=== PATIENT | male | born 1945 | race Caucasian/White ===

== ENCOUNTER 2017-04-28 10:55 | Inpatient (IN) | payer OTHER, MEDICARE ==
[2017-04-28] MEDS ORDERED: ACETAMINOPHEN TAB 500 MG TAB PO STA (11:18)
[2017-04-28] MEDS ORDERED: LEVOFLOXACIN 750MG-D5W PMX 750 MG in DEXTROSE/WATER 1 150ML.BAG IVPB STA (11:18)
[2017-04-28] MEDS ORDERED: IPRATROPIUM-ALBUTEROL 3 ML NEB INHALATION STA (11:19)
--- NOTE | 2017-04-28 11:21 | ED ---
General Adult HPI - General Chief complaint: Shortness of Breath Stated complaint: AC Time Seen by Provider: 04/28/17 11:00 Source: patient, RN notes reviewed Mode of arrival: wheelchair Limitations: no limitations - History of Present Illness Initial comments: This is a 71-year-old male with past medical history significant for coronary artery disease diabetes hypertension COPD and congestive heart failure. Patient comes in today because he states her last couple days he's had difficulty breathing and is getting progressively worse per patient states she' s also had a significant cough with positive sputum production. Patient states he has not noted a fever or the chills. Patient denies any chest pain or palpitations. Patient denies abdominal pain patient denies nausea vomiting diarrhea. Patient denies any dysuria hematuria urinary frequency. Patient denies any lightheadedness dizziness or near syncopal episode. Patient denies headache patient denies numbness weakness. Patient has noted that he has pedal edema which she states is chronic. - Related Data Home Medications Medication Instructions Recorded Confirmed Digoxin [Lanoxin] 125 mcg PO DAILY 11/23/14 04/28/17 Ferrous Sulfate [Feosol] 325 mg PO DAILY 11/23/14 04/28/17 Metoprolol Succinate [Toprol XL] 50 mg PO DAILY 11/23/14 04/28/17 Simvastatin [Zocor] 40 mg PO HS 11/23/14 04/28/17 Albuterol Nebulized [Ventolin 2.5 mg INHALATION RT-Q6H PRN 03/27/16 04/28/17 Nebulized] Tiotropium 18 Mcg/Puff [Spiriva] 18 mcg INHALATION RT-DAILY 03/27/16 04/28/17 Fenofibrate (Unknown Dose) 1 tab PO DAILY 04/28/17 04/28/17 Furosemide [Lasix] 60 mg PO TID 04/28/17 04/28/17 Insulin Glargine [Lantus] 80 unit SQ HS 04/28/17 04/28/17 Sodium Chloride 0.65% Nasal [Deep 2 spray NASAL Q1H PRN 04/28/17 04/28/17 Sea (Saline)] Previous Rx's Medication Instructions Recorded Budesonide-Formot 160-4.5 Mcg 2 puff INHALATION RT-BID #1 puff 12/11/14 [Symbicort 160-4.5 Mcg Inhaler] Allergies Allergy/AdvReac Type Severity Reaction Status Date / Time lincomycin HCl Allergy Rash/Hives Verified 04/28/17 11:00 [From Lincocin] propoxyphene HCl Allergy Rash/Hives Verified 04/28/17 11:00 [From Darvon] aspirin AdvReac Unknown Verified 04/28/17 11:00 Review of Systems ROS Statement: Those systems with pertinent positive or pertinent negative responses have been documented in the HPI. ROS Other: All systems not noted in ROS Statement are negative. Past Medical History Past Medical History: Atrial Fibrillation, COPD, CVA/TIA, Diabetes Mellitus, GI Bleed, Hyperlipidemia, Hypertension, Pneumonia Additional Past Medical History / Comment(s): .bronchitis,CHRONIC NOSE BLEEDS WITH ANEMIA- NO ANTICOAGULATION, gout, oxygen dependant History of Any Multi-Drug Resistant Organisms: MRSA Date of last positivie culture/infection: 2010 MDRO Source:: r elbow Past Surgical History: Cholecystectomy, Tonsillectomy Additional Past Surgical History / Comment(s): Lipoma removal from the right side of the abdomen. Past Anesthesia/Blood Transfusion Reactions: No Reported Reaction Additional Past Anesthesia/Blood Transfusion Reaction / Comment(s): blood transfusion-no reaction Past Psychological History: No Psychological Hx Reported Smoking Status: Former smoker Past Alcohol Use History: None Reported Additional Past Alcohol Use History / Comment(s): started smoking at age 21, smoked 2 ppd,quit at age 60 Past Drug Use History: None Reported - Past Family History Mother History Unknown: Yes Family Medical History: No Reported History (Mother at age of 82 from old age) Brother(s) Family Medical History: No Reported History (Patient has one brother) Sister(s) Family Medical History: Cancer (Patient had 3 sisters one from 1 cancer and the other one from [place]), Myocardial Infarction ([place]) Daughter(s) Family Medical History: No Reported History (Patient has 2 daughters no major medical problems) Son(s) Family Medical History: No Reported History (Patient has 2 sons no major medical problems) Father Family Medical History: No Reported History (Father at age of 75 at the [facility] care facility.) General Exam - General Exam Comments Initial Comments: GENERAL: Patient is well-developed and well-nourished. Patient is nontoxic and well- hydrated and is in mild distress. ENT: Neck is soft and supple. No significant lymphadenopathy is noted. Oropharynx is clear. Moist mucous membranes. Neck has full range of motion without eliciting any pain. EYES: The sclera were anicteric and conjunctiva were pink and moist. Extraocular movements were intact and pupils were equal round and reactive to light. Eyelids were unremarkable. PULMONARY: Diminished breath sounds throughout CARDIOVASCULAR: There is a regular rate and rhythm without any murmurs gallops or rubs. ABDOMEN: Soft and nontender with normal bowel sounds. No palpable organomegaly was noted. There is no palpable pulsatile mass. SKIN: Skin is clear with no lesions or rashes and otherwise unremarkable. NEUROLOGIC: Patient is alert and oriented x3. Cranial nerves II through XII are grossly intact. Motor and sensory are also intact. Normal speech, volume and content. Symmetrical smile. MUSCULOSKELETAL: Normal extremities with adequate strength and full range of motion. No lower extremity swelling or edema. No calf tenderness. LYMPHATICS: No significant lymphadenopathy is noted PSYCHIATRIC: Normal psychiatric evaluation. Limitations: no limitations Course Vital Signs 04/28/17 04/28/17 04/28/17 10:56 11:18 11:38 Temperature 98.3 F 99.9 F H Pulse Rate 94 103 H 96 Respiratory 20 14 Rate Blood Pressure 143/67 176/61 O2 Sat by Pulse 97 98 Oximetry 04/28/17 04/28/17 04/28/17 11:39 11:49 12:30 Temperature Pulse Rate 100 95 Respiratory 24 20 Rate Blood Pressure 118/65 O2 Sat by Pulse 96 Oximetry 04/28/17 13:30 Temperature Pulse Rate 94 Respiratory 18 Rate Blood Pressure 107/55 O2 Sat by Pulse 97 Oximetry Medical Decision Making - Medical Decision Making EKG shows a normal sinus rhythm at 94 bpm LA interval is 184 QRS is 78 QT interval 334 QTC is 417. Patient's EKG shows no ST segment elevation or depression or T-wave abdomen is noted Chest x-ray shows congestive heart failure. I gave the patient Lasix. Because the patient's low-grade fever and his cough I decided to put the patient on Levaquin. I spoke with to her he was in agreement with this admitted the patient I consult to cardiology. I continue the Lasix on the floor in the antibiotic as well. - Lab Data Result diagrams: 04/28/17 11:25 04/28/17 11:25 Lab Results 04/28/17 04/28/17 04/28/17 Range/Units 11:25 11:25 11:25 WBC 4.7 (3.8-10.6) k/uL RBC 3.82 L (4.30-5.90) m/uL Hgb 11.0 L (13.0-17.5) gm/dL Hct 32.4 L (39.0-53.0) % MCV 84.8 (80.0-100.0) fL MCH 28.8 (25.0-35.0) pg MCHC 33.9 (31.0-37.0) g/dL RDW 16.4 H (11.5-15.5) % Plt Count 126 L (150-450) k/uL Neutrophils % 79 % Lymphocytes % 11 % Monocytes % 7 % Eosinophils % 2 % Basophils % 1 % Neutrophils # 3.7 (1.3-7.7) k/uL Lymphocytes # 0.5 L (1.0-4.8) k/uL Monocytes # 0.3 (0-1.0) k/uL Eosinophils # 0.1 (0-0.7) k/uL Basophils # 0.0 (0-0.2) k/uL Poikilocytosis Slight Anisocytosis Slight PT (9.0-12.0) sec INR (<1.1) APTT (22.0-30.0) sec Sodium 138 (137-145) mmol/L Potassium 5.2 H (3.5-5.1) mmol/L Chloride 98 (98-107) mmol/L Carbon Dioxide 34 H (22-30) mmol/L Anion Gap 6 mmol/L BUN 30 H (9-20) mg/dL Creatinine 0.93 (0.66-1.25) mg/dL Est GFR (MDRD) Af Amer >60 (>60 ml/min/1.73 sqM) Est GFR (MDRD) Non-Af >60 (>60 ml/min/1.73 sqM) Glucose 217 H (74-99) mg/dL Plasma Lactic Acid Jesse (0.7-2.0) mmol/L Calcium 9.2 (8.4-10.2) mg/dL Total Bilirubin 1.4 H (0.2-1.3) mg/dL AST 24 (17-59) U/L ALT 33 (21-72) U/L Alkaline Phosphatase 86 (38-126) U/L Total Creatine Kinase 110 (55-170) U/L CK-MB (CK-2) 4.2 H* (0.0-2.4) ng/mL CK-MB (CK-2) Rel Index 3.8 Troponin I 0.087 H* (0.000-0.034) ng/mL NT-Pro-B Natriuret Pep pg/mL Total Protein 7.0 (6.3-8.2) g/dL Albumin 3.9 (3.5-5.0) g/dL Urine Color Urine Appearance (Clear) Urine pH (5.0-8.0) Ur Specific [place] (1.001-1.035) Urine Protein (Negative) Urine Glucose (UA) (Negative) Urine Ketones (Negative) Urine Blood (Negative) Urine Nitrite (Negative) Urine Bilirubin (Negative) Urine Urobilinogen (<2.0) mg/dL Ur Leukocyte Esterase (Negative) Influenza Type A RNA (Not Detectd) Influenza Type B (PCR) (Not Detectd) 04/28/17 04/28/17 04/28/17 Range/Units 11:25 11:25 11:25 WBC (3.8-10.6) k/uL RBC (4.30-5.90) m/uL Hgb (13.0-17.5) gm/dL Hct (39.0-53.0) % MCV (80.0-100.0) fL MCH (25.0-35.0) pg MCHC (31.0-37.0) g/dL RDW (11.5-15.5) % Plt Count (150-450) k/uL Neutrophils % % Lymphocytes % % Monocytes % % Eosinophils % % Basophils % % Neutrophils # (1.3-7.7) k/uL Lymphocytes # (1.0-4.8) k/uL Monocytes # (0-1.0) k/uL Eosinophils # (0-0.7) k/uL Basophils # (0-0.2) k/uL Poikilocytosis Anisocytosis PT 9.8 (9.0-12.0) sec INR 1.0 (<1.1) APTT 23.2 (22.0-30.0) sec Sodium (137-145) mmol/L Potassium (3.5-5.1) mmol/L Chloride (98-107) mmol/L Carbon Dioxide (22-30) mmol/L Anion Gap mmol/L BUN (9-20) mg/dL Creatinine (0.66-1.25) mg/dL Est GFR (MDRD) Af Amer (>60 ml/min/1.73 sqM) Est GFR (MDRD) Non-Af (>60 ml/min/1.73 sqM) Glucose (74-99) mg/dL Plasma Lactic Acid Jesse 1.0 (0.7-2.0) mmol/L Calcium (8.4-10.2) mg/dL Total Bilirubin (0.2-1.3) mg/dL AST (17-59) U/L ALT (21-72) U/L Alkaline Phosphatase (38-126) U/L Total Creatine Kinase (55-170) U/L CK-MB (CK-2) (0.0-2.4) ng/mL CK-MB (CK-2) Rel Index Troponin I (0.000-0.034) ng/mL NT-Pro-B Natriuret Pep 1630 pg/mL Total Protein (6.3-8.2) g/dL Albumin (3.5-5.0) g/dL Urine Color Urine Appearance (Clear) Urine pH (5.0-8.0) Ur Specific [place] (1.001-1.035) Urine Protein (Negative) Urine Glucose (UA) (Negative) Urine Ketones (Negative) Urine Blood (Negative) Urine Nitrite (Negative) Urine Bilirubin (Negative) Urine Urobilinogen (<2.0) mg/dL Ur Leukocyte Esterase (Negative) Influenza Type A RNA (Not Detectd) Influenza Type B (PCR) (Not Detectd) 04/28/17 04/28/17 Range/Units 11:25 12:25 WBC (3.8-10.6) k/uL RBC (4.30-5.90) m/uL Hgb (13.0-17.5) gm/dL Hct (39.0-53.0) % MCV (80.0-100.0) fL MCH (25.0-35.0) pg MCHC (31.0-37.0) g/dL RDW (11.5-15.5) % Plt Count (150-450) k/uL Neutrophils % % Lymphocytes % % Monocytes % % Eosinophils % % Basophils % % Neutrophils # (1.3-7.7) k/uL Lymphocytes # (1.0-4.8) k/uL Monocytes # (0-1.0) k/uL Eosinophils # (0-0.7) k/uL Basophils # (0-0.2) k/uL Poikilocytosis Anisocytosis PT (9.0-12.0) sec INR (<1.1) APTT (22.0-30.0) sec Sodium (137-145) mmol/L Potassium (3.5-5.1) mmol/L Chloride (98-107) mmol/L Carbon Dioxide (22-30) mmol/L Anion Gap mmol/L BUN (9-20) mg/dL Creatinine (0.66-1.25) mg/dL Est GFR (MDRD) Af Amer (>60 ml/min/1.73 sqM) Est GFR (MDRD) Non-Af (>60 ml/min/1.73 sqM) Glucose (74-99) mg/dL Plasma Lactic Acid Jesse (0.7-2.0) mmol/L Calcium (8.4-10.2) mg/dL Total Bilirubin (0.2-1.3) mg/dL AST (17-59) U/L ALT (21-72) U/L Alkaline Phosphatase (38-126) U/L Total Creatine Kinase (55-170) U/L CK-MB (CK-2) (0.0-2.4) ng/mL CK-MB (CK-2) Rel Index Troponin I (0.000-0.034) ng/mL NT-Pro-B Natriuret Pep pg/mL Total Protein (6.3-8.2) g/dL Albumin (3.5-5.0) g/dL Urine Color Yellow Urine Appearance Clear (Clear) Urine pH 6.0 (5.0-8.0) Ur Specific [place] 1.010 (1.001-1.035) Urine Protein Trace H (Negative) Urine Glucose (UA) Negative (Negative) Urine Ketones Negative (Negative) Urine Blood Negative (Negative) Urine Nitrite Negative (Negative) Urine Bilirubin Negative (Negative) Urine Urobilinogen <2.0 (<2.0) mg/dL Ur Leukocyte Esterase Negative (Negative) Influenza Type A RNA Not Detected (Not Detectd) Influenza Type B (PCR) Not Detected (Not Detectd) Critical Care Time Critical Care Time: Yes Total Critical Care Time: 35 Disposition Clinical Impression: Congestive heart failure, Bronchitis Disposition: ADMITTED IP TO THIS HOSP Referrals: Nuno Khan MD [Primary Care Provider] - 1-2 days Time of Disposition: 13:49
[2017-04-28 11:40] LABS: Anisocytosis Slight; Basophils % (A) 1 %; CH 28.8; CHCM 34.1; Eosinophils # (A) 0.1 k/uL (0-0.7); Eosinophils % (A) 2 %; HCT 32.4 % (39.0-53.0); HDW 3.76; Luc # (Auto) 0.07; Luc % (Auto) 2; Lymphocytes # (A) 0.5 k/uL (1.0-4.8); Lymphocytes % (A) 11 %; MCH 28.8 pg (25.0-35.0); MCHC 33.9 g/dL (31.0-37.0); MCV 84.8 fL (80.0-100.0); Mean Platelet Volume 8.6; Monocytes # (A) 0.3 k/uL (0-1.0); Monocytes % (A) 7 %; Neutrophils # (A) 3.7 k/uL (1.3-7.7); Neutrophils % (A) 79 %; Poikilocytosis Slight; RBC 3.82 m/uL (4.30-5.90); RDW 16.4 % (11.5-15.5); WBC 4.7 k/uL (3.8-10.6); WBC (Perox) 4.84
[2017-04-28 11:50] LABS: ALT 33 U/L (21-72); AST 24 U/L (17-59); Alkaline Phosphatase 86 U/L (38-126); Anion Gap 6 mmol/L; Blood Urea Nitrogen 30 mg/dL (9-20); Calcium 9.2 mg/dL (8.4-10.2); Carbon Dioxide 34 mmol/L (22-30); Chloride 98 mmol/L (98-107); Glucose 217 mg/dL (74-99); Non-African American GFR(MDRD) >60 (>60 ml/min/1.73 sqM); Potassium 5.2 mmol/L (3.5-5.1); Sodium 138 mmol/L (137-145); Total Bilirubin 1.4 mg/dL (0.2-1.3)
[2017-04-28 11:57] LABS: Partial Thromboplastin Time 23.2 sec (22.0-30.0); Prothrombin Time 9.8 sec (9.0-12.0)
--- NOTE | 2017-04-28 12:09 | XR ---
EXAMINATION TYPE: XR chest 2V DATE OF EXAM: 04/28/2017 COMPARISON: Chest x-ray January 24, 2017. CTA chest March 27, 2016. HISTORY: Difficulty in breathing, productive cough, and congestion. TECHNIQUE: Frontal and lateral views of the chest are obtained. FINDINGS: Mild to moderate underlying emphysematous change is present. There is cardiomegaly with josé tral vascular congestion and small right pleural effusion with blunting of right posterior costophren ic angle. No suspicious focal airspace opacity or pneumothorax is seen bilaterally. There is atherosc lerotic change in aortic knob. Osseous structures are somewhat demineralized. There is mild multileve l height loss and spurring. IMPRESSION: Chronic emphysematous change and cardiomegaly with central vascular congestion and small right pleural effusion, consider CHF exacerbation.
[2017-04-28 12:22] LABS: Creatine Kinase MB 4.2 ng/mL (0.0-2.4); Troponin I 0.087 ng/mL (0.000-0.034)
[2017-04-28 13:26] LABS: Appearance,Urine Clear (Clear); Bilirubin,Urine Negative (Negative); Glucose,Urine (UA) Negative (Negative); Ketones,Urine Negative (Negative); Leukocyte Esterase,Urine Negative (Negative); Nitrite,Urine Negative (Negative); Protein,Urine Trace (Negative); UA Billing (MACRO vs. MICRO) CHEM; Urobilinogen,Urine <2.0 mg/dL (<2.0)
[2017-04-28] MEDS ORDERED: FUROSEMIDE 10 MG/ML 2 ML VIAL IV STA (13:32)
[2017-04-28] MEDS ORDERED: NITROGLYCERIN OINT 1 INCH/GM PACKET TOPICAL STA (13:32)
[2017-04-28] MEDS ORDERED: ASPIRIN 81 MG CHEW PO STA (13:33)
[2017-04-28] MEDS ORDERED: LEVOFLOXACIN 750 MG TAB PO STA (13:47)
[2017-04-28] MEDS ORDERED: FUROSEMIDE 10 MG/ML 4 ML VIAL IV SCH (14:00)
[2017-04-28] MEDS ORDERED: SODIUM CHLORIDE 0.65% NASAL SPRAY 44 ML BTL NASAL PRN (15:32)
--- NOTE | 2017-04-28 15:32 | P.HPIM ---
History of Present Illness H&P Date: 04/28/17 Chief Complaint: Shortness of breath his is a 71-year-old male one of Dr. Bill Reina with a previous medical history significant for hypertension and hypertensive cardiovascular disease, hyperlipidemia, history of CVA/TIA, chronic atrial fibrillation, chronic diastolic heart failure, gout, chronic obstructive pulmonary disease , who sees Dr. Almeida the regular basis every [address] Cerda on a regular basis as well, the patient was brought into the emergency department at [facility] with 2 day history of increased shortness breath associated with increased coughing of phlegm production, patient stated that he has been laying in bed for the past 2 days not able to do much, patient was seen in the ER had a chest x-ray that showed congestive heart failure and patient did receive Lasix IV and he was admitted to the hospital for evaluation and cardiology consultation as well as pulmonary consultation was obtained. Review of Systems Constitutional: Denies anorexia, Denies chronic headaches, Denies lethargy, Denies malaise, Denies weakness, Denies weight gain Eyes: denies blurred vision, denies bulging eye, denies decreased vision Ears: deny: decreased hearing Ears, nose, mouth and throat: Denies dysphagia, Denies nose pain, Denies swelling in throat, Denies sore throat Cardiovascular: Reports decreased exercise tolerance, Reports dyspnea on exertion, Reports high blood pressure, Reports irregular heart beat, Reports shortness of breath, Denies chest pain, Denies phlebitis, Denies rapid heart beat, Denies syncope Respiratory: Reports cough, Reports cough with sputum, Reports dyspnea, Denies congestion, Denies home oxygen, Denies sleep apnea, Denies snoring, Denies wheezing Gastrointestinal: Denies abdominal pain, Denies belching, Denies BRBPR, Denies change in bowel habits, Denies excessive gas, Denies melena, Denies nausea, Denies vomiting Genitourinary: Reports nocturia, Denies discharge, Denies dysuria, Denies polyuria Musculoskeletal: Denies myalgias Musculoskeletal: bilateral: foot swelling, absent: ankle pain, ankle stiffness, ankle swelling, elbow pain, elbow stiffness, elbow swelling, foot pain, foot stiffness, hand pain, hand stiffness, hand swelling, hip pain, hip stiffness, hip swelling, knee pain, knee stiffness, knee swelling, shoulder pain, shoulder stiffness, shoulder swelling, wrist pain, wrist stiffness, wrist swelling Integumentary: Denies pruritus, Denies rash Neurological: Denies numbness, Denies weakness Psychiatric: Denies anxiety, Denies depression Endocrine: Denies fatigue, Denies weight change Past Medical History Past Medical History: Atrial Fibrillation, COPD, CVA/TIA, Diabetes Mellitus, GI Bleed, Hyperlipidemia, Hypertension, Osteoarthritis (OA), Pneumonia Additional Past Medical History / Comment(s): .bronchitis,CHRONIC NOSE BLEEDS WITH ANEMIA- NO ANTICOAGULATION, gout, oxygen dependant History of Any Multi-Drug Resistant Organisms: MRSA Date of last positivie culture/infection: 2010 MDRO Source:: r elbow Past Surgical History: Cholecystectomy, Tonsillectomy Additional Past Surgical History / Comment(s): Lipoma removal from the right side of the abdomen. Past Anesthesia/Blood Transfusion Reactions: No Reported Reaction Additional Past Anesthesia/Blood Transfusion Reaction / Comment(s): blood transfusion-no reaction Past Psychological History: No Psychological Hx Reported Smoking Status: Former smoker Past Alcohol Use History: None Reported Additional Past Alcohol Use History / Comment(s): started smoking at age 21, smoked 2 ppd,quit at age 60 Past Drug Use History: None Reported - Past Family History Mother History Unknown: Yes Family Medical History: No Reported History (Mother at age of 82 from old age) Brother(s) Family Medical History: No Reported History (Patient has one brother) Sister(s) Family Medical History: Cancer (Patient had 3 sisters one from 1 cancer and the other one from [place]), Myocardial Infarction ([place]) Daughter(s) Family Medical History: No Reported History (Patient has 2 daughters no major medical problems) Son(s) Family Medical History: No Reported History (Patient has 2 sons no major medical problems) Father Family Medical History: No Reported History (Father at age of 75 at the extended care facility.) Medications and Allergies Home Medications Medication Instructions Recorded Confirmed Type Digoxin [Lanoxin] 125 mcg PO DAILY 11/23/14 04/28/17 History Ferrous Sulfate [Feosol] 325 mg PO DAILY 11/23/14 04/28/17 History Metoprolol Succinate [Toprol XL] 50 mg PO DAILY 11/23/14 04/28/17 History Simvastatin [Zocor] 40 mg PO HS 11/23/14 04/28/17 History Albuterol Nebulized [Ventolin 2.5 mg INHALATION RT-Q6H PRN 03/27/16 04/28/17 History Nebulized] Tiotropium 18 Mcg/Puff [Spiriva] 18 mcg INHALATION RT-DAILY 03/27/16 04/28/17 History Fenofibrate (Unknown Dose) 1 tab PO DAILY 04/28/17 04/28/17 History Furosemide [Lasix] 60 mg PO TID 04/28/17 04/28/17 History Insulin Glargine [Lantus] 80 unit SQ HS 04/28/17 04/28/17 History Sodium Chloride 0.65% Nasal [Deep 2 spray NASAL Q1H PRN 04/28/17 04/28/17 History Sea (Saline)] Allergies Allergy/AdvReac Type Severity Reaction Status Date / Time lincomycin HCl Allergy Rash/Hives Verified 04/28/17 11:00 [From Lincocin] propoxyphene HCl Allergy Rash/Hives Verified 04/28/17 11:00 [From Darvon] aspirin AdvReac Unknown Verified 04/28/17 11:00 Physical Exam Vitals: Vital Signs Temp Pulse Resp BP Pulse Ox 04/28/17 15:19 98.5 F 96 18 108/66 97 04/28/17 14:30 95 18 116/56 97 04/28/17 13:30 94 18 107/55 97 04/28/17 12:30 95 20 118/65 96 04/28/17 11:49 100 04/28/17 11:39 24 04/28/17 11:38 96 04/28/17 11:18 99.9 F H 103 H 14 176/61 98 04/28/17 10:56 98.3 F 94 20 143/67 97 Intake and Output 04/28/17 04/28/17 04/28/17 06:59 14:59 22:59 Other: Weight 108.862 kg Patient Weight 04/29/17 06:59 Weight 108.862 kg - Constitutional General appearance: average body habitus, mild distress - EENT Eyes: anicteric sclerae, EOMI, PERRLA, no ptosis, no scleral icterus, normal appearance ENT: hearing grossly normal, NA/AT, normal oropharynx, no thrush Ears: bilateral: normal - Neck Neck: no lymphadenopathy, normal ROM, no rigidity, no stridor, no thyromegaly Carotids: bilateral: upstroke normal Thyroid: bilateral: normal size - Respiratory Respiratory: bilateral: diminished, negative: dullness, rales, rhonchi, wheezing , prolonged expiration - Cardiovascular Rhythm: irregularly irregular Heart sounds: normal: S1, S2 Abnormal Heart Sounds: systolic murmur - Gastrointestinal General gastrointestinal: normal bowel sounds, soft, no splenomegaly, no tenderness, no umbilical hernia, no ventral hernia - Integumentary Integumentary: normal, normal turgor - Neurologic Neurologic: CNII-XII intact - Musculoskeletal Musculoskeletal: generalized weakness, strength equal bilaterally - Psychiatric Psychiatric: A&O x's 3, appropriate affect, intact judgment & insight Results CBC & Chem 7: 04/28/17 11:25 04/28/17 11:25 Labs: Abnormal Lab Results - Last 24 Hours (Table) 04/28/17 04/28/17 04/28/17 Range/Units 11:25 11:25 11:25 RBC 3.82 L (4.30-5.90) m/uL Hgb 11.0 L (13.0-17.5) gm/dL Hct 32.4 L (39.0-53.0) % RDW 16.4 H (11.5-15.5) % Plt Count 126 L (150-450) k/uL Lymphocytes # 0.5 L (1.0-4.8) k/uL Potassium 5.2 H (3.5-5.1) mmol/L Carbon Dioxide 34 H (22-30) mmol/L BUN 30 H (9-20) mg/dL Glucose 217 H (74-99) mg/dL Total Bilirubin 1.4 H (0.2-1.3) mg/dL CK-MB (CK-2) 4.2 H* (0.0-2.4) ng/mL Troponin I 0.087 H* (0.000-0.034) ng/mL Urine Protein (Negative) 04/28/17 Range/Units 12:25 RBC (4.30-5.90) m/uL Hgb (13.0-17.5) gm/dL Hct (39.0-53.0) % RDW (11.5-15.5) % Plt Count (150-450) k/uL Lymphocytes # (1.0-4.8) k/uL Potassium (3.5-5.1) mmol/L Carbon Dioxide (22-30) mmol/L BUN (9-20) mg/dL Glucose (74-99) mg/dL Total Bilirubin (0.2-1.3) mg/dL CK-MB (CK-2) (0.0-2.4) ng/mL Troponin I (0.000-0.034) ng/mL Urine Protein Trace H (Negative) Thrombosis Risk Factor Assmnt - DVT/VTE Prophylaxis DVT/VTE Prophylaxis: Pharmacologic Prophylaxis ordered, Mechanical Prophylaxis ordered Assessment and Plan Plan: Assessment and plan: 1. Acute diastolic heart failure. Continue patient on Lasix 60 mg IV push every 12 hours, metoprolol 50 mg orally once every day, digoxin 125 g orally once every day, her input and output and daily weight, cardiology consultation. 2. Hypertension and hypertensive cardiovascular disease. Continue metoprolol 50 mg orally once every day. 3. Diabetes mellitus type 2. Decrease Lantus 80 units at bedtime , continue with a sliding scale insulin as well, BJM will be checked before each meal and at bedtime. 4. Hyperlipidemia. Continue simvastatin 40 mg orally at bedtime. 5. COPD with mild bronchitis. Continue albuterol nebulization 4 times every day Spiriva 18 mcg 1 capsule inhalation once every day and Symbicort 160/4.5 g 2 puff inhalation twice every day. We will add Levaquin 500 mg IV piggyback every 24 hours. Pulmonary consultation from Dr. Cerda., Check d-dimer level , if elevated patient will need to go for a CTA of the chest. 6. History of gout .continue allopurinol 100 mg orally once every day. 7. History of CVA and TIA .continue patient on aspirin 81 mg once every day. 8. DVT prophylaxis. Continue bilateral knee-high MILLI hose. 9. GI prophylaxis. Protonix 40 mg orally once every day. 10. Patient is full code. 11. Admitted as an inpatient, estimated length of stay 2 midnights.
--- NOTE | 2017-04-28 16:54 | CE ---
DATE OF SERVICE: 71-year-old male patient with a history of atrial fibrillation. He has undergone atrial fibrillation ablation in the past. He came back with recurrence and he was brought in for ( ) and he is asymptomatic with tiredness, fatigue and shortness of breath. This is sustained. He was brought to the EP lab in a fasting state. Written informed consent was obtained prior to the procedure. The dual-chamber ICD was interrogated prior to the procedure and programmed. Note is dictated separately previously. The right and left groins were prepped and draped as per protocol and 1% lidocaine was used for local anesthesia. Two venous sheaths in the right femoral vein, 2 venous sheaths in the left femoral vein and right femoral arterial line were placed. Hemodynamic monitoring was performed and sampling was performed through the procedure, ACT was maintained above 300 while on heparin. At the end of the procedure, the heparin was reversed with Protamine. Diagnostic catheter was placed in the right in the high right atrial catheter, His bundle area and right ventricle and the coronary sinus. The patient was in atrial fibrillation (organized) with a cycle length of about 178 ms). The coronary sinus catheter was placed. The activation pattern was somewhat lateral to medial (likely). The QRS width is 105 ms, AH interval was 48 ms, the AH interval in sinus rhythm was 112 ms, HV interval was 48 ms. Intracardiac echocardiography was performed. The left atrial map of the pulmonary venous map was made anatomically and later ( ) anatomic information superimposed on this. First 3D mapping of the right atrium was performed. There was broad area activation along the anterior lateral right atrial wall. The coronary sinus was mapped and the coronary sinus activation was made. Left and right transseptal catheterization was performed. The LA pressure was elevated to ( ) mmHg using intracardiac echocardiography ( ) was punctured and the sheath was placed. Via this, 3D activation mapping was performed. There were multiple areas of early activation. One was along the 6:00 portion of the right inferior pulmonary vein both anteriorly and posteriorly and the next was outside right along the superior pulmonary veins on the end anteriorly. There is an area of activation in the middle of the roof superiorly and a small area along the roof of the left superior pulmonary vein. Mapping was performed along the roof and when the roof line was made, in the middle of the roof line, the tachycardia terminated (somewhat anterior roof line). The patient remained in sinus rhythm thereafter. ( ) cycle length tachycardia was induced later when moving along the lateral aspect of the roof line, and roof line was completed thereafter. There was no other arrhythmias induced. ( ) mapping of the pulmonary veins was performed and radiofrequency ablation was applied on the antrum of the pulmonary veins in the sites mentioned above, including the anterior aspect of the right superior, the inferior pole of the right inferior and the roof of left superior pulmonary veins. The pulmonary veins were rendered completely quiescent. Following that, Isuprel was infused and no other arrhythmias were induced. Atrial pacing was performed from the high right atrium, coronary sinus, the right ventricle. Burst stimulation was performed. No other arrhythmias were induced. All catheters were removed. At the end of the procedure heparin was reversed and the patient was extubated. Following that, dual-chamber ICD was interrogated. Atrial packing threshold 0.75 v at 0.5 ms, P waves and during sinus rhythm was 2.5 mV, pacing impedance 430 ohms, the RV pacing threshold 0.5 v at 0.5 ms, R waves were 12 mV, and pacing impedance of 130 ohms, high-voltage impedance 64 ohms. The device was then reprogrammed ( ) parameters. Patient tolerated the procedure well without any acute complications. RESULT: Successful ablation for atrial fibrillation, organized with termination of the tachycardia along the roof line anteriorly, antral isolation of the pulmonary veins. Patient tolerated the procedure well without any acute complications.
[2017-04-28] MEDS: NITROGLYCERIN OINT 1 INCH/GM PACKET TOPICAL SCH ×2 (18:40→21:39)
[2017-04-28] MEDS: SYMBICORT 160-4.5 MCG INHALER INHALATION SCH (19:41)
[2017-04-28] MEDS: ALBUTEROL NEBULIZED 2.5 MG/3 ML INHALATION PRN (19:53)
[2017-04-28 21:32] LABS: Glucose,Whole Blood 245 mg/dL (75-99)
[2017-04-28] MEDS: FUROSEMIDE 10 MG/ML 10 ML VIAL IV SCH (21:46)
[2017-04-28] MEDS: ATORVASTATIN 20 MG TAB PO SCH (21:46)
[2017-04-28] MEDS: INSULIN GLARGINE 100 UNIT/ML 10 ML VIAL SQ SCH (21:47)
[2017-04-29] MEDS ORDERED: FUROSEMIDE 10 MG/ML 4 ML VIAL IV SCH
[2017-04-29 06:14] LABS: Glucose,Whole Blood 161 mg/dL (75-99)
[2017-04-29 07:06] LABS: Anisocytosis Slight; Basophils % (A) 0 %; CH 28.7; CHCM 33.6; Eosinophils # (A) 0.1 k/uL (0-0.7); Eosinophils % (A) 2 %; HCT 31.8 % (39.0-53.0); HGB 10.5 gm/dL (13.0-17.5); Luc # (Auto) 0.07; Luc % (Auto) 2; Lymphocytes # (A) 0.6 k/uL (1.0-4.8); Lymphocytes % (A) 14 %; MCH 28.4 pg (25.0-35.0); Mean Platelet Volume 7.5; Monocytes # (A) 0.3 k/uL (0-1.0); Monocytes % (A) 6 %; Neutrophils # (A) 3.2 k/uL (1.3-7.7); Neutrophils % (A) 75 %; Poikilocytosis Slight; RDW 16.1 % (11.5-15.5); WBC 4.3 k/uL (3.8-10.6); WBC (Perox) 4.67
[2017-04-29 07:30] LABS: ALT 30 U/L (21-72); AST 23 U/L (17-59); Alkaline Phosphatase 89 U/L (38-126); Anion Gap 9 mmol/L; Blood Urea Nitrogen 29 mg/dL (9-20); Calcium 9.3 mg/dL (8.4-10.2); Carbon Dioxide 34 mmol/L (22-30); Chloride 97 mmol/L (98-107); Digoxin <0.4 ng/mL; Glucose 143 mg/dL (74-99); Magnesium 1.9 mg/dL (1.6-2.3); Non-African American GFR(MDRD) >60 (>60 ml/min/1.73 sqM); Potassium 4.4 mmol/L (3.5-5.1); Sodium 140 mmol/L (137-145); Total Bilirubin 1.6 mg/dL (0.2-1.3); Total Protein 6.8 g/dL (6.3-8.2)
[2017-04-29] MEDS: TIOTROPIUM 18 MCG/PUFF INHALER INHALATION SCH (07:32)
[2017-04-29] MEDS: SYMBICORT 160-4.5 MCG INHALER INHALATION SCH ×2 (07:33→20:15)
[2017-04-29] MEDS: FENOFIBRATE 160 MG TAB PO SCH (09:04)
[2017-04-29] MEDS: ENOXAPARIN 40 MG/0.4 ML SYRINGE SQ SCH (09:04)
[2017-04-29] MEDS: NITROGLYCERIN OINT 1 INCH/GM PACKET TOPICAL SCH ×4 (09:04→21:56)
[2017-04-29] MEDS: DIGOXIN 125 MCG TAB PO SCH (09:05)
[2017-04-29] MEDS: FERROUS SULFATE 325 MG TAB PO SCH (09:05)
[2017-04-29] MEDS: METOPROLOL SUCCINATE (ER) 50 MG TAB.ER.24H PO SCH (09:05)
[2017-04-29] MEDS: FUROSEMIDE 10 MG/ML 10 ML VIAL IV SCH (09:05)
--- NOTE | 2017-04-29 11:21 | P.PN ---
Subjective his is a 71-year-old male one of Dr. Bill Reina with a previous medical history significant for hypertension and hypertensive cardiovascular disease, hyperlipidemia, history of CVA/TIA, chronic atrial fibrillation, chronic diastolic heart failure, gout, chronic obstructive pulmonary disease , who sees Dr. Almeida the regular basis every [address] Cerda on a regular basis as well, the patient was brought into the emergency department at [facility] today with 2 day history of increased shortness breath associated with increased coughing of phlegm production, patient stated that he has been laying in bed for the past 2 days not able to do much, patient was seen in the ER had a chest x-ray that showed congestive heart failure and patient did receive Lasix IV and he was admitted to the hospital for evaluation and cardiology consultation as well as pulmonary consultation was obtained. 04/29: Patient is doing much better today he denies any chest pain, shortness of breath, he has no swelling in both lower extremities, we will decrease his Lasix to 40 mg IV push every 12 hours for the next 24 hours then he would be discharged home tomorrow morning. Objective - Vital Signs Vital signs: Vital Signs Temp 98.3 F 04/29/17 08:00 Pulse 95 04/29/17 08:00 Resp 12 04/29/17 08:00 BP 100/53 04/29/17 08:00 Pulse Ox 94 L 04/29/17 04:00 Intake & Output 04/28/17 04/29/17 04/29/17 18:59 06:59 18:59 Output Total 250 1100 Balance -250 -1100 Weight 108.862 kg 109.8 kg Output: Urine 250 1100 Other: # Voids 1 - Exam Constitutional General appearance: average body habitus, mild distress - EENT Eyes: anicteric sclerae, EOMI, PERRLA, no ptosis, no scleral icterus, normal appearance ENT: hearing grossly normal, NA/AT, normal oropharynx, no thrush Ears: bilateral: normal - Neck Neck: no lymphadenopathy, normal ROM, no rigidity, no stridor, no thyromegaly Carotids: bilateral: upstroke normal Thyroid: bilateral: normal size - Respiratory Respiratory: bilateral: diminished, negative: dullness, rales, rhonchi, wheezing , prolonged expiration - Cardiovascular Rhythm: irregularly irregular Heart sounds: normal: S1, S2 Abnormal Heart Sounds: systolic murmur - Gastrointestinal General gastrointestinal: normal bowel sounds, soft, no splenomegaly, no tenderness, no umbilical hernia, no ventral hernia - Integumentary Integumentary: normal, normal turgor - Neurologic Neurologic: CNII-XII intact - Musculoskeletal Musculoskeletal: generalized weakness, strength equal bilaterally - Psychiatric Psychiatric: A&O x's 3, appropriate affect, intact judgment & insight - Labs CBC & Chem 7: 04/29/17 06:24 04/29/17 06:24 Labs: Abnormal Lab Results - Last 24 Hours (Table) 04/28/17 04/28/17 04/28/17 Range/Units 11:25 11:25 11:25 RBC 3.82 L (4.30-5.90) m/uL Hgb 11.0 L (13.0-17.5) gm/dL Hct 32.4 L (39.0-53.0) % RDW 16.4 H (11.5-15.5) % Plt Count 126 L (150-450) k/uL Lymphocytes # 0.5 L (1.0-4.8) k/uL Potassium 5.2 H (3.5-5.1) mmol/L Chloride (98-107) mmol/L Carbon Dioxide 34 H (22-30) mmol/L BUN 30 H (9-20) mg/dL Glucose 217 H (74-99) mg/dL POC Glucose (mg/dL) (75-99) mg/dL Total Bilirubin 1.4 H (0.2-1.3) mg/dL CK-MB (CK-2) 4.2 H* (0.0-2.4) ng/mL Troponin I 0.087 H* (0.000-0.034) ng/mL Urine Protein (Negative) 04/28/17 04/28/17 04/28/17 Range/Units 12:25 16:55 21:31 RBC (4.30-5.90) m/uL Hgb (13.0-17.5) gm/dL Hct (39.0-53.0) % RDW (11.5-15.5) % Plt Count (150-450) k/uL Lymphocytes # (1.0-4.8) k/uL Potassium (3.5-5.1) mmol/L Chloride (98-107) mmol/L Carbon Dioxide (22-30) mmol/L BUN (9-20) mg/dL Glucose (74-99) mg/dL POC Glucose (mg/dL) 245 H (75-99) mg/dL Total Bilirubin (0.2-1.3) mg/dL CK-MB (CK-2) (0.0-2.4) ng/mL Troponin I 0.085 H* (0.000-0.034) ng/mL Urine Protein Trace H (Negative) 04/28/17 04/29/17 04/29/17 Range/Units 23:17 06:13 06:24 RBC 3.70 L (4.30-5.90) m/uL Hgb 10.5 L (13.0-17.5) gm/dL Hct 31.8 L (39.0-53.0) % RDW 16.1 H (11.5-15.5) % Plt Count 141 L (150-450) k/uL Lymphocytes # 0.6 L (1.0-4.8) k/uL Potassium (3.5-5.1) mmol/L Chloride (98-107) mmol/L Carbon Dioxide (22-30) mmol/L BUN (9-20) mg/dL Glucose (74-99) mg/dL POC Glucose (mg/dL) 161 H (75-99) mg/dL Total Bilirubin (0.2-1.3) mg/dL CK-MB (CK-2) (0.0-2.4) ng/mL Troponin I 0.067 H* (0.000-0.034) ng/mL Urine Protein (Negative) 04/29/17 Range/Units 06:24 RBC (4.30-5.90) m/uL Hgb (13.0-17.5) gm/dL Hct (39.0-53.0) % RDW (11.5-15.5) % Plt Count (150-450) k/uL Lymphocytes # (1.0-4.8) k/uL Potassium (3.5-5.1) mmol/L Chloride 97 L (98-107) mmol/L Carbon Dioxide 34 H (22-30) mmol/L BUN 29 H (9-20) mg/dL Glucose 143 H (74-99) mg/dL POC Glucose (mg/dL) (75-99) mg/dL Total Bilirubin 1.6 H (0.2-1.3) mg/dL CK-MB (CK-2) (0.0-2.4) ng/mL Troponin I (0.000-0.034) ng/mL Urine Protein (Negative) Microbiology - Last 24 Hours (Table) 04/28/17 12:25 Urine Culture - Preliminary Urine,Voided Assessment and Plan Plan: Assessment and plan: 1. Acute diastolic heart failure. Continue patient on Lasix and decrease it to40 mg IV push every 12 hours, metoprolol 50 mg orally once every day, digoxin 125 g orally once every day, her input and output and daily weight, cardiology consultation. 2. Hypertension and hypertensive cardiovascular disease. Continue metoprolol 50 mg orally once every day. 3. Diabetes mellitus type 2. Decrease Lantus 80 units at bedtime , continue with a sliding scale insulin as well, BJM will be checked before each meal and at bedtime. 4. Hyperlipidemia. Continue simvastatin 40 mg orally at bedtime. 5. COPD with mild bronchitis. Continue albuterol nebulization 4 times every day Spiriva 18 mcg 1 capsule inhalation once every day and Symbicort 160/4.5 g 2 puff inhalation twice every day. We will add Levaquin 500 mg IV piggyback every 24 hours. Pulmonary consultation from Dr. Cerda., Check d-dimer level , if elevated patient will need to go for a CTA of the chest. 6. History of gout .continue allopurinol 100 mg orally once every day. 7. History of CVA and TIA .continue patient on aspirin 81 mg once every day. 8. DVT prophylaxis. Continue bilateral knee-high MILLI hose. 9. GI prophylaxis. Protonix 40 mg orally once every day. 10. Patient is full code. 11. Anticipate discharge home tomorrow morning.
[2017-04-29 11:46] LABS: Glucose,Whole Blood 174 mg/dL (75-99)
--- NOTE | 2017-04-29 12:15 | P.CNPUL ---
History of Present Illness Consult date: 04/29/17 Reason for consult: dyspnea History of present illness: A 71-year-old male patient, very well-known to me because of his advanced COPD, and chronic hypoxic arrest 30 failure whereas been also followed up [facility] and his primary care physician is Dr. Khan. This patient has been maintained on oxygen at 3 L/m nasal cannula. He is known to have subcentimeter pulmonary nodules a some previous CAT scan of the chest and he was found out to have 1-2 mm nodule in the lateral aspect of the left lung and lateral basilar segment of the left lower lobe. These were thought to be benign. In terms of his COPD, the patient has been maintained on a combination of Spiriva and Symbicort and albuterol neb last treatment on it and needed basis. He had an exacerbation on March 2016 for which she was admitted to the hospital and during the same hospitalization he had complications of epistaxis. Following that, around December 2016, the patient wasn't a trip to [place] and on the way back the patient developed a seizure and he was admitted to [facility]. At that time was also diagnosed having a left lower lobe pneumonia and the patient had a moderate to large airspace consolidation/infiltrate in the left lung base. The patient completed treatment and he was discharged home and subsequent chest x-ray showed some residual haziness in the left lung base. Note that his echocardiogram that was done at [facility] at that time showed moderate to severe aortic stenosis and mild regurgitation with an ejection fraction of 6065%. He is also known to have paroxysmal atrial fibrillation. The patient is also known to have a positive TB skin test. A sputum analysis that was done at the [facility] in [place] from December 2016 was positive for AFB. Subsequently the patient was contacted and he was told to have a nontuberculous disease. I repeated his sputum Gram stain and culture and February 2017 and it came back negative. He a had a repeat CAT scan of the chest on 02/17/2017 and it basically showed interval diminution of the size and density of the left lower lobe infiltrate compared to the previous evaluations. He also had a small residual left-sided pleural effusion on the right lung demonstrated multiple nodules one of them was calcified in the right lower lobe. There are also several millimeters noncalcified nodules laterally in the right midlung. The mediastinum was free of any disease The patient got hospitalized yesterday because of increased shortness of breath. He is coughing up yellowish sputum. No hemoptysis. No pleurisy. No weight loss. No fever or chills or night sweats. No indication of any active tuberculosis. No angina. He had no increased swelling lower extremities. His chest x-ray showed cardiomegaly and pulmonary vascular congestion. He was admitted and currently is being treated for an acute CHF and is currently on IV Lasix. He was also found to have some mild troponin leak and no acute EKG changes and the white cell count is not elevated and a creatinine is normal at 1.1. His EKG showing normal sinus rhythm. No acute ischemic changes. Review of Systems All systems: negative Constitutional: Denies chills, Denies fever Eyes: denies blurred vision, denies pain Ears, nose, mouth and throat: Denies headache, Denies sore throat Cardiovascular: Reports decreased exercise tolerance, Reports dyspnea on exertion, Denies shortness of breath Respiratory: Reports cough, Reports cough with sputum, Reports dyspnea, Reports respiratory infections, Reports wheezing Gastrointestinal: Denies abdominal pain, Denies diarrhea, Denies nausea, Denies vomiting Musculoskeletal: Denies myalgias Integumentary: Denies pruritus, Denies rash Neurological: Denies numbness, Denies weakness Psychiatric: Denies anxiety, Denies depression Endocrine: Denies fatigue, Denies weight change 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, history of positive AFB in the sputum with subsequent negative cultures, CVA/TIA , diabetes mellitus, hyperlipidemia, hypertension, impaired hearing, left lower lobe pneumonia with some residual effusion the left lung base, scattered bilateral pulmonary nodules, previous history of epistaxis and the patient is on no anticoagulants, gout, aortic stenosis moderate to severe in nature with a preserved LV function, peripheral vascular disease History of Any Multi-Drug Resistant Organisms: MRSA Date of last positivie culture/infection: 2010 MDRO Source:: r elbow Past Surgical History: Cholecystectomy, Tonsillectomy Additional Past Surgical History / Comment(s): Lipoma removal from the right side of the abdomen. Past Anesthesia/Blood Transfusion Reactions: No Reported Reaction Additional Past Anesthesia/Blood Transfusion Reaction / Comment(s): blood transfusion-no reaction Past Psychological History: No Psychological Hx Reported Additional Psychological History / Comment(s): PT LIVES WITH STEPHANY IN A 2 STORY HOME THAT HAS 8 PORCH STEPS AND 12 STEPS TO EITHER 2ND FLOOR OR BASEMENT. PETS:2 DOGS. NO OUT SIDE SERVICES RECIEVED. PT HAS NEBULIZER AND HOME 02. PT SERVED IN THE [employer] WHEN YOUNGER. RETIRED FROM [employer]. Smoking Status: Former smoker Past Alcohol Use History: None Reported Additional Past Alcohol Use History / Comment(s): started smoking at age 21, smoked 2 ppd,quit at age 60 Past Drug Use History: None Reported - Past Family History Mother History Unknown: Yes Family Medical History: No Reported History Brother(s) Family Medical History: No Reported History Sister(s) Family Medical History: Cancer, Myocardial Infarction (OR) Daughter(s) Family Medical History: No Reported History Son(s) Family Medical History: No Reported History Father Family Medical History: No Reported History Medications and Allergies Home Medications Medication Instructions Recorded Confirmed Type Digoxin [Lanoxin] 125 mcg PO DAILY 11/23/14 04/28/17 History Ferrous Sulfate [Feosol] 325 mg PO DAILY 11/23/14 04/28/17 History Metoprolol Succinate [Toprol XL] 50 mg PO DAILY 11/23/14 04/28/17 History Simvastatin [Zocor] 40 mg PO HS 11/23/14 04/28/17 History Albuterol Nebulized [Ventolin 2.5 mg INHALATION RT-Q6H PRN 03/27/16 04/28/17 History Nebulized] Tiotropium 18 Mcg/Puff [Spiriva] 18 mcg INHALATION RT-DAILY 03/27/16 04/28/17 History Fenofibrate (Unknown Dose) 1 tab PO DAILY 04/28/17 04/28/17 History Furosemide [Lasix] 60 mg PO TID 04/28/17 04/28/17 History Insulin Glargine [Lantus] 80 unit SQ HS 04/28/17 04/28/17 History Sodium Chloride 0.65% Nasal [Deep 2 spray NASAL Q1H PRN 04/28/17 04/28/17 History Sea (Saline)] Allergies Allergy/AdvReac Type Severity Reaction Status Date / Time lincomycin HCl Allergy Rash/Hives Verified 04/28/17 11:00 [From Lincocin] propoxyphene HCl Allergy Rash/Hives Verified 04/28/17 11:00 [From Darvon] aspirin AdvReac Unknown Verified 04/28/17 11:00 Physical Exam Vitals: Vital Signs Temp Pulse Pulse Pulse Resp BP BP 04/29/17 08:00 98.3 F 95 12 100/53 04/29/17 04:00 97.6 F 65 18 118/71 04/29/17 00:00 97.6 F 112 H 18 113/60 04/28/17 20:00 97.0 F L 88 90 20 94/51 04/28/17 19:49 80 04/28/17 16:26 96.1 F L 96 96 20 115/68 04/28/17 15:19 98.5 F 96 18 108/66 04/28/17 14:30 95 18 116/56 04/28/17 13:30 94 18 107/55 04/28/17 12:30 95 20 118/65 Pulse Ox 04/29/17 08:00 04/29/17 04:00 94 L 04/29/17 00:00 95 04/28/17 20:00 96 04/28/17 19:49 04/28/17 16:26 96 04/28/17 15:19 97 04/28/17 14:30 97 04/28/17 13:30 97 04/28/17 12:30 96 Intake and Output 04/28/17 04/29/17 04/29/17 22:59 06:59 14:59 Output Total 550 800 Balance -550 -800 Output: Urine 550 800 Other: # Voids 1 1 Weight 109.8 kg Head exam was generally normal. There was no scleral icterus or corneal arcus. Mucous membranes were moist.Neck was supple and without jugular venous distension, thyromegaly, or carotid bruits. Carotids were easily palpable bilaterally. There was no adenopathy. Lung sounds are diminished bilaterally along with some scattered expiratory wheezes heard throughout the lung pope. Heart sounds are positive for a systolic ejection murmur grade 3/6 heard throughout the precordium. There is a positive S1-S2, regular.Abdominal exam revealed normal bowel sounds. The abdomen was soft, non-tender, and without masses, organomegaly, or appreciable enlargement of the abdominal aorta.Examination of the extremities revealed easily palpable radial, femoral and pedal pulses. There was no cyanosis, clubbing or edema. Results - Laboratory Findings CBC and BMP: 04/29/17 06:24 04/29/17 06:24 PT/INR, D-dimer PT 9.8 sec (9.0-12.0) 04/28/17 11:25 INR 1.0 (<1.1) 04/28/17 11:25 D-Dimer 0.52 mg/L FEU (<0.60) 04/28/17 11:25 Abnormal lab findings: Abnormal Labs 04/28/17 04/28/17 04/28/17 11:25 11:25 11:25 RBC 3.82 L Hgb 11.0 L Hct 32.4 L RDW 16.4 H Plt Count 126 L Lymphocytes # 0.5 L Potassium 5.2 H Chloride Carbon Dioxide 34 H BUN 30 H Glucose 217 H POC Glucose (mg/dL) Total Bilirubin 1.4 H CK-MB (CK-2) 4.2 H* Troponin I 0.087 H* Urine Protein 04/28/17 04/28/17 04/28/17 12:25 16:55 21:31 RBC Hgb Hct RDW Plt Count Lymphocytes # Potassium Chloride Carbon Dioxide BUN Glucose POC Glucose (mg/dL) 245 H Total Bilirubin CK-MB (CK-2) Troponin I 0.085 H* Urine Protein Trace H 04/28/17 04/29/17 04/29/17 23:17 06:13 06:24 RBC 3.70 L Hgb 10.5 L Hct 31.8 L RDW 16.1 H Plt Count 141 L Lymphocytes # 0.6 L Potassium Chloride Carbon Dioxide BUN Glucose POC Glucose (mg/dL) 161 H Total Bilirubin CK-MB (CK-2) Troponin I 0.067 H* Urine Protein 04/29/17 04/29/17 06:24 11:45 RBC Hgb Hct RDW Plt Count Lymphocytes # Potassium Chloride 97 L Carbon Dioxide 34 H BUN 29 H Glucose 143 H POC Glucose (mg/dL) 174 H Total Bilirubin 1.6 H CK-MB (CK-2) Troponin I Urine Protein - Diagnostic Findings Chest x-ray: image reviewed Assessment and Plan Plan: Assessment 1 shortness of breath, acute on chronic, possibly related to CHF and the patient is currently being treated for an acute CHF exacerbation and he is on diuretics. 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 I was concerned of a mycobacterial tuberculosis infection. However, the patient was later on told by the [facility] that this was a atypical mycobacterium. I further reviewed the CAT scan of the chest from January 2017 and there is evidence of previous Tillman infection with scattered by the pulmonary nodules yet for the most part there was no evidence of an acute pneumonia or pulmonary TB involvement. I repeated the sputum sample in February 2017 and that came back negative. 4 left lower lobe pneumonia, history of, recovered with the latest CAT scan of the chest showing some residual consolidation/effusion in the left lung base 5 scattered bilateral subcentimeter pulmonary nodules 6 chronic hypoxic respiratory failure 7 severe COPD maintained on a combination of Spiriva and Symbicort and oxygen at 3l minute nasal cannula 8 moderate severe aortic stenosis with an ejection fraction of 65% 9 CVA, history of 10 proximal atrial fibrillation currently on no anticoagulation and the patient' s rhythm is sinus 11 Vascular disease 12 hyperlipidemia 13 diabetes mellitus Plan I do not think this patient has active pulmonary tuberculosis of the lungs. He claims to have a positivity skin test however his repeat sputum cultures of been negative. I'm going to repeat a CAT scan of the chest without contrast to make sure there is no active pneumonia or pulmonary infection. An ID consultation is to be also obtained. He will be referred able to obtain the final cultures from the sputum sample that was obtained and the [facility] in [place]. Meanwhile, the patient is being optimized in terms of his CHF. The patient is being diuresed. Obtain a sputum Gram stain and culture. Repeat sputum AFB. Continue bronchodilators. Continue Spiriva and Symbicort. Cardiology to follow-up on this patient. We'll continue to follow.
--- NOTE | 2017-04-29 12:54 | CONS ---
DATE OF CONSULTATION: CHIEF COMPLAINT: Shortness of breath and weight gain. Star Silvestre is a 71-year-old gentleman with history of chronic diastolic heart failure who presented to hospital with worsening shortness of breath secondary to an acute exacerbation of chronic diastolic heart failure. The patient also has COPD, hypertension, chronic atrial fibrillation and prior history of TIA. He denies chest pain, but has shortness of breath and has had some cough with productive sputum. He is being treated with IV diuretics with significant improvement in his symptoms. The patient had an echocardiogram within the last one year that revealed normal LV function, severe pulmonary hypertension. His heart failure is secondary to diastolic dysfunction. Past medical history is significant for COPD, hypertension, dyslipidemia, osteoarthritis, atrial fibrillation and diabetes. MEDICATIONS: He is currently on Lipitor, Symbicort, Lanoxin, Lovenox, Lofibra, iron, Lasix, insulin, Toprol XL, nitro paste and Spiriva. Allergic to DARVON and ASPIRIN. Family history is negative for premature coronary artery disease. Social history is negative for smoking, EtOH abuse, or drug abuse. REVIEW OF SYSTEMS: HEENT: Unremarkable. CARDIAC: As described above. RESPIRATORY: As described above. GI: Negative. GENITOURINARY: Negative. ALLERGY/IMMUNOLOGY: Negative. MUSCULOSKELETAL: Significant for arthritis. PSYCHOSOCIAL: Negative. ENDOCRINE: Negative. DERMATOLOGIC: Negative. CONSTITUTIONAL: Negative. ONCOLOGICAL: Negative. HEMATOLOGIC: Negative. The rest of the system review is not relevant. On exam, comfortable at rest. Afebrile. Vital signs are stable. There is no jugular venous distention. Carotid upstroke is diminished. Chest exam reveals diminished air entry at the bases. Heart exam reveals first and second heart sounds and a systolic murmur at the apex. Abdomen is soft. Exam of the extremities did not reveal any edema. Peripheral pulses are palpable. There are chronic stasis changes noted. Labs show a hemoglobin of 10.5, platelet count is 140. Potassium is 4.4. Creatinine is 1. Three sets of troponins are in the hamlin zone at 0.08, 0.08 and 0.06. EKG shows sinus rhythm with nonspecific ST-T wave changes. ASSESSMENT: 1. Acute exacerbation of chronic diastolic heart failure. 2. Hypertension. 3. Chronic obstructive pulmonary disease. 4. Severe pulmonary hypertension. PLAN: Continue with the IV Lasix. We should be able to discharge him home tomorrow. We can switch his Lasix to p.o. in the morning.
[2017-04-29] MEDS: LEVOFLOXACIN 750 MG TAB PO SCH (14:25)
--- NOTE | 2017-04-29 14:45 | CT ---
EXAMINATION TYPE: CT chest wo con DATE OF EXAM: 04/29/2017 COMPARISON: CTA chest March 27, 2016. CT chest September 05, 2015 HISTORY: cough CT DLP: 597.7 mGycm. Automated Exposure Control for Dose Reduction was Utilized. TECHNIQUE: CT scan of the thorax is performed without IV contrast. FINDINGS: LUNGS: There is background mild emphysematous change. There is new groundglass opacity posteriorly in the right upper lobe. There is additional groundglass opacity centrally superior aspect right lower lobe. Slightly more prominent focal areas of groundglass opacity in the right lower lobe are present, for reference axial image 42. There are some multifocal areas of groundglass opacity in the left upp er lobe new from prior study. Some increased reticulation and interstitial markings are noted in the bilateral upper lobes. No pleural effusion or pneumothorax is seen currently. Slightly elevated left hemidiaphragm is redemonstrated. MEDIASTINUM: Lack of IV contrast is noted to limit evaluation for mediastinal and especially hilar a denopathy. There are no definitive greater than 1 cm hilar or mediastinal lymph nodes. There are pr ominent but subcentimeter prevascular, paratracheal, pericarinal, bilateral hilar, and subcarinal lym ph nodes all redemonstrated. There is stable cardiomegaly. There is persistent coronary artery calcif ication which is noted marker for coronary artery disease. There is moderate calcified change in the aortic arch extending into descending thoracic aorta and abdominal branch vessels. No large pericardi al effusion is seen. OTHER: Subcutaneous jose rafael right upper quadrant are present anteriorly and may be related to cholecy stectomy. Mild to moderate multilevel spurring in the thoracic spine is present. Splenomegaly is rede monstrated measuring 15.0 cm on long axis coronal image 66. There is interval resolution of perihepat ic ascites. Liver is somewhat small in size and heterogeneous appearance, underlying cirrhosis is not excluded. IMPRESSION: 1. Cardiomegaly and mild emphysematous change with increasing upper lung alveolar and interstitial ed deshaun and/or infiltrates. 2. Splenomegaly redemonstrated. Heterogeneous somewhat small liver seen, clinical correlation advised to rule out cirrhosis.
[2017-04-29] MEDS: ALBUTEROL NEBULIZED 2.5 MG/3 ML INHALATION PRN (16:10)
[2017-04-29 16:31] LABS: Glucose,Whole Blood 212 mg/dL (75-99)
[2017-04-29] MEDS: INSULIN LISPRO (humaLOG) 300 UNIT/3 ML VIAL SQ SCH ×2 (17:52→21:56)
[2017-04-29 21:12] LABS: Glucose,Whole Blood 324 mg/dL (75-99)
[2017-04-29] MEDS: INSULIN GLARGINE 100 UNIT/ML 10 ML VIAL SQ SCH (21:55)
[2017-04-29] MEDS: FUROSEMIDE 10 MG/ML 4 ML VIAL IV SCH (21:56)
[2017-04-29] MEDS: ATORVASTATIN 20 MG TAB PO SCH (21:56)
[2017-04-30 05:59] LABS: Glucose,Whole Blood 100 mg/dL (75-99)
[2017-04-30 06:42] LABS: Basophils % (A) 0 %; CH 28.8; CHCM 34.8; Eosinophils # (A) 0.1 k/uL (0-0.7); Eosinophils % (A) 3 %; HDW 3.83; HGB 10.9 gm/dL (13.0-17.5); Luc # (Auto) 0.11; Luc % (Auto) 2; Lymphocytes # (A) 0.6 k/uL (1.0-4.8); Lymphocytes % (A) 13 %; MCH 28.4 pg (25.0-35.0); MCHC 34.1 g/dL (31.0-37.0); MCV 83.1 fL (80.0-100.0); Mean Platelet Volume 6.9; Monocytes # (A) 0.2 k/uL (0-1.0); Monocytes % (A) 5 %; Neutrophils % (A) 78 %; Poikilocytosis Slight; RBC 3.85 m/uL (4.30-5.90); RDW 15.9 % (11.5-15.5); WBC 5.1 k/uL (3.8-10.6); WBC (Perox) 5.65
[2017-04-30] MEDS: INSULIN LISPRO (humaLOG) 300 UNIT/3 ML VIAL SQ SCH ×5 (06:43→21:43)
[2017-04-30 06:57] LABS: ALT 31 U/L (21-72); AST 25 U/L (17-59); Alkaline Phosphatase 87 U/L (38-126); Anion Gap 10 mmol/L; Blood Urea Nitrogen 35 mg/dL (9-20); Calcium 9.4 mg/dL (8.4-10.2); Carbon Dioxide 35 mmol/L (22-30); Chloride 96 mmol/L (98-107); Glucose 95 mg/dL (74-99); Magnesium 1.9 mg/dL (1.6-2.3); Non-African American GFR(MDRD) 56 (>60 ml/min/1.73 sqM); Potassium 4.2 mmol/L (3.5-5.1); Sodium 141 mmol/L (137-145); Total Bilirubin 1.8 mg/dL (0.2-1.3)
[2017-04-30] MEDS: SYMBICORT 160-4.5 MCG INHALER INHALATION SCH ×2 (08:51→19:53)
[2017-04-30] MEDS: TIOTROPIUM 18 MCG/PUFF INHALER INHALATION SCH (08:51)
[2017-04-30] MEDS: ENOXAPARIN 40 MG/0.4 ML SYRINGE SQ SCH (09:17)
[2017-04-30] MEDS: METOPROLOL SUCCINATE (ER) 50 MG TAB.ER.24H PO SCH (09:18)
[2017-04-30] MEDS: DIGOXIN 125 MCG TAB PO SCH (09:18)
[2017-04-30] MEDS: FERROUS SULFATE 325 MG TAB PO SCH (09:18)
[2017-04-30] MEDS: FENOFIBRATE 160 MG TAB PO SCH (09:18)
[2017-04-30] MEDS: FUROSEMIDE 10 MG/ML 4 ML VIAL IV SCH (09:18)
[2017-04-30] MEDS: NITROGLYCERIN OINT 1 INCH/GM PACKET TOPICAL SCH (09:18)
--- NOTE | 2017-04-30 10:49 | P.PN ---
Subjective Principal diagnosis: congestive heart failure this is a 71-year-old gentleman with history of chronic diastolic heart failure , COPD, hypertension, hyperlipidemia, paroxsysmal atrial fibrillation, prior TIA,diabetes, who presented to the hospital with symptoms of progressively worsening shortness of breath. echocardiogram with Doppler study performed within one year revealed normal left ventricular systolic function with severe pulmonary hypertension. patient was initiated on IV Lasix. he has been diuresing well although his weight is not reflective of this. hemoglobin 10.9, platelet count 146, potassium 4.2, BUN 35, creatinine 1.2. magnesium level I.9. Objective - Vital Signs Vital signs: Vital Signs Temp 98.0 F 04/30/17 04:00 Pulse 84 04/30/17 09:07 Resp 18 04/30/17 04:00 BP 102/62 04/30/17 04:00 Pulse Ox 95 04/30/17 04:00 Intake & Output 04/29/17 04/30/17 04/30/17 18:59 06:59 18:59 Intake Total 236 10 Balance 236 10 Weight 109.8 kg 109.8 kg Intake: IV 10 0.9 10 Oral 236 - Exam PHYSICAL EXAMINATION: HEENT: Head is atraumatic, normocephalic. Pupils equal, round. Neck is supple. There is no elevated jugular venous pressure. HEART EXAMINATION:heart S1 and S2 systolic ejection murmur is heard. CHEST EXAMINATION:lungs reveal diminished air entry bilaterally with scattered coarse wheezing throughout ABDOMEN: Soft, nontender. Bowel sounds are heard. No organomegaly noted. EXTREMITIES: 2+ peripheral pulses with no evidence of peripheral edema and no calf tenderness noted. NEUROLOGIC patient is awake, alert and oriented -3. . - Labs CBC & Chem 7: 04/30/17 06:09 04/30/17 06:09 Labs: Abnormal Lab Results - Last 24 Hours (Table) 04/29/17 04/29/17 04/29/17 Range/Units 11:45 16:29 21:09 RBC (4.30-5.90) m/uL Hgb (13.0-17.5) gm/dL Hct (39.0-53.0) % RDW (11.5-15.5) % Plt Count (150-450) k/uL Lymphocytes # (1.0-4.8) k/uL Chloride (98-107) mmol/L Carbon Dioxide (22-30) mmol/L BUN (9-20) mg/dL Creatinine (0.66-1.25) mg/dL POC Glucose (mg/dL) 174 H 212 H 324 H (75-99) mg/dL Total Bilirubin (0.2-1.3) mg/dL 04/30/17 04/30/17 04/30/17 Range/Units 05:56 06:09 06:09 RBC 3.85 L (4.30-5.90) m/uL Hgb 10.9 L (13.0-17.5) gm/dL Hct 32.0 L (39.0-53.0) % RDW 15.9 H (11.5-15.5) % Plt Count 146 L (150-450) k/uL Lymphocytes # 0.6 L (1.0-4.8) k/uL Chloride 96 L (98-107) mmol/L Carbon Dioxide 35 H (22-30) mmol/L BUN 35 H (9-20) mg/dL Creatinine 1.26 H (0.66-1.25) mg/dL POC Glucose (mg/dL) 100 H (75-99) mg/dL Total Bilirubin 1.8 H (0.2-1.3) mg/dL Microbiology - Last 24 Hours (Table) 04/29/17 19:18 Gram Stain - Preliminary Sputum 04/28/17 12:25 Urine Culture - Final Urine,Voided 04/28/17 11:25 Blood Culture - Preliminary Blood No Growth after 24 hours Assessment and Plan (1) Diastolic CHF, acute on chronic Status: Acute (2) Pneumonia Status: Acute (3) COPD (chronic obstructive pulmonary disease) Status: Acute (4) Aortic stenosis Status: Acute (5) CVA (cerebral vascular accident) Status: Acute (6) Vascular disease Status: Acute (7) Hyperlipemia Status: Acute (8) Diabetes Status: Acute (9) HTN (hypertension) Status: Acute (10) Paroxysmal a-fib Status: Acute Plan: From cardiology's perspective, we will recommend to discontinue the IV Lasix after the last dose today, then put the patient on 80 mg by mouth twice a day of Lasix at home. We will discontinue the Nitropaste.check lytes BUN and creatinine in the morning. DNP note has been reviewed, I agree with a documented findings and plan of care. Patient was seen and examined.
--- NOTE | 2017-04-30 11:13 | CONS ---
DATE OF CONSULTATION: 04/29/2017. REASON FOR CONSULTATION: Sputum positive for AFB. HISTORY OF PRESENT ILLNESS: The patient is a 71-year-old male with past medical history significant for COPD. Apparently, the patient also had an admission to the hospital in [place] with the patient did have a sputum which came back positive apparently and the patient later on found it was a nontuberculous AFB. The patient subsequently has followed with Dr. Cerda, apparently has done a sputum on him, this came back to be negative. Patient is now presenting to the [facility] ER on 04/28/2017 with chief complaints of an increasing shortness of breath. His symptoms have been getting worse for the last 2 to 3 days prior to presentation to the hospital. The patient denies significant URI symptoms. The patient denies significant chest pain. He did have a cough, bringing up some yellowish to green sputum; however, no hemoptysis. The patient denies significant chest pain. No abdominal pain. No diarrhea, burning or frequency of urine. Subsequently evaluated by the ER physician. The patient did have a chest x-ray which shows chronic changes, cardiomegaly, and central venous congestion, small right pleural effusion considered CHF exacerbation. Patient did not have any fever, except low-grade of 99.9 on presentation to the hospital. Patient did have a normal white count. Patient denies having any history of night sweats or any rigors or chills. Patient denies having any unintentional weight loss. Patient denies any chronic cough or any hemoptysis. Did mention some blood when he coughs up the sputum recently. With these symptoms, the patient has been admitted and is being evaluated by Pulmonary and Cardiology Services. ID was also consulted as for previous history sputum AFB positive. REVIEW OF SYSTEMS: CONSTITUTIONAL: Positive for weakness but no high-grade fever. EYES: No complaint. ENT: No complaint. RESPIRATORY: As per HPI. CARDIOVASCULAR: As per HPI. GENITOURINARY: No complaint. GASTROINTESTINAL: No complaint. MUSCULOSKELETAL: No complaint. INTEGUMENTARY: No complaint. PSYCHOLOGICAL: No complaint. ENDOCRINE: No complaint. NEUROLOGICAL: No complaint. Past medical history significant for COPD, atrial fibrillation, CVA, TIA, diabetes mellitus, hyperlipidemia, hypertension, osteoarthritis, pneumonia, history of MRSA infection of the right elbow. Surgical history of tonsillectomy and cholecystectomy, lipoma removed from the right side of the abdomen. SOCIAL HISTORY: The patient had significant smoking, about 2 packs per day; quit at the age of 60. Denies any drinking or drug use. FAMILY HISTORY: Sister with history of cancer and [place]. Allergies to VANCOMYCIN and PROPOXYPHENE, ASPIRIN. Medications include patient is currently on Ventolin, Lipitor, Symbicort, Lanoxin, Lovenox, Lofibra, iron sulfate, Lasix, Lantus, Humalog, Levaquin, Toprol-XL, Nitro-Bid, Spiriva. On examination, blood pressure is 103/55 with a pulse of 84, temperature 97.1, he is 95% on room air. General description is an elderly male, up in the chair in no distress. No tachypnea or accessory muscle of respiration use. HEENT examination shows slight pallor. There is no scleral icterus. Oral mucous membrane is dry. NECK: Trachea central. No thyromegaly. LUNGS: Unlabored breathing, coarse breath sounds bilaterally. No wheeze. HEART: S1, S2. Regular rate and rhythm. ABDOMEN: Soft, no tenderness. No guarding or rigidity. EXTREMITIES: No edema of the feet. SKIN EXAMINATION: No rash or mass palpable. NEUROLOGICAL: Patient awake and alert and oriented x3. Mood and affect normal. LABS: Hemoglobin is 10.5, white count of 4.3 with a BUN of 29, creatinine is 1.15. Electrolytes have been normal. Liver enzymes are normal. Blood culture obtained, currently pending. Sputum culture negative so far. DIAGNOSTIC IMPRESSION AND PLAN: Patient who did have a history of a positive sputum AFB, apparently Mycobacterium for which we do not have the confirmation at this point. Clinically, at this point, the patient may be having more of a congestive heart failure exacerbation rather than a true pneumonia and clinically doubt a mycobacterial infection at this point but cannot be entirely excluded. PLAN: 1. Await the patient to be evaluated by Pulmonary. 2. Will obtain sputum AFB reports from the [facility]. 3. Sputum for routine cultures as well as AFB culture has been ordered. Will follow results. 4. Will follow up on the clinical condition and cultures to further adjust medications if needed. Thank you for this consultation. Will follow this patient along with you. SHAYAN
[2017-04-30 11:55] LABS: Glucose,Whole Blood 266 mg/dL (75-99)
[2017-04-30 11:55] LABS: Hemoglobin A1C 8.7 % (4.2-6.1)
[2017-04-30] MEDS: LEVOFLOXACIN 750 MG TAB PO SCH (12:30)
--- NOTE | 2017-04-30 14:02 | P.PN ---
Subjective This is a 71-year-old male one of Dr. Nuno Khan with a previous medical history significant for hypertension and hypertensive cardiovascular disease, hyperlipidemia, history of CVA/TIA, chronic atrial fibrillation, chronic diastolic heart failure, gout, chronic obstructive pulmonary disease , who sees Dr. Almeida the regular basis every [address] Cerda on a regular basis as well, the patient was brought into the emergency department at [facility] today with 2 day history of increased shortness breath associated with increased coughing of phlegm production, patient stated that he has been laying in bed for the past 2 days not able to do much, patient was seen in the ER had a chest x-ray that showed congestive heart failure and patient did receive Lasix IV and he was admitted to the hospital for evaluation and cardiology consultation as well as pulmonary consultation was obtained. 04/29: Patient is doing much better today he denies any chest pain, shortness of breath, he has no swelling in both lower extremities, we will decrease his Lasix to 40 mg IV push every 12 hours for the next 24 hours then he would be discharged home tomorrow morning. 04/30: CTA of the chest shows cardiomegaly with mild emphysematous change with increasing upper lung alveolar and interstitial edema and/or infiltrate. Splenomegaly redemonstrated. Heterogeneous somewhat small liver seen. Correlate advised to rule out cirrhosis. Patient gives history that he did drink heavy alcohol in the past but none now. Patient will need follow-up as an outpatient. Patient has been seen by race relations professor with recommendations for IV Lasix to be switched to oral this morning and he has been cleared for discharge. Patient has been seen and followed by Dr. Cerda from pulmonary medicine sputum culture is in progress. 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 Objective - Vital Signs Vital signs: Vital Signs Temp 98.0 F 04/30/17 04:00 Pulse 84 04/30/17 09:07 Resp 18 04/30/17 04:00 BP 102/62 04/30/17 04:00 Pulse Ox 95 04/30/17 04:00 Intake & Output 04/29/17 04/30/17 04/30/17 18:59 06:59 18:59 Intake Total 236 10 Balance 236 10 Weight 109.8 kg 109.8 kg Intake: IV 10 0.9 10 Oral 236 - Exam General appearance: average body habitus, mild distress - EENT Eyes: anicteric sclerae, EOMI, PERRLA, no ptosis, no scleral icterus, normal appearance ENT: hearing grossly normal, NA/AT, normal oropharynx, no thrush Ears: bilateral: normal - Neck Neck: no lymphadenopathy, normal ROM, no rigidity, no stridor, no thyromegaly Carotids: bilateral: upstroke normal Thyroid: bilateral: normal size - Respiratory Respiratory: bilateral: diminished, negative: dullness, rales, rhonchi, wheezing , prolonged expiration - Cardiovascular Rhythm: irregularly irregular Heart sounds: normal: S1, S2 Abnormal Heart Sounds: systolic murmur - Gastrointestinal General gastrointestinal: normal bowel sounds, soft, no splenomegaly, no tenderness, no umbilical hernia, no ventral hernia - Integumentary Integumentary: normal, normal turgor - Neurologic Neurologic: CNII-XII intact - Musculoskeletal Musculoskeletal: generalized weakness, strength equal bilaterally - Psychiatric Psychiatric: A&O x's 3, appropriate affect, intact judgment & insight - Labs CBC & Chem 7: 04/30/17 06:09 04/30/17 06:09 Labs: Abnormal Lab Results - Last 24 Hours (Table) 04/29/17 04/29/17 04/29/17 Range/Units 11:45 16:29 21:09 RBC (4.30-5.90) m/uL Hgb (13.0-17.5) gm/dL Hct (39.0-53.0) % RDW (11.5-15.5) % Plt Count (150-450) k/uL Lymphocytes # (1.0-4.8) k/uL Chloride (98-107) mmol/L Carbon Dioxide (22-30) mmol/L BUN (9-20) mg/dL Creatinine (0.66-1.25) mg/dL POC Glucose (mg/dL) 174 H 212 H 324 H (75-99) mg/dL Total Bilirubin (0.2-1.3) mg/dL 04/30/17 04/30/17 04/30/17 Range/Units 05:56 06:09 06:09 RBC 3.85 L (4.30-5.90) m/uL Hgb 10.9 L (13.0-17.5) gm/dL Hct 32.0 L (39.0-53.0) % RDW 15.9 H (11.5-15.5) % Plt Count 146 L (150-450) k/uL Lymphocytes # 0.6 L (1.0-4.8) k/uL Chloride 96 L (98-107) mmol/L Carbon Dioxide 35 H (22-30) mmol/L BUN 35 H (9-20) mg/dL Creatinine 1.26 H (0.66-1.25) mg/dL POC Glucose (mg/dL) 100 H (75-99) mg/dL Total Bilirubin 1.8 H (0.2-1.3) mg/dL Microbiology - Last 24 Hours (Table) 04/29/17 19:18 Gram Stain - Preliminary Sputum 04/28/17 12:25 Urine Culture - Final Urine,Voided 04/28/17 11:25 Blood Culture - Preliminary Blood No Growth after 24 hours Assessment and Plan Plan: 1. Acute diastolic heart failure. Continue Lasix 80 mg oral every 12 hours, metoprolol 50 mg orally once every day, digoxin 125 g orally once every day, her input and output and daily weight, cardiology consultation. 2. Hypertension and hypertensive cardiovascular disease. Continue metoprolol 50 mg orally once every day. 3. Diabetes mellitus type 2. Decrease Lantus 80 units at bedtime , continue with a sliding scale insulin as well, BJM will be checked before each meal and at bedtime. 4. Hyperlipidemia. Continue simvastatin 40 mg orally at bedtime. 5. COPD with mild bronchitis. Continue albuterol nebulization 4 times every day Spiriva 18 mcg 1 capsule inhalation once every day and Symbicort 160/4.5 g 2 puff inhalation twice every day, Levaquin 500 mg every 24 hours. Pulmonary consultation from Dr. Cerda. 6. History of gout .continue allopurinol 100 mg orally once every day. 7. History of CVA and TIA .continue patient on aspirin 81 mg once every day. 8. Chronic hypoxic respiratory failure with home O2 dependence at 3 L nasal cannula. 9. DVT prophylaxis. Continue bilateral knee-high MILLI hose. 10. GI prophylaxis. Protonix 40 mg orally once every day. Patient is full code. Discharge home tomorrow morning. Impression and plan of care have been directed as dictated by the signing physician. Meggan Convery nurse practitioner acting as scribe for signing physician.
--- NOTE | 2017-04-30 15:02 | P.PN ---
Subjective A 71-year-old male patient, very well-known to me because of his advanced COPD, and chronic hypoxic arrest 30 failure whereas been also followed up at the [facility] and his primary care physician is Dr. Khan. This patient has been maintained on oxygen at 3 L/m nasal cannula. He is known to have subcentimeter pulmonary nodules a some previous CAT scan of the chest and he was found out to have 1-2 mm nodule in the lateral aspect of the left lung and lateral basilar segment of the left lower lobe. These were thought to be benign. In terms of his COPD, the patient has been maintained on a combination of Spiriva and Symbicort and albuterol neb last treatment on it and needed basis. He had an exacerbation on March 2016 for which she was admitted to the hospital and during the same hospitalization he had complications of epistaxis. Following that, around December 2016, the patient wasn't a trip to [place] and on the way back the patient developed a seizure and he was admitted to [facility]. At that time was also diagnosed having a left lower lobe pneumonia and the patient had a moderate to large airspace consolidation/infiltrate in the left lung base. The patient completed treatment and he was discharged home and subsequent chest x-ray showed some residual haziness in the left lung base. Note that his echocardiogram that was done at [facility] at that time showed moderate to severe aortic stenosis and mild regurgitation with an ejection fraction of 6065%. He is also known to have paroxysmal atrial fibrillation. The patient is also known to have a positive TB skin test. A sputum analysis that was done at the [facility] in [place] from December 2016 was positive for AFB. Subsequently the patient was contacted and he was told to have a nontuberculous disease. I repeated his sputum Gram stain and culture and February 2017 and it came back negative. He a had a repeat CAT scan of the chest on 02/17/2017 and it basically showed interval diminution of the size and density of the left lower lobe infiltrate compared to the previous evaluations. He also had a small residual left-sided pleural effusion on the right lung demonstrated multiple nodules one of them was calcified in the right lower lobe. There are also several millimeters noncalcified nodules laterally in the right midlung. The mediastinum was free of any disease The patient got hospitalized yesterday because of increased shortness of breath. He is coughing up yellowish sputum. No hemoptysis. No pleurisy. No weight loss. No fever or chills or night sweats. No indication of any active tuberculosis. No angina. He had no increased swelling lower extremities. His chest x-ray showed cardiomegaly and pulmonary vascular congestion. He was admitted and currently is being treated for an acute CHF and is currently on IV Lasix. He was also found to have some mild troponin leak and no acute EKG changes and the white cell count is not elevated and a creatinine is normal at 1.1. His EKG showing normal sinus rhythm. No acute ischemic changes. He is seen again today 04/30/2017 in follow-up on the selective care unit. He is currently sitting up in the chair at the bedside. He is awake and alert in no acute distress. A CT scan of the chest reveals increasing alveolar infiltrates in the bilateral upper lobes. He has been slow to progress. He has been afebrile. Hemodynamically stable. No leukocytosis. Objective - Vital Signs Vital signs: Vital Signs Temp 98.0 F 04/30/17 04:00 Pulse 84 04/30/17 09:07 Resp 18 04/30/17 04:00 BP 102/62 04/30/17 04:00 Pulse Ox 95 04/30/17 04:00 Intake & Output 04/29/17 04/30/17 04/30/17 18:59 06:59 18:59 Intake Total 236 10 360 Balance 236 10 360 Weight 109.8 kg 109.8 kg Intake: IV 10 0.9 10 Oral 236 360 Other: # Voids 1 # Bowel Movements 1 - Exam Head exam was generally normal. There was no scleral icterus or corneal arcus. Mucous membranes were moist.Neck was supple and without jugular venous distension, thyromegaly, or carotid bruits. Carotids were easily palpable bilaterally. There was no adenopathy. Lung sounds are diminished bilaterally along with some scattered expiratory wheezes heard throughout the lung pope. Heart sounds are positive for a systolic ejection murmur grade 3/6 heard throughout the precordium. There is a positive S1-S2, regular.Abdominal exam revealed normal bowel sounds. The abdomen was soft, non-tender, and without masses, organomegaly, or appreciable enlargement of the abdominal aorta.Examination of the extremities revealed easily palpable radial, femoral and pedal pulses. There was no cyanosis, clubbing or edema. - Labs CBC & Chem 7: 04/30/17 06:09 04/30/17 06:09 Labs: Abnormal Lab Results - Last 24 Hours (Table) 04/29/17 04/29/17 04/30/17 Range/Units 16:29 21:09 05:56 RBC (4.30-5.90) m/uL Hgb (13.0-17.5) gm/dL Hct (39.0-53.0) % RDW (11.5-15.5) % Plt Count (150-450) k/uL Lymphocytes # (1.0-4.8) k/uL Chloride (98-107) mmol/L Carbon Dioxide (22-30) mmol/L BUN (9-20) mg/dL Creatinine (0.66-1.25) mg/dL POC Glucose (mg/dL) 212 H 324 H 100 H (75-99) mg/dL Hemoglobin A1c (4.2-6.1) % Total Bilirubin (0.2-1.3) mg/dL 04/30/17 04/30/17 04/30/17 Range/Units 06:09 06:09 06:09 RBC 3.85 L (4.30-5.90) m/uL Hgb 10.9 L (13.0-17.5) gm/dL Hct 32.0 L (39.0-53.0) % RDW 15.9 H (11.5-15.5) % Plt Count 146 L (150-450) k/uL Lymphocytes # 0.6 L (1.0-4.8) k/uL Chloride 96 L (98-107) mmol/L Carbon Dioxide 35 H (22-30) mmol/L BUN 35 H (9-20) mg/dL Creatinine 1.26 H (0.66-1.25) mg/dL POC Glucose (mg/dL) (75-99) mg/dL Hemoglobin A1c 8.7 H (4.2-6.1) % Total Bilirubin 1.8 H (0.2-1.3) mg/dL 04/30/17 Range/Units 11:52 RBC (4.30-5.90) m/uL Hgb (13.0-17.5) gm/dL Hct (39.0-53.0) % RDW (11.5-15.5) % Plt Count (150-450) k/uL Lymphocytes # (1.0-4.8) k/uL Chloride (98-107) mmol/L Carbon Dioxide (22-30) mmol/L BUN (9-20) mg/dL Creatinine (0.66-1.25) mg/dL POC Glucose (mg/dL) 266 H (75-99) mg/dL Hemoglobin A1c (4.2-6.1) % Total Bilirubin (0.2-1.3) mg/dL Microbiology - Last 24 Hours (Table) 04/28/17 11:25 Blood Culture - Preliminary Blood No Growth after 48 hours 04/29/17 19:18 Gram Stain - Preliminary Sputum 04/28/17 12:25 Urine Culture - Final Urine,Voided Assessment and Plan Plan: Assessment 1 shortness of breath, acute on chronic, possibly related to CHF and the patient is currently being treated for an acute CHF exacerbation and he is on diuretics. 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 I was concerned of a mycobacterial tuberculosis infection. However, the patient was later on told by the [facility] that this was a atypical mycobacterium. I further reviewed the CAT scan of the chest from January 2017 and there is evidence of previous Derek infection with scattered by the pulmonary nodules yet for the most part there was no evidence of an acute pneumonia or pulmonary TB involvement. I repeated the sputum sample in February 2017 and that came back negative. 4 left lower lobe pneumonia, history of, recovered with the latest CAT scan of the chest showing some residual consolidation/effusion in the left lung base 5 scattered bilateral subcentimeter pulmonary nodules 6 chronic hypoxic respiratory failure 7 severe COPD maintained on a combination of Spiriva and Symbicort and oxygen at 3l minute nasal cannula 8 moderate severe aortic stenosis with an ejection fraction of 65% 9 CVA, history of 10 proximal atrial fibrillation currently on no anticoagulation and the patient' s rhythm is sinus 11 Vascular disease 12 hyperlipidemia 13 diabetes mellitus Plan The patient was seen and evaluated by Dr. Cerda. His CAT scan was reviewed. Based on the patient's previous history pneumonia with residual consolidation/ effusion and positive PPD test we will go ahead and perform a bronchoscopy with biopsies for definitive diagnosis. This was discussed with the patient and he is agreeable to the plan. We'll perform the procedure tomorrow. In the interim we'll continue with his current pulmonary medications. Continue Levaquin. Continue to diurese the patient. We'll continue to follow.
[2017-04-30 17:27] LABS: Glucose,Whole Blood 187 mg/dL (75-99)
[2017-04-30] MEDS: ALBUTEROL NEBULIZED 2.5 MG/3 ML INHALATION PRN (19:53)
[2017-04-30 20:49] LABS: Glucose,Whole Blood 195 mg/dL (75-99)
[2017-04-30] MEDS: ATORVASTATIN 20 MG TAB PO SCH (21:43)
[2017-04-30] MEDS: INSULIN GLARGINE 100 UNIT/ML 10 ML VIAL SQ SCH (21:43)
--- NOTE | 2017-04-30 22:53 | PN ---
DATE OF SERVICE: 04/30/2017 REASON FOR FOLLOWUP: Tracheobronchitis in a patient with a history of a possible SUYAPA infection. INTERVAL HISTORY: The patient is afebrile and overall breathing has improved. He denies significant chest pain. Occasional cough. No abdominal pain, nausea, vomiting or any diarrhea. On examination, the blood pressure is 113/71 with a pulse of 91, temperature 98.1. He is 96% on 3L nasal cannula. General description is an elderly male, lying in bed in no distress. RESPIRATORY SYSTEM: Unlabored breathing with decreased intensity with occasional wheeze. HEART: S1, S2. Regular rate and rhythm. ABDOMEN: Soft. No tenderness. LABS: Hemoglobin is 10.1, white count 5.1 with a BUN of 35, creatinine 1.26. Did have a CT of the chest done yesterday that did show cardiomegaly with bilateral emphysematous changes, increased upper lung alveolar interstitial edema and infiltrate along with splenomegaly. 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 Pulmonary is planning for a bronchoscopy and deep culture tomorrow. Will wait for them to be finalized. Will continue with the current antibiotic Levaquin at this point. Continue with supportive care. SHAYAN
[2017-05-01 05:51] LABS: Glucose,Whole Blood 122 mg/dL (75-99)
[2017-05-01] MEDS: INSULIN LISPRO (humaLOG) 300 UNIT/3 ML VIAL SQ SCH ×7 (06:30→21:05)
[2017-05-01 06:36] LABS: Anisocytosis Slight; CH 28.9; CHCM 33.6; HDW 3.71; HGB 11.3 gm/dL (13.0-17.5); MCH 28.8 pg (25.0-35.0); MCHC 33.4 g/dL (31.0-37.0); MCV 86.3 fL (80.0-100.0); Mean Platelet Volume 8.5; Poikilocytosis Slight; RBC 3.94 m/uL (4.30-5.90); RDW 16.4 % (11.5-15.5); WBC 4.8 k/uL (3.8-10.6)
[2017-05-01 06:49] LABS: ALT 35 U/L (21-72); AST 25 U/L (17-59); Alkaline Phosphatase 87 U/L (38-126); Anion Gap 7 mmol/L; Blood Urea Nitrogen 37 mg/dL (9-20); Calcium 9.5 mg/dL (8.4-10.2); Carbon Dioxide 38 mmol/L (22-30); Chloride 96 mmol/L (98-107); Glucose 118 mg/dL (74-99); Non-African American GFR(MDRD) 54 (>60 ml/min/1.73 sqM); Potassium 4.2 mmol/L (3.5-5.1); Sodium 141 mmol/L (137-145); Total Bilirubin 1.7 mg/dL (0.2-1.3); Total Protein 7.1 g/dL (6.3-8.2)
[2017-05-01] MEDS: TIOTROPIUM 18 MCG/PUFF INHALER INHALATION SCH (07:51)
[2017-05-01] MEDS: SYMBICORT 160-4.5 MCG INHALER INHALATION SCH ×2 (07:51→20:15)
[2017-05-01] MEDS: ENOXAPARIN 40 MG/0.4 ML SYRINGE SQ SCH (08:07)
[2017-05-01] MEDS: DIGOXIN 125 MCG TAB PO SCH (08:07)
[2017-05-01] MEDS: METOPROLOL SUCCINATE (ER) 50 MG TAB.ER.24H PO SCH (08:07)
[2017-05-01] MEDS: FUROSEMIDE 80 MG TAB PO SCH ×3 (08:07→16:58)
[2017-05-01] MEDS: FERROUS SULFATE 325 MG TAB PO SCH (09:40)
--- NOTE | 2017-05-01 10:40 | P.PN ---
Subjective Principal diagnosis: congestive heart failure this is a 71-year-old gentleman with history of chronic diastolic heart failure , COPD, hypertension, hyperlipidemia, paroxsysmal atrial fibrillation, prior TIA,diabetes, who presented to the hospital with symptoms of progressively worsening shortness of breath. Echocardiogram with Doppler study performed within one year revealed normal left ventricular systolic function with severe pulmonary hypertension. patient was initiated on IV Lasix. he has been diuresing well his weight is down 2 kg today. Patient is scheduled today to undergo bronchoscopy with biopsies for definitive diagnosis because of positive PPD test and residual consolidation. He was sitting up in the chair at the time of my examination today, overall feeling better. Currently on by mouth Lasix. Objective - Vital Signs Vital signs: Vital Signs Temp 98.1 F 05/01/17 08:00 Pulse 95 05/01/17 08:00 Resp 18 05/01/17 04:00 BP 96/67 05/01/17 08:00 Pulse Ox 95 05/01/17 08:00 Intake & Output 04/30/17 05/01/17 05/01/17 18:59 06:59 18:59 Intake Total 360 20 Balance 360 20 Weight 107.3 kg Intake: IV 20 0.9 20 Oral 360 Other: # Voids 1 # Bowel Movements 1 - Exam PHYSICAL EXAMINATION: HEENT: Head is atraumatic, normocephalic. Pupils equal, round. Neck is supple. There is no elevated jugular venous pressure. HEART EXAMINATION:heart S1 and S2 systolic ejection murmur is heard. CHEST EXAMINATION:lungs reveal diminished air entry bilaterally with scattered coarse wheezing throughout ABDOMEN: Soft, nontender. Bowel sounds are heard. No organomegaly noted. EXTREMITIES: 2+ peripheral pulses with no evidence of peripheral edema and no calf tenderness noted. NEUROLOGIC patient is awake, alert and oriented -3. . - Labs CBC & Chem 7: 05/01/17 06:17 05/01/17 06:17 Labs: Abnormal Lab Results - Last 24 Hours (Table) 04/30/17 04/30/17 04/30/17 Range/Units 06:09 11:52 17:21 RBC (4.30-5.90) m/uL Hgb (13.0-17.5) gm/dL Hct (39.0-53.0) % RDW (11.5-15.5) % Plt Count (150-450) k/uL Chloride (98-107) mmol/L Carbon Dioxide (22-30) mmol/L BUN (9-20) mg/dL Creatinine (0.66-1.25) mg/dL Glucose (74-99) mg/dL POC Glucose (mg/dL) 266 H 187 H (75-99) mg/dL Hemoglobin A1c 8.7 H (4.2-6.1) % Total Bilirubin (0.2-1.3) mg/dL 04/30/17 05/01/17 05/01/17 Range/Units 20:47 05:49 06:17 RBC 3.94 L (4.30-5.90) m/uL Hgb 11.3 L (13.0-17.5) gm/dL Hct 34.0 L (39.0-53.0) % RDW 16.4 H (11.5-15.5) % Plt Count 135 L (150-450) k/uL Chloride (98-107) mmol/L Carbon Dioxide (22-30) mmol/L BUN (9-20) mg/dL Creatinine (0.66-1.25) mg/dL Glucose (74-99) mg/dL POC Glucose (mg/dL) 195 H 122 H (75-99) mg/dL Hemoglobin A1c (4.2-6.1) % Total Bilirubin (0.2-1.3) mg/dL 05/01/17 Range/Units 06:17 RBC (4.30-5.90) m/uL Hgb (13.0-17.5) gm/dL Hct (39.0-53.0) % RDW (11.5-15.5) % Plt Count (150-450) k/uL Chloride 96 L (98-107) mmol/L Carbon Dioxide 38 H (22-30) mmol/L BUN 37 H (9-20) mg/dL Creatinine 1.30 H (0.66-1.25) mg/dL Glucose 118 H (74-99) mg/dL POC Glucose (mg/dL) (75-99) mg/dL Hemoglobin A1c (4.2-6.1) % Total Bilirubin 1.7 H (0.2-1.3) mg/dL Microbiology - Last 24 Hours (Table) 04/28/17 11:25 Blood Culture - Preliminary Blood No Growth after 48 hours 04/29/17 19:18 Gram Stain - Preliminary Sputum Assessment and Plan (1) Diastolic CHF, acute on chronic Status: Acute (2) Pneumonia Status: Acute (3) COPD (chronic obstructive pulmonary disease) Status: Acute (4) Aortic stenosis Status: Acute (5) CVA (cerebral vascular accident) Status: Acute (6) Vascular disease Status: Acute (7) Hyperlipemia Status: Acute (8) Diabetes Status: Acute (9) HTN (hypertension) Status: Acute (10) Paroxysmal a-fib Status: Acute Plan: From cardiology's perspective, we will recommend to continue current dose of by mouth Lasix along with Lipitor, Lanoxin, metoprolol . DNP note has been reviewed, I agree with a documented findings and plan of care. Patient was seen and examined.
[2017-05-01 11:23] VITALS: BMI 32.1
[2017-05-01 12:10] LABS: Glucose,Whole Blood 138 mg/dL (75-99)
[2017-05-01] MEDS ORDERED: MIDAZOLAM 2 MG/2 ML VIAL ONE (13:10)
[2017-05-01] MEDS ORDERED: PROPOFOL 10 MG/ML 20 ML VIAL IV ONE (13:10)
[2017-05-01] MEDS ORDERED: LACTATED RINGERS 1,000 ML IV ONE (13:27)
[2017-05-01] MEDS ORDERED: LIDOCAINE 2% (PF) 20 MG/ML 10ML INHALATION ONE (13:53)
--- NOTE | 2017-05-01 14:01 | P.PN ---
Subjective A 71-year-old male patient, very well-known to me because of his advanced COPD, and chronic hypoxic arrest 30 failure whereas been also followed up at the [facility] and his primary care physician is Dr. Khan. This patient has been maintained on oxygen at 3 L/m nasal cannula. He is known to have subcentimeter pulmonary nodules a some previous CAT scan of the chest and he was found out to have 1-2 mm nodule in the lateral aspect of the left lung and lateral basilar segment of the left lower lobe. These were thought to be benign. In terms of his COPD, the patient has been maintained on a combination of Spiriva and Symbicort and albuterol neb last treatment on it and needed basis. He had an exacerbation on March 2016 for which she was admitted to the hospital and during the same hospitalization he had complications of epistaxis. Following that, around December 2016, the patient wasn't a trip to [place] and on the way back the patient developed a seizure and he was admitted to [facility]. At that time was also diagnosed having a left lower lobe pneumonia and the patient had a moderate to large airspace consolidation/infiltrate in the left lung base. The patient completed treatment and he was discharged home and subsequent chest x-ray showed some residual haziness in the left lung base. Note that his echocardiogram that was done at [facility] at that time showed moderate to severe aortic stenosis and mild regurgitation with an ejection fraction of 6065%. He is also known to have paroxysmal atrial fibrillation. The patient is also known to have a positive TB skin test. A sputum analysis that was done at the [facility] in [place] from December 2016 was positive for AFB. Subsequently the patient was contacted and he was told to have a nontuberculous disease. I repeated his sputum Gram stain and culture and February 2017 and it came back negative. He a had a repeat CAT scan of the chest on 02/17/2017 and it basically showed interval diminution of the size and density of the left lower lobe infiltrate compared to the previous evaluations. He also had a small residual left-sided pleural effusion on the right lung demonstrated multiple nodules one of them was calcified in the right lower lobe. There are also several millimeters noncalcified nodules laterally in the right midlung. The mediastinum was free of any disease The patient got hospitalized yesterday because of increased shortness of breath. He is coughing up yellowish sputum. No hemoptysis. No pleurisy. No weight loss. No fever or chills or night sweats. No indication of any active tuberculosis. No angina. He had no increased swelling lower extremities. His chest x-ray showed cardiomegaly and pulmonary vascular congestion. He was admitted and currently is being treated for an acute CHF and is currently on IV Lasix. He was also found to have some mild troponin leak and no acute EKG changes and the white cell count is not elevated and a creatinine is normal at 1.1. His EKG showing normal sinus rhythm. No acute ischemic changes. He is seen again today 04/30/2017 in follow-up on the selective care unit. He is currently sitting up in the chair at the bedside. He is awake and alert in no acute distress. A CT scan of the chest reveals increasing alveolar infiltrates in the bilateral upper lobes. He has been slow to progress. He has been afebrile. Hemodynamically stable. No leukocytosis. 05/01/2017, the patient is being seen in follow-up. The patient is doing well. No specific complaints. He is afebrile. No chest pain. No significant sputum production or hemoptysis. The plan is to proceed with a bronchoscopy and perform a therapeutic it was suctioning and the bronchioloalveolar lavage to make sure there is ongoing pulmonary infection in this patient. There is a concern of ongoing run over this infection, questionable atypical mycobacterial pulmonary infection. CAT scan of the chest was also noted. Clinically is stable Objective - Vital Signs Vital signs: Vital Signs Temp 98.8 F 05/01/17 11:21 Pulse 94 05/01/17 11:21 Resp 18 05/01/17 11:21 BP 108/67 05/01/17 11:21 Pulse Ox 95 05/01/17 11:21 Intake & Output 04/30/17 05/01/17 05/01/17 18:59 06:59 18:59 Intake Total 360 20 Balance 360 20 Weight 107.3 kg 107.3 kg Intake: IV 20 0.9 20 Oral 360 Other: # Voids 1 0 # Bowel Movements 1 0 - Exam - Exam Head exam was generally normal. There was no scleral icterus or corneal arcus. Mucous membranes were moist.Neck was supple and without jugular venous distension, thyromegaly, or carotid bruits. Carotids were easily palpable bilaterally. There was no adenopathy. Lung sounds are diminished bilaterally along with some scattered expiratory wheezes heard throughout the lung pope. Heart sounds are positive for a systolic ejection murmur grade 3/6 heard throughout the precordium. There is a positive S1-S2, regular.Abdominal exam revealed normal bowel sounds. The abdomen was soft, non-tender, and without masses, organomegaly, or appreciable enlargement of the abdominal aorta.Examination of the extremities revealed easily palpable radial, femoral and pedal pulses. There was no cyanosis, clubbing or edema. - Labs CBC & Chem 7: 05/01/17:05/01/17: Labs: Abnormal Lab Results - Last 24 Hours (Table) 04/30/17 04/30/17 05/01/17 Range/Units 17:21 20:47 05:49 RBC (4.30-5.90) m/uL Hgb (13.0-17.5) gm/dL Hct (39.0-53.0) % RDW (11.5-15.5) % Plt Count (150-450) k/uL Chloride (98-107) mmol/L Carbon Dioxide (22-30) mmol/L BUN (9-20) mg/dL Creatinine (0.66-1.25) mg/dL Glucose (74-99) mg/dL POC Glucose (mg/dL) 187 H 195 H 122 H (75-99) mg/dL Total Bilirubin (0.2-1.3) mg/dL 05/01/17 05/01/17 05/01/17 Range/Units :10 05: 12:01 RBC 3.94 L (4.30-5.90) m/uL Hgb 11.3 L (13.0-17.5) gm/dL Hct 34.0 L (39.0-53.0) % RDW 16.4 H (11.5-15.5) % Plt Count 135 L (150-450) k/uL Chloride 96 L (98-107) mmol/L Carbon Dioxide 38 H (22-30) mmol/L BUN 37 H (9-20) mg/dL Creatinine 1.30 H (0.66-1.25) mg/dL Glucose 118 H (74-99) mg/dL POC Glucose (mg/dL) 138 H (75-99) mg/dL Total Bilirubin 1.7 H (0.2-1.3) mg/dL Microbiology - Last 24 Hours (Table) 04/28/17 11:25 Blood Culture - Preliminary Blood No Growth after 72 hours 04/29/17 19:18 Gram Stain - Preliminary Sputum Sputum Culture - Preliminary Assessment and Plan Plan: Assessment 1 shortness of breath, acute on chronic, possibly related to CHF and the patient is currently being treated for an acute CHF exacerbation and he is on diuretics, improving 2 troponin leak with no EKG changes 3 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 I was concerned of a mycobacterial tuberculosis infection. However, the patient was later on told by the [facility] that this was a atypical mycobacterium. I further reviewed the CAT scan of the chest from January 2017 and there is evidence of previous granulomatous infection with scattered by the pulmonary nodules yet for the most part there was no evidence of an acute pneumonia or pulmonary TB involvement. I repeated the sputum sample in February 2017 and that came back negative. 4 left lower lobe pneumonia, history of, recovered with the latest CAT scan of the chest showing some residual consolidation/effusion in the left lung base 5 scattered bilateral subcentimeter pulmonary nodules 6 chronic hypoxic respiratory failure 7 severe COPD maintained on a combination of Spiriva and Symbicort and oxygen at 3l minute nasal cannula 8 moderate severe aortic stenosis with an ejection fraction of 65% 9 CVA, history of 10 proximal atrial fibrillation currently on no anticoagulation and the patient' s rhythm is sinus 11 Vascular disease 12 hyperlipidemia 13 diabetes mellitus Plan Patient is stable. The plan is to do a bronchoscopy and bronchioloalveolar lavage with a main concern of ruling out any pulmonary infection. As mentioned earlier the patient had a positive AFB several months back over this was not confirmed on subsequent sputum analysis. The bronchoscopy and bronchioloalveolar lavage and appendicular suctioning will be done and the samples will be sent for cultures and analysis. Meanwhile, the patient's CHF has been optimized and the patient was switched to oral Lasix.
--- NOTE | 2017-05-01 14:06 | P.PCN ---
Date of Procedure: 05/01/17 Preoperative Diagnosis: Previous history of atypical mycobacterial infection, positive sputum for AFB, granulomatous lung disease Postoperative Diagnosis: Same Procedure(s) Performed: Flexible bronchoscopy and the bronchioloalveolar lavage of the lingula Implants: Anesthesia: MAC Surgeon: Maris Cerda Estimated Blood Loss (ml): 0 Pathology: other Condition: stable Disposition: floor Indications for Procedure: See above Operative Findings: This procedure was done under conscious sedation with anesthetic agents being administered by anesthesia the bedside. The induction was done by PROCESS TECHNICIAN. The patient was given a combination of fentanyl and Diprivan. After achieving adequate sedation, a flexible bronchoscope was inserted through the right nostril. The bronchoscope was advanced and the upper airway structures were all inspected. Visualized structures including the pharynx, larynx, epiglottis , arytenoids, cords and all of the structures were within normal limits. A total of 2 mL of 1% lidocaine was applied to the vocal cords and following the bronchoscope was advanced upper airway. Examination tracheal bronchial tree was done. There was some loose and mucoid rest of the secretions present throughout the patient's airway. There was also a mild component of tracheal bronchomalacia. The bronchial mucosa is inflamed and most of the inflamed areas of water and FiO2 down the left specially in the left upper lobe area. The airway inspection was done. The visualized airways into the trachea, bilateral mainstem bronchi, right upper lobe bronchus, right middle lobe bronchus, right lower lobe bronchus, left upper lobe bronchus and left lower lobe bronchus. All of the wrists or secretions were suctioned out. The bronchioloalveolar lavage of the lingula was done. A total of 80 cc's of fluid was infused and a total of 35 mL of aspirate was obtained there was somewhat bloody. Adequate pulmonate toileting was done. Airway was cleared of any residual it for secretions. Bronchoscope was removed. No foreign bodies. No endobronchial lesions identified. Most abnormal findings were related to mucosal inflammatory changes and bronchitis involving the lingular and upper lobe and the distal left mainstem bronchus area. The bronchoscope was removed and the procedure was terminated and the patient transferred back to his room in a stable condition. Description of Procedure:
--- NOTE | 2017-05-01 15:02 | P.PN ---
Subjective This is a 71-year-old male one of Dr. Nuno Khan with a previous medical history significant for hypertension and hypertensive cardiovascular disease, hyperlipidemia, history of CVA/TIA, chronic atrial fibrillation, chronic diastolic heart failure, gout, chronic obstructive pulmonary disease , who sees Dr. Almeida the regular basis every [address] Cerda on a regular basis as well, the patient was brought into the emergency department at [facility] today with 2 day history of increased shortness breath associated with increased coughing of phlegm production, patient stated that he has been laying in bed for the past 2 days not able to do much, patient was seen in the ER had a chest x-ray that showed congestive heart failure and patient did receive Lasix IV and he was admitted to the hospital for evaluation and cardiology consultation as well as pulmonary consultation was obtained. 04/29: Patient is doing much better today he denies any chest pain, shortness of breath, he has no swelling in both lower extremities, we will decrease his Lasix to 40 mg IV push every 12 hours for the next 24 hours then he would be discharged home tomorrow morning. 04/30: CTA of the chest shows cardiomegaly with mild emphysematous change with increasing upper lung alveolar and interstitial edema and/or infiltrate. Splenomegaly redemonstrated. Heterogeneous somewhat small liver seen. Correlate advised to rule out cirrhosis. Patient gives history that he did drink heavy alcohol in the past but none now. Patient will need follow-up as an outpatient. Patient has been seen by towerman with recommendations for IV Lasix to be switched to oral this morning and he has been cleared for discharge. Patient has been seen and followed by Dr. Cerda from pulmonary medicine sputum culture is in progress. 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 05/01: Patient is scheduled for bronchoscopy today. Patient denies any blood in his sputum. He denies any chest pain. Lower extremity edema is improved. Anticipate discharge home tomorrow. Objective - Vital Signs Vital signs: Vital Signs Temp 98.8 F 05/01/17 11:21 Pulse 94 05/01/17 11:21 Resp 18 05/01/17 11:21 BP 108/67 05/01/17 11:21 Pulse Ox 95 05/01/17 11:21 Intake & Output 04/30/17 05/01/17 05/01/17 18:59 06:59 18:59 Intake Total 360 20 Balance 360 20 Weight 107.3 kg 107.3 kg Intake: IV 20 0.9 20 Oral 360 Other: # Voids 1 0 # Bowel Movements 1 0 - Exam General appearance: average body habitus, mild distress - EENT Eyes: anicteric sclerae, EOMI, PERRLA, no ptosis, no scleral icterus, normal appearance ENT: hearing grossly normal, NA/AT, normal oropharynx, no thrush Ears: bilateral: normal - Neck Neck: no lymphadenopathy, normal ROM, no rigidity, no stridor, no thyromegaly Carotids: bilateral: upstroke normal Thyroid: bilateral: normal size - Respiratory Respiratory: bilateral: diminished, negative: dullness, rales, rhonchi, wheezing , prolonged expiration - Cardiovascular Rhythm: irregularly irregular Heart sounds: normal: S1, S2 Abnormal Heart Sounds: systolic murmur - Gastrointestinal General gastrointestinal: normal bowel sounds, soft, no splenomegaly, no tenderness, no umbilical hernia, no ventral hernia - Integumentary Integumentary: normal, normal turgor - Neurologic Neurologic: CNII-XII intact - Musculoskeletal Musculoskeletal: generalized weakness, strength equal bilaterally - Psychiatric Psychiatric: A&O x's 3, appropriate affect, intact judgment & insight - Labs CBC & Chem 7: 05/01/17 06:17 05/01/17 06:17 Labs: Abnormal Lab Results - Last 24 Hours (Table) 04/30/17 04/30/17 04/30/17 Range/Units 06:09 11:52 17:21 RBC (4.30-5.90) m/uL Hgb (13.0-17.5) gm/dL Hct (39.0-53.0) % RDW (11.5-15.5) % Plt Count (150-450) k/uL Chloride (98-107) mmol/L Carbon Dioxide (22-30) mmol/L BUN (9-20) mg/dL Creatinine (0.66-1.25) mg/dL Glucose (74-99) mg/dL POC Glucose (mg/dL) 266 H 187 H (75-99) mg/dL Hemoglobin A1c 8.7 H (4.2-6.1) % Total Bilirubin (0.2-1.3) mg/dL 04/30/17 05/01/17 05/01/17 Range/Units 20:47 05:49 06:17 RBC 3.94 L (4.30-5.90) m/uL Hgb 11.3 L (13.0-17.5) gm/dL Hct 34.0 L (39.0-53.0) % RDW 16.4 H (11.5-15.5) % Plt Count 135 L (150-450) k/uL Chloride (98-107) mmol/L Carbon Dioxide (22-30) mmol/L BUN (9-20) mg/dL Creatinine (0.66-1.25) mg/dL Glucose (74-99) mg/dL POC Glucose (mg/dL) 195 H 122 H (75-99) mg/dL Hemoglobin A1c (4.2-6.1) % Total Bilirubin (0.2-1.3) mg/dL 05/01/17 Range/Units 06:17 RBC (4.30-5.90) m/uL Hgb (13.0-17.5) gm/dL Hct (39.0-53.0) % RDW (11.5-15.5) % Plt Count (150-450) k/uL Chloride 96 L (98-107) mmol/L Carbon Dioxide 38 H (22-30) mmol/L BUN 37 H (9-20) mg/dL Creatinine 1.30 H (0.66-1.25) mg/dL Glucose 118 H (74-99) mg/dL POC Glucose (mg/dL) (75-99) mg/dL Hemoglobin A1c (4.2-6.1) % Total Bilirubin 1.7 H (0.2-1.3) mg/dL Microbiology - Last 24 Hours (Table) 04/29/17 19:18 Gram Stain - Preliminary Sputum Sputum Culture - Preliminary 04/28/17 11:25 Blood Culture - Preliminary Blood No Growth after 48 hours Assessment and Plan Plan: 1. Acute diastolic heart failure. Continue Lasix 80 mg oral every 12 hours, metoprolol 50 mg orally once every day, digoxin 125 g orally once every day, her input and output and daily weight, cardiology consultation. 2. Hypertension and hypertensive cardiovascular disease. Continue metoprolol 50 mg orally once every day. 3. Diabetes mellitus type 2. Decrease Lantus 80 units at bedtime , continue with a sliding scale insulin as well, BJM will be checked before each meal and at bedtime. 4. Hyperlipidemia. Continue simvastatin 40 mg orally at bedtime. 5. COPD with mild bronchitis. Continue albuterol nebulization 4 times every day Spiriva 18 mcg 1 capsule inhalation once every day and Symbicort 160/4.5 g 2 puff inhalation twice every day, Levaquin 500 mg every 24 hours. Pulmonary consultation from Dr. Cerda. Bronchoscopy today 6. History of gout .continue allopurinol 100 mg orally once every day. 7. History of CVA and TIA .continue patient on aspirin 81 mg once every day. 8. Chronic hypoxic respiratory failure with home O2 dependence at 3 L nasal cannula. 9. DVT prophylaxis. Continue bilateral knee-high MILLI hose. 10. GI prophylaxis. Protonix 40 mg orally once every day. Patient is full code. Discharge home tomorrow morning. Impression and plan of care have been directed as dictated by the signing physician. Meggan Edge nurse practitioner acting as scribe for signing physician.
[2017-05-01] MEDS: ALBUTEROL NEBULIZED 2.5 MG/3 ML INHALATION PRN (16:19)
[2017-05-01 16:56] LABS: Glucose,Whole Blood 177 mg/dL (75-99)
[2017-05-01] MEDS: FENOFIBRATE 160 MG TAB PO SCH (16:58)
[2017-05-01] MEDS: LEVOFLOXACIN 750 MG TAB PO SCH (16:58)
[2017-05-01 20:57] LABS: Glucose,Whole Blood 135 mg/dL (75-99)
[2017-05-01] MEDS: ATORVASTATIN 20 MG TAB PO SCH (21:05)
[2017-05-01] MEDS: INSULIN GLARGINE 100 UNIT/ML 10 ML VIAL SQ SCH (21:05)
[2017-05-02] MEDS: INSULIN LISPRO (humaLOG) 300 UNIT/3 ML VIAL SQ SCH ×4 (05:44→12:17)
[2017-05-02 05:59] LABS: Glucose,Whole Blood 92 mg/dL (75-99)
[2017-05-02 06:29] LABS: Anisocytosis Slight; CHCM 33.9; HCT 31.8 % (39.0-53.0); HDW 3.67; HGB 10.9 gm/dL (13.0-17.5); MCH 29.3 pg (25.0-35.0); MCHC 34.1 g/dL (31.0-37.0); Mean Platelet Volume 7.5; Poikilocytosis Slight; RDW 16.2 % (11.5-15.5); WBC 4.8 k/uL (3.8-10.6)
[2017-05-02 06:42] LABS: Calcium 8.9 mg/dL (8.4-10.2)
[2017-05-02] MEDS: FERROUS SULFATE 325 MG TAB PO SCH (08:05)
[2017-05-02] MEDS: ENOXAPARIN 40 MG/0.4 ML SYRINGE SQ SCH (08:05)
[2017-05-02] MEDS: METOPROLOL SUCCINATE (ER) 50 MG TAB.ER.24H PO SCH (08:05)
[2017-05-02] MEDS: FENOFIBRATE 160 MG TAB PO SCH (08:05)
[2017-05-02] MEDS: FUROSEMIDE 80 MG TAB PO SCH (08:05)
[2017-05-02] MEDS: DIGOXIN 125 MCG TAB PO SCH (08:05)
[2017-05-02] MEDS: TIOTROPIUM 18 MCG/PUFF INHALER INHALATION SCH (08:39)
[2017-05-02] MEDS: SYMBICORT 160-4.5 MCG INHALER INHALATION SCH (08:39)
[2017-05-02] MEDS: ALBUTEROL NEBULIZED 2.5 MG/3 ML INHALATION PRN (08:39)
[2017-05-02 09:00] VITALS: BP 108/67; PULSE 94; RESP 18; TEMP 98.4
--- NOTE | 2017-05-02 10:28 | P.PN ---
Subjective Principal diagnosis: congestive heart failure this is a 71-year-old gentleman with history of chronic diastolic heart failure , COPD, hypertension, hyperlipidemia, paroxsysmal atrial fibrillation, prior TIA,diabetes, who presented to the hospital with symptoms of progressively worsening shortness of breath. Echocardiogram with Doppler study performed within one year revealed normal left ventricular systolic function with severe pulmonary hypertension. patient was initiated on IV Lasix. he has been diuresing well his weight is down 2 kg today. Patient is scheduled today to undergo bronchoscopy with biopsies for definitive diagnosis because of positive PPD test and residual consolidation. He was sitting up in the chair at the time of my examination today, overall feeling better. Currently on by mouth Lasix. 05/02/2017 Patient was seen and examined this morning, overall feeling much better. He underwent bronchoscopy yesterday. Potassium 4.0, BUN 49, creatinine 1.6. Currently on by mouth Lasix. Objective - Vital Signs Vital signs: Vital Signs Temp 98.4 F 05/02/17 08:00 Pulse 90 05/02/17 08:50 Resp 18 05/02/17 08:00 BP 108/67 05/02/17 08:00 Pulse Ox 94 L 05/02/17 08:00 Intake & Output 05/01/17 05/02/17 05/02/17 18:59 06:59 18:59 Intake Total 350 120 Balance 350 120 Weight 107.3 kg 108 kg Intake: IV 350 Oral 120 Other: # Voids 2 1 0 # Bowel Movements 0 - Exam PHYSICAL EXAMINATION: HEENT: Head is atraumatic, normocephalic. Pupils equal, round. Neck is supple. There is no elevated jugular venous pressure. HEART EXAMINATION:heart S1 and S2 systolic ejection murmur is heard. CHEST EXAMINATION:lungs reveal diminished air entry bilaterally with scattered coarse wheezing throughout ABDOMEN: Soft, nontender. Bowel sounds are heard. No organomegaly noted. EXTREMITIES: 2+ peripheral pulses with no evidence of peripheral edema and no calf tenderness noted. NEUROLOGIC patient is awake, alert and oriented -3. . - Labs CBC & Chem 7: 05/02/17 05:38 05/02/17 05:38 Labs: Abnormal Lab Results - Last 24 Hours (Table) 05/01/17 05/01/17 05/01/17 Range/Units 12:01 16:38 20:48 RBC (4.30-5.90) m/uL Hgb (13.0-17.5) gm/dL Hct (39.0-53.0) % RDW (11.5-15.5) % Plt Count (150-450) k/uL Chloride (98-107) mmol/L Carbon Dioxide (22-30) mmol/L BUN (9-20) mg/dL Creatinine (0.66-1.25) mg/dL POC Glucose (mg/dL) 138 H 177 H 135 H (75-99) mg/dL 05/02/17 05/02/17 Range/Units 05:38 05:38 RBC 3.70 L (4.30-5.90) m/uL Hgb 10.9 L (13.0-17.5) gm/dL Hct 31.8 L (39.0-53.0) % RDW 16.2 H (11.5-15.5) % Plt Count 136 L (150-450) k/uL Chloride 93 L (98-107) mmol/L Carbon Dioxide 33 H (22-30) mmol/L BUN 49 H (9-20) mg/dL Creatinine 1.60 H (0.66-1.25) mg/dL POC Glucose (mg/dL) (75-99) mg/dL Microbiology - Last 24 Hours (Table) 04/29/17 19:18 Gram Stain - Final Sputum Sputum Culture - Final 04/28/17 11:25 Blood Culture - Preliminary Blood No Growth after 72 hours Assessment and Plan (1) Diastolic CHF, acute on chronic Status: Acute (2) Pneumonia Status: Acute (3) COPD (chronic obstructive pulmonary disease) Status: Acute (4) Aortic stenosis Status: Acute (5) CVA (cerebral vascular accident) Status: Acute (6) Vascular disease Status: Acute (7) Hyperlipemia Status: Acute (8) Diabetes Status: Acute (9) HTN (hypertension) Status: Acute (10) Paroxysmal a-fib Status: Acute Plan: From cardiology's perspective, we will recommend to continue current dose of by mouth Lasix along with Lipitor, Lanoxin, metoprolol . Discharge home once cleared by primary and pulmonary. Follow-up appointment will be made in the office post discharge. DNP note has been reviewed, I agree with a documented findings and plan of care. Patient was seen and examined.
--- NOTE | 2017-05-02 11:23 | PN ---
DATE OF SERVICE: 05/01/2017 Reason for followup is tracheobronchitis and question of SUYAPA infection. INTERVAL HISTORY: The patient is afebrile. Has been breathing more comfortably. The patient is status post bronchoscopy procedure. The patient denies any significant chest pain. Occasional cough, still bringing up some sputum and did have some blood stain. No abdominal pain or any diarrhea. On examination, blood pressure 123/75 with a pulse of 97, temperature is 98.2. He is 95% on 3 L nasal cannula. General description is an elderly male, lying in bed in no distress. RESPIRATORY SYSTEM: Unlabored breathing with decreased breath sounds and significant wheeze. HEART: S1, S2. Regular rate and rhythm. ABDOMEN: Soft. No tenderness. LABS: Hemoglobin 11.3, white count of 4.8 with a BUN of 37, creatinine 1.30. The BAL and cultures are currently pending. DIAGNOSTIC IMPRESSION AND PLAN: Patient admitted to the hospital with difficulty in breathing in addition to did have a history of possible SUYAPA infection, status post bronch, awaiting for these cultures to finalize. Recommendation further on the basis of the culture report. Continue supportive care.
[2017-05-02 11:57] LABS: Glucose,Whole Blood 216 mg/dL (75-99)
--- NOTE | 2017-05-02 11:57 | P.PN ---
Subjective A 71-year-old male patient, very well-known to me because of his advanced COPD, and chronic hypoxic arrest 30 failure whereas been also followed up at the [facility] and his primary care physician is Dr. Khan. This patient has been maintained on oxygen at 3 L/m nasal cannula. He is known to have subcentimeter pulmonary nodules a some previous CAT scan of the chest and he was found out to have 1-2 mm nodule in the lateral aspect of the left lung and lateral basilar segment of the left lower lobe. These were thought to be benign. In terms of his COPD, the patient has been maintained on a combination of Spiriva and Symbicort and albuterol neb last treatment on it and needed basis. He had an exacerbation on March 2016 for which she was admitted to the hospital and during the same hospitalization he had complications of epistaxis. Following that, around December 2016, the patient wasn't a trip to [place] and on the way back the patient developed a seizure and he was admitted to [facility]. At that time was also diagnosed having a left lower lobe pneumonia and the patient had a moderate to large airspace consolidation/infiltrate in the left lung base. The patient completed treatment and he was discharged home and subsequent chest x-ray showed some residual haziness in the left lung base. Note that his echocardiogram that was done at [facility] at that time showed moderate to severe aortic stenosis and mild regurgitation with an ejection fraction of 6065%. He is also known to have paroxysmal atrial fibrillation. The patient is also known to have a positive TB skin test. A sputum analysis that was done at the [facility] in [place] from December 2016 was positive for AFB. Subsequently the patient was contacted and he was told to have a nontuberculous disease. I repeated his sputum Gram stain and culture and February 2017 and it came back negative. He a had a repeat CAT scan of the chest on 02/17/2017 and it basically showed interval diminution of the size and density of the left lower lobe infiltrate compared to the previous evaluations. He also had a small residual left-sided pleural effusion on the right lung demonstrated multiple nodules one of them was calcified in the right lower lobe. There are also several millimeters noncalcified nodules laterally in the right midlung. The mediastinum was free of any disease The patient got hospitalized yesterday because of increased shortness of breath. He is coughing up yellowish sputum. No hemoptysis. No pleurisy. No weight loss. No fever or chills or night sweats. No indication of any active tuberculosis. No angina. He had no increased swelling lower extremities. His chest x-ray showed cardiomegaly and pulmonary vascular congestion. He was admitted and currently is being treated for an acute CHF and is currently on IV Lasix. He was also found to have some mild troponin leak and no acute EKG changes and the white cell count is not elevated and a creatinine is normal at 1.1. His EKG showing normal sinus rhythm. No acute ischemic changes. He is seen again today 04/30/2017 in follow-up on the selective care unit. He is currently sitting up in the chair at the bedside. He is awake and alert in no acute distress. A CT scan of the chest reveals increasing alveolar infiltrates in the bilateral upper lobes. He has been slow to progress. He has been afebrile. Hemodynamically stable. No leukocytosis. The patient is seen again today 05/02/2017 in follow-up on the selective care unit. He is awake and alert in no acute distress. He states he is breathing easier today as compared to yesterday. Bronchial wash findings are still pending. He is maintaining good O2 saturations in the 90s on 2 L/m per nasal cannula. He is anxious to go home. Objective - Vital Signs Vital signs: Vital Signs Temp 98.4 F 05/02/17 08:00 Pulse 90 05/02/17 08:50 Resp 18 05/02/17 08:00 BP 108/67 05/02/17 08:00 Pulse Ox 94 L 05/02/17 08:00 Intake & Output 05/01/17 05/02/17 05/02/17 18:59 06:59 18:59 Intake Total 350 120 Balance 350 120 Weight 107.3 kg 108 kg Intake: IV 350 Oral 120 Other: # Voids 2 1 0 # Bowel Movements 0 - Exam Head exam was generally normal. There was no scleral icterus or corneal arcus. Mucous membranes were moist.Neck was supple and without jugular venous distension, thyromegaly, or carotid bruits. Carotids were easily palpable bilaterally. There was no adenopathy. Lung sounds are diminished bilaterally along with some scattered expiratory wheezes heard throughout the lung pope. Heart sounds are positive for a systolic ejection murmur grade 3/6 heard throughout the precordium. There is a positive S1-S2, regular.Abdominal exam revealed normal bowel sounds. The abdomen was soft, non-tender, and without masses, organomegaly, or appreciable enlargement of the abdominal aorta.Examination of the extremities revealed easily palpable radial, femoral and pedal pulses. There was no cyanosis, clubbing or edema. - Labs CBC & Chem 7: 05/02/17 05:38 05/02/17 05:38 Labs: Abnormal Lab Results - Last 24 Hours (Table) 05/01/17 05/01/17 05/01/17 Range/Units 12:01 16:38 20:48 RBC (4.30-5.90) m/uL Hgb (13.0-17.5) gm/dL Hct (39.0-53.0) % RDW (11.5-15.5) % Plt Count (150-450) k/uL Chloride (98-107) mmol/L Carbon Dioxide (22-30) mmol/L BUN (9-20) mg/dL Creatinine (0.66-1.25) mg/dL POC Glucose (mg/dL) 138 H 177 H 135 H (75-99) mg/dL 05/02/17 05/02/17 Range/Units 05:38 05:38 RBC 3.70 L (4.30-5.90) m/uL Hgb 10.9 L (13.0-17.5) gm/dL Hct 31.8 L (39.0-53.0) % RDW 16.2 H (11.5-15.5) % Plt Count 136 L (150-450) k/uL Chloride 93 L (98-107) mmol/L Carbon Dioxide 33 H (22-30) mmol/L BUN 49 H (9-20) mg/dL Creatinine 1.60 H (0.66-1.25) mg/dL POC Glucose (mg/dL) (75-99) mg/dL Microbiology - Last 24 Hours (Table) 04/29/17 19:18 Gram Stain - Final Sputum Sputum Culture - Final 04/28/17 11:25 Blood Culture - Preliminary Blood No Growth after 72 hours Assessment and Plan Plan: Assessment 1 shortness of breath, acute on chronic, possibly related to CHF and the patient is currently being treated for an acute CHF exacerbation and he is on diuretics. 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 I was concerned of a mycobacterial tuberculosis infection. However, the patient was later on told by the [facility] that this was a atypical mycobacterium. I further reviewed the CAT scan of the chest from January 2017 and there is evidence of previous [place] infection with scattered by the pulmonary nodules yet for the most part there was no evidence of an acute pneumonia or pulmonary TB involvement. I repeated the sputum sample in February 2017 and that came back negative. 4 left lower lobe pneumonia, history of, recovered with the latest CAT scan of the chest showing some residual consolidation/effusion in the left lung base 5 scattered bilateral subcentimeter pulmonary nodules 6 chronic hypoxic respiratory failure 7 severe COPD maintained on a combination of Spiriva and Symbicort and oxygen at 3l minute nasal cannula 8 moderate severe aortic stenosis with an ejection fraction of 65% 9 CVA, history of 10 proximal atrial fibrillation currently on no anticoagulation and the patient' s rhythm is sinus 11 Vascular disease 12 hyperlipidemia 13 diabetes mellitus Plan The patient was seen and evaluated by Dr. Cerda. Bronchial wash cultures are still pending. In the interim we'll continue with his current pulmonary medications. Continue Levaquin. Continue to diurese the patient. We'll continue to follow and make further recommendations based on his clinical status.
[2017-05-02] MEDS: LEVOFLOXACIN 750 MG TAB PO SCH (12:06)
--- NOTE | 2017-05-02 12:34 | P.DS ---
Providers Date of admission: 04/28/17 13:49 Expected date of discharge: 05/02/17 Attending physician: Onesimo Greenberg Consults: 04/28/17 13:49 Consult Physician Routine Consulting Provider: [facility] Consult Reason/Comments: Congestive heart failure Do you want consulting provider notified?: Yes 04/28/17 14:27 Consult Physician Routine Consulting Provider: Maris Cerda Consult Reason/Comments: copd Do you want consulting provider notified?: Yes 04/29/17 12:15 Consult Physician Routine Consulting Provider: Edmar Reese Consult Reason/Comments: PPD positive, ??? positive AFB Do you want consulting provider notified?: Yes [facility] Course: This is a 71-year-old male one of Dr. Nuno Khan with a previous medical history significant for hypertension and hypertensive cardiovascular disease, hyperlipidemia, history of CVA/TIA, chronic atrial fibrillation, chronic diastolic heart failure, gout, chronic obstructive pulmonary disease , who sees Dr. Almeida the regular basis every [address] Cerda on a regular basis as well, the patient was brought into the emergency department at [facility] today with 2 day history of increased shortness breath associated with increased coughing of phlegm production, patient stated that he has been laying in bed for the past 2 days not able to do much, patient was seen in the ER had a chest x-ray that showed congestive heart failure and patient did receive Lasix IV and he was admitted to the hospital for evaluation and cardiology consultation as well as pulmonary consultation was obtained. 04/29: Patient is doing much better today he denies any chest pain, shortness of breath, he has no swelling in both lower extremities, we will decrease his Lasix to 40 mg IV push every 12 hours for the next 24 hours then he would be discharged home tomorrow morning. 04/30: CTA of the chest shows cardiomegaly with mild emphysematous change with increasing upper lung alveolar and interstitial edema and/or infiltrate. Splenomegaly redemonstrated. Heterogeneous somewhat small liver seen. Correlate advised to rule out cirrhosis. Patient gives history that he did drink heavy alcohol in the past but none now. Patient will need follow-up as an outpatient. Patient has been seen by drapery and upholstery estimator with recommendations for IV Lasix to be switched to oral this morning and he has been cleared for discharge. Patient has been seen and followed by Dr. Cerda from pulmonary medicine sputum culture is in progress. 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 05/01: Patient is scheduled for bronchoscopy today. Patient denies any blood in his sputum. He denies any chest pain. Lower extremity edema is improved. Anticipate discharge home tomorrow. 05/02: Patient underwent bronchoscopy and BAL yesterday. AFB is negative. Fungal culture is in process as well as aerobic culture. Patient states his breathing is much better. BUN is 49 creatinine 1.6 with hemoglobin of 10.9. Patient will be discharged home today in stable condition. Discharge Diagnoses: 1. Acute diastolic heart failure. 2. Hypertension and hypertensive cardiovascular disease. 3. Diabetes mellitus type 2. 4. Hyperlipidemia. 5. COPD with mild bronchitis. 6. History of gout 7. History of CVA and TIA 8. Chronic hypoxic respiratory failure with home O2 dependence at 3 L nasal cannula. Discharge plan: home Impression and plan of care have been directed as dictated by the signing physician. Meggan Edge nurse practitioner acting as scribe for signing physician. Patient Condition at Discharge: Good Plan - Discharge Summary New Discharge Prescriptions: New Furosemide [Lasix] 80 mg PO BID@0900,1600 #60 tab Levofloxacin [Levaquin] 500 mg PO Q48H #7 tab Continue Simvastatin [Zocor] 40 mg PO HS Metoprolol Succinate [Toprol XL] 50 mg PO DAILY Digoxin [Lanoxin] 125 mcg PO DAILY Ferrous Sulfate [Feosol] 325 mg PO DAILY Budesonide-Formot 160-4.5 Mcg [Symbicort 160-4.5 Mcg Inhaler] 2 puff INHALATION RT-BID #1 puff Albuterol Nebulized [Ventolin Nebulized] 2.5 mg INHALATION RT-Q6H PRN PRN Reason: Shortness Of Breath Tiotropium 18 Mcg/Puff [Spiriva] 18 mcg INHALATION RT-DAILY Insulin Glargine [Lantus] 80 unit SQ HS Sodium Chloride 0.65% Nasal [Deep Sea (Saline)] 2 spray NASAL Q1H PRN PRN Reason: Congestion Fenofibrate (Unknown Dose) 1 tab PO DAILY Discontinued Furosemide [Lasix] 60 mg PO TID Discharge Medication List Digoxin [Lanoxin] 125 mcg PO DAILY 11/23/14 [History] Ferrous Sulfate [Feosol] 325 mg PO DAILY 11/23/14 [History] Metoprolol Succinate [Toprol XL] 50 mg PO DAILY 11/23/14 [History] Simvastatin [Zocor] 40 mg PO HS 11/23/14 [History] Budesonide-Formot 160-4.5 Mcg [Symbicort 160-4.5 Mcg Inhaler] 2 puff INHALATION RT-BID #1 puff 12/11/14 [Rx] Albuterol Nebulized [Ventolin Nebulized] 2.5 mg INHALATION RT-Q6H PRN 03/27/16 [ History] Tiotropium 18 Mcg/Puff [Spiriva] 18 mcg INHALATION RT-DAILY 03/27/16 [History] Fenofibrate (Unknown Dose) 1 tab PO DAILY 04/28/17 [History] Insulin Glargine [Lantus] 80 unit SQ HS 04/28/17 [History] Sodium Chloride 0.65% Nasal [Deep Sea (Saline)] 2 spray NASAL Q1H PRN 04/28/17 [ History] Furosemide [Lasix] 80 mg PO BID@0900,1600 #60 tab 05/02/17 [Rx] Levofloxacin [Levaquin] 500 mg PO Q48H #7 tab 05/02/17 [Rx] Follow up Appointment(s)/Referral(s): [facility] [Provider Group] - 2 Weeks (Office to call to make appointment) Nuno Khan MD [Primary Care Provider] - 05/08/17 2:15 pm Maris Cerda MD [STAFF PHYSICIAN] - 05/28/17 2:30 pm (Keep current appointment) Discharge Disposition: HOME SELF-CARE
== END 2017-05-02 12:36 | disposition home or self-care (01) | DRG 264 ==
LOC: EC 10:55 → 6SEL 13:49
PROVIDERS: ADMIT Internal Medicine; ATTEND Internal Medicine
PROC: 0B9H8ZX Drainage of Lung Lingula, Via Natural or Artificial Opening Endoscopic, Diagnostic (ICD-10-PCS; principal; 2017-05-01 13:05)
DX: I11.0 Hypertensive heart disease with heart failure (principal); J96.11 Chronic respiratory failure with hypoxia; I50.33 Acute on chronic diastolic (congestive) heart failure; J44.0 Chronic obstructive pulmonary disease with (acute) lower respiratory infection; I27.2 Other secondary pulmonary hypertension; J84.10 Pulmonary fibrosis, unspecified; R16.1 Splenomegaly, not elsewhere classified; J98.09 Other diseases of bronchus, not elsewhere classified; E11.9 Type 2 diabetes mellitus without complications; D64.9 Anemia, unspecified; I48.0 Paroxysmal atrial fibrillation; I35.0 Nonrheumatic aortic (valve) stenosis; I25.10 Atherosclerotic heart disease of native coronary artery without angina pectoris; J40 Bronchitis, not specified as acute or chronic; E78.5 Hyperlipidemia, unspecified; H91.90 Unspecified hearing loss, unspecified ear; M10.9 Gout, unspecified; M19.91 Primary osteoarthritis, unspecified site; Z99.81 Dependence on supplemental oxygen; Z86.73 Personal history of transient ischemic attack (TIA), and cerebral infarction without residual deficits; Z86.14 Personal history of Methicillin resistant Staphylococcus aureus infection; Z90.49 Acquired absence of other specified parts of digestive tract; Z87.891 Personal history of nicotine dependence; Z82.49 Family history of ischemic heart disease and other diseases of the circulatory system; Z88.6 Allergy status to analgesic agent; Z88.8 Allergy status to other drugs, medicaments and biological substances; Z79.51 Long term (current) use of inhaled steroids; Z79.4 Long term (current) use of insulin; Z79.82 Long term (current) use of aspirin; Z79.899 Other long term (current) drug therapy
CPT/HCPCS: 31624; 36415; 71020; 71250; 80048; 80053; 80162; 81003; 82550; 82553; 83036; 83605; 83735; 83880; 84484; 85025; 85027; 85379; 85610; 85730; 87040; 87070; 87086; 87102; 87116; 87205; 87206; 87252; 87496; 87498; 87502; 87529; 87798; 88108; 88305; 93005; 94640; 96365; 96375; 99291

== ENCOUNTER 2017-06-13 13:45 | Inpatient (IN) | payer OTHER, MEDICARE ==
[2017-06-13] MEDS ORDERED: SODIUM CHLORIDE 0.9% 1,000 ML IV STA (14:20)
--- NOTE | 2017-06-13 14:22 | ED ---
General Adult HPI - General Chief complaint: Recheck/Abnormal Lab/Rx Stated complaint: Anemia/Kidney Issue Time Seen by Provider: 06/13/17 14:19 Source: patient, RN notes reviewed, old records reviewed Mode of arrival: wheelchair Limitations: no limitations - History of Present Illness Initial comments: This is a 71-year-old LVF reevaluation. Patient is a for evaluation of dizziness, abnormal outpatient lab test. Patient has A medical history of recently but not on blood thinners. Patient does admit to Dr. paul be. Patient was told his hemoglobin was low. Is going to adequate and excessive blood thinners for weight loss. And swelling. Patient is also been told that his kidney function might be little bit worse than normal. Patient does feel weak, but no pain. - Related Data Home Medications Medication Instructions Recorded Confirmed Digoxin [Lanoxin] 125 mcg PO DAILY 11/23/14 06/13/17 Ferrous Sulfate [Feosol] 325 mg PO BID 11/23/14 06/13/17 Simvastatin [Zocor] 40 mg PO HS 11/23/14 06/13/17 Albuterol Nebulized [Ventolin 2.5 mg INHALATION RT-Q4H PRN 03/27/16 06/13/17 Nebulized] Tiotropium 18 Mcg/Puff [Spiriva] 18 mcg INHALATION RT-DAILY 03/27/16 06/13/17 Insulin Glargine [Lantus] 80 unit SQ HS 04/28/17 06/13/17 Sodium Chloride 0.65% Nasal [Deep 2 spray NASAL Q1H PRN 04/28/17 06/13/17 Sea (Saline)] Furosemide [Lasix] 100 mg PO BID 06/13/17 06/13/17 HYDROcodone/APAP 5-325MG [[place] 1 tab PO QID PRN 06/13/17 06/13/17 5-325] Insulin Aspart [NovoLOG] See Protocol SQ ACHS PRN 06/13/17 06/13/17 Lisinopril [Zestril] 2.5 mg PO DAILY 06/13/17 06/13/17 Metoprolol Succinate (ER) [Toprol 100 mg PO DAILY 06/13/17 06/13/17 Xl] Previous Rx's Medication Instructions Recorded Budesonide-Formot 160-4.5 Mcg 2 puff INHALATION RT-BID #1 puff 12/11/14 [Symbicort 160-4.5 Mcg Inhaler] Allergies Allergy/AdvReac Type Severity Reaction Status Date / Time lincomycin HCl Allergy Rash/Hives Verified 06/13/17 14:38 [From Lincocin] propoxyphene HCl Allergy Rash/Hives Verified 06/13/17 14:38 [From Darvon] aspirin AdvReac Unknown Verified 06/13/17 14:38 Review of Systems ROS Statement: Those systems with pertinent positive or pertinent negative responses have been documented in the HPI. ROS Other: All systems not noted in ROS Statement are negative. 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, history of positive AFB in the sputum with subsequent negative cultures, CVA/TIA , diabetes mellitus, hyperlipidemia, hypertension, impaired hearing, left lower lobe pneumonia with some residual effusion the left lung base, scattered bilateral pulmonary nodules, previous history of epistaxis and the patient is on no anticoagulants, gout, aortic stenosis moderate to severe in nature with a preserved LV function, peripheral vascular disease History of Any Multi-Drug Resistant Organisms: MRSA Date of last positivie culture/infection: 2010 MDRO Source:: r elbow Past Surgical History: Cholecystectomy, Tonsillectomy Additional Past Surgical History / Comment(s): Lipoma removal from the right side of the abdomen. Past Anesthesia/Blood Transfusion Reactions: No Reported Reaction Additional Past Anesthesia/Blood Transfusion Reaction / Comment(s): blood transfusion-no reaction Past Psychological History: No Psychological Hx Reported Smoking Status: Former smoker Past Alcohol Use History: None Reported Past Drug Use History: None Reported - Past Family History Mother History Unknown: Yes Family Medical History: No Reported History Brother(s) Family Medical History: No Reported History Sister(s) Family Medical History: Cancer, Myocardial Infarction ([place]) Daughter(s) Family Medical History: No Reported History Son(s) Family Medical History: No Reported History Father Family Medical History: No Reported History General Exam Limitations: no limitations General appearance: alert, in no apparent distress Head exam: Present: atraumatic, normocephalic, normal inspection Eye exam: Present: normal appearance, PERRL, EOMI. Absent: scleral icterus, conjunctival injection, periorbital swelling ENT exam: Present: normal exam, mucous membranes moist Neck exam: Present: normal inspection. Absent: tenderness, meningismus, lymphadenopathy Respiratory exam: Present: normal lung sounds bilaterally. Absent: respiratory distress, wheezes, rales, rhonchi, stridor Cardiovascular Exam: Present: regular rate, normal rhythm, normal heart sounds. Absent: systolic murmur, diastolic murmur, rubs, gallop, clicks GI/Abdominal exam: Present: soft, normal bowel sounds. Absent: distended, tenderness, guarding, rebound, rigid Extremities exam: Present: normal inspection, full ROM, normal capillary refill. Absent: tenderness, pedal edema, joint swelling, calf tenderness Back exam: Present: normal inspection Neurological exam: Present: alert, oriented X3, CN II-XII intact Psychiatric exam: Present: normal affect, normal mood Skin exam: Present: warm, dry, intact, normal color. Absent: rash Course Vital Signs 06/13/17 06/13/17 06/13/17 14:00 14:28 14:40 Temperature 97.7 F Pulse Rate 93 81 Respiratory 20 20 18 Rate Blood Pressure 104/58 101/61 O2 Sat by Pulse 100 96 Oximetry - Reevaluation(s) Reevaluation #1: 06/13/17 15:30 Patient is without bloody bowel movement here in the emergency room, no vomiting of blood, does admit to feeling weak dizzy and lightheaded Medical Decision Making - Medical Decision Making 71 LDR for evaluation of low hemoglobin. Patient is not on blood thinners, patient will be admitted for monitoring of hemoglobin. GI evaluation. Patient also has renal insufficiency secondary to increased diuretic use. - Lab Data Result diagrams: 06/13/17 14:23 06/13/17 14:23 Lab Results 06/13/17 06/13/17 06/13/17 Range/Units 14:23 14:23 14:23 WBC 3.5 L (3.8-10.6) k/uL RBC 3.09 L (4.30-5.90) m/uL Hgb 8.6 L D (13.0-17.5) gm/dL Hct 27.7 L (39.0-53.0) % MCV 89.6 (80.0-100.0) fL MCH 28.0 (25.0-35.0) pg MCHC 31.2 (31.0-37.0) g/dL RDW 17.7 H (11.5-15.5) % Plt Count 149 L (150-450) k/uL Neutrophils % 83 % Lymphocytes % 11 % Monocytes % 4 % Eosinophils % 2 % Basophils % 0 % Neutrophils # 2.9 (1.3-7.7) k/uL Lymphocytes # 0.4 L (1.0-4.8) k/uL Monocytes # 0.1 (0-1.0) k/uL Eosinophils # 0.1 (0-0.7) k/uL Basophils # 0.0 (0-0.2) k/uL Hypochromasia Marked Poikilocytosis Slight Anisocytosis Slight PT (9.0-12.0) sec INR (<1.2) APTT (22.0-30.0) sec Sodium 142 (137-145) mmol/L Potassium 4.5 (3.5-5.1) mmol/L Chloride 102 (98-107) mmol/L Carbon Dioxide 30 (22-30) mmol/L Anion Gap 10 mmol/L BUN 62 H (9-20) mg/dL Creatinine 1.67 H (0.66-1.25) mg/dL Est GFR (MDRD) Af Amer 49 (>60 ml/min/1.73 sqM) Est GFR (MDRD) Non-Af 41 (>60 ml/min/1.73 sqM) Glucose 77 (74-99) mg/dL Calcium 9.0 (8.4-10.2) mg/dL Total Bilirubin 1.2 (0.2-1.3) mg/dL AST 27 (17-59) U/L ALT 39 (21-72) U/L Alkaline Phosphatase 85 (38-126) U/L Total Creatine Kinase 119 (55-170) U/L CK-MB (CK-2) 6.2 H* (0.0-2.4) ng/mL CK-MB (CK-2) Rel Index 5.2 Troponin I 0.096 H* (0.000-0.034) ng/mL Total Protein 6.9 (6.3-8.2) g/dL Albumin 3.8 (3.5-5.0) g/dL Lipase 48 (23-300) U/L Blood Type Blood Type Recheck Antibody Screen Spec Expiration Date 06/13/17 06/13/17 Range/Units 14:23 14:23 WBC (3.8-10.6) k/uL RBC (4.30-5.90) m/uL Hgb (13.0-17.5) gm/dL Hct (39.0-53.0) % MCV (80.0-100.0) fL MCH (25.0-35.0) pg MCHC (31.0-37.0) g/dL RDW (11.5-15.5) % Plt Count (150-450) k/uL Neutrophils % % Lymphocytes % % Monocytes % % Eosinophils % % Basophils % % Neutrophils # (1.3-7.7) k/uL Lymphocytes # (1.0-4.8) k/uL Monocytes # (0-1.0) k/uL Eosinophils # (0-0.7) k/uL Basophils # (0-0.2) k/uL Hypochromasia Poikilocytosis Anisocytosis PT 11.4 (9.0-12.0) sec INR 1.1 (<1.2) APTT 23.6 (22.0-30.0) sec Sodium (137-145) mmol/L Potassium (3.5-5.1) mmol/L Chloride (98-107) mmol/L Carbon Dioxide (22-30) mmol/L Anion Gap mmol/L BUN (9-20) mg/dL Creatinine (0.66-1.25) mg/dL Est GFR (MDRD) Af Amer (>60 ml/min/1.73 sqM) Est GFR (MDRD) Non-Af (>60 ml/min/1.73 sqM) Glucose (74-99) mg/dL Calcium (8.4-10.2) mg/dL Total Bilirubin (0.2-1.3) mg/dL AST (17-59) U/L ALT (21-72) U/L Alkaline Phosphatase (38-126) U/L Total Creatine Kinase (55-170) U/L CK-MB (CK-2) (0.0-2.4) ng/mL CK-MB (CK-2) Rel Index Troponin I (0.000-0.034) ng/mL Total Protein (6.3-8.2) g/dL Albumin (3.5-5.0) g/dL Lipase (23-300) U/L Blood Type B Negative Blood Type Recheck B Neg Antibody Screen NEGATIVE Spec Expiration Date 06/16/2017 - 2322 Disposition Clinical Impression: Anemia, GIB (gastrointestinal bleeding) Disposition: ADMITTED IP TO THIS HOSP Referrals: Usama Alvarez DO [Primary Care Provider] - 1-2 days
[2017-06-13 14:46] LABS: INR 1.1 (<1.2); Partial Thromboplastin Time 23.6 sec (22.0-30.0); Prothrombin Time 11.4 sec (9.0-12.0)
[2017-06-13 14:47] LABS: Anisocytosis Slight; Basophils % (A) 0 %; CH 27.5; CHCM 30.8; Eosinophils # (A) 0.1 k/uL (0-0.7); Eosinophils % (A) 2 %; HCT 27.7 % (39.0-53.0); Hypochromasia Marked; Luc # (Auto) 0.03; Luc % (Auto) 1; Lymphocytes # (A) 0.4 k/uL (1.0-4.8); Lymphocytes % (A) 11 %; MCHC 31.2 g/dL (31.0-37.0); MCV 89.6 fL (80.0-100.0); Mean Platelet Volume 9.3; Monocytes # (A) 0.1 k/uL (0-1.0); Monocytes % (A) 4 %; Neutrophils # (A) 2.9 k/uL (1.3-7.7); Neutrophils % (A) 83 %; Poikilocytosis Slight; RBC 3.09 m/uL (4.30-5.90); RDW 17.7 % (11.5-15.5); WBC 3.5 k/uL (3.8-10.6); WBC (Perox) 3.61
[2017-06-13 14:51] LABS: HGB 8.6 gm/dL (13.0-17.5)
[2017-06-13 14:54] LABS: Potassium 4.5 mmol/L (3.5-5.1); Total Bilirubin 1.2 mg/dL (0.2-1.3); Total Protein 6.9 g/dL (6.3-8.2)
[2017-06-13 15:22] LABS: Creatine Kinase MB 6.2 ng/mL (0.0-2.4); Troponin I 0.096 ng/mL (0.000-0.034)
[2017-06-13] MEDS ORDERED: ESOMEPRAZOLE 20 MG in SODIUM CHLORIDE 0.9% 50 ML IVPB STA (16:58)
[2017-06-13 17:09] LABS: Glucose,Whole Blood 95 mg/dL (75-99)
[2017-06-13 17:09] LABS: Anisocytosis Slight; Basophils % (A) 0 %; CH 26.7; CHCM 30.7; Eosinophils # (A) 0.1 k/uL (0-0.7); Eosinophils % (A) 2 %; HCT 25.4 % (39.0-53.0); HDW 3.53; HGB 7.9 gm/dL (13.0-17.5); Hypochromasia Marked; Luc # (Auto) 0.03; Luc % (Auto) 1; Lymphocytes # (A) 0.5 k/uL (1.0-4.8); Lymphocytes % (A) 18 %; MCV 87.3 fL (80.0-100.0); Mean Platelet Volume 9.6; Monocytes # (A) 0.2 k/uL (0-1.0); Monocytes % (A) 6 %; Neutrophils % (A) 72 %; Poikilocytosis Slight; RBC 2.91 m/uL (4.30-5.90); RDW 17.3 % (11.5-15.5); WBC 2.8 k/uL (3.8-10.6); WBC (Perox) 2.71
[2017-06-13] MEDS ORDERED: SODIUM CHLORIDE 0.65% NASAL SPRAY 44 ML BTL NASAL PRN (17:14)
[2017-06-13] MEDS ORDERED: HYDROcodone/APAP 5-325MG 1 EACH TAB PO PRN (17:14)
--- NOTE | 2017-06-13 18:20 | P.HPIM ---
History of Present Illness This is a 71-year-old came to ER for dizziness, abnormal outpatient lab test, patient is found to have low hemoglobin of 7.6 his hemoglobin was 10.6 about a month ago. Patient denied any hematemesis hematochezia abdominal pain although he does have dark stools couple stools a day patient is a 9 supplementation his fecal occult blood was negative patient is not on any blood thinners patient does have history of atrial fibrillation because of his previous bleeds patient was not started on any anticoagulation. And patient although has some nosebleeds and weighs 3 L of oxygen at home does have a medical bed at home. Patient is hypotensive here in the hospital patient appears to have severe pulmonary hypertension patient is on 100 twice a day of Lasix may be contributing to his hypotension patient is receiving IV fluids at this point of time discontinuing Lasix as well as lisinopril. Patient may have right-sided heart failure and cor pulmonale, still has pedal edema. Patient denied any fever or chills dysuria, nausea, vomiting. Review of Systems REVIEW OF SYSTEMS: CONSTITUTIONAL: No fever, no malaise, no fatigue. HEENT: No recent visual problems or hearing problems. Denied any sore throat. CARDIOVASCULAR: No chest pain, orthopnea, PND, no palpitations, no syncope. PULMONARY: No shortness of breath, no cough, no hemoptysis. GASTROINTESTINAL: No diarrhea, no nausea, no vomiting, no abdominal pain. Normoactive bowel sounds. NEUROLOGICAL: No headaches, no weakness, no numbness. HEMATOLOGICAL: Denies any bleeding or petechiae. GENITOURINARY: Denies any burning micturition, frequency, or urgency. MUSCULOSKELETAL/RHEUMATOLOGICAL: Denies any joint pain, swelling, or any muscle pain. ENDOCRINE: Denies any polyuria or polydipsia. The rest of the 14-point review of systems is negative. 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, history of positive AFB in the sputum with subsequent negative cultures, CVA/TIA , diabetes mellitus, hyperlipidemia, hypertension, impaired hearing, left lower lobe pneumonia with some residual effusion the left lung base, scattered bilateral pulmonary nodules, previous history of epistaxis and the patient is on no anticoagulants, gout, aortic stenosis moderate to severe in nature with a preserved LV function, peripheral vascular disease History of Any Multi-Drug Resistant Organisms: MRSA Date of last positivie culture/infection: 2010 MDRO Source:: r elbow Past Surgical History: Cholecystectomy, Tonsillectomy Additional Past Surgical History / Comment(s): Lipoma removal from the right side of the abdomen. Past Anesthesia/Blood Transfusion Reactions: No Reported Reaction Additional Past Anesthesia/Blood Transfusion Reaction / Comment(s): blood transfusion-no reaction Past Psychological History: No Psychological Hx Reported Smoking Status: Former smoker Past Alcohol Use History: None Reported Past Drug Use History: None Reported - Past Family History Mother History Unknown: Yes Family Medical History: No Reported History Brother(s) Family Medical History: No Reported History Sister(s) Family Medical History: Cancer, Myocardial Infarction ([place]) Daughter(s) Family Medical History: No Reported History Son(s) Family Medical History: No Reported History Father Family Medical History: No Reported History Medications and Allergies Home Medications Medication Instructions Recorded Confirmed Type Digoxin [Lanoxin] 125 mcg PO DAILY 11/23/14 06/13/17 History Ferrous Sulfate [Feosol] 325 mg PO BID 11/23/14 06/13/17 History Simvastatin [Zocor] 40 mg PO HS 11/23/14 06/13/17 History Albuterol Nebulized [Ventolin 2.5 mg INHALATION RT-Q4H PRN 03/27/16 06/13/17 History Nebulized] Tiotropium 18 Mcg/Puff [Spiriva] 18 mcg INHALATION RT-DAILY 03/27/16 06/13/17 History Insulin Glargine [Lantus] 80 unit SQ HS 04/28/17 06/13/17 History Sodium Chloride 0.65% Nasal [Deep 2 spray NASAL Q1H PRN 04/28/17 06/13/17 History Sea (Saline)] Furosemide [Lasix] 100 mg PO BID 06/13/17 06/13/17 History HYDROcodone/APAP 5-325MG [[place] 1 tab PO QID PRN 06/13/17 06/13/17 History 5-325] Insulin Aspart [NovoLOG] See Protocol SQ ACHS PRN 06/13/17 06/13/17 History Lisinopril [Zestril] 2.5 mg PO DAILY 06/13/17 06/13/17 History Metoprolol Succinate (ER) [Toprol 100 mg PO DAILY 06/13/17 06/13/17 History Xl] Allergies Allergy/AdvReac Type Severity Reaction Status Date / Time lincomycin HCl Allergy Rash/Hives Verified 06/13/17 14:38 [From Lincocin] propoxyphene HCl Allergy Rash/Hives Verified 06/13/17 14:38 [From Darvon] aspirin AdvReac Unknown Verified 06/13/17 14:38 Physical Exam Vitals: Vital Signs Temp Pulse Resp BP Pulse Ox 06/13/17 17:53 97.8 F 18 L 20 109/62 98 06/13/17 17:45 97.9 F 86 18 108/62 96 06/13/17 17:35 97.8 F 81 20 101/63 96 06/13/17 17:29 97.8 F 82 18 99/63 96 06/13/17 17:03 81 18 87/57 96 06/13/17 16:53 80 18 86/55 96 06/13/17 16:43 85 18 79/49 96 06/13/17 16:26 74 18 96/60 97 06/13/17 15:44 62 18 89/50 96 06/13/17 14:40 81 18 101/61 96 06/13/17 14:28 20 06/13/17 14:00 97.7 F 93 20 104/58 100 Intake and Output 06/13/17 06/13/17 06/13/17 06:59 14:59 22:59 Intake Total 0 Balance 0 Intake: Blood Product 0 As-3 Unit 0 [id number] Other: Weight 111.13 kg Patient Weight 06/14/17 06:59 Weight 111.13 kg PHYSICAL EXAMINATION: GENERAL: The patient is alert and oriented x3, not in any acute distress. Well developed, well nourished. HEENT: Pupils are round and equally reacting to light. EOMI. No scleral icterus. No conjunctival pallor. Normocephalic, atraumatic. No pharyngeal erythema. No thyromegaly. CARDIOVASCULAR: S1 and S2 present. No murmurs, rubs, or gallops. PULMONARY: Chest is clear to auscultation, no wheezing or crackles. ABDOMEN: Soft, nontender, nondistended, normoactive bowel sounds. No palpable organomegaly. MUSCULOSKELETAL: No joint swelling or deformity. EXTREMITIES: No cyanosis, clubbing, patient does have 1+ pitting pedal edema NEUROLOGICAL: Gross neurological examination did not reveal any focal deficits. SKIN: No rashes. Results CBC & Chem 7: 06/13/17 17:01 06/13/17 14:23 Labs: Abnormal Lab Results - Last 24 Hours (Table) 06/13/17 06/13/17 06/13/17 Range/Units 14:23 14:23 14:23 WBC 3.5 L (3.8-10.6) k/uL RBC 3.09 L (4.30-5.90) m/uL Hgb 8.6 L D (13.0-17.5) gm/dL Hct 27.7 L (39.0-53.0) % RDW 17.7 H (11.5-15.5) % Plt Count 149 L (150-450) k/uL Lymphocytes # 0.4 L (1.0-4.8) k/uL BUN 62 H (9-20) mg/dL Creatinine 1.67 H (0.66-1.25) mg/dL CK-MB (CK-2) 6.2 H* (0.0-2.4) ng/mL Troponin I 0.096 H* (0.000-0.034) ng/mL Crossmatch 06/13/17 06/13/17 Range/Units 14:23 17:01 WBC 2.8 L (3.8-10.6) k/uL RBC 2.91 L (4.30-5.90) m/uL Hgb 7.9 L (13.0-17.5) gm/dL Hct 25.4 L (39.0-53.0) % RDW 17.3 H (11.5-15.5) % Plt Count 127 L (150-450) k/uL Lymphocytes # 0.5 L (1.0-4.8) k/uL BUN (9-20) mg/dL Creatinine (0.66-1.25) mg/dL CK-MB (CK-2) (0.0-2.4) ng/mL Troponin I (0.000-0.034) ng/mL Crossmatch See Detail Assessment and Plan Plan: #1 low hemoglobin: Patient is admitted for possibility of acute GI bleed most probably upper GI bleed if at all. Patient is on IV proton pump inhibitor. Antiplatelet therapy will be held and patient anemia can be from his nosebleeds as well. Patient is on 3 L of oxygen and will use vaporizer to prevent nosebleeds. #2 hypotension: Secondary to severe intravascular volume depletion from excessive diuretic therapy. Which will be held and patient will be given IV normal saline. Patient is on diuretic therapy for most probably cor pulmonale and right-sided heart failure as per the previous dictations patient has chronic diastolic dysfunction patient is in the hypovolemic side in spite of his pedal edema at this time. #3 atrial fibrillation patient is not on any anticoagulate and patient is rate controlled patient will be resumed on his rate control medications as long as his blood pressure can tolerate. Digoxin level will be obtained #4 bilateral pedal edema secondary to possible cor pulmonale and right-sided heart failure. #5 type 2 diabetes mellitus: We'll cut down the Lantus from 80 units to 45 units because of his poor renal dysfunction or renal function acute renal failure and patient probably will be nothing by mouth tonight. Continue with sliding scale insulin #6 acute renal failure: Secondary to prerenal azotemia from excessive diuretic therapy, lisinopril will be held as well #7 COPD: No not in exacerbation at this time #8 CVA and TIA history
[2017-06-13 18:27] VITALS: RESP 18
[2017-06-13] MEDS: INSULIN LISPRO (humaLOG) 300 UNIT/3 ML VIAL SQ SCH ×2 (18:42→21:38)
[2017-06-13 18:44] LABS: Glucose,Whole Blood 71 mg/dL (75-99)
[2017-06-13] MEDS: SYMBICORT 160-4.5 MCG INHALER INHALATION SCH (19:56)
[2017-06-13] MEDS: ALBUTEROL NEBULIZED 2.5 MG/3 ML INHALATION PRN (19:56)
[2017-06-13] MEDS: ATORVASTATIN 20 MG TAB PO SCH (20:51)
[2017-06-13 20:58] LABS: Glucose,Whole Blood 242 mg/dL (75-99)
[2017-06-13] MEDS ORDERED: INSULIN GLARGINE 100 UNIT/ML 10 ML VIAL SQ SCH (21:00)
--- NOTE | 2017-06-13 21:00 | XR ---
EXAMINATION TYPE: XR chest 1V portable DATE OF EXAM: 06/13/2017 COMPARISON: 06/02/2017 HISTORY: Short of breath TECHNIQUE: Single frontal view of the chest is obtained. FINDINGS: Exam is limited by the obesity. The heart is enlarged. There is pulmonary vascular congest ion. There is blunting of costophrenic angles. There is patchy increased density at the left lung bas e. IMPRESSION: Congestive heart failure with pleural effusions. This appears worse than last exam. Ther e is possible new pneumonia in the left lower lobe compared to last exam.
[2017-06-13 22:17] LABS: Hemoglobin A1C 6.7 % (4.2-6.1)
[2017-06-14 06:15] LABS: Glucose,Whole Blood 58 mg/dL (75-99)
[2017-06-14 06:20] LABS: Anisocytosis Slight; CH 27.3; CHCM 30.4; HCT 27.2 % (39.0-53.0); HDW 3.64; HGB 8.3 gm/dL (13.0-17.5); Hypochromasia Marked; MCH 27.5 pg (25.0-35.0); MCHC 30.4 g/dL (31.0-37.0); MCV 90.3 fL (80.0-100.0); Mean Platelet Volume 10.1; Poikilocytosis Slight; RBC 3.02 m/uL (4.30-5.90); RDW 17.3 % (11.5-15.5); WBC 2.5 k/uL (3.8-10.6)
[2017-06-14 06:30] LABS: Glucose,Whole Blood 61 mg/dL (75-99)
[2017-06-14] MEDS ORDERED: DEXTROSE 10 % IN WATER 250 ML IV STA (06:37)
[2017-06-14] MEDS ORDERED: DEXTROSE 5% IN WATER 1,000 ML IV ONE (06:44)
[2017-06-14] MEDS: INSULIN LISPRO (humaLOG) 300 UNIT/3 ML VIAL SQ SCH ×4 (06:46→20:57)
[2017-06-14 06:56] LABS: Anion Gap 8 mmol/L; Blood Urea Nitrogen 52 mg/dL (9-20); Calcium 8.9 mg/dL (8.4-10.2); Carbon Dioxide 32 mmol/L (22-30); Chloride 104 mmol/L (98-107); Non-African American GFR(MDRD) 53 (>60 ml/min/1.73 sqM); Potassium 4.7 mmol/L (3.5-5.1); Sodium 144 mmol/L (137-145)
[2017-06-14 06:57] LABS: Glucose,Whole Blood 154 mg/dL (75-99)
[2017-06-14 07:04] LABS: Glucose 45 mg/dL (74-99)
[2017-06-14] MEDS: SYMBICORT 160-4.5 MCG INHALER INHALATION SCH ×2 (07:53→19:46)
[2017-06-14] MEDS: TIOTROPIUM 18 MCG/PUFF INHALER INHALATION SCH (07:53)
[2017-06-14] MEDS: ALBUTEROL NEBULIZED 2.5 MG/3 ML INHALATION PRN ×3 (07:53→19:46)
[2017-06-14] MEDS: METOPROLOL SUCCINATE (ER) 100 MG TAB.ER.24H PO SCH (08:35)
[2017-06-14] MEDS: ESOMEPRAZOLE 20 MG in SODIUM CHLORIDE 0.9% 50 ML IVPB SCH (08:45)
[2017-06-14] MEDS ORDERED: DIGOXIN 125 MCG TAB PO SCH (09:00)
--- NOTE | 2017-06-14 11:18 | XR ---
EXAMINATION TYPE: XR chest 1V DATE OF EXAM: 06/14/2017 HISTORY: Shortness of breath. COMPARISON: 06/12/2017 TECHNIQUE: Single view of the chest is submitted. FINDINGS: Demonstrated are scattered senescent parenchymal change. Pulmonary venous congestion with interstitial prominence. More focal opacity right medial lung base. Linear opacity left mid lung zone may reflect atelectasis or parenchymal scar. The heart is enlarged. Hilar and mediastinal structures are within normal limits. Degenerative changes are seen of the dorsal spine. IMPRESSION: 1. Findings may reflect mild congestive failure with interstitial edema.
[2017-06-14 11:47] LABS: Glucose,Whole Blood 89 mg/dL (75-99)
--- NOTE | 2017-06-14 13:50 | P.PN ---
Subjective 71-year-old admitted for possibility of acute GI bleed although patient did not have any bowel movements since yesterday admission. Patient probably the possibly of upper GI bleed is low. Will will continue to monitor 1 more night. The other issues being low blood sugars. Patient is wheezing quite a bit today and bit hypoxic patient and COPD exacerbation patient was started on steroids because of which I'm not changing the dose of Lantus today. His blood sugars are expected to go up later. Patient is already on a decreased dose of Lantus of 44 units. Patient kidney function did improve with IV fluids which will be continued. Patient does have some hemodiluted affect. Patient received 1 unit of blood transfusion last night. He denied any fever, chills, nausea, vomiting complaint of some shortness of breath denied any cough denied any dysuria. Objective - Vital Signs Vital signs: Vital Signs Temp 96.0 F L 06/14/17 11:20 Pulse 86 06/14/17 11:58 Resp 18 06/14/17 11:20 BP 121/69 06/14/17 11:20 Pulse Ox 97 06/14/17 11:20 Intake & Output 06/13/17 06/14/17 06/14/17 18:59 06:59 18:59 Intake Total 0 810 375 Output Total 375 400 Balance 0 435 -25 Weight 111.13 kg 111.1 kg Intake: Intake, IV Titration 500 375 Amount Dextrose 10 % in Water 250 250 ml @ 999 mls/hr IV ONCE STA Rx#:[id number] Dextrose 5% in Water 1, 75 000 ml @ 75 mls/hr IV . [id number] Rx#:[id number] Esomeprazole 20 mg In 50 Sodium Chloride 0.9% 50 ml @ 100 mls/hr IVPB DAILY NAVJOT Rx#:[id number] Sodium Chloride 0.9% 1, 500 000 ml @ 100 mls/hr IV . Q10H STA Rx#:[id number] Blood Product 0 310 Rc As-3 Unit 0 310 [id number] Output: Urine 375 400 Other: Voiding Method Toilet Toilet Urinal Urinal - Exam PHYSICAL EXAMINATION: GENERAL: The patient is alert and oriented x3, not in any acute distress. Well developed, well nourished. HEENT: Pupils are round and equally reacting to light. EOMI. No scleral icterus. No conjunctival pallor. Normocephalic, atraumatic. No pharyngeal erythema. No thyromegaly. CARDIOVASCULAR: S1 and S2 present. No murmurs, rubs, or gallops. PULMONARY: Chest is clear to auscultation, no crackles., Patient has limited air entry with significant x-ray to wheezing today. ABDOMEN: Soft, nontender, nondistended, normoactive bowel sounds. No palpable organomegaly. MUSCULOSKELETAL: No joint swelling or deformity. EXTREMITIES: No cyanosis, clubbing, patient does have 1+ pitting pedal edema NEUROLOGICAL: Gross neurological examination did not reveal any focal deficits. SKIN: No rashes. - Labs CBC & Chem 7: 06/14/17 05:57 06/14/17 05:57 Labs: Abnormal Lab Results - Last 24 Hours (Table) 06/13/17 06/13/17 06/13/17 Range/Units 14:23 14:23 14:23 WBC 3.5 L (3.8-10.6) k/uL RBC 3.09 L (4.30-5.90) m/uL Hgb 8.6 L D (13.0-17.5) gm/dL Hct 27.7 L (39.0-53.0) % MCHC (31.0-37.0) g/dL RDW 17.7 H (11.5-15.5) % Plt Count 149 L (150-450) k/uL Lymphocytes # 0.4 L (1.0-4.8) k/uL Carbon Dioxide (22-30) mmol/L BUN 62 H (9-20) mg/dL Creatinine 1.67 H (0.66-1.25) mg/dL Glucose (74-99) mg/dL POC Glucose (mg/dL) (75-99) mg/dL Hemoglobin A1c (4.2-6.1) % CK-MB (CK-2) 6.2 H* (0.0-2.4) ng/mL Troponin I 0.096 H* (0.000-0.034) ng/mL Crossmatch 06/13/17 06/13/17 06/13/17 Range/Units 14:23 14:23 17:01 WBC 2.8 L (3.8-10.6) k/uL RBC 2.91 L (4.30-5.90) m/uL Hgb 7.9 L (13.0-17.5) gm/dL Hct 25.4 L (39.0-53.0) % MCHC (31.0-37.0) g/dL RDW 17.3 H (11.5-15.5) % Plt Count 127 L (150-450) k/uL Lymphocytes # 0.5 L (1.0-4.8) k/uL Carbon Dioxide (22-30) mmol/L BUN (9-20) mg/dL Creatinine (0.66-1.25) mg/dL Glucose (74-99) mg/dL POC Glucose (mg/dL) (75-99) mg/dL Hemoglobin A1c 6.7 H (4.2-6.1) % CK-MB (CK-2) (0.0-2.4) ng/mL Troponin I (0.000-0.034) ng/mL Crossmatch See Detail 06/13/17 06/13/17 06/14/17 Range/Units 18:32 20:55 05:57 WBC 2.5 L (3.8-10.6) k/uL RBC 3.02 L (4.30-5.90) m/uL Hgb 8.3 L (13.0-17.5) gm/dL Hct 27.2 L (39.0-53.0) % MCHC 30.4 L (31.0-37.0) g/dL RDW 17.3 H (11.5-15.5) % Plt Count 107 L (150-450) k/uL Lymphocytes # (1.0-4.8) k/uL Carbon Dioxide (22-30) mmol/L BUN (9-20) mg/dL Creatinine (0.66-1.25) mg/dL Glucose (74-99) mg/dL POC Glucose (mg/dL) 71 L 242 H (75-99) mg/dL Hemoglobin A1c (4.2-6.1) % CK-MB (CK-2) (0.0-2.4) ng/mL Troponin I (0.000-0.034) ng/mL Crossmatch 06/14/17 06/14/17 06/14/17 Range/Units 05:57 06:11 06:27 WBC (3.8-10.6) k/uL RBC (4.30-5.90) m/uL Hgb (13.0-17.5) gm/dL Hct (39.0-53.0) % MCHC (31.0-37.0) g/dL RDW (11.5-15.5) % Plt Count (150-450) k/uL Lymphocytes # (1.0-4.8) k/uL Carbon Dioxide 32 H (22-30) mmol/L BUN 52 H (9-20) mg/dL Creatinine 1.34 H (0.66-1.25) mg/dL Glucose 45 L* (74-99) mg/dL POC Glucose (mg/dL) 58 L 61 L (75-99) mg/dL Hemoglobin A1c (4.2-6.1) % CK-MB (CK-2) (0.0-2.4) ng/mL Troponin I (0.000-0.034) ng/mL Crossmatch 06/14/17 Range/Units 06:55 WBC (3.8-10.6) k/uL RBC (4.30-5.90) m/uL Hgb (13.0-17.5) gm/dL Hct (39.0-53.0) % MCHC (31.0-37.0) g/dL RDW (11.5-15.5) % Plt Count (150-450) k/uL Lymphocytes # (1.0-4.8) k/uL Carbon Dioxide (22-30) mmol/L BUN (9-20) mg/dL Creatinine (0.66-1.25) mg/dL Glucose (74-99) mg/dL POC Glucose (mg/dL) 154 H (75-99) mg/dL Hemoglobin A1c (4.2-6.1) % CK-MB (CK-2) (0.0-2.4) ng/mL Troponin I (0.000-0.034) ng/mL Crossmatch Assessment and Plan Plan: #1 low hemoglobin: Patient is admitted for possibility of acute GI bleed most probably upper GI bleed if at all. Patient is on IV proton pump inhibitor. Antiplatelet therapy will be held and patient anemia can be from his nosebleeds as well. Patient is on 3 L of oxygen and will use vaporizer to prevent nosebleeds. #2 hypotension: Secondary to severe intravascular volume depletion from excessive diuretic therapy. Which will be held and patient will be given IV normal saline. Patient is on diuretic therapy for most probably cor pulmonale and right-sided heart failure as per the previous dictations patient has chronic diastolic dysfunction patient is in the hypovolemic side in spite of his pedal edema at this time. #3 atrial fibrillation patient is not on any anticoagulate and patient is rate controlled patient will be resumed on his rate control medications as long as his blood pressure can tolerate. Digoxin level will be obtained #4 bilateral pedal edema secondary to possible cor pulmonale and right-sided heart failure. #5 type 2 diabetes mellitus: We'll cut down the Lantus from 80 units to 45 units because of his poor renal dysfunction or renal function acute renal failure patient blood sugars are low in spite of decreasing dose of Lantus. But we will continue with 43 units at this time as patient is being started on systemic steroids and his blood pressures sugars are expected to shoot up IV D5 will be discontinued. #6 acute renal failure: Secondary to prerenal azotemia from excessive diuretic therapy, lisinopril will be held as well #7 COPD: No not in exacerbation at this time #8 CVA and TIA history
[2017-06-14] MEDS: SODIUM CHLORIDE 0.9% 1,000 ML IV SCH (15:19)
[2017-06-14] MEDS: predniSONE 20 MG TAB PO SCH (15:20)
[2017-06-14 16:15] LABS: Glucose,Whole Blood 90 mg/dL (75-99)
--- NOTE | 2017-06-14 16:16 | CONS ---
DATE OF SERVICE: 06/14/2017 REASON FOR CONSULTATION: Anemia and black tarry stools. HISTORY OF PRESENT ILLNESS: The patient is a pleasant 71-year-old white male, admitted to the hospital with symptomatic anemia, progressive shortness of breath on and off for the last few days' duration. He was noted to have a hemoglobin of 7.6 grams/dL; according to the records, hemoglobin was 10.6 about a month ago. He denies any abdominal pain. He reports no nausea or vomiting. He has been having some black tarry stools for the last 2 or 3 days' duration. The patient feels that his shortness of breath has been progressively getting worse recently. His Lasix was increased on an outpatient basis, but he still continued to have persistent symptoms and presented and was admitted to the hospital with exacerbation of congestive heart failure. Her past medical history is significant for: 1. Hypertension. 2. Hypercholesterolemia. 3. Diabetes mellitus. 4. Coronary artery disease. 5. Atrial fibrillation. 6. Congestive heart failure. 7. COPD. 8. History of CVA in the past. 9. Degenerative joint disease. PAST SURGICAL HISTORY: 1. Cholecystectomy. 2. Tonsillectomy. 3. Right elbow surgery. MEDICATIONS AT HOME include: 1. Lanoxin. 2. Feosol 3. Zocor. 4. Ventolin. 5. Spiriva. 6. Lantus. 7. Lasix. 8. NovoLog. 9. Zestril 10. Toprol. ALLERGIES: 1. DARVON. 2. ASPIRIN. FAMILY HISTORY: Sister had MS. Brother had hypertension. REVIEW OF SYSTEMS: CARDIOPULMONARY: Denies any chest pain but shortness of breath. GENITOURINARY: No dysuria or hematuria. MUSCULOSKELETAL: Unremarkable. SKIN: Unremarkable. ENDOCRINE: Unremarkable. PSYCHIATRY: Unremarkable. NEUROLOGY: Unremarkable. ENT/VISION: Unremarkable. CONSTITUTIONAL: No recent weight loss. No fever, chills, night sweats. On physical examination, he appears somewhat uncomfortable because of shortness of breath. Vital signs are stable. Blood pressure is 97/55, pulse rate 91, temperature 95. HEENT EXAMINATION: Unremarkable. Conjunctivae are pink, sclerae anicteric. Oral cavity with no lesions. NECK: No JVD or lymph node enlargement. Chest was clear to auscultation. Decreased breath sounds bilaterally. EXTREMITIES: No pedal edema. SKIN: No rashes. NEURO: He is alert and oriented x3. No focal deficits. LABS: WBC 2.8, hemoglobin 7.9, platelets 127. PT/INR within normal limits. BUN is 62, creatinine 1.67. Hemoglobin this morning is 8.3 grams/dL. IMPRESSION: 1. Severe symptomatic anemia with hemoglobin of 7.9 and intermittent black tarry stools for the last 2 days' duration. Most likely we are dealing with an upper GI source of bleeding, though clinically and hemodynamically he is stable. 2. Exacerbation of congestive heart failure. 3. Mild pancytopenia. RECOMMENDATIONS: 1. Start him on a clear liquid diet. 2. Continue with IV Protonix 40 mg q.12 hours. 3. Will proceed with an upper endoscopy once his overall respiratory status stabilizes more; possibly on Friday. The plan was discussed with the patient. He is agreeable to it. Thank you for this consultation. Will follow him closely during his hospital stay. SHAYAN
[2017-06-14] MEDS: ATORVASTATIN 20 MG TAB PO SCH (20:08)
[2017-06-14 20:54] LABS: Glucose,Whole Blood 115 mg/dL (75-99)
[2017-06-14] MEDS: INSULIN GLARGINE 100 UNIT/ML 10 ML VIAL SQ SCH (21:04)
[2017-06-15] MEDS: SODIUM CHLORIDE 0.9% 1,000 ML IV SCH ×2 (00:19→13:47)
[2017-06-15 05:46] LABS: Glucose,Whole Blood 155 mg/dL (75-99)
[2017-06-15 06:13] LABS: Anisocytosis Slight; CH 27.1; CHCM 29.6; HCT 30.7 % (39.0-53.0); HDW 3.51; HGB 9.4 gm/dL (13.0-17.5); Hypochromasia Marked; MCH 28.1 pg (25.0-35.0); MCHC 30.5 g/dL (31.0-37.0); MCV 92.1 fL (80.0-100.0); Mean Platelet Volume 8.6; Poikilocytosis Slight; RBC 3.33 m/uL (4.30-5.90); RDW 17.1 % (11.5-15.5); WBC 3.4 k/uL (3.8-10.6)
[2017-06-15 06:32] LABS: Anion Gap 8 mmol/L; Blood Urea Nitrogen 50 mg/dL (9-20); Carbon Dioxide 30 mmol/L (22-30); Chloride 105 mmol/L (98-107); Glucose 142 mg/dL (74-99); Non-African American GFR(MDRD) 59 (>60 ml/min/1.73 sqM); Potassium 5.9 mmol/L (3.5-5.1); Sodium 143 mmol/L (137-145)
[2017-06-15] MEDS: INSULIN LISPRO (humaLOG) 300 UNIT/3 ML VIAL SQ SCH ×4 (06:32→21:00)
[2017-06-15] MEDS: TIOTROPIUM 18 MCG/PUFF INHALER INHALATION SCH (07:20)
[2017-06-15] MEDS: ALBUTEROL NEBULIZED 2.5 MG/3 ML INHALATION PRN ×4 (07:20→20:07)
[2017-06-15] MEDS: SYMBICORT 160-4.5 MCG INHALER INHALATION SCH ×2 (07:21→20:07)
[2017-06-15] MEDS: ESOMEPRAZOLE 20 MG in SODIUM CHLORIDE 0.9% 50 ML IVPB SCH (09:10)
[2017-06-15 11:29] LABS: Glucose,Whole Blood 130 mg/dL (75-99)
[2017-06-15] MEDS: METOPROLOL SUCCINATE (ER) 100 MG TAB.ER.24H PO SCH (13:48)
[2017-06-15] MEDS ORDERED: SODIUM POLYSTYRENE SULFONATE 15 GM/60 ML BOTTLE PO STA (13:48)
[2017-06-15] MEDS: predniSONE 20 MG TAB PO SCH (13:48)
--- NOTE | 2017-06-15 13:48 | P.PN ---
Subjective 71-year-old admitted for possibility of acute GI bleed although patient did not have any bowel movements since yesterday admission. Patient probably the possibly of upper GI bleed is low. Will will continue to monitor 1 more night. The other issues being low blood sugars. Patient is wheezing quite a bit today and bit hypoxic patient and COPD exacerbation patient was started on steroids because of which I'm not changing the dose of Lantus today. His blood sugars are expected to go up later. Patient is already on a decreased dose of Lantus of 44 units. Patient kidney function did improve with IV fluids which will be continued. Patient does have some hemodiluted affect. Patient received 1 unit of blood transfusion last night. 06/15/2017 Patient is is pretty status improved significantly patient has hyperkalemia, patient did levels are very high digoxin was discontinued and the will repeat potassium tomorrow again we will give him Light. Patient appears to have pulmonary edema on the chest x-ray because of which patient was started on Lasix IV fluids were discontinued. Although patient does not have any significant JVD on exam. He denied any fever, chills, nausea, vomiting complaint of some shortness of breath denied any cough denied any dysuria. Objective - Vital Signs Vital signs: Vital Signs Temp 97.5 F L 06/15/17 11:32 Pulse 71 06/15/17 11:32 Resp 18 06/15/17 11:32 BP 109/62 06/15/17 11:32 Pulse Ox 98 06/15/17 11:32 Intake & Output 06/14/17 06/15/17 06/15/17 18:59 06:59 18:59 Intake Total 615 1200 Output Total 1050 300 Balance -435 -300 1200 Weight 111.6 kg Intake: Intake, IV Titration 375 1200 Amount Dextrose 10 % in Water 250 250 ml @ 999 mls/hr IV ONCE STA Rx#:[id number] Dextrose 5% in Water 1, 75 000 ml @ 75 mls/hr IV . [id number] ONE Rx#:[id number] Esomeprazole 20 mg In 50 Sodium Chloride 0.9% 50 ml @ 100 mls/hr IVPB DAILY NAVJOT Rx#:[id number] Sodium Chloride 0.9% 1, 1200 000 ml @ 100 mls/hr IV . Q10H NAVJOT Rx#:[id number] Oral 240 Output: Urine 1050 300 Other: Voiding Method Toilet Urinal # Voids 1 1 - Exam PHYSICAL EXAMINATION: GENERAL: The patient is alert and oriented x3, not in any acute distress. Well developed, well nourished. HEENT: Pupils are round and equally reacting to light. EOMI. No scleral icterus. No conjunctival pallor. Normocephalic, atraumatic. No pharyngeal erythema. No thyromegaly. CARDIOVASCULAR: S1 and S2 present. No murmurs, rubs, or gallops. PULMONARY: Chest is clear to auscultation, no crackles., Wheezing improved significantly and patient is fairly good air entry today and bilateral lung pope. ABDOMEN: Soft, nontender, nondistended, normoactive bowel sounds. No palpable organomegaly. MUSCULOSKELETAL: No joint swelling or deformity. EXTREMITIES: No cyanosis, clubbing, patient does have 1+ pitting pedal edema NEUROLOGICAL: Gross neurological examination did not reveal any focal deficits. SKIN: No rashes. - Labs CBC & Chem 7: 06/15/17 05:42 06/15/17 05:42 Labs: Abnormal Lab Results - Last 24 Hours (Table) 06/14/17 06/15/17 06/15/17 Range/Units 20:52 05:41 05:42 WBC 3.4 L (3.8-10.6) k/uL RBC 3.33 L (4.30-5.90) m/uL Hgb 9.4 L (13.0-17.5) gm/dL Hct 30.7 L (39.0-53.0) % MCHC 30.5 L (31.0-37.0) g/dL RDW 17.1 H (11.5-15.5) % Plt Count 130 L (150-450) k/uL Potassium (3.5-5.1) mmol/L BUN (9-20) mg/dL Glucose (74-99) mg/dL POC Glucose (mg/dL) 115 H 155 H (75-99) mg/dL 06/15/17 06/15/17 Range/Units 05:42 11:27 WBC (3.8-10.6) k/uL RBC (4.30-5.90) m/uL Hgb (13.0-17.5) gm/dL Hct (39.0-53.0) % MCHC (31.0-37.0) g/dL RDW (11.5-15.5) % Plt Count (150-450) k/uL Potassium 5.9 H (3.5-5.1) mmol/L BUN 50 H (9-20) mg/dL Glucose 142 H (74-99) mg/dL POC Glucose (mg/dL) 130 H (75-99) mg/dL Assessment and Plan Plan: #1 low hemoglobin: Patient is admitted for possibility of acute GI bleed most probably upper GI bleed if at all. Patient is on IV proton pump inhibitor. Antiplatelet therapy will be held and patient anemia can be from his nosebleeds as well. Patient will probably undergo upper GI endoscopy tomorrow. #2 hypotension: Secondary to severe intravascular volume depletion from excessive diuretic therapy. Patient is retaining fluid patient does have pulmonary edema because of which IV fluids were discontinued and patient was started back on Lasix and his blood pressure is fairly stable at this point of time now #3 atrial fibrillation patient is not on any anticoagulate and patient is rate controlled patient will be resumed on his rate control medications as long as his blood pressure can tolerate. Digoxin level is high and each oxygen is being held at this time. #4 bilateral pedal edema secondary to possible cor pulmonale and right-sided heart failure. #5 type 2 diabetes mellitus: We'll cut down the Lantus from 80 units to 45 units because of his poor renal dysfunction or renal function acute renal failure patient blood sugars are low in spite of decreasing dose of Lantus. But we will continue with 43 units at this time as patient is being started on systemic steroids. She'll blood sugars are well controlled today. #6 acute renal failure: Secondary to prerenal azotemia from excessive diuretic therapy, lisinopril will be held as well. Patient is volume overloaded patient will need Lasix at this time. #7 COPD: No not in exacerbation at this time #8 CVA and TIA history Benign and his heart failure chronic diastolic dysfunction with mild acute exacerbation due to IV fluid therapy patient will be started on Lasix IV fluids and with this can you. We'll repeat chest x-ray tomorrow.
[2017-06-15] MEDS: FUROSEMIDE 10 MG/ML 4 ML VIAL IV SCH ×2 (13:49→20:09)
[2017-06-15 16:46] LABS: Glucose,Whole Blood 211 mg/dL (75-99)
[2017-06-15] MEDS: ATORVASTATIN 20 MG TAB PO SCH (20:09)
[2017-06-15 20:47] LABS: Glucose,Whole Blood 265 mg/dL (75-99)
[2017-06-15] MEDS: INSULIN GLARGINE 100 UNIT/ML 10 ML VIAL SQ SCH (20:58)
[2017-06-16 00:05] LABS: Glucose,Whole Blood 192 mg/dL (75-99)
[2017-06-16 05:48] LABS: Glucose,Whole Blood 153 mg/dL (75-99)
[2017-06-16 06:19] LABS: Anion Gap 10 mmol/L; Blood Urea Nitrogen 55 mg/dL (9-20); Carbon Dioxide 27 mmol/L (22-30); Chloride 103 mmol/L (98-107); Glucose 147 mg/dL (74-99); Non-African American GFR(MDRD) >60 (>60 ml/min/1.73 sqM); Potassium 4.9 mmol/L (3.5-5.1); Sodium 140 mmol/L (137-145)
[2017-06-16] MEDS: INSULIN LISPRO (humaLOG) 300 UNIT/3 ML VIAL SQ SCH ×2 (06:37→11:55)
--- NOTE | 2017-06-16 07:28 | XR ---
EXAMINATION TYPE: XR chest 1V DATE OF EXAM: 06/16/2017 HISTORY: CHF. REFERENCE: Previous study dated 06/14/2017. FINDINGS: The heart is enlarged. There is vascular congestion and pulmonary edema. There is left basi lar airspace disease. There are small, bilateral effusions. IMPRESSION: 1. CONTINUING CHANGES OF HEART FAILURE. 2. CONFLUENT AIRSPACE DISEASE AT THE LEFT LUNG BASE MAY REPRESENT CONFLUENT EDEMA OR SUPERIMPOSED PNE UMONIA.
[2017-06-16] MEDS: FUROSEMIDE 10 MG/ML 4 ML VIAL IV SCH (08:16)
[2017-06-16] MEDS: METOPROLOL SUCCINATE (ER) 100 MG TAB.ER.24H PO SCH (08:16)
[2017-06-16] MEDS: predniSONE 20 MG TAB PO SCH (08:16)
[2017-06-16] MEDS: ALBUTEROL NEBULIZED 2.5 MG/3 ML INHALATION PRN (08:40)
[2017-06-16] MEDS: SYMBICORT 160-4.5 MCG INHALER INHALATION SCH (08:41)
[2017-06-16] MEDS: TIOTROPIUM 18 MCG/PUFF INHALER INHALATION SCH (08:41)
[2017-06-16] MEDS: ESOMEPRAZOLE 20 MG in SODIUM CHLORIDE 0.9% 50 ML IVPB SCH (09:56)
[2017-06-16 11:23] VITALS: BP 112/76; PULSE 85; TEMP 97.3
[2017-06-16 11:43] LABS: Glucose,Whole Blood 169 mg/dL (75-99)
[2017-06-16] MEDS ORDERED: SODIUM CHLORIDE 0.9% 1,000 ML IV ONE (12:07)
[2017-06-16] MEDS ORDERED: PROPOFOL 10 MG/ML 20 ML VIAL IV ONE (12:07)
--- NOTE | 2017-06-16 12:28 | P.PCN ---
Date of Procedure: 06/16/17 Preoperative Diagnosis: Postoperative Diagnosis: Procedure(s) Performed: BRIEF HISTORY: Patient is a 71 year-old, pleasant, white male, admitted hospital with symptomatic anemia and hemoglobin of 7.5 and intermittent dark colored stools for the last few days duration. His and scheduled for an upper endoscopy to evaluate further PROCEDURE PERFORMED: Esophagogastroduodenoscopy biopsy . PREOPERATIVE DIAGNOSIS: Symptomatic anemia and black tarry stools of 2 days' durationsedation per anesthesia. PROCEDURE: After informed consent was obtained, the patient was brought into the endoscopy unit. IV sedation was administered by Anesthesia under continuous monitoring. Initially the Olympus GIF-140 video endoscope was inserted into the mouth. Esophagus intubated without any difficulty. It was gradually advanced into the stomach and duodenum and carefully examined. The bulb and the second part of the duodenum appeared normal. The scope at this time was withdrawn to the stomach, adequately insufflated with air, and upon careful examination, mucosa of the antrum, body, cardia and the fundus short mild diffuse gastritis but no evidence of active bleeding. Biopsies were done from this area. The scope was then withdrawn into the esophagus. The GE junction was located at 39 cm from the incisors. The esophagus appeared normal. There were no erosions or ulcerations seen and the patient tolerated the procedure well. IMPRESSION: 1. Diffuse gastritis. 2. No evidence of esophagitis or peptic ulcer disease. RECOMMENDATIONS: The findings of this examination were discussed with the patient as well as his family. He was advised to follow with the biopsy results. His diet will be advanced as tolerated. Implants: Indications for Procedure: Operative Findings: Description of Procedure:
--- NOTE | 2017-06-16 13:45 | P.DS ---
Providers Date of admission: 06/13/17 15:27 Attending physician: Maya Tavarez Consults: 06/13/17 15:27 Consult Physician Routine Consulting Provider: Steve Ng Consult Reason/Comments: gib Do you want consulting provider notified?: Yes Primary care physician: [facility] Course: 71-year-old admitted for possibility of acute GI bleed although patient did not have any bowel movements since yesterday admission. Patient probably the possibly of upper GI bleed is low. Will will continue to monitor 1 more night. The other issues being low blood sugars. Patient is wheezing quite a bit today and bit hypoxic patient and COPD exacerbation patient was started on steroids because of which I'm not changing the dose of Lantus today. His blood sugars are expected to go up later. Patient is already on a decreased dose of Lantus of 44 units. Patient kidney function did improve with IV fluids which will be continued. Patient does have some hemodiluted affect. Patient received 1 unit of blood transfusion last night. 06/15/2017 Patient is is pretty status improved significantly patient has hyperkalemia, patient did levels are very high digoxin was discontinued and the will repeat potassium tomorrow again we will give him Light. Patient appears to have pulmonary edema on the chest x-ray because of which patient was started on Lasix IV fluids were discontinued. Although patient does not have any significant JVD on exam. 06/16/2017 Patient underwent upper GI endoscopy which showed gastritis. Patient is being discharged today patient when he came in had acute renal failure and hypotension secondary to excessive diuretic therapy and lisinopril lisinopril is being discontinued and the patient will be Discharged on 60 twice a day of oral Lasix and patient will wear compression socks as well. Patient does have both chronic diastolic dysfunction as well as significant right-sided heart failure with cor pulmonale contributing to severe pedal edema. GENERAL: The patient is alert and oriented x3, not in any acute distress. Well developed, well nourished. HEENT: Pupils are round and equally reacting to light. EOMI. No scleral icterus. No conjunctival pallor. Normocephalic, atraumatic. No pharyngeal erythema. No thyromegaly. CARDIOVASCULAR: S1 and S2 present. No murmurs, rubs, or gallops. PULMONARY: Chest is clear to auscultation, no crackles., Wheezing improved significantly and patient is fairly good air entry today and bilateral lung pope. ABDOMEN: Soft, nontender, nondistended, normoactive bowel sounds. No palpable organomegaly. MUSCULOSKELETAL: No joint swelling or deformity. EXTREMITIES: No cyanosis, clubbing, patient does have 1+ pitting pedal edema NEUROLOGICAL: Gross neurological examination did not reveal any focal deficits. SKIN: No rashes. #1 low hemoglobin: Patient is admitted for possibility of acute GI bleed , patient does not appear to have any acute GI bleed patient underwent upper GI endoscopy which showed. Patient does have occasional nosebleeds because of oxygen #2 hypotension: Secondary to severe intravascular volume depletion from excessive diuretic therapy. #3 atrial fibrillation patient is not on any anticoagulation and patient is rate controlled patient will be resumed on his rate control medications as long as his blood pressure can tolerate. She had elevated dig levels because of which changing the digoxin dosing to every 48 hours and repeat dig levels as an outpatient #4 bilateral pedal edema secondary to possible cor pulmonale and right-sided heart failure. #5 type 2 diabetes mellitus: We'll cut down the Lantus from 80 units to 40 units #6 acute renal failure: Secondary to prerenal azotemia from excessive diuretic therapy, lisinopril will be held as well. Patient is volume overloaded patient will need Lasix at this time. #7 COPD: With acute exacerbation #8 CVA and TIA history 9heart failure chronic diastolic dysfunction with mild acute exacerbation d Plan - Discharge Summary New Discharge Prescriptions: New Omeprazole [PriLOSEC] [address] capsule. Continue Simvastatin [Zocor] 40 mg PO HS Ferrous Sulfate [Feosol] 325 mg PO BID Budesonide-Formot 160-4.5 Mcg [Symbicort 160-4.5 Mcg Inhaler] 2 puff INHALATION RT-BID #1 puff Albuterol Nebulized [Ventolin Nebulized] 2.5 mg INHALATION RT-Q4H PRN PRN Reason: Shortness Of Breath Tiotropium 18 Mcg/Puff [Spiriva] 18 mcg INHALATION RT-DAILY Insulin Glargine [Lantus] 80 unit SQ HS Sodium Chloride 0.65% Nasal [Deep Sea (Saline)] 2 spray NASAL Q1H PRN PRN Reason: Congestion Metoprolol Succinate (ER) [Toprol XL] 100 mg PO DAILY Insulin Aspart [NovoLOG] See Protocol SQ ACHS PRN PRN Reason: Blood Sugar - High HYDROcodone/APAP 5-325MG [[place] 5-325] 1 tab PO QID PRN PRN Reason: Pain Changed Digoxin [Lanoxin] 125 mcg PO Q48H #0 Furosemide [Lasix] 60 mg PO BID #0 Discontinued Lisinopril [Zestril] 2.5 mg PO DAILY Discharge Medication List Ferrous Sulfate [Feosol] 325 mg PO BID 11/23/14 [History] Simvastatin [Zocor] 40 mg PO HS 11/23/14 [History] Budesonide-Formot 160-4.5 Mcg [Symbicort 160-4.5 Mcg Inhaler] 2 puff INHALATION RT-BID #1 puff 12/11/14 [Rx] Albuterol Nebulized [Ventolin Nebulized] 2.5 mg INHALATION RT-Q4H PRN 03/27/16 [ History] Tiotropium 18 Mcg/Puff [Spiriva] 18 mcg INHALATION RT-DAILY 03/27/16 [History] Insulin Glargine [Lantus] 80 unit SQ HS 04/28/17 [History] Sodium Chloride 0.65% Nasal [Deep Sea (Saline)] 2 spray NASAL Q1H PRN 04/28/17 [ History] HYDROcodone/APAP 5-325MG [[place] 5-325] 1 tab PO QID PRN 06/13/17 [History] Insulin Aspart [NovoLOG] See Protocol SQ ACHS PRN 06/13/17 [History] Metoprolol Succinate (ER) [Toprol XL] 100 mg PO DAILY 06/13/17 [History] Digoxin [Lanoxin] 125 mcg PO Q48H #0 06/16/17 [Rx] Furosemide [Lasix] 60 mg PO BID #0 06/16/17 [Rx] Omeprazole [PriLOSEC] 40 mg PO [facility]-BRKFST #30 capsule. 06/16/17 [Rx] Follow up Appointment(s)/Referral(s): Usama Alvarez DO [Primary Care Provider] - 1-2 days
== END 2017-06-16 14:52 | disposition home or self-care (01) | DRG 682 ==
LOC: EC 13:45 → 6SEL 15:27
PROVIDERS: ADMIT Hospitalist; ATTEND Hospitalist
PROC: 30233N1 Transfusion of Nonautologous Red Blood Cells into Peripheral Vein, Percutaneous Approach (ICD-10-PCS; 2017-06-13)
PROC: 0DB78ZX Excision of Stomach, Pylorus, Via Natural or Artificial Opening Endoscopic, Diagnostic (ICD-10-PCS; principal; 2017-06-16 08:35)
DX: N17.9 Acute kidney failure, unspecified (principal); I50.33 Acute on chronic diastolic (congestive) heart failure; D61.818 Other pancytopenia; J96.11 Chronic respiratory failure with hypoxia; I95.9 Hypotension, unspecified; I27.2 Other secondary pulmonary hypertension; E11.51 Type 2 diabetes mellitus with diabetic peripheral angiopathy without gangrene; I11.0 Hypertensive heart disease with heart failure; J44.1 Chronic obstructive pulmonary disease with (acute) exacerbation; K92.2 Gastrointestinal hemorrhage, unspecified; I27.81 Cor pulmonale (chronic); R04.0 Epistaxis; Z99.81 Dependence on supplemental oxygen; E87.5 Hyperkalemia; E86.9 Volume depletion, unspecified; E86.1 Hypovolemia; T46.4X5A Adverse effect of angiotensin-converting-enzyme inhibitors, initial encounter; T50.1X5A Adverse effect of loop [high-ceiling] diuretics, initial encounter; I25.10 Atherosclerotic heart disease of native coronary artery without angina pectoris; E78.00 Pure hypercholesterolemia, unspecified; E78.5 Hyperlipidemia, unspecified; K29.70 Gastritis, unspecified, without bleeding; D50.0 Iron deficiency anemia secondary to blood loss (chronic); I35.0 Nonrheumatic aortic (valve) stenosis; I48.0 Paroxysmal atrial fibrillation; R91.8 Other nonspecific abnormal finding of lung field; H91.90 Unspecified hearing loss, unspecified ear; M19.90 Unspecified osteoarthritis, unspecified site; R53.1 Weakness; R76.11 Nonspecific reaction to tuberculin skin test without active tuberculosis; Z79.899 Other long term (current) drug therapy; Z79.4 Long term (current) use of insulin; Z86.73 Personal history of transient ischemic attack (TIA), and cerebral infarction without residual deficits; Z79.51 Long term (current) use of inhaled steroids; Z82.49 Family history of ischemic heart disease and other diseases of the circulatory system; Z87.891 Personal history of nicotine dependence; Z79.891 Long term (current) use of opiate analgesic; Z88.6 Allergy status to analgesic agent; Z88.1 Allergy status to other antibiotic agents; Z88.5 Allergy status to narcotic agent; Z86.14 Personal history of Methicillin resistant Staphylococcus aureus infection; Z87.01 Personal history of pneumonia (recurrent); Z90.49 Acquired absence of other specified parts of digestive tract; Z80.9 Family history of malignant neoplasm, unspecified
CPT/HCPCS: 36415; 36430; 43239; 71010; 80048; 80053; 80162; 82272; 82550; 82553; 83036; 83690; 83735; 83880; 84484; 85025; 85027; 85610; 85730; 86850; 86900; 86901; 86920; 88305; 88342; 94640; 96360; 99285

== ENCOUNTER 2017-06-19 09:48 | Inpatient (IN) | payer OTHER, MEDICARE ==
--- NOTE | 2017-06-19 09:57 | ED ---
General Adult HPI - General Chief complaint: Shortness of Breath Stated complaint: AC Time Seen by Provider: 06/19/17 09:55 Source: patient, family, RN notes reviewed, old records reviewed Mode of arrival: wheelchair Limitations: no limitations - Related Data Home Medications Medication Instructions Recorded Confirmed Ferrous Sulfate [Feosol] 325 mg PO BID 11/23/14 06/19/17 Simvastatin [Zocor] 40 mg PO HS 11/23/14 06/19/17 Albuterol Nebulized [Ventolin 2.5 mg INHALATION RT-Q4H PRN 03/27/16 06/19/17 Nebulized] Tiotropium 18 Mcg/Puff [Spiriva] 18 mcg INHALATION RT-DAILY 03/27/16 06/19/17 Sodium Chloride 0.65% Nasal [Deep 2 spray NASAL Q1H PRN 04/28/17 06/19/17 Sea (Saline)] HYDROcodone/APAP 5-325MG [[place] 1 tab PO QID PRN 06/13/17 06/19/17 5-325] Insulin Aspart [NovoLOG] See Protocol SQ ACHS 06/13/17 06/19/17 Metoprolol Succinate (ER) [Toprol 100 mg PO DAILY 06/13/17 06/19/17 XL] predniSONE 10 mg PO DIRECTED 06/19/17 06/19/17 Previous Rx's Medication Instructions Recorded Budesonide-Formot 160-4.5 Mcg 2 puff INHALATION RT-BID #1 puff 12/11/14 [Symbicort 160-4.5 Mcg Inhaler] Digoxin [Lanoxin] 125 mcg PO Q48H #0 06/16/17 Furosemide [Lasix] 60 mg PO BID #0 06/16/17 Insulin Glargine [Lantus] 40 unit SQ HS #0 06/16/17 Omeprazole [PriLOSEC] 40 mg PO [facility]-BRKFST #30 capsule. 06/16/17 Allergies Allergy/AdvReac Type Severity Reaction Status Date / Time lincomycin HCl Allergy Rash/Hives Verified 06/19/17 11:32 [From Lincocin] propoxyphene HCl Allergy Rash/Hives Verified 06/19/17 11:32 [From Darvon] aspirin AdvReac Unknown Verified 06/19/17 11:32 Review of Systems ROS Statement: Those systems with pertinent positive or pertinent negative responses have been documented in the HPI. ROS Other: All systems not noted in ROS Statement are negative. 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, PREVIOUSLY CHARTED"history of positive AFB in the sputum with subsequent negative cultures", CVA/TIA, diabetes mellitus, hyperlipidemia, hypertension, impaired hearing, left lower lobe pneumonia with some residual effusion the left lung base, scattered bilateral pulmonary nodules, previous history of epistaxis and the patient is on no anticoagulants, gout, aortic stenosis moderate to severe in nature with a preserved LV function, peripheral vascular disease,home 02 3liters n/c History of Any Multi-Drug Resistant Organisms: MRSA Date of last positivie culture/infection: 2010 MDRO Source:: r elbow Past Surgical History: Cholecystectomy, Tonsillectomy Additional Past Surgical History / Comment(s): Lipoma removal from the right side of the abdomen.bronchoscopy Past Anesthesia/Blood Transfusion Reactions: No Reported Reaction Additional Past Anesthesia/Blood Transfusion Reaction / Comment(s): blood transfusion-no reaction Past Psychological History: No Psychological Hx Reported Smoking Status: Former smoker - Past Family History Mother History Unknown: Yes Family Medical History: No Reported History Brother(s) Family Medical History: No Reported History Sister(s) Family Medical History: Cancer, Myocardial Infarction ([place]) Additional Family Medical History / Comment(s): sister had tb in past Daughter(s) Family Medical History: No Reported History Son(s) Family Medical History: No Reported History Father Family Medical History: No Reported History General Exam Limitations: no limitations General appearance: alert, in no apparent distress, anxious, in distress Head exam: Present: atraumatic, normocephalic, normal inspection Eye exam: Present: normal appearance, PERRL, EOMI. Absent: scleral icterus, conjunctival injection, periorbital swelling ENT exam: Present: normal exam, mucous membranes moist Neck exam: Present: normal inspection. Absent: tenderness, meningismus, lymphadenopathy Respiratory exam: Present: normal lung sounds bilaterally, wheezes, decreased breath sounds, prolonged expiratory. Absent: respiratory distress, rales, rhonchi, stridor Cardiovascular Exam: Present: regular rate, normal rhythm, normal heart sounds. Absent: systolic murmur, diastolic murmur, rubs, gallop, clicks GI/Abdominal exam: Present: soft, normal bowel sounds. Absent: distended, tenderness, guarding, rebound, rigid Extremities exam: Present: normal inspection, full ROM, normal capillary refill. Absent: tenderness, pedal edema, joint swelling, calf tenderness Back exam: Present: normal inspection Neurological exam: Present: alert, oriented X3, CN II-XII intact Psychiatric exam: Present: normal affect, normal mood Skin exam: Present: warm, dry, intact, normal color. Absent: rash Course Vital Signs 06/19/17 06/19/17 06/19/17 09:49 10:25 10:44 Temperature 97.7 F Pulse Rate 82 98 Respiratory 18 16 24 Rate Blood Pressure 117/59 110/55 O2 Sat by Pulse 89 L 100 Oximetry EKG Findings - EKG Comments: EKG Findings:: EKG shows atrial fibrillation rate of 82, LA is nonexistent, QRS 78, QTC 392 Medical Decision Making - Medical Decision Making 71 male to the ED SOB, CHF< COPD< Pna, multifactorial pneumonia, no fever, worsening SOB with no improvement at treatment john home. Patient will be admitted for multifactorial respiratory failure. - Lab Data Result diagrams: 06/19/17 10:25 06/19/17 10:25 Lab Results 06/19/17 06/19/17 06/19/17 Range/Units 10:25 10:25 10:25 WBC 6.8 (3.8-10.6) k/uL RBC 3.62 L (4.30-5.90) m/uL Hgb 9.9 L (13.0-17.5) gm/dL Hct 32.0 L (39.0-53.0) % MCV 88.3 (80.0-100.0) fL MCH 27.5 (25.0-35.0) pg MCHC 31.1 (31.0-37.0) g/dL RDW 16.7 H (11.5-15.5) % Plt Count 126 L (150-450) k/uL Neutrophils % 87 % Lymphocytes % 6 % Monocytes % 5 % Eosinophils % 1 % Basophils % 0 % Neutrophils # 5.9 (1.3-7.7) k/uL Lymphocytes # 0.4 L (1.0-4.8) k/uL Monocytes # 0.3 (0-1.0) k/uL Eosinophils # 0.0 (0-0.7) k/uL Basophils # 0.0 (0-0.2) k/uL Hypochromasia Marked Poikilocytosis Slight Anisocytosis Slight PT (9.0-12.0) sec INR (<1.2) APTT (22.0-30.0) sec Sodium 144 (137-145) mmol/L Potassium 3.9 (3.5-5.1) mmol/L Chloride 99 (98-107) mmol/L Carbon Dioxide 34 H (22-30) mmol/L Anion Gap 11 mmol/L BUN 49 H (9-20) mg/dL Creatinine 1.14 (0.66-1.25) mg/dL Est GFR (MDRD) Af Amer >60 (>60 ml/min/1.73 sqM) Est GFR (MDRD) Non-Af >60 (>60 ml/min/1.73 sqM) Glucose 101 H (74-99) mg/dL Calcium 9.2 (8.4-10.2) mg/dL Magnesium 1.9 (1.6-2.3) mg/dL Total Bilirubin 1.5 H (0.2-1.3) mg/dL AST 36 (17-59) U/L ALT 54 (21-72) U/L Alkaline Phosphatase 77 (38-126) U/L Total Creatine Kinase 86 (55-170) U/L CK-MB (CK-2) 7.8 H* (0.0-2.4) ng/mL CK-MB (CK-2) Rel Index 9.1 Troponin I 0.064 H* (0.000-0.034) ng/mL NT-Pro-B Natriuret Pep pg/mL Total Protein 7.2 (6.3-8.2) g/dL Albumin 4.0 (3.5-5.0) g/dL 06/19/17 06/19/17 Range/Units 10:25 10:25 WBC (3.8-10.6) k/uL RBC (4.30-5.90) m/uL Hgb (13.0-17.5) gm/dL Hct (39.0-53.0) % MCV (80.0-100.0) fL MCH (25.0-35.0) pg MCHC (31.0-37.0) g/dL RDW (11.5-15.5) % Plt Count (150-450) k/uL Neutrophils % % Lymphocytes % % Monocytes % % Eosinophils % % Basophils % % Neutrophils # (1.3-7.7) k/uL Lymphocytes # (1.0-4.8) k/uL Monocytes # (0-1.0) k/uL Eosinophils # (0-0.7) k/uL Basophils # (0-0.2) k/uL Hypochromasia Poikilocytosis Anisocytosis PT 11.5 (9.0-12.0) sec INR 1.1 (<1.2) APTT 22.0 (22.0-30.0) sec Sodium (137-145) mmol/L Potassium (3.5-5.1) mmol/L Chloride (98-107) mmol/L Carbon Dioxide (22-30) mmol/L Anion Gap mmol/L BUN (9-20) mg/dL Creatinine (0.66-1.25) mg/dL Est GFR (MDRD) Af Amer (>60 ml/min/1.73 sqM) Est GFR (MDRD) Non-Af (>60 ml/min/1.73 sqM) Glucose (74-99) mg/dL Calcium (8.4-10.2) mg/dL Magnesium (1.6-2.3) mg/dL Total Bilirubin (0.2-1.3) mg/dL AST (17-59) U/L ALT (21-72) U/L Alkaline Phosphatase (38-126) U/L Total Creatine Kinase (55-170) U/L CK-MB (CK-2) (0.0-2.4) ng/mL CK-MB (CK-2) Rel Index Troponin I (0.000-0.034) ng/mL NT-Pro-B Natriuret Pep 11986 pg/mL Total Protein (6.3-8.2) g/dL Albumin (3.5-5.0) g/dL - Radiology Data Radiology results: report reviewed (CXR is positive for Pna, COPD CHF), image reviewed Critical Care Time Critical Care Time: Yes Total Critical Care Time: 31 Disposition Clinical Impression: COPD (chronic obstructive pulmonary disease), Congestive heart failure, Hypoxia Disposition: ADMITTED IP TO THIS HOSP Condition: Fair Referrals: Usama Alvarez DO [Primary Care Provider] - 1-2 days
[2017-06-19] MEDS ORDERED: ALBUTEROL NEBULIZED 2.5 MG/3 ML INHALATION STA (10:14)
[2017-06-19] MEDS ORDERED: IPRATROPIUM 0.5 MG/2.5 ML NEBU INHALATION STA (10:14)
[2017-06-19 10:48] LABS: Anisocytosis Slight; Basophils % (A) 0 %; CH 26.7; CHCM 30.4; Eosinophils % (A) 1 %; HDW 3.55; HGB 9.9 gm/dL (13.0-17.5); Hypochromasia Marked; Luc # (Auto) 0.07; Luc % (Auto) 1; Lymphocytes # (A) 0.4 k/uL (1.0-4.8); Lymphocytes % (A) 6 %; MCH 27.5 pg (25.0-35.0); MCHC 31.1 g/dL (31.0-37.0); MCV 88.3 fL (80.0-100.0); Mean Platelet Volume 8.3; Monocytes # (A) 0.3 k/uL (0-1.0); Monocytes % (A) 5 %; Neutrophils # (A) 5.9 k/uL (1.3-7.7); Neutrophils % (A) 87 %; Poikilocytosis Slight; RBC 3.62 m/uL (4.30-5.90); RDW 16.7 % (11.5-15.5); WBC 6.8 k/uL (3.8-10.6); WBC (Perox) 6.88
[2017-06-19 11:01] LABS: ALT 54 U/L (21-72); AST 36 U/L (17-59); Alkaline Phosphatase 77 U/L (38-126); Anion Gap 11 mmol/L; Blood Urea Nitrogen 49 mg/dL (9-20); Calcium 9.2 mg/dL (8.4-10.2); Carbon Dioxide 34 mmol/L (22-30); Chloride 99 mmol/L (98-107); Glucose 101 mg/dL (74-99); INR 1.1 (<1.2); Magnesium 1.9 mg/dL (1.6-2.3); Non-African American GFR(MDRD) >60 (>60 ml/min/1.73 sqM); Potassium 3.9 mmol/L (3.5-5.1); Prothrombin Time 11.5 sec (9.0-12.0); Sodium 144 mmol/L (137-145); Total Bilirubin 1.5 mg/dL (0.2-1.3); Total Protein 7.2 g/dL (6.3-8.2)
--- NOTE | 2017-06-19 11:32 | XR ---
EXAMINATION TYPE: XR chest 1V portable DATE OF EXAM: 06/19/2017 HISTORY: Shortness of breath. COMPARISON: 06/16/2017 TECHNIQUE: Single view of the chest is submitted. FINDINGS: Demonstrated are scattered senescent parenchymal change. There is increasing right lower lobe infiltrate which may reflect pneumonia. There is continued cardiomegaly with chronic pulmonary vascular decompensation. Underlying interstiti al lung disease not excluded. Hilar and mediastinal structures are within normal limits. Degenerative changes are seen of the dorsal spine. IMPRESSION: 1. There is increasing right lower lobe infiltrate which may reflect pneumonia. 2. Chronic pulmonary venous decompensation without overt failure.
[2017-06-19 11:35] LABS: Creatine Kinase MB 7.8 ng/mL (0.0-2.4); Troponin I 0.064 ng/mL (0.000-0.034)
[2017-06-19] MEDS ORDERED: LEVOFLOXACIN 750MG-D5W PMX 750 MG in DEXTROSE/WATER 1 150ML.BAG IVPB STA (11:46)
[2017-06-19] MEDS ORDERED: PIPERACILLIN-TAZOBACTAM 3.375 GM in DEXTROSE/WATER 1 50ML.BAG IVPB STA (11:46)
[2017-06-19] MEDS ORDERED: PNEUMONIA PROTOCOL UTILIZED 1 EACH MISC PO PRN (11:46)
[2017-06-19] MEDS ORDERED: NITROGLYCERIN SL TABS 0.4 MG TAB SUBLINGUAL PRN (11:46)
[2017-06-19] MEDS: IPRATROPIUM-ALBUTEROL 3 ML NEB INHALATION SCH ×4 (13:49→19:24)
--- NOTE | 2017-06-19 14:14 | P.CNPUL ---
History of Present Illness Consult date: 06/19/17 Reason for consult: dyspnea History of present illness: A very pleasant 71-year-old male patient is very well-known to me. The patient came into the emergency department because of progressive worsening shortness of breath. Note that the patient was in the hospital on 06/13/2017 for concerns of an acute GI bleeding. Upper GI bleeding was suspected. The patient had an EGD and he was found to have no signs of any acute bleeding and the patient was found to have changes consistent with gastritis. During the same hospitalization the patient received a unit of packed RBC and he was discharged home. A few days following his discharge, the patient started having worsening shortness of breath. Note that he was having some difficulty breathing even during his hospitalization. His chest x-ray was also showing a component of poor Vesicare congestion/edema. He was given IV Lasix during his earlier admission and based on the discharge summary the patient did not have any significant JVDs at a time of discharge. As such, his CHF was thought to be optimized. Nevertheless, over the past few days, the patient developed worsening shortness of breath. He had 3-4 pounds weight gain. Worsening lower oximetry edema. Exertional dyspnea to the point where the patient was unable to perform activities of daily life and for that reason he came into the hospital he was found to be in CHF. At this point in time the patient has jugular venous distention, elevated proBNP level, and increased lower extremity edema. Renal function is stable. The patient is producing adequate amount of urine output. In terms of his history, the patient has advanced COPD and the patient has been oxygen dependent. He was being followed up at the [place] [facility] and his primary care physician Dr. Khan. He has been maintained on oxygen 3 L/m nasal cannula. His previous CAT scan of the chest that shown old granulomatous changes with 1-2 mm nodules in the lateral aspect of the left lung and left basilar segment of the left lower lobe. These were thought to be benign. He also had background COPD. He was maintained on a combination of Spiriva and Symbicort. At one point there was a concern that the patient was infected with mycobacterial elements. This was based on the sputum sample that was collected at the [place] and the choice. Based on all this, I repeated the evaluation by doing a bronchoscopy and lavage and the microbial cultures of been negative for now for any AFB or typical or atypical microbial growth. The patient also has history of CHF. An echocardiogram that was done at [facility] showed moderate to severe aortic stenosis with mild aortic regurgitation and an ejection fraction of 60-65%. He also has significant pulmonary hypertension based on prior echocardiograms. He has chronic atrial fibrillation. He has various other comorbid conditions including diabetes mellitus, hypertension, hyperlipidemia, history of left lower lobe pneumonia, peripheral vascular disease, hypertension, CVA/TIA, diabetes mellitus. He also suffers from chronic lower extremity edema in addition. Review of Systems Constitutional: Reports lethargy, Reports malaise, Reports weakness, Reports weight gain Eyes: denies blurred vision, denies bulging eye, denies decreased vision Ears: deny: decreased hearing, ear discharge, earache Ears, nose, mouth and throat: Denies headache, Denies sore throat Cardiovascular: Reports decreased exercise tolerance, Reports dyspnea on exertion, Reports irregular heart beat, Reports orthopnea, Reports paroxysmal nocturnal dyspnea, Reports rapid heart beat, Reports shortness of breath Respiratory: Reports cough, Reports dyspnea, Reports wheezing Genitourinary: Reports nocturia Musculoskeletal: Denies myalgias Musculoskeletal: bilateral: ankle swelling, absent: ankle pain, ankle stiffness Integumentary: Reports wounds, Denies pruritus, Denies rash Neurological: Denies numbness, Denies weakness Psychiatric: Denies anxiety, Denies depression Endocrine: Denies fatigue, Denies weight change 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, PREVIOUSLY CHARTED"history of positive AFB in the sputum with subsequent negative cultures" based on the bronchioloalveolar lavage was done in May 2017 , CVA/TIA, diabetes mellitus, hyperlipidemia, hypertension, impaired hearing, left lower lobe pneumonia with some residual effusion the left lung base, scattered bilateral pulmonary nodules, previous history of epistaxis and the patient is on no anticoagulants, gout, aortic stenosis moderate to severe in nature with a preserved LV function, peripheral vascular disease, chronic hypoxic respiratory failure on oxygen at 3 L/m nasal cannula, recent authorization for a GI bleed and the patient was found to have antral gastritis without evidence of an acute bleeding. Chronic anemia with a previous transfusion with packed RBC, gout, pulmonary nodule details discussed above, previous history of MRSA. History of Any Multi-Drug Resistant Organisms: MRSA Date of last positivie culture/infection: 2010 MDRO Source:: r elbow Past Surgical History: Cholecystectomy, Tonsillectomy Additional Past Surgical History / Comment(s): Lipoma removal from the right side of the abdomen.bronchoscopy Past Anesthesia/Blood Transfusion Reactions: No Reported Reaction Additional Past Anesthesia/Blood Transfusion Reaction / Comment(s): blood transfusion-no reaction Past Psychological History: No Psychological Hx Reported Smoking Status: Former smoker - Past Family History Mother History Unknown: Yes Family Medical History: No Reported History Brother(s) Family Medical History: No Reported History Sister(s) Family Medical History: Cancer, Myocardial Infarction ([place]) Additional Family Medical History / Comment(s): sister had tb in past Daughter(s) Family Medical History: No Reported History Son(s) Family Medical History: No Reported History Father Family Medical History: No Reported History Medications and Allergies Home Medications Medication Instructions Recorded Confirmed Type Ferrous Sulfate [Feosol] 325 mg PO BID 11/23/14 06/19/17 History Simvastatin [Zocor] 40 mg PO HS 11/23/14 06/19/17 History Albuterol Nebulized [Ventolin 2.5 mg INHALATION RT-Q4H PRN 03/27/16 06/19/17 History Nebulized] Tiotropium 18 Mcg/Puff [Spiriva] 18 mcg INHALATION RT-DAILY 03/27/16 06/19/17 History Sodium Chloride 0.65% Nasal [Deep 2 spray NASAL Q1H PRN 04/28/17 06/19/17 History Sea (Saline)] HYDROcodone/APAP 5-325MG [[place] 1 tab PO QID PRN 06/13/17 06/19/17 History 5-325] Insulin Aspart [NovoLOG] See Protocol SQ ACHS 06/13/17 06/19/17 History Metoprolol Succinate (ER) [Toprol 100 mg PO DAILY 06/13/17 06/19/17 History XL] predniSONE 10 mg PO DIRECTED 06/19/17 06/19/17 History Allergies Allergy/AdvReac Type Severity Reaction Status Date / Time lincomycin HCl Allergy Rash/Hives Verified 06/19/17 11:32 [From Lincocin] propoxyphene HCl Allergy Rash/Hives Verified 06/19/17 11:32 [From Darvon] aspirin AdvReac Unknown Verified 06/19/17 11:32 Physical Exam Vitals: Vital Signs Temp Pulse Resp BP Pulse Ox 06/19/17 13:52 62 06/19/17 10:44 98 24 110/55 100 06/19/17 10:25 16 06/19/17 09:49 97.7 F 82 18 117/59 89 L Intake and Output 06/18/17 06/19/17 06/19/17 22:59 06:59 14:59 Other: Weight 110.677 kg Patient Weight 06/20/17 06:59 Weight 110.677 kg Head exam was generally normal. There was no scleral icterus or corneal arcus. Mucous membranes were moist. Neck is supple and there is positive JVDs and there is no goiter or neck masses this point. Lung sounds are diminished and there is some bibasilar crackles in the lung bases. No wheezes. No rhonchi. Heart sounds are irregular and this systolic ejection murmur grade 3/6 heard throughout the precordium. Abdomen is slightly distended soft and there is no direct tenderness about tensile guarding. Extremities +1-2 pitting edema bilaterally and symmetrically without any cyanosis or clubbing. Some superficial skin ulceration over the legs bilaterally. Results - Laboratory Findings CBC and BMP: 06/19/17 10:25 06/19/17 10:25 PT/INR, D-dimer PT 11.5 sec (9.0-12.0) 06/19/17 10:25 INR 1.1 (<1.2) 06/19/17 10:25 Abnormal lab findings: Abnormal Labs 06/19/17 06/19/17 06/19/17 10:25 10:25 10:25 RBC 3.62 L Hgb 9.9 L Hct 32.0 L RDW 16.7 H Plt Count 126 L Lymphocytes # 0.4 L Carbon Dioxide 34 H BUN 49 H Glucose 101 H Total Bilirubin 1.5 H CK-MB (CK-2) 7.8 H* Troponin I 0.064 H* - Diagnostic Findings Chest x-ray: image reviewed Assessment and Plan Plan: Assessment 1 acute CHF exacerbation/pulmonary edema. Patient has underlying valvular heart disease with moderate to severe aortic stenosis and secondary pulmonary hypertension, LV function seems to be preserved at this point in time. 2 troponin leak 3 advanced COPD with chronic hypoxic respiratory failure admitted on oxygen 3 L/ m nasal cannula 4 scattered bilateral subcentimeter pulmonary nodules, probably related to previous granulomatous infection of the lung 5 negative AFB based on the recent bronchioloalveolar lavage and the lungs 6 chronic atrial fibrillation 7. Vascular disease 8 hypertension 9 hyperlipidemia 10 diabetes mellitus 11 chronic hypoxic respiratory failure maintained on oxygen at 3 L/m nasal cannula 12 gout 13 chronic anemia 14 recent hospitalization for suspected GI bleed and the patient was found to have some gastritis without active bleeding 15 chronic lower extremity edema Plan Start the patient on diuretics for IV Lasix every 12 hours. Monitor the renal function closely knowing that the patient may have a tendency to become prerenal. Repeat echocardiogram. Empiric antibiotic coverage with IV Zosyn. Nebulized albuterol and Atrovent about treatments around the clock. Resume outpatient medications. Cardiology consultation. We'll continue to follow. Note that there is no concern for him tuberculosis infection under the most recent bronchioloalveolar lavage was negative for any AFB positivity or TB growth.
[2017-06-19] MEDS: FUROSEMIDE 10 MG/ML 4 ML VIAL IV STA ×2 (14:21→14:26)
--- NOTE | 2017-06-19 16:20 | P.CRDCN ---
History of Present Illness Consult date: 06/19/17 History of present illness: This is a 71-year-old gentleman who came to the emergency room with complaints of progressive worsening of shortness of breath. This patient has history of COPD and was admitted to this hospital earlier this month with a suspicion of GI bleeding. Apparently received one unit of blood transfusion at the time. He also received some Lasix. The last several days patient has become progressively more short of breath and developed pedal edema and came to the hospital. He has a history of moderate to severe aortic stenosis and preserved LV function. Her admission here patient was found to have JVD and also peripheral edema. Patient is given IV Lasix and seemed to be diuresing well. ProBNP is elevated. At the time of my examination patient is sleepy seemed to be relatively comfortable. No complaints of any chest pain. He is scheduled to have an echocardiogram and monitor. Patient had a last echocardiogram in November of this year at [facility]. We may repeat the echocardiogram to assess his aortic stenosis. Meanwhile we'll continue with the diagnosis Review of Systems As per the chart Past Medical History Past Medical History: Atrial Fibrillation, COPD, CVA/TIA, Diabetes Mellitus, Hearing Disorder / Deafness, Hyperlipidemia, Hypertension, Osteoarthritis (OA), Pneumonia Additional Past Medical History / Comment(s): Advanced COPD, chronic hypoxic respiratory failure, 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 Chronic anemia, previous history of MRSA. History of Any Multi-Drug Resistant Organisms: MRSA Date of last positivie culture/infection: 2010 MDRO Source:: R elbow Past Surgical History: Cholecystectomy, Tonsillectomy Additional Past Surgical History / Comment(s): Lipoma removal from the right side of the abdomen.bronchoscopy Past Anesthesia/Blood Transfusion Reactions: No Reported Reaction Additional Past Anesthesia/Blood Transfusion Reaction / Comment(s): blood transfusion-no reaction Past Psychological History: No Psychological Hx Reported Additional Psychological History / Comment(s): PT LIVES WITH FEBRUARY IN A 2 STORY HOME THAT HAS 8 PORCH STEPS AND 12 STEPS TO EITHER 2ND FLOOR OR BASEMENT. PETS:2 DOGS. NO OUT SIDE SERVICES RECIEVED. PT HAS NEBULIZER AND HOME 02. PT SERVED IN THE [employer] WHEN YOUNGER. RETIRED FROM [employer]. Smoking Status: Former smoker Past Alcohol Use History: Heavy Additional Past Alcohol Use History / Comment(s): started smoking at age 21, smoked 2 ppd,quit at age 60. hasn't drank sine age 50. Past Drug Use History: None Reported - Past Family History Mother History Unknown: Yes Family Medical History: No Reported History Brother(s) Family Medical History: No Reported History Sister(s) Family Medical History: Cancer, Myocardial Infarction ([place]) Additional Family Medical History / Comment(s): sister had tb in past Daughter(s) Family Medical History: No Reported History Son(s) Family Medical History: No Reported History Father Family Medical History: No Reported History Medications and Allergies Home Medications Medication Instructions Recorded Confirmed Type Ferrous Sulfate [Feosol] 325 mg PO BID 11/23/14 06/19/17 History Simvastatin [Zocor] 40 mg PO HS 11/23/14 06/19/17 History Albuterol Nebulized [Ventolin 2.5 mg INHALATION RT-Q4H PRN 03/27/16 06/19/17 History Nebulized] Tiotropium 18 Mcg/Puff [Spiriva] 18 mcg INHALATION RT-DAILY 03/27/16 06/19/17 History Sodium Chloride 0.65% Nasal [Deep 2 spray NASAL Q1H PRN 04/28/17 06/19/17 History Sea (Saline)] HYDROcodone/APAP 5-325MG [[place] 1 tab PO QID PRN 06/13/17 06/19/17 History 5-325] Insulin Aspart [NovoLOG] See Protocol SQ ACHS 06/13/17 06/19/17 History Metoprolol Succinate (ER) [Toprol 100 mg PO DAILY 06/13/17 06/19/17 History XL] predniSONE 10 mg PO DIRECTED 06/19/17 06/19/17 History Allergies Allergy/AdvReac Type Severity Reaction Status Date / Time lincomycin HCl Allergy Rash/Hives Verified 06/19/17 11:32 [From Lincocin] propoxyphene HCl Allergy Rash/Hives Verified 06/19/17 11:32 [From Darvon] aspirin AdvReac Unknown Verified 06/19/17 11:32 Physical Exam Vitals: Vital Signs Temp Pulse Pulse Resp BP BP Pulse Ox 06/19/17 15:28 68 06/19/17 15:16 64 06/19/17 14:50 98.4 F 83 22 109/52 94 L 06/19/17 14:24 97.4 F L 60 16 99/52 99 06/19/17 14:00 66 06/19/17 13:56 97.3 F L 76 18 120/55 96 06/19/17 13:52 62 06/19/17 10:44 98 24 110/55 100 06/19/17 10:25 16 06/19/17 09:49 97.7 F 82 18 117/59 89 L Intake and Output 06/19/17 06/19/17 06/19/17 06:59 14:59 22:59 Intake Total 10 Balance 10 Intake: Amount of Fluid Infused ( 10 ml) Other: Voiding Method Toilet Urinal Weight 108.5 kg Patient Weight 06/20/17 06:59 Weight 108.5 kg GENERAL EXAM: Patient is sleepy and inmoderate distress HEENT: Normocephalic. Normal reaction of pupils, equal size, normal range of extraocular motion. No erythema or exudates in the throat. NECK: No masses, no nuchal rigidity. Jugular venous distention noted CHEST: No chest wall deformity. LUNGS: Default HEART: S1 and S2 normal . Systolic murmur heard ABDOMEN: No hepatosplenomegaly, normal bowel sounds, no guarding or rigidity. SKIN: No rashes CENTRAL NERVOUS SYSTEM: No focal deficits. The false EXTREMITIES: 2-3+ edema. Results 06/19/17 10:25 06/19/17 10:25 Cardiac Enzymes 06/19/17 06/19/17 Range/Units 10:25 10:25 AST 36 (17-59) U/L CK-MB (CK-2) 7.8 H* (0.0-2.4) ng/mL Troponin I 0.064 H* (0.000-0.034) ng/mL Coagulation 06/19/17 Range/Units 10:25 PT 11.5 (9.0-12.0) sec APTT 22.0 (22.0-30.0) sec CBC 06/19/17 Range/Units 10:25 WBC 6.8 (3.8-10.6) k/uL RBC 3.62 L (4.30-5.90) m/uL Hgb 9.9 L (13.0-17.5) gm/dL Hct 32.0 L (39.0-53.0) % Plt Count 126 L (150-450) k/uL Comprehensive Metabolic Panel 06/19/17 Range/Units 10:25 Sodium 144 (137-145) mmol/L Potassium 3.9 (3.5-5.1) mmol/L Chloride 99 (98-107) mmol/L Carbon Dioxide 34 H (22-30) mmol/L BUN 49 H (9-20) mg/dL Creatinine 1.14 (0.66-1.25) mg/dL Glucose 101 H (74-99) mg/dL Calcium 9.2 (8.4-10.2) mg/dL AST 36 (17-59) U/L ALT 54 (21-72) U/L Alkaline Phosphatase 77 (38-126) U/L Total Protein 7.2 (6.3-8.2) g/dL Albumin 4.0 (3.5-5.0) g/dL Current Medications Generic Name Dose Route Start Last Admin Trade Name Freq PRN Reason Stop Dose Admin Albuterol/Ipratropium 3 ml 06/19/17 12:00 06/19/17 15:15 Duoneb 0.5 Mg-3 Mg/3 Ml Soln INHALATION 3 ml RT-QID NAVJOT Administration Aspirin 325 mg 06/20/17 09:00 Aspirin PO DAILY [facility] Levofloxacin 750 mg/ IV 150 mls @ 100 mls/hr 06/20/17 12:00 Solution IVPB Q24H [facility] Piperacillin/Tazobactam/ 50 mls @ 12.5 mls/hr 06/19/17 22:00 Dextrose 3.375 gm/ IV Solution IVPB Q8H [facility] Miscellaneous Information 1 each 06/19/17 11:46 Pneumonia Protocol Utilized PO ONCE PRN Per Protocol Nitroglycerin 0.4 mg 06/19/17 11:46 Nitrostat SUBLINGUAL Q5M PRN Chest Pain Intake and Output 06/19/17 06/19/17 06/19/17 06:59 14:59 22:59 Intake Total 10 Balance 10 Intake: Amount of Fluid Infused ( 10 ml) Other: Voiding Method Toilet Urinal Weight 108.5 kg Patient Weight 06/20/17 06:59 Weight 108.5 kg 06/19/17 10:25 06/19/17 10:25 EKG Interpretations (text) Atrial fibrillation with controlled ventricular response Assessment and Plan (1) COPD (chronic obstructive pulmonary disease) Status: Acute (2) Congestive heart failure Status: Acute (3) Anemia Status: Acute (4) Aortic stenosis Status: Acute (5) CVA (cerebral vascular accident) Status: Acute (6) Diabetes Status: Acute Plan: We'll continue with diuretic therapy and we'll repeat the echocardiogram to assess LV function and also aortic stenosis. Pulmonary is also following the patient. Overall his prognosis seems to be guarded given her multiple comorbidities. We'll also discuss with Dr. Almeida.
[2017-06-19 17:37] LABS: Creatine Kinase MB 6.2 ng/mL (0.0-2.4); Troponin I 0.054 ng/mL (0.000-0.034)
[2017-06-19] MEDS ORDERED: HYDROcodone/APAP 5-325MG 1 EACH TAB PO PRN (17:46)
[2017-06-19] MEDS ORDERED: SODIUM CHLORIDE 0.65% NASAL SPRAY 44 ML BTL NASAL PRN (17:46)
[2017-06-19] MEDS ORDERED: predniSONE 10 MG TAB PO ONE (18:00)
[2017-06-19] MEDS: FUROSEMIDE 10 MG/ML 4 ML VIAL IV SCH (19:15)
[2017-06-19] MEDS: DIGOXIN 125 MCG TAB PO SCH (19:17)
[2017-06-19 21:27] LABS: Glucose,Whole Blood 148 mg/dL (75-99)
[2017-06-19] MEDS: INSULIN GLARGINE 100 UNIT/ML 10 ML VIAL SQ SCH (21:46)
[2017-06-19] MEDS: ATORVASTATIN 20 MG TAB PO SCH (21:47)
[2017-06-19] MEDS: PIPERACILLIN-TAZOBACTAM 3.375 GM in DEXTROSE/WATER 1 50ML.BAG IVPB SCH (21:47)
[2017-06-19 23:07] LABS: Creatine Kinase MB 6.3 ng/mL (0.0-2.4)
[2017-06-19 23:08] LABS: Troponin I 0.055 ng/mL (0.000-0.034)
[2017-06-20] MEDS: PIPERACILLIN-TAZOBACTAM 3.375 GM in DEXTROSE/WATER 1 50ML.BAG IVPB SCH ×3 (05:13→21:54)
[2017-06-20 05:34] LABS: Glucose,Whole Blood 76 mg/dL (75-99)
[2017-06-20 05:49] LABS: Appearance,Urine Clear (Clear); Bilirubin,Urine Negative (Negative); Glucose,Urine (UA) Negative (Negative); Ketones,Urine Negative (Negative); Leukocyte Esterase,Urine Negative (Negative); Nitrite,Urine Negative (Negative); PH, Urine 5.5 (5.0-8.0); Protein,Urine Negative (Negative); Specific Gravity,Urine 1.009 (1.001-1.035); UA Billing (MACRO vs. MICRO) CHEM; Urobilinogen,Urine <2.0 mg/dL (<2.0)
[2017-06-20 06:39] LABS: Anisocytosis Slight; Basophils % (A) 0 %; CH 27.2; CHCM 30.2; Eosinophils % (A) 1 %; HCT 30.2 % (39.0-53.0); HDW 3.37; HGB 9.2 gm/dL (13.0-17.5); Hypochromasia Marked; Luc # (Auto) 0.04; Luc % (Auto) 1; Lymphocytes # (A) 0.3 k/uL (1.0-4.8); Lymphocytes % (A) 6 %; MCH 27.5 pg (25.0-35.0); MCHC 30.5 g/dL (31.0-37.0); MCV 90.4 fL (80.0-100.0); Mean Platelet Volume 9.1; Monocytes # (A) 0.2 k/uL (0-1.0); Monocytes % (A) 4 %; Neutrophils % (A) 88 %; RBC 3.34 m/uL (4.30-5.90); RDW 17.1 % (11.5-15.5); WBC 4.6 k/uL (3.8-10.6); WBC (Perox) 4.87
[2017-06-20] MEDS: PANTOPRAZOLE 40 MG TABLET PO SCH (06:44)
[2017-06-20 07:04] LABS: Anion Gap 10 mmol/L; Blood Urea Nitrogen 48 mg/dL (9-20); Calcium 9.2 mg/dL (8.4-10.2); Carbon Dioxide 36 mmol/L (22-30); Chloride 99 mmol/L (98-107); Cholesterol 105 mg/dL (<200); Glucose 65 mg/dL (74-99); HDL Cholesterol 43 mg/dL (40-60); Non-African American GFR(MDRD) 60 (>60 ml/min/1.73 sqM); Potassium 4.1 mmol/L (3.5-5.1); Sodium 145 mmol/L (137-145); Triglycerides 98 mg/dL (<150)
[2017-06-20] MEDS: IPRATROPIUM-ALBUTEROL 3 ML NEB INHALATION SCH ×4 (07:44→19:23)
--- NOTE | 2017-06-20 08:17 | HP ---
CHIEF COMPLAINT: Shortness of breath and cough and right-sided pneumonia. HISTORY OF PRESENT ILLNESS: This 71-year-old gentleman with a past medical history of multiple medical problems including atrial fibrillation, COPD, CVA, diabetes mellitus type 2, DJD, history of pneumonia being followed by Dr. Alvarez in the outpatient setting was recently admitted with anemia. The patient was stabilized. The patient went home and currently the patient complained of shortness of breath, cough and sputum and multiple other complaints. The patient came to [facility] and admitted for further evaluation and treatment. The CHF was suspected. The patient was admitted for further evaluation and treatment. Troponin 0.064. A 2-D echo done last year on 03/28/16 showed ejection fraction of 50% to 60%. The patient is started on empiric antibiotics. No chest pain or palpitation. No fever, rigors. PAST MEDICAL HISTORY: History of COPD, history of atrial fibrillation, CVA, TIA , history of recent anemia, diabetes mellitus type 2. Medications prior to admission include home medications are: 1. Zocor 40 mg q.h.s. 2. Lantus 40 unit subcu q.h.s. 3. Prednisone 10 mg p.r.n. 4. Spiriva 1 puff daily. 5. Saline 2 sprays nasally. 6. Prilosec 40 mg daily. 7. Toprol XL 100 mg p.o. daily. 8. NovoLog scale. 9. [place] 5 mg q.i.d. p.r.n. 10. Lasix 60 mg p.o. b.i.d. 11. Iron sulfate 325 mg p.o. b.i.d. 12. Lanoxin 125 mcg p.o. q.48 hours. 13. Symbicort 160/4.5 two puffs b.i.d. 14. Ventolin 2.5 q.4 p.r.n. Allergies are LINCOMYCIN, DARVON, ASPIRIN. FAMILY HISTORY: Sister had TB in the past. SOCIAL HISTORY: Previous history of smoking. No history of current smoking or alcohol intake. REVIEW OF SYSTEMS: ENT: No diminished hearing and diminished vision. CARDIOVASCULAR: As mentioned earlier. RESPIRATORY: As mentioned earlier. GI: No nausea, vomiting. : No dysuria. NERVOUS SYSTEM: No numbness or weakness. ALLERGY/IMMUNOLOGY: No history of asthma. MUSCULOSKELETAL: As mentioned earlier. HEMATOLOGY/ONCOLOGY: History of anemia. ENDOCRINE: Diabetes mellitus. CONSTITUTIONAL: As mentioned earlier. DERMATOLOGY: Negative. RHEUMATOLOGY: Negative. PSYCHIATRY: As mentioned earlier. PHYSICAL EXAMINATION: The patient is alert and oriented x3. Pulse is 83, blood pressure 109/52, respirations 18, temperature 98.4, pulse ox 94% on 3 L. HEENT: Conjunctivae normal. NECK: No jugular venous distention. CARDIOVASCULAR: S1 and S2 muffled. RESPIRATORY: Breath sounds diminished at the bases .A few scattered rhonchi and crackles. Expiratory wheezing also present. ABDOMEN: Soft, nontender. No mass palpable. LEGS: No edema, no swelling. NERVOUS SYSTEM: Higher function as mentioned earlier. Moves all 4 limbs. No focal motor or sensory deficits. LYMPHATICS: No lymphadenopathy of the neck, axillae or groin. SKIN: No ulcers, rashes or bleeding. Breathing efforts increased. LAB INVESTIGATIONS: At this time shows WBC 6.8, hemoglobin is 9.9. Troponin is 0.064. ASSESSMENT: 1. Shortness of breath for evaluation, possibly congestive heart failure, acute exacerbation. 2. Possible chronic obstructive pulmonary disease, acute exacerbation as well as right lower lobe pneumonia, possibly gram negative. 3. Thrombocytopenia. 4. Anemia, normocytic. 5. History of recent anemia. 6. History of chronic obstructive pulmonary disease. 7. History of cerebrovascular accident and transient ischemic attack. 8. History of atrial fibrillation. 9. Diabetes mellitus type 2. 10. Hypertension. 11. Hyperlipidemia. 12. History of positive PPD. 13. History of gout. 14. History of aortic stenosis. RECOMMENDATIONS AND DISCUSSION: This 71-year-old gentleman presented with multiple complex medical issues. Will monitor the patient closely. Continue the current medications. Continue symptomatic treatment. Will initiate broad spectrum IV antibiotics and bronchodilators. I would also recommend IV diuretics and resume the home medications. The prognosis guarded because of multiple complex medical issues. Further recommendations to follow. Discussed with the patient, understand and agrees. See orders for further details. MTDD
[2017-06-20] MEDS: predniSONE 10 MG TAB PO SCH (09:19)
[2017-06-20] MEDS: FERROUS SULFATE 325 MG TAB PO SCH (09:20)
[2017-06-20] MEDS: FUROSEMIDE 10 MG/ML 4 ML VIAL IV SCH (09:20)
[2017-06-20] MEDS: ASPIRIN 325 MG TAB PO SCH ×2 (09:20→09:23)
--- NOTE | 2017-06-20 09:52 | XR ---
EXAMINATION TYPE: XR chest 2V DATE OF EXAM: 06/20/2017 HISTORY: pneumonia. REFERENCE: Previous study dated 06/19/2017. FINDINGS: There is improved aeration of both lung bases. The patient is interstitial change has large ly resolved. The heart is mildly enlarged. I could not exclude small, bilateral effusions. There is u nderlying COPD. IMPRESSION: 1. COPD. 2. CARDIOMEGALY. 3. SMALL, BILATERAL EFFUSIONS. 4. IMPROVING BIBASILAR INFILTRATES 5. RESOLVING CHANGES OF PULMONARY EDEMA.
[2017-06-20 11:16] VITALS: BMI 32.3
[2017-06-20 11:35] LABS: Glucose,Whole Blood 143 mg/dL (75-99)
[2017-06-20] MEDS: LEVOFLOXACIN 750MG-D5W PMX 750 MG in DEXTROSE/WATER 1 150ML.BAG IVPB SCH (12:08)
[2017-06-20] MEDS: METOPROLOL SUCCINATE (ER) 100 MG TAB.ER.24H PO SCH (12:11)
--- NOTE | 2017-06-20 13:59 | P.PN ---
Subjective A very pleasant 71-year-old male patient is very well-known to me. The patient came into the emergency department because of progressive worsening shortness of breath. Note that the patient was in the hospital on 06/13/2017 for concerns of an acute GI bleeding. Upper GI bleeding was suspected. The patient had an EGD and he was found to have no signs of any acute bleeding and the patient was found to have changes consistent with gastritis. During the same hospitalization the patient received a unit of packed RBC and he was discharged home. A few days following his discharge, the patient started having worsening shortness of breath. Note that he was having some difficulty breathing even during his hospitalization. His chest x-ray was also showing a component of poor Vesicare congestion/edema. He was given IV Lasix during his earlier admission and based on the discharge summary the patient did not have any significant JVDs at a time of discharge. As such, his CHF was thought to be optimized. Nevertheless, over the past few days, the patient developed worsening shortness of breath. He had 3-4 pounds weight gain. Worsening lower oximetry edema. Exertional dyspnea to the point where the patient was unable to perform activities of daily life and for that reason he came into the hospital he was found to be in CHF. At this point in time the patient has jugular venous distention, elevated proBNP level, and increased lower extremity edema. Renal function is stable. The patient is producing adequate amount of urine output. In terms of his history, the patient has advanced COPD and the patient has been oxygen dependent. He was being followed up at the [facility] and his primary care physician Dr. Khan. He has been maintained on oxygen 3 L/m nasal cannula. His previous CAT scan of the chest that shown old granulomatous changes with 1-2 mm nodules in the lateral aspect of the left lung and left basilar segment of the left lower lobe. These were thought to be benign. He also had background COPD. He was maintained on a combination of Spiriva and Symbicort. At one point there was a concern that the patient was infected with mycobacterial elements. This was based on the sputum sample that was collected at the [facility] and the choice. Based on all this, I repeated the evaluation by doing a bronchoscopy and lavage and the microbial cultures of been negative for now for any AFB or typical or atypical microbial growth. The patient also has history of CHF. An echocardiogram that was done at [facility] showed moderate to severe aortic stenosis with mild aortic regurgitation and an ejection fraction of 60-65%. He also has significant pulmonary hypertension based on prior echocardiograms. He has chronic atrial fibrillation. He has various other comorbid conditions including diabetes mellitus, hypertension, hyperlipidemia, history of left lower lobe pneumonia, peripheral vascular disease, hypertension, CVA/TIA, diabetes mellitus. He also suffers from chronic lower extremity edema in addition. On 06/20/2017 the patient is doing better compared to yesterday. My concern for pneumonia was low. However the patient is producing purulent mucus and I think it's reasonable to culture the sputum. He is on a combination of Zosyn and Levaquin. No fever or chills. He is being diuresis with IV Lasix. He is a negative fluid balance. The renal function test is still stable with a creatinine of 1.2. The rest of the electrodes are within normal limits. The patient is diuresing. Lower extremities are still swallowing. Objective - Vital Signs Vital signs: Vital Signs Temp 97.9 F 06/20/17 12:00 Pulse 92 06/20/17 12:00 Resp 20 06/20/17 12:00 BP 106/58 06/20/17 12:00 Pulse Ox 97 06/20/17 12:00 Intake & Output 06/19/17 06/20/17 06/20/17 18:59 06:59 18:59 Intake Total 128 200 480 Output Total 1300 625 Balance 128 -1100 -145 Weight 108.5 kg 108.2 kg 108.2 kg Intake: IV 200 Levofloxacin 750Mg-D5w 150 Pmx 750 mg In Dextrose/ Water 1 150ml.bag @ 100 mls/hr IVPB ONCE STA Rx#: [id number] Piperacillin-Tazobactam 3 50 .375 gm In Dextrose/Water 1 50ml.bag @ 12.5 mls/hr IVPB ONCE STA Rx#: [id number] Amount of Fluid Infused ( 10 ml) Oral 118 480 Output: Urine 1300 625 Other: Voiding Method Toilet Toilet Toilet Urinal Urinal Urinal # Voids 1 300 - Exam Head exam was generally normal. There was no scleral icterus or corneal arcus. Mucous membranes were moist. Neck is supple and there is positive JVDs and there is no goiter or neck masses this point. Lung sounds are diminished and there is some bibasilar crackles in the lung bases. No wheezes. No rhonchi. Heart sounds are irregular and this systolic ejection murmur grade 3/6 heard throughout the precordium. Abdomen is slightly distended soft and there is no direct tenderness about tensile guarding. Extremities +1-2 pitting edema bilaterally and symmetrically without any cyanosis or clubbing. Some superficial skin ulceration over the legs bilaterally. - Labs CBC & Chem 7: 06/20/17 05:33 06/20/17 05:33 Labs: Abnormal Lab Results - Last 24 Hours (Table) 06/19/17 06/19/17 06/19/17 Range/Units 16:35 21:24 22:18 RBC (4.30-5.90) m/uL Hgb (13.0-17.5) gm/dL Hct (39.0-53.0) % MCHC (31.0-37.0) g/dL RDW (11.5-15.5) % Plt Count (150-450) k/uL Lymphocytes # (1.0-4.8) k/uL Carbon Dioxide (22-30) mmol/L BUN (9-20) mg/dL Glucose (74-99) mg/dL POC Glucose (mg/dL) 148 H (75-99) mg/dL CK-MB (CK-2) 6.2 H* 6.3 H* (0.0-2.4) ng/mL Troponin I 0.054 H* 0.055 H* (0.000-0.034) ng/mL 06/20/17 06/20/17 06/20/17 Range/Units 05:33 05:33 11:33 RBC 3.34 L (4.30-5.90) m/uL Hgb 9.2 L (13.0-17.5) gm/dL Hct 30.2 L (39.0-53.0) % MCHC 30.5 L (31.0-37.0) g/dL RDW 17.1 H (11.5-15.5) % Plt Count 101 L (150-450) k/uL Lymphocytes # 0.3 L (1.0-4.8) k/uL Carbon Dioxide 36 H (22-30) mmol/L BUN 48 H (9-20) mg/dL Glucose 65 L (74-99) mg/dL POC Glucose (mg/dL) 143 H (75-99) mg/dL CK-MB (CK-2) (0.0-2.4) ng/mL Troponin I (0.000-0.034) ng/mL Microbiology - Last 24 Hours (Table) 06/19/17 10:25 Blood Culture - Preliminary Blood No Growth after 24 hours 06/19/17 14:00 Gram Stain - Preliminary Sputum Assessment and Plan Plan: Assessment 1 acute CHF exacerbation/pulmonary edema. Patient has underlying valvular heart disease with moderate to severe aortic stenosis and secondary pulmonary hypertension, LV function seems to be preserved at this point in time. 2 troponin leak, cardiology is on the case 3 advanced COPD with chronic hypoxic respiratory failure admitted on oxygen 3 L/ m nasal cannula 4 scattered bilateral subcentimeter pulmonary nodules, probably related to previous granulomatous infection of the lung 5 negative AFB based on the recent bronchioloalveolar lavage and the lungs 6 chronic atrial fibrillation 7. Vascular disease 8 hypertension 9 hyperlipidemia 10 diabetes mellitus 11 chronic hypoxic respiratory failure maintained on oxygen at 3 L/m nasal cannula 12 gout 13 chronic anemia 14 recent hospitalization for suspected GI bleed and the patient was found to have some gastritis without active bleeding 15 chronic lower extremity edema Plan The patient has Haemophilus influenza growing in the sputum Gram stain and culture. He is on a combination of Zosyn and Levaquin which should be adequate for now. Continued IV Lasix. Keep the patient negative fluid balance. Follow- up renal function and electrodes in a.m. Keep the legs elevated. Salt restriction. Fluid restriction. The chest x-ray showing COPD and cardiomegaly and small bilateral pleural effusion. There is improvement in the bibasilar pulmonary infiltrates. There is resolving changes of pulmonary edema at this point. We'll continue to follow.
--- NOTE | 2017-06-20 14:42 | ECHOF ---
Referral Reason:chf MEASUREMENTS -------- HEIGHT: 182.9 cm WEIGHT: 108.0 kg BP: 106/58 RVIDd: 4.1 cm (< 3.3) IVSd: 1.5 cm (0.6 - 1.1) LVIDd: 4.3 cm (3.9 - 5.3) LVPWd: 1.5 cm (0.6 - 1.1) IVSs: 1.8 cm LVIDs: 3.0 cm LVPWs: 1.8 cm LA Diam: 5.0 cm (2.7 - 3.8) LAESV Index (A-L): 49.93 ml/m Ao Diam: 3.2 cm (2.0 - 3.7) AV Cusp: 2.6 cm (1.5 - 2.6) MV EXCURSION: 12.885 mm (> 18.000) MV EF SLOPE: 131 mm/s (70 - 150) EPSS: 0.5 cm AV maxP.23 mmHg AV meanP.45 mmHg RAP: 15.00 mmHg RVSP: 62.29 mmHg FINDINGS -------- This was a technically good study. The left ventricular size is normal. There is moderate concentric left ventricular hypertrophy. Overall left ventricular systolic function is normal with, an EF between 55 - 60 %. The right ventricle is moderately enlarged. LA is severely dilated >40 ml/m2 The right atrium is normal in size. Aortic valve is trileaflet and is severely thickened. There is moderate aortic stenosis present. Peak/mean gradient across the Aortic Valve is 48.23mmHg / 26.45mmHg. The mitral valve leaflets are mildly thickened. Moderate mitral annular calcification present. Mild mitral regurgitation is present. Moderate tricuspid regurgitation present. There is severe pulmonary hypertension. The right ventricular systolic pressure, as measured by Doppler, is 62.29mmHg. The pulmonic valve was not well visualized. The aortic root size is normal. The inferior vena cava is dilated with no significant inspiratory collapse which is consistent estimated right atrial pressure of >15 mmHg. There is no pericardial effusion. CONCLUSIONS -------- 1. This was a technically good study. 2. Peak/mean gradient across the Aortic Valve is 48.23mmHg / 26.45mmHg. 3. The mitral valve leaflets are mildly thickened. 4. Moderate mitral annular calcification present. 5. Mild mitral regurgitation is present. 6. Moderate tricuspid regurgitation present. 7. There is severe pulmonary hypertension. 8. The right ventricular systolic pressure, as measured by Doppler, is 62.29mmHg. 9. The pulmonic valve was not well visualized. 10. The aortic root size is normal. 11. The inferior vena cava is dilated with no significant inspiratory collapse which is consistent estimated right atrial pressure of >15 mmHg. 12. The left ventricular size is normal. 13. There is no pericardial effusion. 14. There is moderate concentric left ventricular hypertrophy. 15. Overall left ventricular systolic function is normal with, an EF between 55 - 60 %. 16. The right ventricle is moderately enlarged. 17. LA is severely dilated >40 ml/m2 18. The right atrium is normal in size. 19. Aortic valve is trileaflet and is severely thickened. 20. There is moderate aortic stenosis present. DRUG SAFETY COORDINATOR: Celeste Sr RDCS
--- NOTE | 2017-06-20 15:27 | P.PN ---
Subjective This is a 71-year-old gentleman who came to the emergency room with complaints of progressive worsening of shortness of breath. This patient has history of COPD and was admitted to this hospital earlier this month with a suspicion of GI bleeding. Apparently received one unit of blood transfusion at the time. He also received some Lasix. The last several days patient has become progressively more short of breath and developed pedal edema and came to the hospital. He has a history of moderate to severe aortic stenosis and preserved LV function. Her admission here patient was found to have JVD and also peripheral edema. Patient is given IV Lasix and seemed to be diuresing well. ProBNP is elevated. At the time of my examination patient is sleepy seemed to be relatively comfortable. No complaints of any chest pain. He is scheduled to have an echocardiogram and monitor. Patient had a last echocardiogram in November of this year at [facility]. We may repeat the echocardiogram to assess his aortic stenosis. Meanwhile we'll continue with the diagnosis 12/21/2016 Patient seen and examined this morning, continues to be extremely sleepy. Continues to diurese on IV Lasix. Creatinin 1.2. Echo revealed an ejection fraction of 55-60%. Objective - Vital Signs Vital signs: Vital Signs Temp 97.9 F 06/20/17 12:00 Pulse 86 06/20/17 15:10 Resp 20 06/20/17 12:00 BP 106/58 06/20/17 12:00 Pulse Ox 97 06/20/17 12:00 Intake & Output 06/19/17 06/20/17 06/20/17 18:59 06:59 18:59 Intake Total 128 200 480 Output Total 1300 1175 Balance 128 -1100 -695 Weight 108.5 kg 108.2 kg 108.2 kg Intake: IV 200 Levofloxacin 750Mg-D5w 150 Pmx 750 mg In Dextrose/ Water 1 150ml.bag @ 100 mls/hr IVPB ONCE STA Rx#: [id number] Piperacillin-Tazobactam 3 50 .375 gm In Dextrose/Water 1 50ml.bag @ 12.5 mls/hr IVPB ONCE STA Rx#: [id number] Amount of Fluid Infused ( 10 ml) Oral 118 480 Output: Urine 1300 1175 Other: Voiding Method Toilet Toilet Toilet Urinal Urinal Urinal # Voids 1 300 - Exam GENERAL EXAM: Patient is sleepy and inmoderate distress HEENT: Normocephalic. Normal reaction of pupils, equal size, normal range of extraocular motion. No erythema or exudates in the throat. NECK: No masses, no nuchal rigidity. Jugular venous distention noted CHEST: No chest wall deformity. LUNGS: Default HEART: S1 and S2 normal . Systolic murmur heard ABDOMEN: No hepatosplenomegaly, normal bowel sounds, no guarding or rigidity. SKIN: No rashes CENTRAL NERVOUS SYSTEM: No focal deficits. The false EXTREMITIES: 2-3+ edema. - Labs CBC & Chem 7: 06/20/17 05:33 06/20/17 05:33 Labs: Abnormal Lab Results - Last 24 Hours (Table) 06/19/17 06/19/17 06/19/17 Range/Units 16:35 21:24 22:18 RBC (4.30-5.90) m/uL Hgb (13.0-17.5) gm/dL Hct (39.0-53.0) % MCHC (31.0-37.0) g/dL RDW (11.5-15.5) % Plt Count (150-450) k/uL Lymphocytes # (1.0-4.8) k/uL Carbon Dioxide (22-30) mmol/L BUN (9-20) mg/dL Glucose (74-99) mg/dL POC Glucose (mg/dL) 148 H (75-99) mg/dL CK-MB (CK-2) 6.2 H* 6.3 H* (0.0-2.4) ng/mL Troponin I 0.054 H* 0.055 H* (0.000-0.034) ng/mL 06/20/17 06/20/17 06/20/17 Range/Units 05:33 05:33 11:33 RBC 3.34 L (4.30-5.90) m/uL Hgb 9.2 L (13.0-17.5) gm/dL Hct 30.2 L (39.0-53.0) % MCHC 30.5 L (31.0-37.0) g/dL RDW 17.1 H (11.5-15.5) % Plt Count 101 L (150-450) k/uL Lymphocytes # 0.3 L (1.0-4.8) k/uL Carbon Dioxide 36 H (22-30) mmol/L BUN 48 H (9-20) mg/dL Glucose 65 L (74-99) mg/dL POC Glucose (mg/dL) 143 H (75-99) mg/dL CK-MB (CK-2) (0.0-2.4) ng/mL Troponin I (0.000-0.034) ng/mL Microbiology - Last 24 Hours (Table) 06/19/17 14:00 Gram Stain - Preliminary Sputum Sputum Culture - Final Haemophilus influenzae 06/19/17 10:25 Blood Culture - Preliminary Blood No Growth after 24 hours Assessment and Plan Plan: Assessment and Plan (1) COPD (chronic obstructive pulmonary disease) Status: Acute (2) Congestive heart failure, diastolic acute on chronic Status: Acute (3) Anemia Status: Acute (4) Aortic stenosis Status: Acute (5) CVA (cerebral vascular accident) Status: Acute (6) Diabetes Status: Acute We will continue current dose of IV Lasix. Check lytes BUN creatinine and daily weights DNP note has been reviewed, I agree with a documented findings and plan of care. Patient was seen and examined.
[2017-06-20 16:46] LABS: Glucose,Whole Blood 237 mg/dL (75-99)
[2017-06-20] MEDS: INSULIN LISPRO (humaLOG) 300 UNIT/3 ML VIAL SQ SCH ×2 (17:32→21:54)
[2017-06-20] MEDS: POLYMYXIN B TRIMETHOPRIM BOTH EYES SCH ×3 (17:34→23:15)
--- NOTE | 2017-06-20 18:26 | P.PN ---
Subjective Date of service 06/20/2017. Personal being dictated for Dr. Tavarez. Interval history: This a 71-year-old gentleman admitted with shortness of breath , CHF exacerbation, COPD, right lower lobe pneumonia and multiple other medical issues. Maintained on nebulized bronchodilators, steroids, Levaquin, Zosyn with breathing slow to improve. Harsh productive cough with brown tannish sputum, sputum culture reporting Haemophilus influenza. Receiving well on Lasix IV push with 24-hour I&O reflecting a negative fluid balance. Creatinine stable, 1.2. Chest x-ray reporting improvement in aeration of bilateral lungs with largely resolved interstitial change, small bilateral effusions, underlying COPD. Echo completed, reporting moderate tricuspid regurgitation, severe pulmonary hypertension, LV function normal with EF 55-60%, moderate aortic stenosis. Review of systems: HEENT: Denies headache or focal deficits. Denies any dizziness or lightheadedness. Respiratory: Complains of increased shortness of breath and harsh cough Cardiac: Denies any chest pain, palpitations. GI: Denies any nausea, vomiting, or diarrhea. Denies any abdominal tenderness. : Denies any dysuria. Psychiatry: Denies any anxiety or depression. NERVOUS: No numbness, generalized weakness-able to ambulate to BR Active Medications Hydrocodone Bitart/Acetaminophen ([place] 5-325) 1 each PO QID PRN PRN Reason: Pain Albuterol/Ipratropium (Duoneb 0.5 Mg-3 Mg/3 Ml Soln) 3 ml INHALATION RT-QID [facility] Last Admin: 06/20/17 15:09 Dose: 3 ml Atorvastatin Calcium (Lipitor) 20 mg PO HS [facility] Last Admin: 06/19/17 21:47 Dose: 20 mg Digoxin (Lanoxin) 125 mcg PO Q48H [facility] Last Admin: 06/19/17 19:17 Dose: 125 mcg Ferrous Sulfate (Feosol) 325 mg PO DAILY [facility] Last Admin: 06/20/17 09:20 Dose: 325 mg Furosemide (Lasix) 40 mg IV DAILY [facility] Last Admin: 06/20/17 09:20 Dose: 40 mg Levofloxacin 750 mg/ IV (Solution) 150 mls @ 100 mls/hr IVPB Q24H [facility] Last Admin: 06/20/17 12:08 Dose: 100 mls/hr Piperacillin/Tazobactam/ (Dextrose 3.375 gm/ IV Solution) 50 mls @ 12.5 mls/hr IVPB Q8H [facility] Last Admin: 06/20/17 16:16 Dose: 12.5 mls/hr Insulin Glargine (Lantus) 40 unit SQ HS [facility] Last Admin: 06/19/17 21:46 Dose: 40 unit Insulin Human Lispro (Humalog) 0 unit SQ ACHS [facility] PRN Reason: Protocol Last Admin: 06/20/17 17:32 Dose: 5 unit Metoprolol Succinate (Toprol Xl) 100 mg PO DAILY [facility] Last Admin: 06/20/17 12:11 Dose: 100 mg Miscellaneous Information (Pneumonia Protocol Utilized) 1 each PO ONCE PRN PRN Reason: Per Protocol Nitroglycerin (Nitrostat) 0.4 mg SUBLINGUAL Q5M PRN PRN Reason: Chest Pain Polymyxin B- Trimethoprim Ophth [ Polytrim Opthalmic] 1 Drops 1 each BOTH EYES Q4HR [facility] Stop: 06/25/17 23:00 Last Admin: 06/20/17 17:34 Dose: 1 each Pantoprazole Sodium (Protonix) 40 mg PO AC-[id number] [facility] Last Admin: 06/20/17 06:44 Dose: 40 mg Prednisone () 30 mg PO DAILY [facility] Stop: 06/21/17 09:01 Last Admin: 06/20/17 09:19 Dose: 30 mg Sodium Chloride (Deep Sea) 2 spray NASAL Q1H PRN PRN Reason: Congestion Objective - Vital Signs Vital signs: Vital Signs Temp 97.6 F 06/20/17 16:00 Pulse 86 06/20/17 16:00 Resp 16 06/20/17 16:00 BP 98/60 06/20/17 16:00 Pulse Ox 99 06/20/17 16:00 Intake & Output 06/19/17 06/20/17 06/20/17 18:59 06:59 18:59 Intake Total 128 200 716 Output Total 1300 1375 Balance 128 -1100 -659 Weight 108.5 kg 108.2 kg 108.2 kg Intake: IV 200 Levofloxacin 750Mg-D5w 150 Pmx 750 mg In Dextrose/ Water 1 150ml.bag @ 100 mls/hr IVPB ONCE STA Rx#: [id number] Piperacillin-Tazobactam 3 50 .375 gm In Dextrose/Water 1 50ml.bag @ 12.5 mls/hr IVPB ONCE STA Rx#: [id number] Amount of Fluid Infused ( 10 ml) Oral 118 716 Output: Urine 1300 1375 Other: Voiding Method Toilet Toilet Toilet Urinal Urinal Urinal # Voids 1 300 - Exam PHYSICAL EXAM: VITAL SIGNS: [As above] GENERAL: [Lying in bed, tired appearing, fatigued] HEENT: [Pupils equal conjunctiva normal.] NECK: [Supple, positive JVD] RESPIRATORY EFFORT:[ Increased] LUNGS: [Bilateral bases diminished, fine scattered crackles, no rhonchi, no wheezing] CARDIOVASCULAR regular S1 and S2, positive systolic murmur, no rubs or gallops, positive edema] GI: [Abdomen soft, nontender, positive bowel sounds.] PSYCH: [Alert and oriented -3, mood and affect normal.] NEURO: No focal deficits, moves all 4 extremities, generalized weakness Microbiology 06/19/17 14:00 Sputum Gram Stain - Preliminary 06/19/17 14:00 Sputum Sputum Culture - Final Haemophilus influenzae 06/19/17 10:25 Blood Blood Culture - Preliminary No Growth after 24 hours - Labs CBC & Chem 7: 06/20/17 05:33 06/20/17 05:33 Labs: Abnormal Lab Results - Last 24 Hours (Table) 06/19/17 06/19/17 06/20/17 Range/Units 21:24 22:18 05:33 RBC (4.30-5.90) m/uL Hgb (13.0-17.5) gm/dL Hct (39.0-53.0) % MCHC (31.0-37.0) g/dL RDW (11.5-15.5) % Plt Count (150-450) k/uL Lymphocytes # (1.0-4.8) k/uL Carbon Dioxide 36 H (22-30) mmol/L BUN 48 H (9-20) mg/dL Glucose 65 L (74-99) mg/dL POC Glucose (mg/dL) 148 H (75-99) mg/dL CK-MB (CK-2) 6.3 H* (0.0-2.4) ng/mL Troponin I 0.055 H* (0.000-0.034) ng/mL 06/20/17 06/20/17 06/20/17 Range/Units 05:33 11:33 16:44 RBC 3.34 L (4.30-5.90) m/uL Hgb 9.2 L (13.0-17.5) gm/dL Hct 30.2 L (39.0-53.0) % MCHC 30.5 L (31.0-37.0) g/dL RDW 17.1 H (11.5-15.5) % Plt Count 101 L (150-450) k/uL Lymphocytes # 0.3 L (1.0-4.8) k/uL Carbon Dioxide (22-30) mmol/L BUN (9-20) mg/dL Glucose (74-99) mg/dL POC Glucose (mg/dL) 143 H 237 H (75-99) mg/dL CK-MB (CK-2) (0.0-2.4) ng/mL Troponin I (0.000-0.034) ng/mL Microbiology - Last 24 Hours (Table) 06/19/17 14:00 Gram Stain - Preliminary Sputum Sputum Culture - Final Haemophilus influenzae 06/19/17 10:25 Blood Culture - Preliminary Blood No Growth after 24 hours Assessment and Plan Plan: 1. [ Acute on chronic CHF exacerbation, diastolic dysfunction]. 2. [ Acute COPD exacerbation, advanced with chronic hypoxic respiratory failure] . 3. [ Possible Right lower lobe pneumonia possibly gram-negative, sputum culture pending]. 4. [ Diabetes mellitus type 2]. 5. [ Severe pulmonary hypertension]. 6. [ Moderate aortic stenosis]. 7. [ Moderate tricuspid regurgitation]. Plan: Continue on current medication regime, Lasix, antibiotics, nebulized bronchodilators, steroids, monitoring and symptomatic treatment. Maintain fluid restrictions. Close monitoring of electrolytes and renal function with repeat labs ordered for a.m. Prognosis guarded given multiple complex medical issues. The impression and plan of care has been dictated as directed. : I performed a H&P examination of this patient and discussed the same with the dictator. I agree with the dictator's note. Any additional findings/opinions/ etc. will be noted.
[2017-06-20] MEDS: ATORVASTATIN 20 MG TAB PO SCH (20:10)
[2017-06-20 20:32] LABS: Hemoglobin A1C 6.5 % (4.2-6.1)
[2017-06-20 20:45] LABS: Glucose,Whole Blood 247 mg/dL (75-99)
[2017-06-20] MEDS: INSULIN GLARGINE 100 UNIT/ML 10 ML VIAL SQ SCH (21:54)
[2017-06-21] MEDS: POLYMYXIN B TRIMETHOPRIM BOTH EYES SCH ×6 (05:47→23:23)
[2017-06-21 06:09] LABS: Glucose,Whole Blood 125 mg/dL (75-99)
[2017-06-21] MEDS: PIPERACILLIN-TAZOBACTAM 3.375 GM in DEXTROSE/WATER 1 50ML.BAG IVPB SCH ×3 (06:15→20:48)
[2017-06-21] MEDS: PANTOPRAZOLE 40 MG TABLET PO SCH (06:16)
[2017-06-21 06:21] LABS: Anisocytosis Slight; Basophils % (A) 0 %; CH 26.8; CHCM 29.7; Eosinophils % (A) 1 %; HDW 3.31; HGB 9.4 gm/dL (13.0-17.5); Hypochromasia Marked; Luc # (Auto) 0.08; Luc % (Auto) 2; Lymphocytes # (A) 0.5 k/uL (1.0-4.8); Lymphocytes % (A) 11 %; MCH 27.4 pg (25.0-35.0); MCHC 30.3 g/dL (31.0-37.0); MCV 90.5 fL (80.0-100.0); Monocytes # (A) 0.2 k/uL (0-1.0); Monocytes % (A) 6 %; Neutrophils # (A) 3.3 k/uL (1.3-7.7); Neutrophils % (A) 80 %; RBC 3.43 m/uL (4.30-5.90); RDW 16.5 % (11.5-15.5); WBC 4.1 k/uL (3.8-10.6); WBC (Perox) 4.43
[2017-06-21 06:44] LABS: Anion Gap 9 mmol/L; Blood Urea Nitrogen 50 mg/dL (9-20); Calcium 9.4 mg/dL (8.4-10.2); Carbon Dioxide 38 mmol/L (22-30); Chloride 97 mmol/L (98-107); Glucose 114 mg/dL (74-99); Non-African American GFR(MDRD) 56 (>60 ml/min/1.73 sqM); Potassium 4.3 mmol/L (3.5-5.1); Sodium 144 mmol/L (137-145)
[2017-06-21] MEDS: INSULIN LISPRO (humaLOG) 300 UNIT/3 ML VIAL SQ SCH ×4 (06:58→20:47)
[2017-06-21] MEDS: IPRATROPIUM-ALBUTEROL 3 ML NEB INHALATION SCH ×4 (08:11→19:57)
[2017-06-21] MEDS: predniSONE 10 MG TAB PO SCH (08:45)
[2017-06-21] MEDS: FERROUS SULFATE 325 MG TAB PO SCH (08:45)
[2017-06-21] MEDS: METOPROLOL SUCCINATE (ER) 100 MG TAB.ER.24H PO SCH (08:45)
[2017-06-21] MEDS: FUROSEMIDE 10 MG/ML 4 ML VIAL IV SCH (08:45)
--- NOTE | 2017-06-21 11:07 | P.PN ---
Subjective This is a 71-year-old gentleman who came to the emergency room with complaints of progressive worsening of shortness of breath. This patient has history of COPD and was admitted to this hospital earlier this month with a suspicion of GI bleeding. Apparently received one unit of blood transfusion at the time. He also received some Lasix. The last several days patient has become progressively more short of breath and developed pedal edema and came to the hospital. He has a history of moderate to severe aortic stenosis and preserved LV function. Her admission here patient was found to have JVD and also peripheral edema. Patient was given IV Lasix and seemed to be diuresing well. ProBNP was elevated. His weight is down approximately 3 kg from yesterday. Repeat 2-D echo with Doppler showed an ejection fraction 55-60% with moderate . He is currently on Lasix 40 mg IV push daily. Upon examination this morning, patient is sitting up on the side of the bed. He says he is not feeling much better however is much more awake this morning. Continues to cough with large amounts of sputum. Also complains of lower extremity edema. Objective - Vital Signs Vital signs: Vital Signs Temp 97.2 F L 06/21/17 08:30 Pulse 88 06/21/17 08:32 Resp 18 06/21/17 08:30 BP 130/60 06/21/17 08:30 Pulse Ox 97 06/21/17 08:30 Intake & Output 06/20/17 06/21/17 06/21/17 18:59 06:59 18:59 Intake Total 716 50 Output Total 1375 1050 200 Balance -659 -1000 -200 Weight 108.2 kg 105.4 kg Intake: IV 50 Piperacillin-Tazobactam 3 50 .375 gm In Dextrose/Water 1 50ml.bag @ 12.5 mls/hr IVPB ONCE STA Rx#: [id number] Oral 716 Output: Urine 1375 1050 200 Other: Voiding Method Toilet Toilet Toilet Urinal Urinal Urinal # Voids 2 1 - Exam PHYSICAL EXAMINATION: HEENT: Head is atraumatic, normocephalic. Pupils equal, round. Neck is supple. There is elevated jugular venous pressure. HEART EXAMINATION: Heart sounds regular, S1 and S2 normal with a systolic murmur. CHEST EXAMINATION: Lungs reveal expiratory wheezing throughout. No chest wall tenderness is noted on palpation or with deep breathing. ABDOMEN: Soft, nontender. Bowel sounds are heard. No organomegaly noted. EXTREMITIES: 2+ peripheral pulses with evidence of 2+ peripheral edema and no calf tenderness noted. NEUROLOGIC patient is awake, alert and oriented x3. . - Labs CBC & Chem 7: 06/21/17 05:23 06/21/17 05:23 Labs: Abnormal Lab Results - Last 24 Hours (Table) 06/20/17 06/20/17 06/20/17 Range/Units 05:33 11:33 16:44 RBC (4.30-5.90) m/uL Hgb (13.0-17.5) gm/dL Hct (39.0-53.0) % MCHC (31.0-37.0) g/dL RDW (11.5-15.5) % Plt Count (150-450) k/uL Lymphocytes # (1.0-4.8) k/uL Chloride (98-107) mmol/L Carbon Dioxide (22-30) mmol/L BUN (9-20) mg/dL Creatinine (0.66-1.25) mg/dL Glucose (74-99) mg/dL POC Glucose (mg/dL) 143 H 237 H (75-99) mg/dL Hemoglobin A1c 6.5 H (4.2-6.1) % 06/20/17 06/21/17 06/21/17 Range/Units 20:43 05:23 05:23 RBC 3.43 L (4.30-5.90) m/uL Hgb 9.4 L (13.0-17.5) gm/dL Hct 31.0 L (39.0-53.0) % MCHC 30.3 L (31.0-37.0) g/dL RDW 16.5 H (11.5-15.5) % Plt Count 110 L (150-450) k/uL Lymphocytes # 0.5 L (1.0-4.8) k/uL Chloride 97 L (98-107) mmol/L Carbon Dioxide 38 H (22-30) mmol/L BUN 50 H (9-20) mg/dL Creatinine 1.26 H (0.66-1.25) mg/dL Glucose 114 H (74-99) mg/dL POC Glucose (mg/dL) 247 H (75-99) mg/dL Hemoglobin A1c (4.2-6.1) % 06/21/17 Range/Units 06:04 RBC (4.30-5.90) m/uL Hgb (13.0-17.5) gm/dL Hct (39.0-53.0) % MCHC (31.0-37.0) g/dL RDW (11.5-15.5) % Plt Count (150-450) k/uL Lymphocytes # (1.0-4.8) k/uL Chloride (98-107) mmol/L Carbon Dioxide (22-30) mmol/L BUN (9-20) mg/dL Creatinine (0.66-1.25) mg/dL Glucose (74-99) mg/dL POC Glucose (mg/dL) 125 H (75-99) mg/dL Hemoglobin A1c (4.2-6.1) % Microbiology - Last 24 Hours (Table) 06/19/17 14:00 Gram Stain - Final Sputum Sputum Culture - Final Haemophilus influenzae 06/19/17 10:25 Blood Culture - Preliminary Blood No Growth after 24 hours Assessment and Plan Plan: Assessment and plan #1 COPD #2 acute on chronic diastolic congestive heart failure #3 anemia #4 moderate #5 CVA #6 diabetes From cardiology's perspective, At this time we will continue current medications. monitor the patient's renal function, daily weights and intake and output. Further recommendations to follow. [employer] note has been reviewed, I agree with a documented findings and plan of care. Patient was seen and examined.
[2017-06-21] MEDS: LEVOFLOXACIN 750MG-D5W PMX 750 MG in DEXTROSE/WATER 1 150ML.BAG IVPB SCH (11:18)
[2017-06-21 12:08] LABS: Glucose,Whole Blood 195 mg/dL (75-99)
--- NOTE | 2017-06-21 13:11 | P.PN ---
Subjective A very pleasant 71-year-old male patient is very well-known to me. The patient came into the emergency department because of progressive worsening shortness of breath. Note that the patient was in the hospital on 06/13/2017 for concerns of an acute GI bleeding. Upper GI bleeding was suspected. The patient had an EGD and he was found to have no signs of any acute bleeding and the patient was found to have changes consistent with gastritis. During the same hospitalization the patient received a unit of packed RBC and he was discharged home. A few days following his discharge, the patient started having worsening shortness of breath. Note that he was having some difficulty breathing even during his hospitalization. His chest x-ray was also showing a component of poor Vesicare congestion/edema. He was given IV Lasix during his earlier admission and based on the discharge summary the patient did not have any significant JVDs at a time of discharge. As such, his CHF was thought to be optimized. Nevertheless, over the past few days, the patient developed worsening shortness of breath. He had 3-4 pounds weight gain. Worsening lower oximetry edema. Exertional dyspnea to the point where the patient was unable to perform activities of daily life and for that reason he came into the hospital he was found to be in CHF. At this point in time the patient has jugular venous distention, elevated proBNP level, and increased lower extremity edema. Renal function is stable. The patient is producing adequate amount of urine output. In terms of his history, the patient has advanced COPD and the patient has been oxygen dependent. He was being followed up at the [facility] and his primary care physician Dr. Khan. He has been maintained on oxygen 3 L/m nasal cannula. His previous CAT scan of the chest that shown old granulomatous changes with 1-2 mm nodules in the lateral aspect of the left lung and left basilar segment of the left lower lobe. These were thought to be benign. He also had background COPD. He was maintained on a combination of Spiriva and Symbicort. At one point there was a concern that the patient was infected with mycobacterial elements. This was based on the sputum sample that was collected at the [place] and the choice. Based on all this, I repeated the evaluation by doing a bronchoscopy and lavage and the microbial cultures of been negative for now for any AFB or typical or atypical microbial growth. The patient also has history of CHF. An echocardiogram that was done at [facility] showed moderate to severe aortic stenosis with mild aortic regurgitation and an ejection fraction of 60-65%. He also has significant pulmonary hypertension based on prior echocardiograms. He has chronic atrial fibrillation. He has various other comorbid conditions including diabetes mellitus, hypertension, hyperlipidemia, history of left lower lobe pneumonia, peripheral vascular disease, hypertension, CVA/TIA, diabetes mellitus. He also suffers from chronic lower extremity edema in addition. On 06/20/2017 the patient is doing better compared to yesterday. My concern for pneumonia was low. However the patient is producing purulent mucus and I think it's reasonable to culture the sputum. He is on a combination of Zosyn and Levaquin. No fever or chills. He is being diuresis with IV Lasix. He is a negative fluid balance. The renal function test is still stable with a creatinine of 1.2. The rest of the electrodes are within normal limits. The patient is diuresing. Lower extremities are still swallowing. The patient is seen again today 06/21/2017 in follow-up on the selective care unit. He is awake and alert in no acute distress. He is breathing slightly better today as compared to yesterday. His sputum is positive for Haemophilus influenza. He is currently on Zosyn and Levaquin. Continues to be diuresed as well. Currently in a negative balance. He has continued lower extremity edema. He is maintaining good O2 saturations up to 100% on 3 L/m per nasal cannula. He is hemodynamically stable. Afebrile. No leukocytosis. Objective - Vital Signs Vital signs: Vital Signs Temp 98.1 F 06/21/17 11:30 Pulse 88 06/21/17 12:49 Resp 18 06/21/17 12:49 BP 130/60 06/21/17 11:30 Pulse Ox 100 06/21/17 11:30 Intake & Output 06/20/17 06/21/17 06/21/17 18:59 06:59 18:59 Intake Total 716 50 Output Total 1375 1050 650 Balance -659 -1000 -650 Weight 108.2 kg 105.4 kg Intake: IV 50 Piperacillin-Tazobactam 3 50 .375 gm In Dextrose/Water 1 50ml.bag @ 12.5 mls/hr IVPB ONCE STA Rx#: [id number] Oral 716 Output: Urine 1375 1050 650 Other: Voiding Method Toilet Toilet Toilet Urinal Urinal Urinal # Voids 2 2 - Exam Head exam was generally normal. There was no scleral icterus or corneal arcus. Mucous membranes were moist. Neck is supple and there is positive JVDs and there is no goiter or neck masses this point. Lung sounds are diminished and there is some bibasilar crackles in the lung bases. No wheezes. No rhonchi. Heart sounds are irregular and this systolic ejection murmur grade 3/6 heard throughout the precordium. Abdomen is slightly distended soft and there is no direct tenderness about tensile guarding. Extremities +1-2 pitting edema bilaterally and symmetrically without any cyanosis or clubbing. Some superficial skin ulceration over the legs bilaterally. - Labs CBC & Chem 7: 06/21/17 05:23 06/21/17 05:23 Labs: Abnormal Lab Results - Last 24 Hours (Table) 06/20/17 06/20/17 06/20/17 Range/Units 05:33 16:44 20:43 RBC (4.30-5.90) m/uL Hgb (13.0-17.5) gm/dL Hct (39.0-53.0) % MCHC (31.0-37.0) g/dL RDW (11.5-15.5) % Plt Count (150-450) k/uL Lymphocytes # (1.0-4.8) k/uL Chloride (98-107) mmol/L Carbon Dioxide (22-30) mmol/L BUN (9-20) mg/dL Creatinine (0.66-1.25) mg/dL Glucose (74-99) mg/dL POC Glucose (mg/dL) 237 H 247 H (75-99) mg/dL Hemoglobin A1c 6.5 H (4.2-6.1) % 06/21/17 06/21/17 06/21/17 Range/Units 05:23 05:23 06:04 RBC 3.43 L (4.30-5.90) m/uL Hgb 9.4 L (13.0-17.5) gm/dL Hct 31.0 L (39.0-53.0) % MCHC 30.3 L (31.0-37.0) g/dL RDW 16.5 H (11.5-15.5) % Plt Count 110 L (150-450) k/uL Lymphocytes # 0.5 L (1.0-4.8) k/uL Chloride 97 L (98-107) mmol/L Carbon Dioxide 38 H (22-30) mmol/L BUN 50 H (9-20) mg/dL Creatinine 1.26 H (0.66-1.25) mg/dL Glucose 114 H (74-99) mg/dL POC Glucose (mg/dL) 125 H (75-99) mg/dL Hemoglobin A1c (4.2-6.1) % 06/21/17 Range/Units 11:48 RBC (4.30-5.90) m/uL Hgb (13.0-17.5) gm/dL Hct (39.0-53.0) % MCHC (31.0-37.0) g/dL RDW (11.5-15.5) % Plt Count (150-450) k/uL Lymphocytes # (1.0-4.8) k/uL Chloride (98-107) mmol/L Carbon Dioxide (22-30) mmol/L BUN (9-20) mg/dL Creatinine (0.66-1.25) mg/dL Glucose (74-99) mg/dL POC Glucose (mg/dL) 195 H (75-99) mg/dL Hemoglobin A1c (4.2-6.1) % Microbiology - Last 24 Hours (Table) 06/19/17 10:25 Blood Culture - Preliminary Blood No Growth after 48 hours 06/19/17 14:00 Gram Stain - Final Sputum Sputum Culture - Final Haemophilus influenzae Assessment and Plan Plan: Assessment 1 acute CHF exacerbation/pulmonary edema. Patient has underlying valvular heart disease with moderate to severe aortic stenosis and secondary pulmonary hypertension, LV function seems to be preserved at this point in time. 2 Haemophilus influenza pneumonia. Currently on Zosyn and Levaquin. 3 advanced COPD with chronic hypoxic respiratory failure admitted on oxygen 3 L/ m nasal cannula 4 scattered bilateral subcentimeter pulmonary nodules, probably related to previous granulomatous infection of the lung 5 negative AFB based on the recent bronchioloalveolar lavage and the lungs 6 chronic atrial fibrillation 7. Vascular disease 8 hypertension 9 hyperlipidemia 10 diabetes mellitus 11 chronic hypoxic respiratory failure maintained on oxygen at 3 L/m nasal cannula 12 gout 13 chronic anemia 14 recent hospitalization for suspected GI bleed and the patient was found to have some gastritis without active bleeding 15 chronic lower extremity edema Plan The patient was seen and evaluated by Dr. Meza. The patient has Haemophilus influenza growing in the sputum Gram stain and culture. He is on a combination of Zosyn and Levaquin which should be adequate for now. Continued IV Lasix. We will continue to follow and make further recommendations based on his clinical status.
[2017-06-21] MEDS: DIGOXIN 125 MCG TAB PO SCH (16:45)
[2017-06-21 16:48] LABS: Glucose,Whole Blood 245 mg/dL (75-99)
[2017-06-21 20:39] LABS: Glucose,Whole Blood 262 mg/dL (75-99)
[2017-06-21] MEDS: ATORVASTATIN 20 MG TAB PO SCH (20:47)
[2017-06-21] MEDS: INSULIN GLARGINE 100 UNIT/ML 10 ML VIAL SQ SCH (20:47)
[2017-06-21] MEDS: ARTIFICIAL TEARS-HYPROMELLOSE DROPS 15 ML BTL BOTH EYES PRN (22:33)
[2017-06-22] MEDS: POLYMYXIN B TRIMETHOPRIM BOTH EYES SCH ×6 (04:41→23:14)
[2017-06-22] MEDS: PIPERACILLIN-TAZOBACTAM 3.375 GM in DEXTROSE/WATER 1 50ML.BAG IVPB SCH ×3 (05:03→21:28)
[2017-06-22 05:51] LABS: Glucose,Whole Blood 141 mg/dL (75-99)
[2017-06-22] MEDS: PANTOPRAZOLE 40 MG TABLET PO SCH (06:34)
[2017-06-22] MEDS: INSULIN LISPRO (humaLOG) 300 UNIT/3 ML VIAL SQ SCH ×4 (06:34→21:28)
[2017-06-22 06:44] LABS: Anisocytosis Slight; Basophils % (A) 0 %; CH 27.1; Eosinophils % (A) 1 %; HDW 3.18; HGB 9.5 gm/dL (13.0-17.5); Hypochromasia Marked; Luc # (Auto) 0.06; Luc % (Auto) 2; Lymphocytes # (A) 0.6 k/uL (1.0-4.8); Lymphocytes % (A) 15 %; MCHC 29.7 g/dL (31.0-37.0); MCV 90.8 fL (80.0-100.0); Mean Platelet Volume 9.3; Monocytes # (A) 0.2 k/uL (0-1.0); Monocytes % (A) 6 %; Neutrophils # (A) 2.9 k/uL (1.3-7.7); Neutrophils % (A) 76 %; RBC 3.53 m/uL (4.30-5.90); RDW 17.1 % (11.5-15.5); WBC 3.8 k/uL (3.8-10.6); WBC (Perox) 4.47
[2017-06-22 06:49] LABS: Anion Gap 11 mmol/L; Blood Urea Nitrogen 54 mg/dL (9-20); Calcium 9.6 mg/dL (8.4-10.2); Carbon Dioxide 36 mmol/L (22-30); Chloride 96 mmol/L (98-107); Glucose 137 mg/dL (74-99); Non-African American GFR(MDRD) 54 (>60 ml/min/1.73 sqM); Potassium 4.1 mmol/L (3.5-5.1); Sodium 143 mmol/L (137-145)
--- NOTE | 2017-06-22 08:00 | PN ---
DATE OF SERVICE: 06/21/2017 This 71-year-old gentleman who was admitted with CHF and COPD acute exacerbation , cellulitis also. No chest pain or palpitation. No fever or rigors. Being closely monitored. On exam, alert and oriented x3. Pulse 85, blood pressure 136/70, respirations 18, temperature 98.1, pulse ox 100% on 3 liters. HEENT: Conjunctivae normal. NECK: No JVD. CARDIOVASCULAR: S1/S2. LUNGS: Diminished breath sounds at the bases. Scattered rhonchi and crackles. ABDOMEN: Soft. No tenderness, no mass. LEGS: No swelling. NERVOUS SYSTEM: No focal deficits. LABS: At this time shows WBC 4.9, hemoglobin 9.4. Creatinine 1.26. ASSESSMENT: 1. Acute on chronic congestive heart failure acute exacerbation with diastolic dysfunction. 2. Acute chronic obstructive pulmonary disease exacerbation, advanced with chronic hypoxic respiratory failure. 3. Possible right lower lobe pneumonia, possibly gram negative and sputum culture pending. 4. Diabetes mellitus type 2. 5. Severe pulmonary hypertension. 6. Aortic stenosis. 7. Moderate tricuspid regurgitation. RECOMMENDATIONS AND DISCUSSION: In this 71-year-old gentleman who presented with multiple complex medical issues, will monitor the patient closely, continue current treatment, continue to increase ambulation. Further recommendations to follow. Otherwise, continue with broad spectrum IV antibiotics. The patient is on Zosyn at this time. [facility]
[2017-06-22] MEDS: IPRATROPIUM-ALBUTEROL 3 ML NEB INHALATION SCH ×4 (08:23→18:52)
[2017-06-22] MEDS: ARTIFICIAL TEARS-HYPROMELLOSE DROPS 15 ML BTL BOTH EYES PRN ×3 (08:40→20:26)
[2017-06-22] MEDS: FERROUS SULFATE 325 MG TAB PO SCH (08:42)
--- NOTE | 2017-06-22 10:38 | P.PN ---
Subjective Principal diagnosis: Acute congestive heart failure secondary to valvular heart disease and pulmonary hypertension A very pleasant 71-year-old male patient is very well-known to me. The patient came into the emergency department because of progressive worsening shortness of breath. Note that the patient was in the hospital on 06/13/2017 for concerns of an acute GI bleeding. Upper GI bleeding was suspected. The patient had an EGD and he was found to have no signs of any acute bleeding and the patient was found to have changes consistent with gastritis. During the same hospitalization the patient received a unit of packed RBC and he was discharged home. A few days following his discharge, the patient started having worsening shortness of breath. Note that he was having some difficulty breathing even during his hospitalization. His chest x-ray was also showing a component of poor Vesicare congestion/edema. He was given IV Lasix during his earlier admission and based on the discharge summary the patient did not have any significant JVDs at a time of discharge. As such, his CHF was thought to be optimized. Nevertheless, over the past few days, the patient developed worsening shortness of breath. He had 3-4 pounds weight gain. Worsening lower oximetry edema. Exertional dyspnea to the point where the patient was unable to perform activities of daily life and for that reason he came into the hospital he was found to be in CHF. At this point in time the patient has jugular venous distention, elevated proBNP level, and increased lower extremity edema. Renal function is stable. The patient is producing adequate amount of urine output. In terms of his history, the patient has advanced COPD and the patient has been oxygen dependent. He was being followed up at the [facility] and his primary care physician Dr. Khan. He has been maintained on oxygen 3 L/m nasal cannula. His previous CAT scan of the chest that shown old granulomatous changes with 1-2 mm nodules in the lateral aspect of the left lung and left basilar segment of the left lower lobe. These were thought to be benign. He also had background COPD. He was maintained on a combination of Spiriva and Symbicort. At one point there was a concern that the patient was infected with mycobacterial elements. This was based on the sputum sample that was collected at the [facility] and the choice. Based on all this, I repeated the evaluation by doing a bronchoscopy and lavage and the microbial cultures of been negative for now for any AFB or typical or atypical microbial growth. The patient also has history of CHF. An echocardiogram that was done at [facility] showed moderate to severe aortic stenosis with mild aortic regurgitation and an ejection fraction of 60-65%. He also has significant pulmonary hypertension based on prior echocardiograms. He has chronic atrial fibrillation. He has various other comorbid conditions including diabetes mellitus, hypertension, hyperlipidemia, history of left lower lobe pneumonia, peripheral vascular disease, hypertension, CVA/TIA, diabetes mellitus. He also suffers from chronic lower extremity edema in addition. On 06/20/2017 the patient is doing better compared to yesterday. My concern for pneumonia was low. However the patient is producing purulent mucus and I think it's reasonable to culture the sputum. He is on a combination of Zosyn and Levaquin. No fever or chills. He is being diuresis with IV Lasix. He is a negative fluid balance. The renal function test is still stable with a creatinine of 1.2. The rest of the electrodes are within normal limits. The patient is diuresing. Lower extremities are still swallowing. The patient is seen again today 06/21/2017 in follow-up on the selective care unit. He is awake and alert in no acute distress. He is breathing slightly better today as compared to yesterday. His sputum is positive for Haemophilus influenza. He is currently on Zosyn and Levaquin. Continues to be diuresed as well. Currently in a negative balance. He has continued lower extremity edema. He is maintaining good O2 saturations up to 100% on 3 L/m per nasal cannula. He is hemodynamically stable. Afebrile. No leukocytosis. Patient was seen today on 06/22/2017, feeling a bit better, continues to have a bit of a cough, cough is productive with yellow phlegm, patient is on antibiotics for Haemophilus influenza infection. Continues to diurese well, continues to remain in negative balance, less lower extremity edema is noted, remains on oxygen, but his O2 saturation is adequate. Patient is hemodynamically stable, and overall there has been some improvement. Chest x- ray was ordered to be done in a.m. And hopefully the patient could be considered for discharge planning in the next 24-48 hours. Objective - Vital Signs Vital signs: Vital Signs Temp 97.8 F 06/22/17 04:00 Pulse 88 06/22/17 08:26 Resp 20 06/22/17 08:26 BP 121/60 06/22/17 04:00 Pulse Ox 100 06/22/17 04:00 Intake & Output 06/21/17 06/22/17 06/22/17 18:59 06:59 18:59 Intake Total 710 50 Output Total 2150 425 225 Balance -1440 -375 -225 Weight 83.5 kg Intake: IV 50 Piperacillin-Tazobactam 3 50 .375 gm In Dextrose/Water 1 50ml.bag @ 12.5 mls/hr IVPB Q8H NAVJOT Rx#: [id number] Intake, IV Titration 200 Amount Levofloxacin 750Mg-D5w 150 Pmx 750 mg In Dextrose/ Water 1 150ml.bag @ 100 mls/hr IVPB Q24H NAVJOT Rx#: [id number] Piperacillin-Tazobactam 3 50 .375 gm In Dextrose/Water 1 50ml.bag @ 12.5 mls/hr IVPB Q8H NAVJOT Rx#: [id number] Oral 510 Output: Urine 2150 425 225 Other: Voiding Method Toilet Toilet Urinal Urinal # Voids 2 2 1 - Exam Head exam was generally normal. There was no scleral icterus or corneal arcus. Mucous membranes were moist. Neck is supple and there is positive JVDs and there is no goiter or neck masses this point. Lung sounds are diminished and there is some bibasilar crackles in the lung bases. No wheezes. No rhonchi. Heart sounds are irregular and this systolic ejection murmur grade 3/6 heard throughout the precordium. Abdomen is slightly distended soft and there is no direct tenderness about tensile guarding. Extremities +1-2 pitting edema bilaterally and symmetrically without any cyanosis or clubbing. Some superficial skin ulceration over the legs bilaterally. - Labs CBC & Chem 7: 06/22/17 05:24 06/22/17 05:24 Labs: Abnormal Lab Results - Last 24 Hours (Table) 06/21/17 06/21/17 06/21/17 Range/Units 11:48 16:19 20:38 RBC (4.30-5.90) m/uL Hgb (13.0-17.5) gm/dL Hct (39.0-53.0) % MCHC (31.0-37.0) g/dL RDW (11.5-15.5) % Plt Count (150-450) k/uL Lymphocytes # (1.0-4.8) k/uL Chloride (98-107) mmol/L Carbon Dioxide (22-30) mmol/L BUN (9-20) mg/dL Creatinine (0.66-1.25) mg/dL Glucose (74-99) mg/dL POC Glucose (mg/dL) 195 H 245 H 262 H (75-99) mg/dL 06/22/17 06/22/17 06/22/17 Range/Units 05:24 05:24 05:50 RBC 3.53 L (4.30-5.90) m/uL Hgb 9.5 L (13.0-17.5) gm/dL Hct 32.0 L (39.0-53.0) % MCHC 29.7 L (31.0-37.0) g/dL RDW 17.1 H (11.5-15.5) % Plt Count 100 L (150-450) k/uL Lymphocytes # 0.6 L (1.0-4.8) k/uL Chloride 96 L (98-107) mmol/L Carbon Dioxide 36 H (22-30) mmol/L BUN 54 H (9-20) mg/dL Creatinine 1.30 H (0.66-1.25) mg/dL Glucose 137 H (74-99) mg/dL POC Glucose (mg/dL) 141 H (75-99) mg/dL Microbiology - Last 24 Hours (Table) 06/19/17 10:25 Blood Culture - Preliminary Blood No Growth after 48 hours 06/19/17 14:00 Gram Stain - Final Sputum Sputum Culture - Final Haemophilus influenzae Assessment and Plan Plan: 1 acute CHF exacerbation/pulmonary edema. Patient has underlying valvular heart disease with moderate to severe aortic stenosis and secondary pulmonary hypertension, LV function seems to be preserved at this point in time. 2 Haemophilus influenza pneumonia. Currently on Zosyn and Levaquin. 3 advanced COPD with chronic hypoxic respiratory failure admitted on oxygen 3 L/ m nasal cannula 4 scattered bilateral subcentimeter pulmonary nodules, probably related to previous granulomatous infection of the lung 5 negative AFB based on the recent bronchioloalveolar lavage and the lungs 6 chronic atrial fibrillation 7. Peripheral Vascular disease 8 hypertension 9 hyperlipidemia 10 diabetes mellitus 11 chronic hypoxic respiratory failure maintained on oxygen at 3 L/m nasal cannula 12 gout 13 chronic anemia 14 recent hospitalization for suspected GI bleed and the patient was found to have some gastritis without active bleeding 15 chronic lower extremity edema Recommendation: Continue present supportive care measures, continue antibiotics , diuretics, follow-up chest x-ray in a.m., consider discharge planning depending on his clinical findings and chest x-ray findings in the next 24 hours. Time with Patient: Less than 30
[2017-06-22 11:34] LABS: Glucose,Whole Blood 213 mg/dL (75-99)
[2017-06-22] MEDS: FUROSEMIDE 10 MG/ML 4 ML VIAL IV SCH (12:00)
[2017-06-22] MEDS: LEVOFLOXACIN 750MG-D5W PMX 750 MG in DEXTROSE/WATER 1 150ML.BAG IVPB SCH (12:00)
[2017-06-22] MEDS: METOPROLOL SUCCINATE (ER) 100 MG TAB.ER.24H PO SCH (12:01)
--- NOTE | 2017-06-22 13:43 | P.PN ---
Subjective Principal diagnosis: Pneumonia, CHF, aortic stenosis This patient is admitted with increasing shortness of breath and evidence of pneumonia/CHF. Patient was treated with antibiotics along with diuretics. Patient seemed to be feeling better and less short of breath. He is also very sleepy. Hemodynamically stable. No complaints of any chest pain. Chest x-ray was ordered for tomorrow. If patient continues to be stable he could be discharged home within next 24-48 hours. Patient will have follow-up with Dr. Almeida for further evaluation of his valvular heart disease Objective - Vital Signs Vital signs: Vital Signs Temp 96.9 F L 06/22/17 09:00 Pulse 100 06/22/17 11:57 Resp 18 06/22/17 09:00 BP 106/68 06/22/17 09:00 Pulse Ox 99 06/22/17 09:00 Intake & Output 06/21/17 06/22/17 06/22/17 18:59 06:59 18:59 Intake Total 710 50 380 Output Total 2150 425 1800 Balance -1440 -375 -1420 Weight 83.5 kg Intake: IV 50 Piperacillin-Tazobactam 3 50 .375 gm In Dextrose/Water 1 50ml.bag @ 12.5 mls/hr IVPB Q8H [facility] Rx#: [id number] Intake, IV Titration 200 Amount Levofloxacin 750Mg-D5w 150 Pmx 750 mg In Dextrose/ Water 1 150ml.bag @ 100 mls/hr IVPB Q24H [facility] Rx#: [id number] Piperacillin-Tazobactam 3 50 .375 gm In Dextrose/Water 1 50ml.bag @ 12.5 mls/hr IVPB Q8H [facility] Rx#: [id number] Oral 510 380 Output: Urine 2150 425 1800 Other: Voiding Method Toilet Toilet Toilet Urinal Urinal Urinal # Voids 2 2 1 - Exam GENERAL EXAM: Patient is alert and oriented and doesn't appear to be in any acute distress HEENT: Normocephalic. Normal reaction of pupils, equal size, normal range of extraocular motion. No erythema or exudates in the throat. NECK: No masses, no nuchal rigidity. CHEST: No chest wall deformity. LUNGS: Diminished breath sounds and crackles at both bases HEART: S1 and S2 normal . Systolic murmur heard an irregular heart sounds ABDOMEN: No hepatosplenomegaly, normal bowel sounds, no guarding or rigidity. SKIN: No rashes CENTRAL NERVOUS SYSTEM: No focal deficits. EXTREMITIES: No cyanosis, clubbing or edema. - Labs CBC & Chem 7: 06/22/17 05:24 06/22/17 05:24 Labs: Abnormal Lab Results - Last 24 Hours (Table) 06/21/17 06/21/17 06/22/17 Range/Units 16:19 20:38 05:24 RBC 3.53 L (4.30-5.90) m/uL Hgb 9.5 L (13.0-17.5) gm/dL Hct 32.0 L (39.0-53.0) % MCHC 29.7 L (31.0-37.0) g/dL RDW 17.1 H (11.5-15.5) % Plt Count 100 L (150-450) k/uL Lymphocytes # 0.6 L (1.0-4.8) k/uL Chloride (98-107) mmol/L Carbon Dioxide (22-30) mmol/L BUN (9-20) mg/dL Creatinine (0.66-1.25) mg/dL Glucose (74-99) mg/dL POC Glucose (mg/dL) 245 H 262 H (75-99) mg/dL 06/22/17 06/22/17 06/22/17 Range/Units 05:24 05:50 11:32 RBC (4.30-5.90) m/uL Hgb (13.0-17.5) gm/dL Hct (39.0-53.0) % MCHC (31.0-37.0) g/dL RDW (11.5-15.5) % Plt Count (150-450) k/uL Lymphocytes # (1.0-4.8) k/uL Chloride 96 L (98-107) mmol/L Carbon Dioxide 36 H (22-30) mmol/L BUN 54 H (9-20) mg/dL Creatinine 1.30 H (0.66-1.25) mg/dL Glucose 137 H (74-99) mg/dL POC Glucose (mg/dL) 141 H 213 H (75-99) mg/dL Microbiology - Last 24 Hours (Table) 06/19/17 10:25 Blood Culture - Preliminary Blood No Growth after 72 hours 06/19/17 14:00 Gram Stain - Final Sputum Sputum Culture - Final Haemophilus influenzae Assessment and Plan (1) COPD (chronic obstructive pulmonary disease) Status: Acute (2) Congestive heart failure Status: Acute (3) Anemia Status: Acute (4) Aortic stenosis Status: Acute (5) CVA (cerebral vascular accident) Status: Acute (6) Diabetes Status: Acute Plan: Patient is showing some improvement. Clinically stable. Continue current medical therapy. Follow up as needed and possible discharge within 24-48 hours
[2017-06-22 17:38] LABS: Glucose,Whole Blood 123 mg/dL (75-99)
[2017-06-22] MEDS: ATORVASTATIN 20 MG TAB PO SCH (20:26)
[2017-06-22 20:46] LABS: Glucose,Whole Blood 230 mg/dL (75-99)
[2017-06-22] MEDS: INSULIN GLARGINE 100 UNIT/ML 10 ML VIAL SQ SCH (21:28)
[2017-06-22] MEDS: IPRATROPIUM-ALBUTEROL 3 ML NEB INHALATION PRN (23:51)
[2017-06-23] MEDS: POLYMYXIN B TRIMETHOPRIM BOTH EYES SCH ×6 (03:55→23:02)
[2017-06-23] MEDS: PIPERACILLIN-TAZOBACTAM 3.375 GM in DEXTROSE/WATER 1 50ML.BAG IVPB SCH ×3 (05:12→21:19)
[2017-06-23 05:50] LABS: Glucose,Whole Blood 103 mg/dL (75-99)
[2017-06-23 06:28] LABS: Anisocytosis Slight; Basophils % (A) 1 %; CH 26.5; CHCM 29.5; Eosinophils # (A) 0.1 k/uL (0-0.7); Eosinophils % (A) 2 %; HDW 3.27; HGB 9.3 gm/dL (13.0-17.5); Hypochromasia Marked; Luc # (Auto) 0.07; Luc % (Auto) 2; Lymphocytes # (A) 0.7 k/uL (1.0-4.8); Lymphocytes % (A) 14 %; MCH 27.2 pg (25.0-35.0); MCHC 30.2 g/dL (31.0-37.0); MCV 90.1 fL (80.0-100.0); Mean Platelet Volume 8.6; Monocytes # (A) 0.3 k/uL (0-1.0); Monocytes % (A) 5 %; Neutrophils # (A) 3.6 k/uL (1.3-7.7); Neutrophils % (A) 77 %; RBC 3.44 m/uL (4.30-5.90); RDW 16.6 % (11.5-15.5); WBC 4.7 k/uL (3.8-10.6); WBC (Perox) 4.43
[2017-06-23] MEDS: INSULIN LISPRO (humaLOG) 300 UNIT/3 ML VIAL SQ SCH ×4 (06:38→21:12)
[2017-06-23] MEDS: PANTOPRAZOLE 40 MG TABLET PO SCH (06:41)
[2017-06-23 06:45] LABS: Blood Urea Nitrogen 43 mg/dL (9-20); Chloride 96 mmol/L (98-107); Glucose 87 mg/dL (74-99); Non-African American GFR(MDRD) 54 (>60 ml/min/1.73 sqM); Potassium 3.9 mmol/L (3.5-5.1); Sodium 143 mmol/L (137-145)
[2017-06-23 06:51] LABS: Anion Gap 8 mmol/L; Carbon Dioxide 39 mmol/L (22-30)
--- NOTE | 2017-06-23 07:36 | PN ---
DATE OF SERVICE: 06/22/2017 This 71-year-old gentleman who was admitted with CHF and COPD acute exacerbation also had cellulitis of the legs. No chest pain or palpitation. No fever. The patient has been sputum. Patient is on IV Zosyn. On exam, alert and oriented x3. Pulse is 78, blood pressure is 100/58, respirations 18, temperature 97 degrees, pulse ox 100% on 3 L. HEENT: Conjunctivae normal. NECK: No jugular venous distention. CARDIOVASCULAR: S1 and S2 muffled. RESPIRATORY: Breath sounds are diminished at the bases. A few scattered rhonchi and crackles. ABDOMEN: Soft, nontender. LEGS: No edema, no swelling. NERVOUS SYSTEM: No focal deficits. LABS: Hemoglobin 9.5, platelets 100. Creatinine is 1.3. ASSESSMENT: 1. Congestive heart failure, acute exacerbation with acute on chronic diastolic dysfunction. 2. Chronic obstructive pulmonary disease, acute exacerbation with advanced and chronic hypoxic respiratory failure. 3. Possible right lower lobe pneumonia, possibly gram negative, sputum culture pending. 4. Diabetes mellitus type 2. 5. Severe pulmonary hypertension. 6. Aortic stenosis. 7. Moderate tricuspid regurgitation. RECOMMENDATIONS AND DISCUSSION: Recommend to continue current medications. Continue symptomatic treatment. Continue with bronchodilators. Continue with empiric antibiotics. Closely follow. Further recommendations to follow. MTDD
[2017-06-23] MEDS: IPRATROPIUM-ALBUTEROL 3 ML NEB INHALATION SCH ×4 (08:02→18:55)
--- NOTE | 2017-06-23 09:17 | XR ---
EXAMINATION TYPE: XR chest 1V portable DATE OF EXAM: 06/23/2017 COMPARISON: chest xray 06/20/2017 HISTORY: chf, pneumonia TECHNIQUE: Single frontal view of the chest is obtained. FINDINGS: The heart is enlarged. Interstitium and central vascularity are prominent. No pneumothorax or pleural effusion is evident. There are overlying cardiac leads. IMPRESSION: Findings suggest volume overload, pulmonary venous hypertension and interstitial edema. Follow-up suggested.
[2017-06-23] MEDS: FERROUS SULFATE 325 MG TAB PO SCH (09:25)
[2017-06-23] MEDS: FUROSEMIDE 10 MG/ML 4 ML VIAL IV SCH (09:25)
[2017-06-23 11:58] LABS: Glucose,Whole Blood 136 mg/dL (75-99)
[2017-06-23] MEDS: LEVOFLOXACIN 750MG-D5W PMX 750 MG in DEXTROSE/WATER 1 150ML.BAG IVPB SCH (12:39)
[2017-06-23] MEDS: METOPROLOL SUCCINATE (ER) 100 MG TAB.ER.24H PO SCH (12:40)
--- NOTE | 2017-06-23 14:52 | P.PN ---
Subjective Date of service 06/23/2017. Personal being dictated for Dr. Tavarez. Interval history: This a 71-year-old gentleman admitted with shortness of breath , CHF exacerbation, COPD, right lower lobe pneumonia and multiple other medical issues. Maintained on nebulized bronchodilators, Levaquin, Zosyn with breathing improving. Chest x-ray reporting volume overload, pulmonary venous hypertension, interstitial edema with no pleural effusion evident. Diuresing well on Lasix IV push with 24-hour I&O reflecting a negative fluid balance. Creatinine 1.31. Telemetry reporting atrial fibrillation, controlled ventricular rate. Objective - Vital Signs Vital signs: Vital Signs Temp 98.2 F 06/23/17 12:00 Pulse 91 06/23/17 12:00 Resp 20 06/23/17 12:00 BP 113/74 06/23/17 12:00 Pulse Ox 97 06/23/17 12:00 Intake & Output 06/22/17 06/23/17 06/23/17 18:59 06:59 18:59 Intake Total 380 240 360 Output Total 2800 1850 Balance -2420 -1610 360 Weight 106 kg 106.1 kg Intake: Oral 380 240 360 Output: Urine 2800 1850 Other: Voiding Method Toilet Toilet Urinal Urinal # Voids 3 2 - Exam PHYSICAL EXAM: VITAL SIGNS: [As above] GENERAL: [Up in chair, no acute distress HEENT: [Pupils equal conjunctiva normal.] NECK: [Supple,no JVD] RESPIRATORY EFFORT:[ Normal] LUNGS: [Bilateral bases diminished, fine scattered crackles, occasional rhonchi , no wheezing] CARDIOVASCULAR irregular, positive systolic murmur, no rubs or gallops, positive edema] GI: [Abdomen soft, nontender, positive bowel sounds.] PSYCH: [Alert and oriented -3, mood and affect normal.] NEURO: No focal deficits, moves all 4 extremities, generalized weakness Microbiology 06/19/17 10:25 Blood Blood Culture - Preliminary No Growth after 96 hours 06/19/17 14:00 Sputum Gram Stain - Final 06/19/17 14:00 Sputum Sputum Culture - Final Haemophilus influenzae - Labs CBC & Chem 7: 06/23/17 05:32 06/23/17 05:32 Labs: Abnormal Lab Results - Last 24 Hours (Table) 06/22/17 06/22/17 06/23/17 Range/Units 17:23 20:44 05:32 RBC 3.44 L (4.30-5.90) m/uL Hgb 9.3 L (13.0-17.5) gm/dL Hct 31.0 L (39.0-53.0) % MCHC 30.2 L (31.0-37.0) g/dL RDW 16.6 H (11.5-15.5) % Plt Count 100 L (150-450) k/uL Lymphocytes # 0.7 L (1.0-4.8) k/uL Chloride (98-107) mmol/L Carbon Dioxide (22-30) mmol/L BUN (9-20) mg/dL Creatinine (0.66-1.25) mg/dL POC Glucose (mg/dL) 123 H 230 H (75-99) mg/dL 06/23/17 06/23/17 06/23/17 Range/Units 05:32 05:48 11:33 RBC (4.30-5.90) m/uL Hgb (13.0-17.5) gm/dL Hct (39.0-53.0) % MCHC (31.0-37.0) g/dL RDW (11.5-15.5) % Plt Count (150-450) k/uL Lymphocytes # (1.0-4.8) k/uL Chloride 96 L (98-107) mmol/L Carbon Dioxide 39 H (22-30) mmol/L BUN 43 H (9-20) mg/dL Creatinine 1.31 H (0.66-1.25) mg/dL POC Glucose (mg/dL) 103 H 136 H (75-99) mg/dL Microbiology - Last 24 Hours (Table) 06/19/17 10:25 Blood Culture - Preliminary Blood No Growth after 96 hours Assessment and Plan Plan: 1. [ Acute on chronic CHF exacerbation, diastolic dysfunction]. 2. [ Acute COPD exacerbation, advanced with chronic hypoxic respiratory failure] . 3. [ Possible Right lower lobe pneumonia possibly gram-negative, sputum culture positive with Haemophilus influenza.]. 4. [ Diabetes mellitus type 2]. 5. [ Severe pulmonary hypertension]. 6. [ Moderate aortic stenosis]. 7. [ Moderate tricuspid regurgitation]. Plan: Continue on current medication regime, monitoring and symptomatic treatment. Continue on antibiotics, nebulized bronchodilators, Lasix. Close monitoring of electrolytes and renal function with repeat labs ordered for a.m. PT/OT.Prognosis guarded given multiple complex medical issues. Discharge planning in progress for tomorrow.. The impression and plan of care has been dictated as directed. : I performed a H&P examination of this patient and discussed the same with the dictator. I agree with the dictator's note. Any additional findings/opinions/ etc. will be noted.
--- NOTE | 2017-06-23 15:13 | P.PN ---
Subjective This is a 71-year-old gentleman who came to the emergency room with complaints of progressive worsening of shortness of breath. This patient has history of COPD and was admitted to this hospital earlier this month with a suspicion of GI bleeding. Apparently received one unit of blood transfusion at the time. He also received some Lasix. The last several days patient has become progressively more short of breath and developed pedal edema and came to the hospital. He has a history of moderate to severe aortic stenosis and preserved LV function. Her admission here patient was found to have JVD and also peripheral edema. Patient is given IV Lasix and seemed to be diuresing well. ProBNP is elevated. At the time of my examination patient is sleepy seemed to be relatively comfortable. No complaints of any chest pain. He is scheduled to have an echocardiogram and monitor. Patient had a last echocardiogram in November of this year at [facility]. We may repeat the echocardiogram to assess his aortic stenosis. Meanwhile we'll continue with the diagnosis 06/20/2017 Patient seen and examined this morning, continues to be extremely sleepy. Continues to diurese on IV Lasix. Creatinin 1.2. Echo revealed an ejection fraction of 55-60%. 06/23/2017, patient seen and examined this morning, states he does not feel much improvement in his breathing however he continues to diurese well. Chest x -ray reveals volume overload and interstitial edema. We will continue current dose of IV Lasix. BUN 43, creatinine 1.3, potassium 3.9. Dr. Bryant also had a discussion with the today regarding the aortic stenosis, he stated that at this time medical therapy is advised, patient will be following up with Dr. Almeida as an outpatient. Objective - Vital Signs Vital signs: Vital Signs Temp 98.2 F 06/23/17 12:00 Pulse 81 06/23/17 15:07 Resp 20 06/23/17 12:00 BP 113/74 06/23/17 12:00 Pulse Ox 97 06/23/17 12:00 Intake & Output 06/22/17 06/23/17 06/23/17 18:59 06:59 18:59 Intake Total 380 240 510 Output Total 2800 1850 Balance -2420 -1610 510 Weight 106 kg 106.1 kg Intake: IV 50 Piperacillin-Tazobactam 3 50 .375 gm In Dextrose/Water 1 50ml.bag @ 12.5 mls/hr IVPB Q8H [facility] Rx#: [id number] Intake, IV Titration 100 Amount Levofloxacin 750Mg-D5w 100 Pmx 750 mg In Dextrose/ Water 1 150ml.bag @ 100 mls/hr IVPB Q24H [facility] Rx#: [id number] Oral 380 240 360 Output: Urine 2800 1850 Other: Voiding Method Toilet Toilet Urinal Urinal # Voids 3 2 - Exam PHYSICAL EXAMINATION: HEENT: Head is atraumatic, normocephalic. Pupils equal, round. Neck is supple. There is elevated jugular venous pressure. HEART EXAMINATION: Heart sounds regular, S1 and S2 normal with a systolic murmur. CHEST EXAMINATION: Lungs reveal expiratory wheezing throughout. No chest wall tenderness is noted on palpation or with deep breathing. ABDOMEN: Soft, nontender. Bowel sounds are heard. No organomegaly noted. EXTREMITIES: 2+ peripheral pulses with evidence of 2+ peripheral edema and no calf tenderness noted. NEUROLOGIC patient is awake, alert and oriented x3. - Labs CBC & Chem 7: 06/23/17 05:32 06/23/17 05:32 Labs: Abnormal Lab Results - Last 24 Hours (Table) 06/22/17 06/22/17 06/23/17 Range/Units 17:23 20:44 05:32 RBC 3.44 L (4.30-5.90) m/uL Hgb 9.3 L (13.0-17.5) gm/dL Hct 31.0 L (39.0-53.0) % MCHC 30.2 L (31.0-37.0) g/dL RDW 16.6 H (11.5-15.5) % Plt Count 100 L (150-450) k/uL Lymphocytes # 0.7 L (1.0-4.8) k/uL Chloride (98-107) mmol/L Carbon Dioxide (22-30) mmol/L BUN (9-20) mg/dL Creatinine (0.66-1.25) mg/dL POC Glucose (mg/dL) 123 H 230 H (75-99) mg/dL 06/23/17 06/23/17 06/23/17 Range/Units 05:32 05:48 11:33 RBC (4.30-5.90) m/uL Hgb (13.0-17.5) gm/dL Hct (39.0-53.0) % MCHC (31.0-37.0) g/dL RDW (11.5-15.5) % Plt Count (150-450) k/uL Lymphocytes # (1.0-4.8) k/uL Chloride 96 L (98-107) mmol/L Carbon Dioxide 39 H (22-30) mmol/L BUN 43 H (9-20) mg/dL Creatinine 1.31 H (0.66-1.25) mg/dL POC Glucose (mg/dL) 103 H 136 H (75-99) mg/dL Microbiology - Last 24 Hours (Table) 06/19/17 10:25 Blood Culture - Preliminary Blood No Growth after 96 hours Assessment and Plan Plan: Assessment and Plan (1) COPD (chronic obstructive pulmonary disease) Status: Acute (2) Congestive heart failure, diastolic acute on chronic Status: Acute (3) Anemia Status: Acute (4) Aortic stenosis, moderate to severe Status: Acute (5) CVA (cerebral vascular accident) Status: Acute (6) Diabetes Status: Acute We will continue current dose of IV Lasix. Check lytes BUN creatinine and daily weights. The patient continues to put out excellent urine, consider changing over to oral diuretics in the morning. Follow-up appointment with Dr. Almeida on discharge. DNP note has been reviewed, I agree with a documented findings and plan of care. Patient was seen and examined.
[2017-06-23 16:28] LABS: Glucose,Whole Blood 141 mg/dL (75-99)
--- NOTE | 2017-06-23 16:49 | PN ---
This is a patient who is 71 years of age. He was admitted back on 06/19. He was admitted with a diagnosis of acute CHF exacerbation with pulmonary edema. The patient does have a history of severe aortic stenosis and secondary pulmonary hypertension. In addition, has a history of Haemophilus influenzae pneumonia, advanced COPD with hypoxemic respiratory failure, chronic hypoxemia and oxygen requirements, some subcentimeter pulmonary nodules, chronic atrial fibrillation, peripheral vascular occlusive disease, hypertension, hyperlipidemia, diabetes, gout and chronic anemia. He also has chronic lower extremity edema. Today's chest x-ray is consistent with fluid overload and interstitial edema. He is feeling a bit better. Not back to baseline for sure. Temperature 98.3, heart 68, respiratory rate 20, blood pressure 103/59, mean 73 , 3 liter saturation 99%. Appears in no acute distress. HEENT: Grossly unremarkable. Mucous membranes are moist. No oral lesions. Nasal O2 in place. NECK: Supple. Full range of motion. No adenopathy or thyromegaly. Neck veins are flat. CARDIOVASCULAR: Reveals regular rhythm and rate. Heart sounds are distant. Soft systolic murmur is heard. S1/S2 normal. LUNGS: Reveal bibasilar crackles. A few scattered rhonchi and wheezes. ABDOMEN: Soft. Bowel sounds are heard. EXTREMITIES: Intact. Mild edema. SKIN: Without rash. NEUROLOGIC: Brief neurologic examination is nonfocal. Chest x-ray is consistent with fluid overload. Labs are reviewed. White count 4.7, hemoglobin 9.3, hematocrit 31, platelet count 100,000. Sodium 143, potassium 0.9, chloride 96, CO2 of 39. BUN and creatinine were 43 and 1.31. Anion gap is 8 which is normal. No additional x- rays to review. Microbiology is positive for a sputum showing Haemophilus influenzae. Currently he is on Zosyn and Levaquin for that. Medications are reviewed. ASSESSMENT: 1. Acute congestive heart failure exacerbation with pulmonary edema in a patient with valvular heart disease/aortic stenosis and secondary pulmonary hypertension. 2. Haemophilus influenzae pneumonia/purulent tracheobronchitis. 3. Advanced chronic obstructive pulmonary disease with chronic hypoxemic respiratory failure. 4. Scattered bilateral subcentimeter pulmonary nodules, likely related to previous granulomatous disease. 5. History of chronic atrial fibrillation. 6. Peripheral vascular occlusive disease. 7. Hypertension. 8. Hyperlipidemia. 9. Diabetes. 10. Chronic hypoxemic respiratory failure. 11. Gout. 12. Chronic anemia. 13. Gastritis/esophagitis. 14. Lower extremity edema. PLAN: The patient is doing better but not back to baseline. Will continue to follow. The patient is on appropriate antibiotics and breathing treatments. No additional recommendations are made. Prognosis is guarded. MTDD
[2017-06-23] MEDS: DIGOXIN 125 MCG TAB PO SCH (18:03)
[2017-06-23] MEDS: INSULIN GLARGINE 100 UNIT/ML 10 ML VIAL SQ SCH (21:11)
[2017-06-23] MEDS: ATORVASTATIN 20 MG TAB PO SCH (21:11)
[2017-06-23 21:14] LABS: Glucose,Whole Blood 168 mg/dL (75-99)
[2017-06-23] MEDS: IPRATROPIUM-ALBUTEROL 3 ML NEB INHALATION PRN (23:55)
[2017-06-24] MEDS: POLYMYXIN B TRIMETHOPRIM BOTH EYES SCH ×6 (04:42→23:35)
[2017-06-24] MEDS: IPRATROPIUM-ALBUTEROL 3 ML NEB INHALATION PRN ×2 (05:05→23:34)
[2017-06-24] MEDS: PIPERACILLIN-TAZOBACTAM 3.375 GM in DEXTROSE/WATER 1 50ML.BAG IVPB SCH (05:42)
[2017-06-24 05:46] LABS: Glucose,Whole Blood 134 mg/dL (75-99)
[2017-06-24] MEDS: PANTOPRAZOLE 40 MG TABLET PO SCH (06:25)
[2017-06-24] MEDS: INSULIN LISPRO (humaLOG) 300 UNIT/3 ML VIAL SQ SCH ×4 (06:25→21:12)
[2017-06-24 07:11] LABS: Anion Gap 8 mmol/L; Blood Urea Nitrogen 39 mg/dL (9-20); Calcium 8.7 mg/dL (8.4-10.2); Carbon Dioxide 38 mmol/L (22-30); Chloride 95 mmol/L (98-107); Glucose 110 mg/dL (74-99); Non-African American GFR(MDRD) 52 (>60 ml/min/1.73 sqM); Potassium 3.6 mmol/L (3.5-5.1); Sodium 141 mmol/L (137-145)
[2017-06-24 07:13] LABS: Anisocytosis Slight; Basophils % (A) 0 %; CHCM 30.5; Eosinophils # (A) 0.1 k/uL (0-0.7); Eosinophils % (A) 2 %; HCT 28.7 % (39.0-53.0); HDW 3.29; HGB 8.9 gm/dL (13.0-17.5); Hypochromasia Marked; Luc # (Auto) 0.06; Luc % (Auto) 2; Lymphocytes # (A) 0.6 k/uL (1.0-4.8); Lymphocytes % (A) 14 %; MCH 27.4 pg (25.0-35.0); MCHC 30.9 g/dL (31.0-37.0); MCV 88.9 fL (80.0-100.0); Mean Platelet Volume 8.9; Monocytes # (A) 0.2 k/uL (0-1.0); Monocytes % (A) 5 %; Neutrophils # (A) 3.4 k/uL (1.3-7.7); Neutrophils % (A) 78 %; RBC 3.23 m/uL (4.30-5.90); RDW 17.1 % (11.5-15.5); WBC 4.4 k/uL (3.8-10.6); WBC (Perox) 4.48
[2017-06-24 07:44] LABS: Ovalocytes Present
[2017-06-24] MEDS: IPRATROPIUM-ALBUTEROL 3 ML NEB INHALATION SCH ×4 (08:21→19:37)
[2017-06-24] MEDS: FERROUS SULFATE 325 MG TAB PO SCH (08:48)
[2017-06-24] MEDS: FUROSEMIDE 10 MG/ML 4 ML VIAL IV SCH (11:33)
[2017-06-24] MEDS: METOPROLOL SUCCINATE (ER) 100 MG TAB.ER.24H PO SCH (11:34)
[2017-06-24] MEDS: LEVOFLOXACIN 750 MG TAB PO SCH (11:34)
[2017-06-24 11:40] LABS: Glucose,Whole Blood 238 mg/dL (75-99)
[2017-06-24] MEDS ORDERED: Potassium Replacement Protocol 1 EACH MISC MISCELLANE PRN (12:14)
[2017-06-24] MEDS ORDERED: POTASSIUM CHLORIDE ER 20 MEQ TAB.ER PO SCH (13:00)
--- NOTE | 2017-06-24 14:54 | PN ---
71-year-old male admitted back on June 19 with the diagnosis of CHF exacerbation and pulmonary edema. The patient does have a history of valvular heart disease as well secondary to severe aortic stenosis and does suffer from secondary pulmonary hypertension. In addition, he has a history of Haemophilus influenzae pneumonia, advanced COPD with hypoxemic respiratory failure, chronic hypoxemia with oxygen requirement, subcentimeter pulmonary nodules likely benign , chronic atrial fibrillation, PVOD, hypertension, hyperlipidemia, diabetes, gout and chronic anemia. The patient seems to be doing better. Possible discharge tomorrow. He may end up going to the rehab facility. No new complaints today. Still has lower extremity edema. It is up to Dr. Tavarez to discharge him. From the pulmonary standpoint, doing reasonably well. Currently he is on O2 of 2-3 liters with a saturation of 97%, blood pressure about 90 systolic, respiratory rate 20, heart rate 90 and temperature 98 degrees. Appears in no acute distress. Looks reasonably well. HEENT: Grossly unremarkable. Mucous membranes are moist. No oral lesions. NECK: Supple. Full range of motion. No adenopathy or thyromegaly. Neck veins are flat. CARDIOVASCULAR: Reveals regular rhythm and rate. S1/S2 normal. No S3 or S4. A soft systolic murmur is noted. LUNGS: Reveal a few scattered bibasilar crackles, a few scattered rhonchi noted. No wheezes. Breath sounds are diminished. ABDOMEN: Soft. Bowel sounds are heard. No masses. EXTREMITIES: Reveal some mild edema. No cyanosis or clubbing. SKIN: Without rash. Brief neurologic examination is nonfocal. No recent x-rays to report. The x-ray from 06/23 shows resolving pulmonary edema. Labs are reviewed. White count 4.4, hemoglobin 8.9, hematocrit 28.7, platelet count 89,000. Sodium 141, potassium 3.6, chloride 95, CO2 of 38. BUN and creatinine were 39 and 1.35. Sputum sample from 06/19 shows evidence of Haemophilus influenzae which has been treated. Medications are reviewed. ASSESSMENT: 1. Acute congestive heart failure with pulmonary edema secondary to severe aortic stenosis with secondary pulmonary hypertension. 2. Haemophilus influenzae pneumonia/purulent tracheobronchitis. 3. Advanced oxygen dependent chronic obstructive pulmonary disease. 4. Hypoxemic respiratory failure. 5. Scattered bilateral likely benign subcentimeter pulmonary nodules. 6. History of chronic atrial fibrillation. 7. Peripheral vascular occlusive disease. 8. Hypertension. 9. Hyperlipidemia. 10. Diabetes mellitus. 11. Gout. 12. Chronic anemia. 13. Gastritis. 14. Lower extremity edema. PLAN: The patient's antibiotics can be de-escalated. No additional recommendations are made. Will continue follow. The Levaquin should be more than enough for this Haemophilus influenzae. Additional recommendations and suggestions are forthcoming. Hopefully discharge soon. SHAYAN
--- NOTE | 2017-06-24 15:12 | P.PN ---
Subjective This is a 71-year-old gentleman who came to the emergency room with complaints of progressive worsening of shortness of breath. This patient has history of COPD and was admitted to this hospital earlier this month with a suspicion of GI bleeding. Apparently received one unit of blood transfusion at the time. He also received some Lasix. The last several days patient has become progressively more short of breath and developed pedal edema and came to the hospital. He has a history of moderate to severe aortic stenosis and preserved LV function. Her admission here patient was found to have JVD and also peripheral edema. Patient is given IV Lasix and seemed to be diuresing well. ProBNP is elevated. At the time of my examination patient is sleepy seemed to be relatively comfortable. No complaints of any chest pain. He is scheduled to have an echocardiogram and monitor. Patient had a last echocardiogram in November of this year at [facility]. We may repeat the echocardiogram to assess his aortic stenosis. Meanwhile we'll continue with the diagnosis 06/20/2017 Patient seen and examined this morning, continues to be extremely sleepy. Continues to diurese on IV Lasix. Creatinin 1.2. Echo revealed an ejection fraction of 55-60%. 06/23/2017, patient seen and examined this morning, states he does not feel much improvement in his breathing however he continues to diurese well. Chest x -ray reveals volume overload and interstitial edema. We will continue current dose of IV Lasix. BUN 43, creatinine 1.3, potassium 3.9. Dr. Bryant also had a discussion with the today regarding the aortic stenosis, he stated that at this time medical therapy is advised, patient will be following up with Dr. Almeida as an outpatient. 06/24/2017 Patient seen and examined this morning, he does state that he feels somewhat better today. His weight is down 2 kg today. BUN 39, creatinine 1.3, potassium 3.6. He continues to be on Lasix [address] Bryant did have a discussion again today with the patient and his explaining that his aortic valve is not yet at a critical state requiring surgery. He also mentioned that he will discuss this case further with Dr. Almeida who follows the patient in the office. Objective - Vital Signs Vital signs: Vital Signs Temp 97.9 F 06/24/17 11:30 Pulse 88 06/24/17 11:52 Resp 20 06/24/17 11:30 BP 126/61 06/24/17 11:30 Pulse Ox 98 06/24/17 11:30 Intake & Output 06/23/17 06/24/17 06/24/17 18:59 06:59 18:59 Intake Total 750 270 360 Output Total 875 400 550 Balance -125 -130 -190 Weight 106.1 kg 104.3 kg Intake: IV 50 270 0.9% NS @ 10 mL/hr 160 Invasive Line 3 10 Piperacillin-Tazobactam 3 50 100 .375 gm In Dextrose/Water 1 50ml.bag @ 12.5 mls/hr IVPB Q8H NAVJOT Rx#: [id number] Intake, IV Titration 100 Amount Levofloxacin 750Mg-D5w 100 Pmx 750 mg In Dextrose/ Water 1 150ml.bag @ 100 mls/hr IVPB Q24H NAVJOT Rx#: [id number] Oral 600 360 Output: Urine 875 400 550 Other: Voiding Method Urinal Urinal Urinal # Voids 1 0 - Exam PHYSICAL EXAMINATION: HEENT: Head is atraumatic, normocephalic. Pupils equal, round. Neck is supple. There is elevated jugular venous pressure. HEART EXAMINATION: Heart sounds regular, S1 and S2 normal with a systolic murmur. CHEST EXAMINATION: Lungs clear with mild diminished air entry to the bases. ABDOMEN: Soft, nontender. Bowel sounds are heard. No organomegaly noted. EXTREMITIES: 2+ peripheral pulses with evidence of 1+ peripheral edema and no calf tenderness noted. NEUROLOGIC patient is awake, alert and oriented x3. - Labs CBC & Chem 7: 06/24/17 06:08 06/24/17 06:08 Labs: Abnormal Lab Results - Last 24 Hours (Table) 06/23/17 06/23/17 06/24/17 Range/Units 16:23 21:13 05:43 RBC (4.30-5.90) m/uL Hgb (13.0-17.5) gm/dL Hct (39.0-53.0) % MCHC (31.0-37.0) g/dL RDW (11.5-15.5) % Plt Count (150-450) k/uL Lymphocytes # (1.0-4.8) k/uL Chloride (98-107) mmol/L Carbon Dioxide (22-30) mmol/L BUN (9-20) mg/dL Creatinine (0.66-1.25) mg/dL Glucose (74-99) mg/dL POC Glucose (mg/dL) 141 H 168 H 134 H (75-99) mg/dL 06/24/17 06/24/17 06/24/17 Range/Units 06:08 06:08 11:38 RBC 3.23 L (4.30-5.90) m/uL Hgb 8.9 L (13.0-17.5) gm/dL Hct 28.7 L (39.0-53.0) % MCHC 30.9 L (31.0-37.0) g/dL RDW 17.1 H (11.5-15.5) % Plt Count 89 L (150-450) k/uL Lymphocytes # 0.6 L (1.0-4.8) k/uL Chloride 95 L (98-107) mmol/L Carbon Dioxide 38 H (22-30) mmol/L BUN 39 H (9-20) mg/dL Creatinine 1.35 H (0.66-1.25) mg/dL Glucose 110 H (74-99) mg/dL POC Glucose (mg/dL) 238 H (75-99) mg/dL Microbiology - Last 24 Hours (Table) 06/19/17 10:25 Blood Culture - Preliminary Blood No Growth after 120 hours Assessment and Plan Plan: Assessment and Plan (1) COPD (chronic obstructive pulmonary disease) Status: Acute (2) Congestive heart failure, diastolic acute on chronic Status: Acute (3) Anemia Status: Acute (4) Aortic stenosis, moderate to severe Status: Acute (5) CVA (cerebral vascular accident) Status: Acute (6) Diabetes Status: Acute We will continue current dose of IV Lasix. Check lytes BUN creatinine and daily weights. The patient continues to put out excellent urine, consider changing over to oral diuretics in the morning. Follow-up appointment with Dr. Almeida on discharge. DNP note has been reviewed, I agree with a documented findings and plan of care. Patient was seen and examined.
--- NOTE | 2017-06-24 15:37 | P.PN ---
Subjective Progress note being dictated for Dr. Tavarez. Interval history: This a 71-year-old gentleman admitted with shortness of breath , CHF exacerbation, COPD, right lower lobe pneumonia and multiple other medical issues. Maintained on nebulized bronchodilators, Levaquin, Zosyn with breathing improving. Chest x-ray reporting volume overload, pulmonary venous hypertension, interstitial edema with no pleural effusion evident. Diuresing well on Lasix IV push with 24-hour I&O reflecting a negative fluid balance. Creatinine 1.31. Telemetry reporting atrial fibrillation, controlled ventricular rate. Date of service 06/24/2017 diuresing well on Lasix IV push with 24-hour I&O reflecting a negative fluid balance with significant weight loss of 2 kg. Borderline hypotension, systolic blood pressure currently in the high 80s. Occasional Cough- improving now with yellow phlegm. Dilated by PT/OT, home with home care recommended. Objective - Vital Signs Vital signs: Vital Signs Temp 97.9 F 06/24/17 11:30 Pulse 86 06/24/17 15:23 Resp 20 06/24/17 11:30 BP 126/61 06/24/17 11:30 Pulse Ox 98 06/24/17 11:30 Intake & Output 06/23/17 06/24/17 06/24/17 18:59 06:59 18:59 Intake Total 750 270 360 Output Total 875 400 550 Balance -125 -130 -190 Weight 106.1 kg 104.3 kg Intake: IV 50 270 0.9% NS @ 10 mL/hr 160 Invasive Line 3 10 Piperacillin-Tazobactam 3 50 100 .375 gm In Dextrose/Water 1 50ml.bag @ 12.5 mls/hr IVPB Q8H [facility]JOT Rx#: [id number] Intake, IV Titration 100 Amount Levofloxacin 750Mg-D5w 100 Pmx 750 mg In Dextrose/ Water 1 150ml.bag @ 100 mls/hr IVPB Q24H [facility]JOT Rx#: [id number] Oral 600 360 Output: Urine 875 400 550 Other: Voiding Method Urinal Urinal Urinal # Voids 1 0 - Exam PHYSICAL EXAM: VITAL SIGNS: [As above] GENERAL: [Up in bed, no acute distress HEENT: [Pupils equal conjunctiva normal.] NECK: [Supple,no JVD] RESPIRATORY EFFORT:[ Normal] LUNGS: [Bilateral bases diminished, fine scattered crackles, occasional rhonchi , no wheezing] CARDIOVASCULAR irregular, positive systolic murmur, no rubs or gallops, positive edema] GI: [Abdomen soft, nontender, positive bowel sounds.] PSYCH: [Alert and oriented -3, mood and affect normal.] NEURO: No focal deficits, moves all 4 extremities, generalized weakness Microbiology 06/19/17 10:25 Blood Blood Culture - Preliminary No Growth after 120 hours 06/19/17 14:00 Sputum Gram Stain - Final 06/19/17 14:00 Sputum Sputum Culture - Final Haemophilus influenzae - Labs CBC & Chem 7: 06/24/17 06:08 06/24/17 06:08 Labs: Abnormal Lab Results - Last 24 Hours (Table) 06/23/17 06/23/17 06/24/17 Range/Units 16:23 21:13 05:43 RBC (4.30-5.90) m/uL Hgb (13.0-17.5) gm/dL Hct (39.0-53.0) % MCHC (31.0-37.0) g/dL RDW (11.5-15.5) % Plt Count (150-450) k/uL Lymphocytes # (1.0-4.8) k/uL Chloride (98-107) mmol/L Carbon Dioxide (22-30) mmol/L BUN (9-20) mg/dL Creatinine (0.66-1.25) mg/dL Glucose (74-99) mg/dL POC Glucose (mg/dL) 141 H 168 H 134 H (75-99) mg/dL 06/24/17 06/24/17 06/24/17 Range/Units 06:08 06:08 11:38 RBC 3.23 L (4.30-5.90) m/uL Hgb 8.9 L (13.0-17.5) gm/dL Hct 28.7 L (39.0-53.0) % MCHC 30.9 L (31.0-37.0) g/dL RDW 17.1 H (11.5-15.5) % Plt Count 89 L (150-450) k/uL Lymphocytes # 0.6 L (1.0-4.8) k/uL Chloride 95 L (98-107) mmol/L Carbon Dioxide 38 H (22-30) mmol/L BUN 39 H (9-20) mg/dL Creatinine 1.35 H (0.66-1.25) mg/dL Glucose 110 H (74-99) mg/dL POC Glucose (mg/dL) 238 H (75-99) mg/dL Microbiology - Last 24 Hours (Table) 06/19/17 10:25 Blood Culture - Preliminary Blood No Growth after 120 hours Assessment and Plan Plan: 1. [ Acute on chronic CHF exacerbation, diastolic dysfunction]. 2. [ Acute COPD exacerbation, advanced with chronic hypoxic respiratory failure] . 3. [ Possible Right lower lobe pneumonia possibly gram-negative, sputum culture positive with Haemophilus influenza.]. 4. [ Diabetes mellitus type 2]. 5. [ Severe pulmonary hypertension]. 6. [ Moderate aortic stenosis]. 7. [ Moderate tricuspid regurgitation]. Plan: Continue on current medication regime, monitoring and symptomatic treatment. Continue on antibiotics, nebulized bronchodilators. Possibly converting Lasix to oral as per cardiology. Close monitoring of electrolytes and renal function with repeat labs ordered for a.m. PT/OT.Prognosis guarded given multiple complex medical issues. Discharge planning in progress for tomorrow. The impression and plan of care has been dictated as directed. : I performed a H&P examination of this patient and discussed the same with the dictator. I agree with the dictator's note. Any additional findings/opinions/ etc. will be noted.
[2017-06-24 17:08] LABS: Glucose,Whole Blood 143 mg/dL (75-99)
[2017-06-24] MEDS: ATORVASTATIN 20 MG TAB PO SCH (20:41)
[2017-06-24 21:12] LABS: Glucose,Whole Blood 145 mg/dL (75-99)
[2017-06-24] MEDS: INSULIN GLARGINE 100 UNIT/ML 10 ML VIAL SQ SCH (21:15)
[2017-06-25] MEDS: POLYMYXIN B TRIMETHOPRIM BOTH EYES SCH ×4 (03:19→15:54)
[2017-06-25] MEDS: IPRATROPIUM-ALBUTEROL 3 ML NEB INHALATION PRN (04:07)
[2017-06-25 06:31] LABS: Glucose,Whole Blood 94 mg/dL (75-99)
[2017-06-25 06:35] LABS: Anisocytosis Slight; Basophils % (A) 0 %; CH 26.9; CHCM 30.3; Eosinophils # (A) 0.1 k/uL (0-0.7); Eosinophils % (A) 1 %; HCT 28.8 % (39.0-53.0); HDW 3.27; HGB 8.5 gm/dL (13.0-17.5); Hypochromasia Marked; Luc # (Auto) 0.04; Luc % (Auto) 1; Lymphocytes # (A) 0.6 k/uL (1.0-4.8); Lymphocytes % (A) 15 %; MCH 26.4 pg (25.0-35.0); MCHC 29.6 g/dL (31.0-37.0); MCV 89.2 fL (80.0-100.0); Mean Platelet Volume 9.2; Monocytes # (A) 0.2 k/uL (0-1.0); Monocytes % (A) 5 %; Neutrophils % (A) 78 %; RBC 3.23 m/uL (4.30-5.90); WBC 3.9 k/uL (3.8-10.6); WBC (Perox) 4.28
[2017-06-25] MEDS: INSULIN LISPRO (humaLOG) 300 UNIT/3 ML VIAL SQ SCH ×2 (06:38→12:05)
[2017-06-25] MEDS: PANTOPRAZOLE 40 MG TABLET PO SCH (06:39)
[2017-06-25 06:49] LABS: Anion Gap 6 mmol/L; Blood Urea Nitrogen 32 mg/dL (9-20); Calcium 8.9 mg/dL (8.4-10.2); Carbon Dioxide 39 mmol/L (22-30); Chloride 96 mmol/L (98-107); Glucose 95 mg/dL (74-99); Non-African American GFR(MDRD) >60 (>60 ml/min/1.73 sqM); Potassium 3.6 mmol/L (3.5-5.1); Sodium 141 mmol/L (137-145)
[2017-06-25] MEDS: IPRATROPIUM-ALBUTEROL 3 ML NEB INHALATION SCH ×3 (07:54→15:46)
[2017-06-25] MEDS: FERROUS SULFATE 325 MG TAB PO SCH (09:26)
[2017-06-25] MEDS: FUROSEMIDE 10 MG/ML 4 ML VIAL IV SCH (09:26)
[2017-06-25] MEDS: METOPROLOL SUCCINATE (ER) 100 MG TAB.ER.24H PO SCH (09:26)
[2017-06-25 11:59] VITALS: BP 124/90; RESP 22; TEMP 97.4
[2017-06-25 12:04] LABS: Glucose,Whole Blood 158 mg/dL (75-99)
[2017-06-25] MEDS: LEVOFLOXACIN 750 MG TAB PO SCH (12:05)
--- NOTE | 2017-06-25 14:41 | PN ---
A 71-year-old male with a history of CHF. The patient was admitted back on June 19, 2017. Has a history of valvular heart disease secondary to severe aortic stenosis. Also suffers from secondary pulmonary hypertension. In addition, has a history of haemophilus influenza pneumonia, advanced COPD with hypoxemic respiratory failure and chronic oxygen requirements. In addition, the patient has a history of sub cm. pulmonary nodules, likely benign and likely related to granulomatous disease, chronic atrial fibrillation, ( ), hypertension, hyperlipidemia, diabetes, gout and chronic anemia. From my perspective, the patient is doing well. The pulmonary status is stable. Currently, vital signs, good temperature of 98, heart rate 80, respiratory rate 20, blood pressure 93/60, mean 71, 3 L saturation 99%. Appears in no acute distress. HEENT examination is grossly unremarkable. Mucous membranes are moist. No oral lesions. NECK: Supple, full range of motion, no adenopathy or thyromegaly. Neck veins are flat. CARDIOVASCULAR: Examination reveals regular rhythm and rate. A few extra systoles are noted. S1, S2, normal. Heart sounds are distant. Soft systolic murmur. No S3, S4. The lungs reveal mostly clear breath sounds. A few scattered mild crackles. Breath sounds equal. Abdomen is soft, bowel sounds are heard. Extremities reveal some mild edema. Legs are wrapped. Skin without rash. Neurologic examination is brief but nonfocal. Labs are reviewed, white count 3.9, hemoglobin 8.5, hematocrit 28.8, platelet count 85,000, sodium, potassium normal, chloride 96, CO2 is 39, BUN and creatinine were 32 and 1.12. No recent x-rays to report. Microbiology is positive of haemophilus influenzae in the sputum on June 19. Medications are reviewed. ASSESSMENT: 1. Acute congestive heart failure with pulmonary edema, secondary to severe aortic stenosis with secondary pulmonary hypertension. 2. Haemophilus influenzae pneumonia/purulent tracheobronchitis. 3. Advanced oxygen dependent chronic obstructive pulmonary disease. 4. Hypoxemic respiratory failure. 5. Scattered bilateral likely benign sub cm. pulmonary nodules, likely representing granulomatous disease. 6. History of chronic atrial fibrillation. 7. ( ). 8. Hypertension. 9. Hyperlipidemia. 10. Diabetes mellitus. 11. Gout. 12. Chronic anemia. 13. Gastritis. 14. Lower extremity edema. PLAN: Patient is doing well from our perspective. Could be discharged. No discharge recommendations are made. Labs, x-rays, medications are all reviewed. Everything seems to be appropriate. Will continue to follow as needed. No additional recommendations are made. [facility]
--- NOTE | 2017-06-25 15:13 | P.PN ---
Subjective This is a 71-year-old gentleman who came to the emergency room with complaints of progressive worsening of shortness of breath. This patient has history of COPD and was admitted to this hospital earlier this month with a suspicion of GI bleeding. Apparently received one unit of blood transfusion at the time. He also received some Lasix. The last several days patient has become progressively more short of breath and developed pedal edema and came to the hospital. He has a history of moderate to severe aortic stenosis and preserved LV function. Her admission here patient was found to have JVD and also peripheral edema. Patient is given IV Lasix and seemed to be diuresing well. ProBNP is elevated. At the time of my examination patient is sleepy seemed to be relatively comfortable. No complaints of any chest pain. He is scheduled to have an echocardiogram and monitor. Patient had a last echocardiogram in November of this year at [facility]. We may repeat the echocardiogram to assess his aortic stenosis. Meanwhile we'll continue with the diagnosis 06/20/2017 Patient seen and examined this morning, continues to be extremely sleepy. Continues to diurese on IV Lasix. Creatinin 1.2. Echo revealed an ejection fraction of 55-60%. 06/23/2017, patient seen and examined this morning, states he does not feel much improvement in his breathing however he continues to diurese well. Chest x -ray reveals volume overload and interstitial edema. We will continue current dose of IV Lasix. BUN 43, creatinine 1.3, potassium 3.9. Dr. Bryant also had a discussion with the today regarding the aortic stenosis, he stated that at this time medical therapy is advised, patient will be following up with Dr. Almeida as an outpatient. 06/24/2017 Patient seen and examined this morning, he does state that he feels somewhat better today. His weight is down 2 kg today. BUN 39, creatinine 1.3, potassium 3.6. He continues to be on Lasix [address] Bryant did have a discussion again today with the patient and his explaining that his aortic valve is not yet at a critical state requiring surgery. He also mentioned that he will discuss this case further with Dr. Almeida who follows the patient in the office. 06/25/2017 Seen and examined this morning, continues to diurese well overall. Still has mild edema to the right lower extremity, left lower extremity no residual edema. From cardiology's perspective he may be able to be discharged home today. We will make him a follow-up appointment to see Dr. Almeida in the office post discharge. He also recommend a 30 day event monitor on discharge. Objective - Vital Signs Vital signs: Vital Signs Temp 97.4 F L 06/25/17 11:56 Pulse 99 06/25/17 12:00 Resp 22 06/25/17 12:00 BP 124/90 06/25/17 11:56 Pulse Ox 99 06/25/17 11:56 Intake & Output 06/24/17 06/25/17 06/25/17 18:59 06:59 18:59 Intake Total 360 20 480 Output Total 550 Balance -190 20 480 Weight 104.1 kg Intake: IV 20 0.9% NS FLUSH 20 Oral 360 480 Output: Urine 550 Other: Voiding Method Urinal Urinal Urinal # Voids 0 0 - Exam PHYSICAL EXAMINATION: HEENT: Head is atraumatic, normocephalic. Pupils equal, round. Neck is supple. There is elevated jugular venous pressure. HEART EXAMINATION: Heart sounds regular, S1 and S2 normal with a systolic murmur. CHEST EXAMINATION: Lungs clear with mild diminished air entry to the bases. ABDOMEN: Soft, nontender. Bowel sounds are heard. No organomegaly noted. EXTREMITIES: 2+ peripheral pulses with evidence of tace to right lower extremity and no calf tenderness noted. NEUROLOGIC patient is awake, alert and oriented x3. - Labs CBC & Chem 7: 06/25/17 05:45 06/25/17 05:45 Labs: Abnormal Lab Results - Last 24 Hours (Table) 06/24/17 06/24/17 06/25/17 Range/Units 17:03 21:10 05:45 RBC 3.23 L (4.30-5.90) m/uL Hgb 8.5 L (13.0-17.5) gm/dL Hct 28.8 L (39.0-53.0) % MCHC 29.6 L (31.0-37.0) g/dL RDW 17.0 H (11.5-15.5) % Plt Count 85 L (150-450) k/uL Lymphocytes # 0.6 L (1.0-4.8) k/uL Chloride (98-107) mmol/L Carbon Dioxide (22-30) mmol/L BUN (9-20) mg/dL POC Glucose (mg/dL) 143 H 145 H (75-99) mg/dL 06/25/17 06/25/17 Range/Units 05:45 12:02 RBC (4.30-5.90) m/uL Hgb (13.0-17.5) gm/dL Hct (39.0-53.0) % MCHC (31.0-37.0) g/dL RDW (11.5-15.5) % Plt Count (150-450) k/uL Lymphocytes # (1.0-4.8) k/uL Chloride 96 L (98-107) mmol/L Carbon Dioxide 39 H (22-30) mmol/L BUN 32 H (9-20) mg/dL POC Glucose (mg/dL) 158 H (75-99) mg/dL Microbiology - Last 24 Hours (Table) 06/19/17 10:25 Blood Culture - Final Blood No Growth after 144 hours Assessment and Plan Plan: Assessment and Plan (1) COPD (chronic obstructive pulmonary disease) Status: Acute (2) Congestive heart failure, diastolic acute on chronic Status: Acute (3) Anemia Status: Acute (4) Aortic stenosis, moderate to severe Status: Acute (5) CVA (cerebral vascular accident) Status: Acute (6) Diabetes Status: Acute We'll discontinue the patient's IV Lasix. Start the patient on Lasix 80 mg by mouth twice a day. He may be able to be discharged home from cardiology's perspective. We will recommend a 30 day event monitor on discharge. A follow up appointment with Dr. Almeida in the office post discharge DNP note has been reviewed, I agree with a documented findings and plan of care. Patient was seen and examined.
[2017-06-25 15:50] VITALS: PULSE 84
[2017-06-25] MEDS ORDERED: FUROSEMIDE 80 MG TAB PO SCH (16:00)
== END 2017-06-25 16:44 | disposition home health service (06) | DRG 190 ==
LOC: EC 09:48 → 6SEL 11:50
PROVIDERS: ADMIT Hospitalist; ATTEND Hospitalist
DX: J44.0 Chronic obstructive pulmonary disease with (acute) lower respiratory infection (principal); J14 Pneumonia due to Hemophilus influenzae; I50.33 Acute on chronic diastolic (congestive) heart failure; J96.11 Chronic respiratory failure with hypoxia; I27.2 Other secondary pulmonary hypertension; I11.0 Hypertensive heart disease with heart failure; E11.51 Type 2 diabetes mellitus with diabetic peripheral angiopathy without gangrene; D69.6 Thrombocytopenia, unspecified; E78.5 Hyperlipidemia, unspecified; J44.1 Chronic obstructive pulmonary disease with (acute) exacerbation; Z99.81 Dependence on supplemental oxygen; I48.2 Chronic atrial fibrillation; I48.0 Paroxysmal atrial fibrillation; D64.9 Anemia, unspecified; J84.10 Pulmonary fibrosis, unspecified; I36.1 Nonrheumatic tricuspid (valve) insufficiency; K20.9 Esophagitis, unspecified; I35.0 Nonrheumatic aortic (valve) stenosis; K29.60 Other gastritis without bleeding; R74.8 Abnormal levels of other serum enzymes; K29.70 Gastritis, unspecified, without bleeding; R53.1 Weakness; R76.11 Nonspecific reaction to tuberculin skin test without active tuberculosis; H91.90 Unspecified hearing loss, unspecified ear; M19.90 Unspecified osteoarthritis, unspecified site; M10.9 Gout, unspecified; Z87.891 Personal history of nicotine dependence; Z87.01 Personal history of pneumonia (recurrent); Z79.899 Other long term (current) drug therapy; Z86.73 Personal history of transient ischemic attack (TIA), and cerebral infarction without residual deficits; Z79.4 Long term (current) use of insulin; Z82.49 Family history of ischemic heart disease and other diseases of the circulatory system; Z86.14 Personal history of Methicillin resistant Staphylococcus aureus infection; Z71.3 Dietary counseling and surveillance; Z90.49 Acquired absence of other specified parts of digestive tract; Z80.9 Family history of malignant neoplasm, unspecified; Z83.1 Family history of other infectious and parasitic diseases; Z87.19 Personal history of other diseases of the digestive system; Z88.6 Allergy status to analgesic agent; Z88.1 Allergy status to other antibiotic agents; Z88.5 Allergy status to narcotic agent; Z79.891 Long term (current) use of opiate analgesic; Z79.51 Long term (current) use of inhaled steroids; Z79.52 Long term (current) use of systemic steroids
CPT/HCPCS: 36415; 71010; 71020; 80048; 80053; 80061; 81003; 82550; 82553; 83036; 83605; 83735; 83880; 84484; 85025; 85610; 85730; 87040; 87070; 87205; 93005; 93306; 94640; 94760; 96365; 99291

== ENCOUNTER → 2017-07-14 | Outpatient (CLI) | payer OTHER ==
[2017-07-14 12:25] LABS: Anisocytosis Slight; Basophils % (A) 0 %; CH 27.6; CHCM 31.2; Eosinophils # (A) 0.1 k/uL (0-0.7); Eosinophils % (A) 3 %; HCT 28.6 % (39.0-53.0); HDW 3.22; HGB 8.9 gm/dL (13.0-17.5); Hypochromasia Moderate; Luc # (Auto) 0.06; Luc % (Auto) 2; Lymphocytes # (A) 0.5 k/uL (1.0-4.8); Lymphocytes % (A) 13 %; MCH 27.5 pg (25.0-35.0); MCV 88.9 fL (80.0-100.0); Mean Platelet Volume 8.7; Monocytes # (A) 0.2 k/uL (0-1.0); Monocytes % (A) 4 %; Neutrophils # (A) 2.7 k/uL (1.3-7.7); Neutrophils % (A) 77 %; RBC 3.22 m/uL (4.30-5.90); WBC 3.6 k/uL (3.8-10.6); WBC (Perox) 3.85
[2017-07-14 12:35] LABS: ALT 43 U/L (21-72); AST 29 U/L (17-59); Alkaline Phosphatase 73 U/L (38-126); Anion Gap 12 mmol/L; Blood Urea Nitrogen 45 mg/dL (9-20); Calcium 9.1 mg/dL (8.4-10.2); Carbon Dioxide 31 mmol/L (22-30); Chloride 95 mmol/L (98-107); Digoxin 1.2 ng/mL; Glucose 189 mg/dL (74-99); Non-African American GFR(MDRD) 54 (>60 ml/min/1.73 sqM); Potassium 4.7 mmol/L (3.5-5.1); Sodium 138 mmol/L (137-145); Total Bilirubin 2.4 mg/dL (0.2-1.3); Total Protein 6.1 g/dL (6.3-8.2)
== END | disposition home or self-care (01) ==
LOC: LABWHC1 11:39
PROVIDERS: ATTEND Internal Medicine Interventional Cardiology
DX: D48.1 Neoplasm of uncertain behavior of connective and other soft tissue (principal); D63.0 Anemia in neoplastic disease
CPT/HCPCS: 36415; 80053; 80162; 85025

== ENCOUNTER 2017-07-31 16:56 | Inpatient (IN) | payer OTHER, MEDICARE ==
[2017-07-31 17:21] LABS: Anisocytosis Slight; Basophils % (A) 0 %; CH 26.8; CHCM 30.8; Eosinophils # (A) 0.1 k/uL (0-0.7); Eosinophils % (A) 1 %; HCT 30.7 % (39.0-53.0); HDW 3.53; HGB 9.7 gm/dL (13.0-17.5); Hypochromasia Marked; Luc # (Auto) 0.11; Luc % (Auto) 2; Lymphocytes # (A) 0.8 k/uL (1.0-4.8); Lymphocytes % (A) 13 %; MCH 27.7 pg (25.0-35.0); MCHC 31.7 g/dL (31.0-37.0); MCV 87.5 fL (80.0-100.0); Mean Platelet Volume 7.5; Monocytes # (A) 0.3 k/uL (0-1.0); Monocytes % (A) 6 %; Neutrophils # (A) 4.4 k/uL (1.3-7.7); Neutrophils % (A) 77 %; Poikilocytosis Slight; RBC 3.51 m/uL (4.30-5.90); RDW 18.3 % (11.5-15.5); WBC 5.7 k/uL (3.8-10.6); WBC (Perox) 5.83
[2017-07-31 17:31] LABS: ALT 31 U/L (21-72); AST 28 U/L (17-59); Alkaline Phosphatase 90 U/L (38-126); Anion Gap 11 mmol/L; Blood Urea Nitrogen 37 mg/dL (9-20); Calcium 9.1 mg/dL (8.4-10.2); Carbon Dioxide 34 mmol/L (22-30); Chloride 96 mmol/L (98-107); Glucose 82 mg/dL (74-99); Magnesium 1.6 mg/dL (1.6-2.3); Non-African American GFR(MDRD) 60 (>60 ml/min/1.73 sqM); Potassium 4.1 mmol/L (3.5-5.1); Sodium 141 mmol/L (137-145); Total Bilirubin 1.9 mg/dL (0.2-1.3); Total Protein 6.9 g/dL (6.3-8.2)
[2017-07-31] MEDS ORDERED: IPRATROPIUM-ALBUTEROL 3 ML NEB INHALATION STA (17:31)
[2017-07-31 17:34] LABS: INR 1.2 (<1.2); Prothrombin Time 11.7 sec (9.0-12.0)
--- NOTE | 2017-07-31 17:34 | XR ---
EXAMINATION TYPE: XR chest 2V DATE OF EXAM: 07/31/2017 COMPARISON: 06/23/2017 HISTORY: Dyspnea, pain TECHNIQUE: A frontal and two lateral views of the chest were obtained. FINDINGS: There is prominent silhouetting of the pulmonary vasculature by a symmetric finding reticu lar pattern of increased density throughout the lung parenchyma reaching the periphery is septal line s. The pattern is consistent with moderate-marked interstitial phase pulmonary edema, presumably card iogenic etiology due to the mild/moderate enlargement of the cardiac silhouette. There are no focal pulmonary consolidations. There is bilateral blunting of the costophrenic angles, greater on the left, consistent with pleural effusions. No pneumothorax. Other than the mild/moderate enlargement of the aortic silhouette, the mediastinal silhouette and bon es and soft tissues are unremarkable. IMPRESSION: MODERATE-MARKED INTERSTITIAL PHASE PULMONARY EDEMA, PRESUMABLY CARDIOGENIC PULMONARY EDEMA.
[2017-07-31] MEDS ORDERED: FUROSEMIDE 10 MG/ML 4 ML VIAL IV STA (20:07)
[2017-07-31] MEDS ORDERED: NALOXONE 0.4 MG/ML 1 ML VIAL IV PRN (20:12)
[2017-07-31] MEDS ORDERED: ONDANSETRON 4 MG/2 ML VIAL IVP PRN (20:12)
--- NOTE | 2017-07-31 20:12 | ED ---
SOB HPI - General Chief Complaint: Shortness of Breath Stated Complaint: AC Time Seen by Provider: 07/31/17 17:11 Source: patient, EMS Mode of arrival: wheelchair Limitations: no limitations - History of Present Illness Initial Comments: Patient complains of shortness of breath. He has had pneumonia in the past. I' m concern for recurrent pneumonia. He has no nausea or vomiting. He has no belly or back pain. He has no chest pain currently. Nothing makes his symptoms better or worse. He has taken no medications. He denies any sick contacts. He has not traveled anywhere unusual. He has no lightheadedness or dizziness. He has no pain or swelling the legs. - Related Data Home Medications Medication Instructions Recorded Confirmed Simvastatin [Zocor] 40 mg PO HS 11/23/14 07/31/17 HYDROcodone/APAP 5-325MG [[place] 1 tab PO Q4H PRN 06/13/17 07/31/17 5-325] Metoprolol Succinate (ER) [Toprol 50 mg PO DAILY 06/13/17 07/31/17 XL] Allopurinol [Zyloprim] 300 mg PO -[facility] 07/31/17 07/31/17 Bumetanide [BUMEX] 2 mg PO BID 07/31/17 07/31/17 Calcitriol [Rocaltrol] 0.25 mcg PO DAILY 07/31/17 07/31/17 Ergocalciferol [Vitamin D2] 50,000 unit PO SA 07/31/17 07/31/17 INSULIN LISPRO (HumaLOG) [HumaLOG] See Protocol SQ ACHS 07/31/17 07/31/17 Insulin Glargine [Lantus] 30 unit SQ 07/31/17 07/31/17 Midodrine HCl [ProAmatine] 10 mg PO BID 07/31/17 07/31/17 Omeprazole [PriLOSEC] 40 mg PO -BRKT 07/31/17 07/31/17 Tiotropium [place] [Spiriva 1 puff INHALATION RT-DAILY 07/31/17 07/31/17 Respimat] Previous Rx's Medication Instructions Recorded Budesonide-Formot 160-4.5 Mcg 2 puff INHALATION RT-BID #1 puff 12/11/14 [Symbicort 160-4.5 Mcg Inhaler] Allergies Allergy/AdvReac Type Severity Reaction Status Date / Time lincomycin HCl Allergy Rash/Hives Verified 07/31/17 17:01 [From Lincocin] propoxyphene HCl Allergy Rash/Hives Verified 07/31/17 17:01 [From Darvon] aspirin AdvReac BLEEDING Verified 07/31/17 17:01 Review of Systems ROS Statement: Those systems with pertinent positive or pertinent negative responses have been documented in the HPI. ROS Other: All systems not noted in ROS Statement are negative. 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 Chronic anemia, previous history of MRSA. History of Any Multi-Drug Resistant Organisms: MRSA Date of last positivie culture/infection: 2010 MDRO Source:: R elbow Past Surgical History: Cholecystectomy, Tonsillectomy Additional Past Surgical History / Comment(s): Lipoma removal from the right side of the abdomen.bronchoscopy Past Anesthesia/Blood Transfusion Reactions: No Reported Reaction Additional Past Anesthesia/Blood Transfusion Reaction / Comment(s): blood transfusion-no reaction Past Psychological History: No Psychological Hx Reported Smoking Status: Former smoker Past Alcohol Use History: Heavy Past Drug Use History: None Reported - Past Family History Mother History Unknown: Yes Family Medical History: No Reported History Brother(s) Family Medical History: No Reported History Sister(s) Family Medical History: Cancer, Myocardial Infarction ([place]) Additional Family Medical History / Comment(s): sister had tb in past Daughter(s) Family Medical History: No Reported History Son(s) Family Medical History: No Reported History Father Family Medical History: No Reported History General Exam Limitations: no limitations General appearance: alert, in no apparent distress Head exam: Present: atraumatic, normocephalic, normal inspection Eye exam: Present: normal appearance, PERRL, EOMI. Absent: scleral icterus, conjunctival injection, periorbital swelling ENT exam: Present: normal exam, mucous membranes moist Neck exam: Present: normal inspection. Absent: tenderness, meningismus, lymphadenopathy Respiratory exam: Present: rales, rhonchi. Absent: respiratory distress, wheezes, stridor Cardiovascular Exam: Present: regular rate, normal rhythm, normal heart sounds. Absent: systolic murmur, diastolic murmur, rubs, gallop, clicks GI/Abdominal exam: Present: soft, normal bowel sounds. Absent: distended, tenderness, guarding, rebound, rigid Extremities exam: Present: normal inspection, full ROM, normal capillary refill. Absent: tenderness, pedal edema, joint swelling, calf tenderness Back exam: Present: normal inspection Neurological exam: Present: alert, oriented X3, CN II-XII intact Psychiatric exam: Present: normal affect, normal mood Skin exam: Present: warm, dry, intact, normal color. Absent: rash Course Vital Signs 07/31/17 07/31/17 07/31/17 17:00 17:09 17:12 Temperature 98.1 F 98.2 F Pulse Rate 77 104 H Respiratory 18 26 H 24 Rate Blood Pressure 99/60 106/67 102/60 O2 Sat by Pulse 94 L 94 L Oximetry 07/31/17 07/31/17 07/31/17 17:39 17:50 18:01 Temperature Pulse Rate 105 H 111 H 109 H Respiratory 24 Rate Blood Pressure 113/65 O2 Sat by Pulse 97 Oximetry 07/31/17 18:39 Temperature Pulse Rate 118 H Respiratory 24 Rate Blood Pressure O2 Sat by Pulse Oximetry Medical Decision Making - Medical Decision Making patient presents with shortness of breath. He has a positive troponin. I ordered IV heparin. I ordered an echocardiogram. He has pulmonary edema on his chest x-ray. I ordered IV Lasix. Patient will be admitted to the hospital. - Lab Data Result diagrams: 07/31/17 16:58 07/31/17 16:58 Lab Results 07/31/17 07/31/17 07/31/17 Range/Units 16:58 16:58 16:58 WBC 5.7 (3.8-10.6) k/uL RBC 3.51 L (4.30-5.90) m/uL Hgb 9.7 L (13.0-17.5) gm/dL Hct 30.7 L (39.0-53.0) % MCV 87.5 (80.0-100.0) fL MCH 27.7 (25.0-35.0) pg MCHC 31.7 (31.0-37.0) g/dL RDW 18.3 H (11.5-15.5) % Plt Count 131 L (150-450) k/uL Neutrophils % 77 % Lymphocytes % 13 % Monocytes % 6 % Eosinophils % 1 % Basophils % 0 % Neutrophils # 4.4 (1.3-7.7) k/uL Lymphocytes # 0.8 L (1.0-4.8) k/uL Monocytes # 0.3 (0-1.0) k/uL Eosinophils # 0.1 (0-0.7) k/uL Basophils # 0.0 (0-0.2) k/uL Hypochromasia Marked Poikilocytosis Slight Anisocytosis Slight PT (9.0-12.0) sec INR (<1.2) APTT (22.0-30.0) sec Sodium 141 (137-145) mmol/L Potassium 4.1 (3.5-5.1) mmol/L Chloride 96 L (98-107) mmol/L Carbon Dioxide 34 H (22-30) mmol/L Anion Gap 11 mmol/L BUN 37 H (9-20) mg/dL Creatinine 1.20 (0.66-1.25) mg/dL Est GFR (MDRD) Af Amer >60 (>60 ml/min/1.73 sqM) Est GFR (MDRD) Non-Af 60 (>60 ml/min/1.73 sqM) Glucose 82 (74-99) mg/dL Plasma Lactic Acid Jesse 1.2 (0.7-2.0) mmol/L Calcium 9.1 (8.4-10.2) mg/dL Magnesium 1.6 (1.6-2.3) mg/dL Total Bilirubin 1.9 H (0.2-1.3) mg/dL AST 28 (17-59) U/L ALT 31 (21-72) U/L Alkaline Phosphatase 90 (38-126) U/L Troponin I (0.000-0.034) ng/mL NT-Pro-B Natriuret Pep pg/mL Total Protein 6.9 (6.3-8.2) g/dL Albumin 4.2 (3.5-5.0) g/dL 07/31/17 07/31/17 07/31/17 Range/Units 16:58 16:58 16:58 WBC (3.8-10.6) k/uL RBC (4.30-5.90) m/uL Hgb (13.0-17.5) gm/dL Hct (39.0-53.0) % MCV (80.0-100.0) fL MCH (25.0-35.0) pg MCHC (31.0-37.0) g/dL RDW (11.5-15.5) % Plt Count (150-450) k/uL Neutrophils % % Lymphocytes % % Monocytes % % Eosinophils % % Basophils % % Neutrophils # (1.3-7.7) k/uL Lymphocytes # (1.0-4.8) k/uL Monocytes # (0-1.0) k/uL Eosinophils # (0-0.7) k/uL Basophils # (0-0.2) k/uL Hypochromasia Poikilocytosis Anisocytosis PT 11.7 (9.0-12.0) sec INR 1.2 H (<1.2) APTT 24.0 (22.0-30.0) sec Sodium (137-145) mmol/L Potassium (3.5-5.1) mmol/L Chloride (98-107) mmol/L Carbon Dioxide (22-30) mmol/L Anion Gap mmol/L BUN (9-20) mg/dL Creatinine (0.66-1.25) mg/dL Est GFR (MDRD) Af Amer (>60 ml/min/1.73 sqM) Est GFR (MDRD) Non-Af (>60 ml/min/1.73 sqM) Glucose (74-99) mg/dL Plasma Lactic Acid Jesse (0.7-2.0) mmol/L Calcium (8.4-10.2) mg/dL Magnesium (1.6-2.3) mg/dL Total Bilirubin (0.2-1.3) mg/dL AST (17-59) U/L ALT (21-72) U/L Alkaline Phosphatase (38-126) U/L Troponin I 0.082 H* (0.000-0.034) ng/mL NT-Pro-B Natriuret Pep 6120 pg/mL Total Protein (6.3-8.2) g/dL Albumin (3.5-5.0) g/dL 07/31/17 20:11 twelve-lead EKG is obtained, interpreted by me showing ventricular rate 108 bpm , no P waves are present, normal QRS complexes, no ST elevation or depression, interpreted by me as atrial fibrillation. Critical Care Time Critical Care Time: Yes Total Critical Care Time: 35 Disposition Clinical Impression: Acute pulmonary edema, Congestive heart failure Disposition: ADMITTED IP TO THIS HOSP Condition: Fair Referrals: Nuno Khan MD [Primary Care Provider] - 1-2 days
[2017-07-31] MEDS ORDERED: HYDROcodone/APAP 5-325MG 1 EACH TAB PO PRN (20:14)
[2017-07-31] MEDS ORDERED: HEPARIN SODIUM,PORCINE/D5W PMX 25,000 UNIT in DEXTROSE/WATER 1 500ML.BAG IV SCH (20:15)
[2017-07-31 20:40] LABS: Appearance,Urine Clear (Clear); Bilirubin,Urine Negative (Negative); Glucose,Urine (UA) Negative (Negative); Ketones,Urine Negative (Negative); Leukocyte Esterase,Urine Negative (Negative); Nitrite,Urine Negative (Negative); Protein,Urine Negative (Negative); UA Billing (MACRO vs. MICRO) CHEM; Urobilinogen,Urine <2.0 mg/dL (<2.0)
[2017-07-31 21:46] LABS: Glucose,Whole Blood 136 mg/dL (75-99)
[2017-07-31] MEDS: INSULIN LISPRO (humaLOG) 300 UNIT/3 ML VIAL SQ SCH (22:34)
[2017-07-31] MEDS: ATORVASTATIN 20 MG TAB PO SCH (22:34)
[2017-07-31] MEDS: FAMOTIDINE 20 MG TAB PO SCH (22:35)
[2017-07-31] MEDS: MIDODRINE 5 MG TAB PO SCH (22:35)
[2017-07-31] MEDS: BUMETANIDE 1 MG TAB PO SCH (22:35)
[2017-07-31] MEDS: INSULIN GLARGINE 100 UNIT/ML 10 ML VIAL SQ SCH (22:36)
--- NOTE | 2017-07-31 23:42 | P.CNPUL ---
History of Present Illness Consult date: 07/31/17 Requesting physician: Ana Morel Reason for consult: COPD, other (Congestive heart failure) Chief complaint: Shortness of breath, and fluid retention History of present illness: This is a 72-year-old white male with known history of COPD, O2 dependent, usually sees Dr. Cerda in the office. Patient is also known to have history of chronic congestive heart failure, was recently admitted to [facility] with congestive heart failure, and discharge home last Friday on multiple medications including diuretics. Patient states that he has been compliant with all the medications, however in spite of his compliance, patient presented to the ER with mostly symptoms of increased shortness of breath, retention of fluids in his lower extremities, but no chest pain, no fever, no chills, no hemoptysis, no palpitations. Chest x-ray upon evaluation in the ER showed evidence of congestive heart failure. Hence the patient was admitted and this consult was initiated. His labs showed normal CBC except for hemoglobin of 9.7 , basic metabolic profile was relatively normal except for bicarb of 3 for BUN was 37 and creatinine 1.20. BNP level was 6120, and troponin was 0.082. Clinically, and radiographically, this all pointed mostly to a picture of acute on chronic congestive heart failure presentation. Patient has been given Lasix , placed on a Bumex, and I was asked to see him on consultation. Patient is already on heparin, cardiac consultation is pending. Review of Systems 14 point review of systems were obtained, please refer to pertinent positives and negatives as per HPI. 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 Chronic anemia, previous history of MRSA. Last Myocardial Infarction Date:: PER PT CAME [place] FROM [facility] [id number] History of Any Multi-Drug Resistant Organisms: MRSA Date of last positivie culture/infection: 2010 MDRO Source:: R elbow Past Surgical History: Cholecystectomy, Tonsillectomy Additional Past Surgical History / Comment(s): Lipoma removal from the right side of the abdomen.bronchoscopy Past Anesthesia/Blood Transfusion Reactions: No Reported Reaction Additional Past Anesthesia/Blood Transfusion Reaction / Comment(s): blood transfusion-no reaction Smoking Status: Former smoker - Past Family History Mother History Unknown: Yes Family Medical History: No Reported History Brother(s) Family Medical History: No Reported History Sister(s) Family Medical History: Cancer, Myocardial Infarction ([place]) Additional Family Medical History / Comment(s): sister had tb in past Daughter(s) Family Medical History: No Reported History Son(s) Family Medical History: No Reported History Father Family Medical History: No Reported History Medications and Allergies Home Medications Medication Instructions Recorded Confirmed Type Simvastatin [Zocor] 40 mg PO HS 11/23/14 07/31/17 History Budesonide-Formot 160-4.5 Mcg 2 puff INHALATION RT-BID #1 puff 12/11/14 Rx [Symbicort 160-4.5 Mcg Inhaler] HYDROcodone/APAP 5-325MG [[place] 1 tab PO Q4H PRN 06/13/17 07/31/17 History 5-325] Metoprolol Succinate (ER) [Toprol 50 mg PO DAILY 06/13/17 07/31/17 History XL] Allopurinol [Zyloprim] 300 mg PO AC-BRKFST 07/31/17 07/31/17 History Bumetanide [BUMEX] 2 mg PO BID 07/31/17 07/31/17 History Calcitriol [Rocaltrol] 0.25 mcg PO DAILY 07/31/17 07/31/17 History Ergocalciferol [Vitamin D2] 50,000 unit PO SA 07/31/17 07/31/17 History INSULIN LISPRO (HumaLOG) [HumaLOG] See Protocol SQ ACHS 07/31/17 07/31/17 History Insulin Glargine [Lantus] 30 unit SQ HS 07/31/17 07/31/17 History Midodrine HCl [ProAmatine] 10 mg PO BID 07/31/17 07/31/17 History Omeprazole [PriLOSEC] 40 mg PO AC-BRKFST 07/31/17 07/31/17 History Tiotropium [place] [Spiriva 1 puff INHALATION RT-DAILY 07/31/17 07/31/17 History Respimat] Allergies Allergy/AdvReac Type Severity Reaction Status Date / Time lincomycin HCl Allergy Rash/Hives Verified 07/31/17 17:01 [From Lincocin] propoxyphene HCl Allergy Rash/Hives Verified 07/31/17 17:01 [From Darvon] aspirin AdvReac BLEEDING Verified 07/31/17 17:01 Physical Exam Vitals: Vital Signs Temp Pulse Pulse Resp BP BP Pulse Ox 07/31/17 21:29 97 F L 117 H 18 132/60 97 07/31/17 21:10 98.3 F 07/31/17 21:00 108 H 24 117/75 96 07/31/17 18:39 118 H 24 07/31/17 18:01 109 H 07/31/17 17:50 111 H 07/31/17 17:39 105 H 24 113/65 97 07/31/17 17:12 98.2 F 104 H 24 102/60 94 L 07/31/17 17:09 26 H 106/67 07/31/17 17:00 98.1 F 77 18 99/60 94 L Intake and Output 07/31/17 07/31/17 08/01/17 14:59 22:59 06:59 Output Total 350 Balance -350 Output: Urine 350 Other: Weight 104.326 kg Patient Weight 08/01/17 06:59 Weight 104.326 kg Physical Exam: Revealed a 72-year-old white male in mild respiratory distress. HEENT:[Neck is supple.] [No neck masses.] [No thyromegaly.] [No JVD.] Chest: [Normal crackles at the bases, some wheezing on forced expiratory maneuver only..] Cardiac Exam: [Normal S1 and S2, no S3 gallop, 2/6 systolic murmur throughout the precordium.] Abdomen: [Soft, nontender, no megaly, no rebound, no guarding, normal bowel sounds.] Extremities: [No clubbing, plus bipedal edema, no cyanosis. Neurological Exam: [No focal neurologic deficit.] Results - Laboratory Findings CBC and BMP: 07/31/17 16:58 07/31/17 16:58 PT/INR, D-dimer PT 11.7 sec (9.0-12.0) 07/31/17 16:58 INR 1.2 (<1.2) H 07/31/17 16:58 Abnormal lab findings: Abnormal Labs 07/31/17 07/31/17 07/31/17 16:58 16:58 16:58 RBC 3.51 L Hgb 9.7 L Hct 30.7 L RDW 18.3 H Plt Count 131 L Lymphocytes # 0.8 L INR 1.2 H Chloride 96 L Carbon Dioxide 34 H BUN 37 H POC Glucose (mg/dL) Total Bilirubin 1.9 H Troponin I 07/31/17 07/31/17 16:58 21:45 RBC Hgb Hct RDW Plt Count Lymphocytes # INR Chloride Carbon Dioxide BUN POC Glucose (mg/dL) 136 H Total Bilirubin Troponin I 0.082 H* - Diagnostic Findings Chest x-ray: image reviewed (Chest x-ray is suggestive of interstitial edema, there is also mild to moderate cardiomegaly.) Assessment and Plan Plan: Impression: 1 acute on chronic congestive heart failure, most likely secondary to diastolic dysfunction and moderate severe aortic stenosis. 2 chronic cor pulmonale 3 severe pulmonary hypertension based on the recent echocardiogram. 4 history of moderate mitral and tricuspid regurgitation. 5 history of advanced COPD and chronic hypoxic respiratory failure secondary to COPD and congestive heart failure. 6 history of chronic bilateral subcentimeter nodules related to [place] level disease. 7 history of chronic atrial fibrillation. 8 history of hypertension 9 history of hyperlipidemia 10 history of gout 11 history of chronic anemia 12 history of GI bleeding secondary to gastritis. 13 history of peripheral vessel occlusive disease. 14 history of Haemophilus influenza pneumonia fully treated and resolved. 15 possible non-ST segment elevation myocardial infarction. Patient is presently on heparin, follow-up troponin is pending. Cardiac consultation is also pending. Recommendation: Continue present treatment plan including bronchodilators in the form of DuoNeb, and Symbicort, continue diuretics, continue heparin, continue insulin, continue beta blockers, depending on the follow-up chest x- ray in the morning, may have to increase the dose of diuretics. Long-term prognosis remains guarded, we'll continue to follow. Time with Patient: Greater than 30
[2017-08-01] MEDS: LEVALBUTEROL NEB 1.25 MG/3 ML AMP INHALATION SCH ×4 (00:54→19:07)
[2017-08-01 05:41] LABS: Glucose,Whole Blood 227 mg/dL (75-99)
[2017-08-01] MEDS: INSULIN LISPRO (humaLOG) 300 UNIT/3 ML VIAL SQ SCH ×8 (06:21→20:56)
[2017-08-01] MEDS: ALLOPURINOL 300 MG TAB PO SCH (06:23)
[2017-08-01] MEDS ORDERED: LEVALBUTEROL NEB 1.25 MG/3 ML AMP INHALATION SCH (08:00)
[2017-08-01] MEDS: BUMETANIDE 1 MG TAB PO SCH (08:18)
[2017-08-01] MEDS: METOPROLOL SUCCINATE (ER) 50 MG TAB.ER.24H PO SCH (08:18)
[2017-08-01] MEDS: MIDODRINE 5 MG TAB PO SCH ×2 (08:18→20:15)
[2017-08-01] MEDS: FAMOTIDINE 20 MG TAB PO SCH ×2 (08:18→20:15)
[2017-08-01] MEDS: SYMBICORT 160-4.5 MCG INHALER INHALATION SCH ×2 (08:22→19:06)
[2017-08-01] MEDS: TIOTROPIUM 18 MCG/PUFF INHALER INHALATION SCH (08:39)
[2017-08-01 10:04] LABS: Hemoglobin A1C 5.9 % (4.2-6.1)
--- NOTE | 2017-08-01 11:12 | XR ---
EXAMINATION TYPE: XR chest 1V portable DATE OF EXAM: 08/01/2017 COMPARISON: Prior chest x-ray 07/31/[address] 04/29/2017 HISTORY: Congestive heart failure TECHNIQUE: Single frontal view of the chest is obtained. FINDINGS: Similar findings to prior exam. The heart is enlarged. Interstitium and central vascularit y are prominent. No pneumothorax. Mediastinum is widened and stable. There is persistent blunting the left costophrenic angle. IMPRESSION: Correlate for congestive heart failure. Follow-up recommended.
[2017-08-01 11:33] LABS: Glucose,Whole Blood 256 mg/dL (75-99)
--- NOTE | 2017-08-01 12:27 | P.CRDCN ---
History of Present Illness Consult date: 08/01/17 Consult reason: congestive heart failure History of present illness: 72-year-old gentleman is admitted to hospital with acute exacerbation of chronic diastolic heart failure. He has known moderate aortic stenosis pulmonary hypertension and diastolic heart failure. He was recently admitted to hospital and discharged home. He comes in complaining of shortness of breath leg edema and paroxysmal nocturnal dyspnea. He is currently being treated with diuretics with improvement in his symptoms. He has mild troponin elevation of unclear clinical significance. He has chronic atrial fibrillation but is not a candidate for long-term anticoagulation because of history of bleeding. I reviewed his outpatient records. Reviewed his EKG. Reviewed his echocardiogram. The plan at this stage is to stop the IV heparin put him on subcu heparin treat him with IV Lasix and continue rest of the congestive heart failure therapies. Review of Systems Constitutional: Denies chills. Denies fever. Eyes: Denies blurred vision. Denies pain. Ears, nose, mouth and throat: Denies headache. Denies sore throat. Cardiovascular: Denies chest pain. Has shortness of breath Respiratory: Denies cough. Gastrointestinal: Denies abdominal pain. Denies diarrhea. Denies nausea. Denies vomiting. Musculoskeletal: Denies myalgias. Integumentary: Denies pruritus. Denies rash. Neurological: Denies numbness. Denies weakness. Psychiatric: Denies anxiety. Denies depression. Endocrine: Denies fatigue. Denies weight change. Genitourinary: Denies burning, hematuria, frequency of urination. Hematological: No anemia or excess bleeding. 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 Chronic anemia, previous history of MRSA. Last Myocardial Infarction Date:: PER PT CAME HOME FROM [facility]9-4 2017 History of Any Multi-Drug Resistant Organisms: MRSA Date of last positivie culture/infection: 2010 MDRO Source:: R elbow Past Surgical History: Cholecystectomy, Tonsillectomy Additional Past Surgical History / Comment(s): Lipoma removal from the right side of the abdomen.bronchoscopy Past Anesthesia/Blood Transfusion Reactions: No Reported Reaction Additional Past Anesthesia/Blood Transfusion Reaction / Comment(s): blood transfusion-no reaction Smoking Status: Former smoker - Past Family History Mother History Unknown: Yes Family Medical History: No Reported History Brother(s) Family Medical History: No Reported History Sister(s) Family Medical History: Cancer, Myocardial Infarction (ID) Additional Family Medical History / Comment(s): sister had tb in past Daughter(s) Family Medical History: No Reported History Son(s) Family Medical History: No Reported History Father Family Medical History: No Reported History Medications and Allergies Home Medications Medication Instructions Recorded Confirmed Type Simvastatin [Zocor] 40 mg PO HS 11/23/14 07/31/17 History Budesonide-Formot 160-4.5 Mcg 2 puff INHALATION RT-BID #1 puff 12/11/14 Rx [Symbicort 160-4.5 Mcg Inhaler] HYDROcodone/APAP 5-325MG [Hughes 1 tab PO Q4H PRN 06/13/17 07/31/17 History 5-325] Metoprolol Succinate (ER) [Toprol 50 mg PO DAILY 06/13/17 07/31/17 History XL] Allopurinol [Zyloprim] 300 mg PO AC-BRKFST 07/31/17 07/31/17 History Bumetanide [BUMEX] 2 mg PO BID 07/31/17 07/31/17 History Calcitriol [Rocaltrol] 0.25 mcg PO DAILY 07/31/17 07/31/17 History Ergocalciferol [Vitamin D2] 50,000 unit PO SA 07/31/17 07/31/17 History INSULIN LISPRO (HumaLOG) [HumaLOG] See Protocol SQ ACHS 07/31/17 07/31/17 History Insulin Glargine [Lantus] 30 unit SQ HS 07/31/17 07/31/17 History Midodrine HCl [ProAmatine] 10 mg PO BID 07/31/17 07/31/17 History Omeprazole [PriLOSEC] 40 mg PO AC-BRKFST 07/31/17 07/31/17 History Tiotropium Douglas [Spiriva 1 puff INHALATION RT-DAILY 07/31/17 07/31/17 History Respimat] Allergies Allergy/AdvReac Type Severity Reaction Status Date / Time lincomycin HCl Allergy Rash/Hives Verified 07/31/17 17:01 [From Lincocin] propoxyphene HCl Allergy Rash/Hives Verified 07/31/17 17:01 [From Darvon] aspirin AdvReac BLEEDING Verified 07/31/17 17:01 Physical Exam Vitals: Vital Signs Temp Pulse Pulse Resp BP BP BP 08/01/17 08:32 115 H 08/01/17 08:22 117 H 08/01/17 08:00 97.1 F L 107 H 18 112/66 08/01/17 04:00 97.1 F L 86 18 127/65 08/01/17 01:06 109 H 08/01/17 00:55 107 H 08/01/17 00:00 120 H 18 107/72 07/31/17 21:29 97 F L 117 H 18 132/60 07/31/17 21:10 98.3 F 07/31/17 21:00 108 H 24 117/75 07/31/17 18:39 118 H 24 07/31/17 18:01 109 H 07/31/17 17:50 111 H 07/31/17 17:39 105 H 24 113/65 07/31/17 17:12 98.2 F 104 H 24 102/60 07/31/17 17:09 26 H 106/67 07/31/17 17:00 98.1 F 77 18 99/60 Pulse Ox 08/01/17 08:32 08/01/17 08:22 98 08/01/17 08:00 97 08/01/17 04:00 97 08/01/17 01:06 08/01/17 00:55 08/01/17 00:00 98 07/31/17 21:29 97 07/31/17 21:10 07/31/17 21:00 96 07/31/17 18:39 07/31/17 18:01 07/31/17 17:50 09/07/17 17:39 97 07/31/17 17:12 94 L 07/31/17 17:09 07/31/17 17:00 94 L Intake and Output 07/31/17 08/01/17 08/01/17 22:59 06:59 14:59 Intake Total 150.893 Output Total 350 750 Balance -350 -599.107 Intake: Intake, IV Titration 150.893 Amount Heparin Sodium,Porcine/ 150.893 D5w Pmx 25,000 unit In Dextrose/Water 1 500ml. bag @ 9.6 UNITS/KG/HR 20. 03 mls/hr IV .Q24H [facility] Rx #:[id number] Output: Urine 350 750 Other: Weight 104.326 kg 104.2 kg General: The patient is awake and alert, in no distress, and does not appear acutely ill. Skin: Skin is warm and dry and no rashes or lesions are noted. Eye: Pupils are equal, round and reactive to light, extra-ocular movements are intact; there is normal conjunctiva bilaterally. Ears, nose, mouth and throat: There are moist mucous membranes and no oral lesions. Neck: The neck is supple, there is no tenderness or JVD. Cardiovascular: Irregular grade 3 x 6 ejection systolic murmur at the base Respiratory: Lungs are clear to auscultation, respirations are non-labored, breath sounds are equal. Gastrointestinal: Soft, non-distended, non-tender abdomen without masses or organomegaly noted. There is no rebound or guarding present. Bowel sounds are unremarkable. Back: There is no tenderness to palpation in the midline. There is no obvious deformity. Musculoskeletal: Normal ROM, no tenderness, There is no pedal edema. There is no calf tenderness or swelling. Extremities: 1-2+ pitting edema with chronic changes of stasis Vascular: Femoral pulse is normal. Posterior tibial pulses are normal .Dorsalis pedis is palpable. Neurological: CN II-XII intact. There are no obvious motor or sensory deficits. Speech is normal. Psychiatric: Cooperative, appropriate mood & affect, normal judgment. Results 07/31/17 16:58 07/31/17 16:58 Cardiac Enzymes 07/31/17 07/31/17 07/31/17 Range/Units 16:58 16:58 23:40 AST 28 (17-59) U/L Troponin I 0.082 H* 0.071 H* (0.000-0.034) ng/mL 08/01/17 Range/Units 05:22 AST (17-59) U/L Troponin I 0.077 H* (0.000-0.034) ng/mL Coagulation 07/31/17 08/01/17 08/01/17 Range/Units 16:58 02:38 09:56 PT 11.7 (9.0-12.0) sec APTT 24.0 33.8 H 47.0 H (22.0-30.0) sec CBC 07/31/17 Range/Units 16:58 WBC 5.7 (3.8-10.6) k/uL RBC 3.51 L (4.30-5.90) m/uL Hgb 9.7 L (13.0-17.5) gm/dL Hct 30.7 L (39.0-53.0) % Plt Count 131 L (150-450) k/uL Comprehensive Metabolic Panel 07/31/17 Range/Units 16:58 Sodium 141 (137-145) mmol/L Potassium 4.1 (3.5-5.1) mmol/L Chloride 96 L (98-107) mmol/L Carbon Dioxide 34 H (22-30) mmol/L BUN 37 H (9-20) mg/dL Creatinine 1.20 (0.66-1.25) mg/dL Glucose 82 (74-99) mg/dL Calcium 9.1 (8.4-10.2) mg/dL AST 28 (17-59) U/L ALT 31 (21-72) U/L Alkaline Phosphatase 90 (38-126) U/L Total Protein 6.9 (6.3-8.2) g/dL Albumin 4.2 (3.5-5.0) g/dL Current Medications Generic Name Dose Route Start Last Admin Trade Name Freq PRN Reason Stop Dose Admin Hydrocodone Bitart/Acetaminophen 1 each 07/31/17 20:14 Hughes 5-325 PO Q4H PRN Moderate Pain Allopurinol 300 mg 08/01/17 07:30 08/01/17 06:23 Zyloprim PO 300 mg AC-BRKFST [facility] Administration Atorvastatin Calcium 20 mg 07/31/17 21:00 07/31/17 22:34 Lipitor PO 20 mg HS [facility] Administration Budesonide/Formoterol Fumarate 2 puff 08/01/17 08:00 08/01/17 08:22 Symbicort 160-4.5 Mcg Inhaler INHALATION 2 puff RT-BID [facility] Administration Bumetanide 2 mg 07/31/17 21:00 08/01/17 08:18 Bumex PO 2 mg BID [facility] Administration Famotidine 20 mg 07/31/17 21:00 08/01/17 08:18 Pepcid PO 20 mg BID [facility] Administration Heparin Sodium/Dextrose 25,000 500 mls @ 20.03 mls/hr 07/31/17 20:15 03:59 unit/ IV Solution IV 12.6 units/kg/hr .Q24H [facility] 26.29 mls/hr Protocol Titration 9.6 UNITS/KG/HR Insulin Glargine 30 unit 07/31/17 21:00 07/31/17 22:36 Lantus SQ 30 unit HS [facility] Administration Insulin Human Lispro 10 unit 07/31/17 21:00 08/01/17 06:21 Humalog SQ Not Given [facility] Insulin Human Lispro 0 unit 08/01/17 07:30 08/01/17 06:25 Humalog SQ 5 unit ACHS [facility] Administration Protocol Levalbuterol HCl 1.25 mg 07/31/17 23:55 08/01/17 08:22 Xopenex Nebulized INHALATION 1.25 mg RT-TID [facility] Administration Metoprolol Succinate 50 mg 08/01/17 09:00 08/01/17 08:18 Toprol Xl PO 50 mg DAILY [facility] Administration Midodrine 10 mg 07/31/17 21:00 08/01/17 08:18 Proamatine PO 10 mg BID [facility] Administration Naloxone HCl 0.2 mg 07/31/17 20:12 Narcan IV Q2M PRN Opioid Reversal Ondansetron HCl 4 mg 07/31/17 20:12 Zofran IVP Q8HR PRN Nausea And Vomiting Tiotropium Douglas 1 puff 08/01/17 08:00 08/01/17 08:39 Spiriva INHALATION Not Given RT-DAILY [facility] Intake and Output 07/31/17 08/01/17 08/01/17 22:59 06:59 14:59 Intake Total 150.893 Output Total 350 750 Balance -350 -599.107 Intake: Intake, IV Titration 150.893 Amount Heparin Sodium,Porcine/ 150.893 D5w Pmx 25,000 unit In Dextrose/Water 1 500ml. bag @ 9.6 UNITS/KG/HR 20. 03 mls/hr IV .Q24H [facility] Rx #:[id number] Output: Urine 350 750 Other: Weight 104.326 kg 104.2 kg 07/31/17 16:58 07/31/17 16:58 EKG Interpretations (text) Atrial fibrillation with nonspecific ST-T wave changes Assessment and Plan Plan: Acute exacerbation of chronic diastolic heart failure Aortic stenosis Chronic atrial fibrillation COPD on home O2 8 I will start the patient on Lasix IV 40 mg every 8 start him on lisinopril continue the beta jim
[2017-08-01] MEDS ORDERED: LISINOPRIL 5 MG TAB PO SCH (12:30)
--- NOTE | 2017-08-01 13:41 | P.PN ---
Subjective Principal diagnosis: Acute on chronic diastolic congestive heart failure This is a 72-year-old white male with known history of COPD, O2 dependent, usually sees Dr. Cerda in the office. Patient is also known to have history of chronic congestive heart failure, was recently admitted to [facility] with congestive heart failure, and discharge home last Friday on multiple medications including diuretics. Patient states that he has been compliant with all the medications, however in spite of his compliance, patient presented to the ER with mostly symptoms of increased shortness of breath, retention of fluids in his lower extremities, but no chest pain, no fever, no chills, no hemoptysis, no palpitations. Chest x-ray upon evaluation in the ER showed evidence of congestive heart failure. Hence the patient was admitted and this consult was initiated. His labs showed normal CBC except for hemoglobin of 9.7 , basic metabolic profile was relatively normal except for bicarb of 3 for BUN was 37 and creatinine 1.20. BNP level was 6120, and troponin was 0.082. Clinically, and radiographically, this all pointed mostly to a picture of acute on chronic congestive heart failure presentation. Patient has been given Lasix , placed on a Bumex, and I was asked to see him on consultation. Patient is already on heparin, cardiac consultation is pending. Patient was reevaluated today on 08/01/2017, slight improvement, but not much. Continues to have some shortness of breath, continues to have some crackles at the bases, chest x-ray is not any different, continues to be compatible with congestive heart failure. Hence I will go ahead and place the patient on a maintenance dose of Lasix 40 mg IV push every 8 hours, and discontinue oral Bumex. May even consider a Lasix drip on this patient. Troponin level was noted to be 0.077. Patient continues to have significant swelling in the lower extremities. Objective - Vital Signs Vital signs: Vital Signs Temp 97.1 F L 08/01/17 08:00 Pulse 98 08/01/17 13:33 Resp 18 08/01/17 08:00 BP 112/66 08/01/17 08:00 Pulse Ox 98 08/01/17 08:22 Intake & Output 07/31/17 08/01/17 08/01/17 18:59 06:59 18:59 Intake Total 150.893 Output Total 1100 Balance -949.107 Weight 104.326 kg 104.2 kg Intake: Intake, IV Titration 150.893 Amount Heparin Sodium,Porcine/ 150.893 D5w Pmx 25,000 unit In Dextrose/Water 1 500ml. bag @ 9.6 UNITS/KG/HR 20. 03 mls/hr IV .Q24H [facility] Rx #:[id number] Output: Urine 1100 - Exam Physical Exam: Revealed a 72-year-old white male in mild respiratory distress. HEENT:[Neck is supple.] [No neck masses.] [No thyromegaly.] [No JVD.] Chest: [Normal crackles at the bases, some wheezing on forced expiratory maneuver only..] Cardiac Exam: [Normal S1 and S2, no S3 gallop, 2/6 systolic murmur throughout the precordium.] Abdomen: [Soft, nontender, no megaly, no rebound, no guarding, normal bowel sounds.] Extremities: [No clubbing, plus bipedal edema, no cyanosis. Neurological Exam: [No focal neurologic deficit.] - Labs CBC & Chem 7: 07/31/17 16:58 07/31/17 16:58 Labs: Abnormal Lab Results - Last 24 Hours (Table) 07/31/17 07/31/17 07/31/17 Range/Units 16:58 16:58 16:58 RBC 3.51 L (4.30-5.90) m/uL Hgb 9.7 L (13.0-17.5) gm/dL Hct 30.7 L (39.0-53.0) % RDW 18.3 H (11.5-15.5) % Plt Count 131 L (150-450) k/uL Lymphocytes # 0.8 L (1.0-4.8) k/uL INR 1.2 H (<1.2) APTT (22.0-30.0) sec Chloride 96 L (98-107) mmol/L Carbon Dioxide 34 H (22-30) mmol/L BUN 37 H (9-20) mg/dL POC Glucose (mg/dL) (75-99) mg/dL Total Bilirubin 1.9 H (0.2-1.3) mg/dL Troponin I (0.000-0.034) ng/mL 09/06/0907/31/17 07/31/17 Range/Units 16:58 21:45 23:40 RBC (4.30-5.90) m/uL Hgb (13.0-17.5) gm/dL Hct (39.0-53.0) % RDW (11.5-15.5) % Plt Count (150-450) k/uL Lymphocytes # (1.0-4.8) k/uL INR (<1.2) APTT (22.0-30.0) sec Chloride (98-107) mmol/L Carbon Dioxide (22-30) mmol/L BUN (9-20) mg/dL POC Glucose (mg/dL) 136 H (75-99) mg/dL Total Bilirubin (0.2-1.3) mg/dL Troponin I 0.082 H* 0.071 H* (0.000-0.034) ng/mL 08/01/17 08/01/17 08/01/17 Range/Units 02:38 05:22 05:39 RBC (4.30-5.90) m/uL Hgb (13.0-17.5) gm/dL Hct (39.0-53.0) % RDW (11.5-15.5) % Plt Count (150-450) k/uL Lymphocytes # (1.0-4.8) k/uL INR (<1.2) APTT 33.8 H (22.0-30.0) sec Chloride (98-107) mmol/L Carbon Dioxide (22-30) mmol/L BUN (9-20) mg/dL POC Glucose (mg/dL) 227 H (75-99) mg/dL Total Bilirubin (0.2-1.3) mg/dL Troponin I 0.077 H* (0.000-0.034) ng/mL 08/01/17 08/01/17 Range/Units 09:56 11:26 RBC (4.30-5.90) m/uL Hgb (13.0-17.5) gm/dL Hct (39.0-53.0) % RDW (11.5-15.5) % Plt Count (150-450) k/uL Lymphocytes # (1.0-4.8) k/uL INR (<1.2) APTT 47.0 H (22.0-30.0) sec Chloride (98-107) mmol/L Carbon Dioxide (22-30) mmol/L BUN (9-20) mg/dL POC Glucose (mg/dL) 256 H (75-99) mg/dL Total Bilirubin (0.2-1.3) mg/dL Troponin I (0.000-0.034) ng/mL Microbiology - Last 24 Hours (Table) 07/31/17 20:01 Urine Culture - Preliminary Urine,Voided Assessment and Plan Plan: Impression: 1 acute on chronic congestive heart failure, most likely secondary to diastolic dysfunction and moderate severe aortic stenosis. 2 chronic cor pulmonale 3 severe pulmonary hypertension based on the recent echocardiogram. 4 history of moderate mitral and tricuspid regurgitation. 5 history of advanced COPD and chronic hypoxic respiratory failure secondary to COPD and congestive heart failure. 6 history of chronic bilateral subcentimeter nodules related to old [place] level disease. 7 history of chronic atrial fibrillation. 8 history of hypertension 9 history of hyperlipidemia 10 history of gout 11 history of chronic anemia 12 history of GI bleeding secondary to gastritis. 13 history of peripheral vessel occlusive disease. 14 history of Haemophilus influenza pneumonia fully treated and resolved. 15 possible non-ST segment elevation myocardial infarction. Patient is presently on heparin, follow-up troponin is pending. Cardiac consultation is also pending. Recommendation: Continue present treatment plan including bronchodilators in the form of DuoNeb, and Symbicort, continue diuretics, will place on Lasix 40 mg IV push every 8 hours, discontinue Bumex, continue heparin, continue insulin , continue beta blockers, chest x-ray this morning continues to show pulmonary edema, we'll continue to follow. Time with Patient: Less than 30
--- NOTE | 2017-08-01 14:11 | P.HPIM ---
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 Apparently he was recently discharged from [facility] and he was barely 4 days at home when he started having shortness of breath edema PND of 1 day duration. Apparently some of the medications were changed during his [facility] admission, patient was compliant with medications, and diet, he cannot tolerate compression stockings on the lower extremity, he has some Vasu wrap in the house which he has not been using He has significant moderate aortic stenosis, severe pulmonary hypertension chronic atrial fibrillation not a candidate for long-term anticoagulation. He also complains off yellow productive cough no fever no chills no chest pain no lightheadedness no dizziness nor orthostasis he has urinary frequency Last echocardiogram 06/20/2017 showed moderate tricuspid regurgitation and severe pulmonary hypertension RSVP 62 EF 55-60% aortic valve thickening with moderate aortic stenosis. Patient had a sleep study performed also according to him he passed his sleep study report Patient presents to emergency room with acute on chronic diastolic CHF exacerbation and edema, and this in consultation by Dr. Meza from pulmonary and consult cardiology Review of Systems Constitutional: Reports as per HPI, Denies anorexia, Denies chills, Denies chronic headaches, Denies chronic pain, Denies daytime sleepiness, Denies fatigue, Denies fever, Denies lethargy, Denies malaise, Denies night sweats, Denies poor appetite, Denies sweats, Denies weakness, Denies weight gain, Denies weight loss Ears, nose, mouth and throat: Reports as per HPI, Denies ant. neck pain, Denies bleeding gums, Denies dental pain, Denies dysphagia, Denies epistaxis, Denies headache, Denies hoarseness, Denies mouth pain, Denies nasal congestion, Denies nasal discharge, Denies neck fullness/pressure, Denies neck lump, Denies nose pain, Denies odynophagia, Denies post-nasal drip, Denies sinus pain, Denies sinus pressure, Denies swelling in mouth, Denies swelling in throat, Denies sore throat, Denies vertigo, Denies voice changes Cardiovascular: Reports as per HPI, Reports decreased exercise tolerance, Reports dyspnea on exertion, Reports leg edema, Denies chest pain, Denies claudication, Denies edema, Denies high blood pressure, Denies irregular heart beat, Denies lightheadedness, Denies orthopnea, Denies palpitations, Denies paroxysmal nocturnal dyspnea, Denies phlebitis, Denies rapid heart beat, Denies shortness of breath, Denies syncope Respiratory: Reports as per HPI, Denies congestion, Denies cough, Denies cough with sputum, Denies dyspnea, Denies excessive sputum, Denies hemoptysis, Denies home oxygen, Denies pain, Denies pain on inspiration, Denies pleurisy, Denies respiratory infections, Denies sleep apnea, Denies snoring, Denies wheezing Gastrointestinal: Reports as per HPI, Denies abdominal pain, Denies belching, Denies bloating, Denies BRBPR, Denies change in bowel habits, Denies coffee ground emesis, Denies constipation, Denies diarrhea, Denies dyspepsia, Denies early satiety, Denies excessive gas, Denies heartburn, Denies hematemesis, Denies hematochezia, Denies indigestion, Denies jaundice, Denies lactose intolerance, Denies loss of appetite, Denies melena, Denies nausea, Denies vomiting Genitourinary: Reports as per HPI, Denies decreased libido, Denies difficulties fathering child, Denies discharge, Denies dysuria, Denies erectile dysfunction, Denies flank pain, Denies genital pain, Denies genital sores, Denies hematuria, Denies impotence, Denies incontinence, Denies kidney stones, Denies nocturia, Denies polyuria, Denies testicular lump, Denies testicular pain, Denies urinary frequency, Denies urinary hesitancy, Denies urinary retention Musculoskeletal: Reports as per HPI, Denies arm numbness/tingling, Denies atrophy, Denies fractures, Denies frequent falls, Denies gait dysfunction, Denies hot joints, Denies leg numbness/tingling, Denies limitation of motion, Denies loss of height, Denies low back pain, Denies morning stiffness, Denies muscle cramps, Denies muscle weakness, Denies myalgias, Denies neck pain, Denies neck stiffness, Denies prior amputations, Denies redness of joints, Denies shooting arm pain, Denies shooting leg pain Integumentary: Reports as per HPI, Denies acne, Denies boils, Denies brittle nails, Denies change in hair/nails, Denies color changes, Denies darkening of skin, Denies depigmentation, Denies dryness, Denies foot/leg ulcers, Denies growths, Denies hirsutism, Denies lesions, Denies onychomycosis, Denies pruritus , Denies rash, Denies sores, Denies striae, Denies unusual bruising, Denies wounds Neurological: Reports as per HPI Psychiatric: Reports as per HPI Endocrine: Reports as per HPI, Reports increase in ring/shoe/hat size Allergic/Immunologic: Reports as per HPI Past Medical History Past Medical History: Atrial Fibrillation, Heart Failure, COPD, CVA/TIA, Diabetes Mellitus, Hearing Disorder / Deafness, Hyperlipidemia, Hypertension, Myocardial Infarction ([place]), Osteoarthritis (OA), Pneumonia Additional Past Medical History / Comment(s): Advanced COPD, chronic hypoxic respiratory failure, 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 Chronic anemia, previous history of MRSA. Last Myocardial Infarction Date:: PER PT CAME HOME FROM [facility]07-28 History of Any Multi-Drug Resistant Organisms: MRSA Date of last positivie culture/infection: 2010 MDRO Source:: R elbow Past Surgical History: Cholecystectomy, Tonsillectomy Additional Past Surgical History / Comment(s): Lipoma removal from the right side of the abdomen.bronchoscopy Past Anesthesia/Blood Transfusion Reactions: No Reported Reaction Additional Past Anesthesia/Blood Transfusion Reaction / Comment(s): blood transfusion-no reaction Smoking Status: Former smoker - Past Family History Mother History Unknown: Yes Family Medical History: No Reported History Brother(s) Family Medical History: No Reported History Sister(s) Family Medical History: Cancer, Myocardial Infarction ([place]) Additional Family Medical History / Comment(s): sister had tb in past Daughter(s) Family Medical History: No Reported History Son(s) Family Medical History: No Reported History Father Family Medical History: No Reported History Medications and Allergies Home Medications Medication Instructions Recorded Confirmed Type Simvastatin [Zocor] 40 mg PO HS 11/23/14 07/31/17 History Budesonide-Formot 160-4.5 Mcg 2 puff INHALATION RT-BID #1 puff 12/11/14 Rx [Symbicort 160-4.5 Mcg Inhaler] HYDROcodone/APAP 5-325MG [[place] 1 tab PO Q4H PRN 06/13/17 07/31/17 History 5-325] Metoprolol Succinate (ER) [Toprol 50 mg PO DAILY 06/13/17 07/31/17 History XL] Allopurinol [Zyloprim] 300 mg PO AC-BRKFST 07/31/17 07/31/17 History Bumetanide [BUMEX] 2 mg PO BID 07/31/17 07/31/17 History Calcitriol [Rocaltrol] 0.25 mcg PO DAILY 07/31/17 07/31/17 History Ergocalciferol [Vitamin D2] 50,000 unit PO SA 07/31/17 07/31/17 History INSULIN LISPRO (HumaLOG) [HumaLOG] See Protocol SQ ACHS 07/31/17 07/31/17 History Insulin Glargine [Lantus] 30 unit SQ HS 07/31/17 07/31/17 History Midodrine HCl [ProAmatine] 10 mg PO BID 07/31/17 07/31/17 History Omeprazole [PriLOSEC] 40 mg PO AC-BRKFST 07/31/17 07/31/17 History Tiotropium [place] [Spiriva 1 puff INHALATION RT-DAILY 07/31/17 07/31/17 History Respimat] Allergies Allergy/AdvReac Type Severity Reaction Status Date / Time lincomycin HCl Allergy Rash/Hives Verified 07/31/17 17:01 [From Lincocin] propoxyphene HCl Allergy Rash/Hives Verified 07/31/17 17:01 [From [facility]] aspirin AdvReac BLEEDING Verified 07/31/17 17:01 Physical Exam Vitals: Vital Signs Temp Pulse Pulse Resp BP BP BP 08/01/17 08:32 115 H 08/01/17 08:22 117 H 08/01/17 08:00 97.1 F L 107 H 18 112/66 08/01/17 04:00 97.1 F L 86 18 127/65 08/01/17 01:06 109 H 08/01/17 00:55 107 H 08/01/17 00:00 120 H 18 107/72 07/31/17 21:29 97 F L 117 H 18 132/60 07/31/17 21:10 98.3 F 07/31/17 21:00 108 H 24 117/75 07/31/17 18:39 118 H 24 07/31/17 18:01 109 H 07/31/17 17:50 111 H 07/31/17 17:39 105 H 24 113/65 07/31/17 17:12 98.2 F 104 H 24 102/60 07/31/17 17:09 26 H 106/67 07/31/17 17:00 98.1 F 77 18 99/60 Pulse Ox 08/01/17 08:32 08/01/17 08:22 98 08/01/17 08:00 97 08/01/17 04:00 97 08/01/17 01:06 08/01/17 00:55 08/01/17 00:00 98 07/31/17 21:29 97 07/31/17 21:10 07/31/17 21:00 96 07/31/17 18:39 07/31/17 18:01 07/31/17 17:50 07/31/17 17:39 97 07/31/17 17:12 94 L 07/31/17 17:09 07/31/17 17:00 94 L Intake and Output 07/31/17 08/01/17 08/01/17 22:59 06:59 14:59 Intake Total 150.893 Output Total 350 750 Balance -350 -599.107 Intake: Intake, IV Titration 150.893 Amount Heparin Sodium,Porcine/ 150.893 D5w Pmx 25,000 unit In Dextrose/Water 1 500ml. bag @ 9.6 UNITS/KG/HR 20. 03 mls/hr IV .Q24H [facility] Rx #:[id number] Output: Urine 350 750 Other: Weight 104.326 kg 104.2 kg - Constitutional General appearance: cooperative, obese - EENT Eyes: anicteric sclerae, EOMI, PERRLA, dentition normal, normal appearance ENT: NA/AT, normal oropharynx - Neck Neck: no lymphadenopathy, normal ROM, no other, no rigidity, no stridor, no thyromegaly - Respiratory Respiratory: bilateral: diminished, negative: CTA, dullness, rales, rhonchi, wheezing, prolonged expiration, prolonged inspiration - Cardiovascular Rhythm: regular Heart sounds: normal: S1 Abnormal Heart Sounds: systolic murmur - Gastrointestinal General gastrointestinal: normal bowel sounds, soft - Integumentary Integumentary: decreased turgor, normal - Neurologic Neurologic: CNII-XII intact - Musculoskeletal Musculoskeletal: gait normal, strength equal bilaterally - Psychiatric Psychiatric: A&O x's 3, appropriate affect, intact judgment & insight Results CBC & Chem 7: 07/31/17 16:58 07/31/17 16:58 Labs: Abnormal Lab Results - Last 24 Hours (Table) 07/31/17 07/31/17 07/31/17 Range/Units 16:58 16:58 16:58 RBC 3.51 L (4.30-5.90) m/uL Hgb 9.7 L (13.0-17.5) gm/dL Hct 30.7 L (39.0-53.0) % RDW 18.3 H (11.5-15.5) % Plt Count 131 L (150-450) k/uL Lymphocytes # 0.8 L (1.0-4.8) k/uL INR 1.2 H (<1.2) APTT (22.0-30.0) sec Chloride 96 L (98-107) mmol/L Carbon Dioxide 34 H (22-30) mmol/L BUN 37 H (9-20) mg/dL POC Glucose (mg/dL) (75-99) mg/dL Total Bilirubin 1.9 H (0.2-1.3) mg/dL Troponin I (0.000-0.034) ng/mL 07/31/17 07/31/17 07/31/17 Range/Units 16:58 21:45 23:40 RBC (4.30-5.90) m/uL Hgb (13.0-17.5) gm/dL Hct (39.0-53.0) % RDW (11.5-15.5) % Plt Count (150-450) k/uL Lymphocytes # (1.0-4.8) k/uL INR (<1.2) APTT (22.0-30.0) sec Chloride (98-107) mmol/L Carbon Dioxide (22-30) mmol/L BUN (9-20) mg/dL POC Glucose (mg/dL) 136 H (75-99) mg/dL Total Bilirubin (0.2-1.3) mg/dL Troponin I 0.082 H* 0.071 H* (0.000-0.034) ng/mL 08/01/17 08/01/17 08/01/17 Range/Units 02:38 05:22 05:39 RBC (4.30-5.90) m/uL Hgb (13.0-17.5) gm/dL Hct (39.0-53.0) % RDW (11.5-15.5) % Plt Count (150-450) k/uL Lymphocytes # (1.0-4.8) k/uL INR (<1.2) APTT 33.8 H (22.0-30.0) sec Chloride (98-107) mmol/L Carbon Dioxide (22-30) mmol/L BUN (9-20) mg/dL POC Glucose (mg/dL) 227 H (75-99) mg/dL Total Bilirubin (0.2-1.3) mg/dL Troponin I 0.077 H* (0.000-0.034) ng/mL Microbiology - Last 24 Hours (Table) 07/31/17 20:01 Urine Culture - Preliminary Urine,Voided Microbiology Tests 07/31/17 20:01 Urine Culture - Preliminary Urine,Voided Laboratory Tests Range/Units 07/31/17 07/31/17 07/31/17 16:58 16:58 16:58 WBC (3.8-10.6) k/uL 5.7 RBC (4.30-5.90) m/uL 3.51 L Hgb (13.0-17.5) gm/dL 9.7 L Hct (39.0-53.0) % 30.7 L MCV (80.0-100.0) fL 87.5 MCH (25.0-35.0) pg 27.7 MCHC (31.0-37.0) g/dL 31.7 RDW (11.5-15.5) % 18.3 H Plt Count (150-450) k/uL 131 L Neutrophils % % 77 Lymphocytes % % 13 Monocytes % % 6 Eosinophils % % 1 Basophils % % 0 Neutrophils # (1.3-7.7) k/uL 4.4 Lymphocytes # (1.0-4.8) k/uL 0.8 L Monocytes # (0-1.0) k/uL 0.3 Eosinophils # (0-0.7) k/uL 0.1 Basophils # (0-0.2) k/uL 0.0 Hypochromasia Marked Poikilocytosis Slight Anisocytosis Slight PT (9.0-12.0) sec INR (<1.2) APTT (22.0-30.0) sec Sodium (137-145) mmol/L 141 Potassium (3.5-5.1) mmol/L 4.1 Chloride (98-107) mmol/L 96 L Carbon Dioxide (22-30) mmol/L 34 H Anion Gap mmol/L 11 BUN (9-20) mg/dL 37 H Creatinine (0.66-1.25) mg/dL 1.20 Est GFR (MDRD) Af Amer (>60 ml/min/1.73 sqM) >60 Est GFR (MDRD) Non-Af (>60 ml/min/1.73 sqM) 60 Glucose (74-99) mg/dL 82 POC Glucose (mg/dL) (75-99) mg/dL POC Glu Sales Rep ID Estimated Ave Glu mg/dL mg/dL Hemoglobin A1c (4.2-6.1) % Plasma Lactic Acid Jesse (0.7-2.0) mmol/L 1.2 Calcium (8.4-10.2) mg/dL 9.1 Magnesium (1.6-2.3) mg/dL 1.6 Total Bilirubin (0.2-1.3) mg/dL 1.9 H AST (17-59) U/L 28 ALT (21-72) U/L 31 Alkaline Phosphatase (38-126) U/L 90 Troponin I (0.000-0.034) ng/mL NT-Pro-B Natriuret Pep pg/mL Total Protein (6.3-8.2) g/dL 6.9 Albumin (3.5-5.0) g/dL 4.2 Urine Color Urine Appearance (Clear) Urine pH (5.0-8.0) Ur Specific [place] (1.001-1.035) Urine Protein (Negative) Urine Glucose (UA) (Negative) Urine Ketones (Negative) Urine Blood (Negative) Urine Nitrite (Negative) Urine Bilirubin (Negative) Urine Urobilinogen (<2.0) mg/dL Ur Leukocyte Esterase (Negative) Range/Units 07/31/17 07/31/17 07/31/17 16:58 16:58 16:58 WBC (3.8-10.6) k/uL RBC (4.30-5.90) m/uL Hgb (13.0-17.5) gm/dL Hct (39.0-53.0) % MCV (80.0-100.0) fL MCH (25.0-35.0) pg MCHC (31.0-37.0) g/dL RDW (11.5-15.5) % Plt Count (150-450) k/uL Neutrophils % % Lymphocytes % % Monocytes % % Eosinophils % % Basophils % % Neutrophils # (1.3-7.7) k/uL Lymphocytes # (1.0-4.8) k/uL Monocytes # (0-1.0) k/uL Eosinophils # (0-0.7) k/uL Basophils # (0-0.2) k/uL Hypochromasia Poikilocytosis Anisocytosis PT (9.0-12.0) sec 11.7 INR (<1.2) 1.2 H APTT (22.0-30.0) sec 24.0 Sodium (137-145) mmol/L Potassium (3.5-5.1) mmol/L Chloride (98-107) mmol/L Carbon Dioxide (22-30) mmol/L Anion Gap mmol/L BUN (9-20) mg/dL Creatinine (0.66-1.25) mg/dL Est GFR (MDRD) Af Amer (>60 ml/min/1.73 sqM) Est GFR (MDRD) Non-Af (>60 ml/min/1.73 sqM) Glucose (74-99) mg/dL POC Glucose (mg/dL) (75-99) mg/dL POC Glu Sales Rep ID Estimated Ave Glu mg/dL mg/dL Hemoglobin A1c (4.2-6.1) % Plasma Lactic Acid Jesse (0.7-2.0) mmol/L Calcium (8.4-10.2) mg/dL Magnesium (1.6-2.3) mg/dL Total Bilirubin (0.2-1.3) mg/dL AST (17-59) U/L ALT (21-72) U/L Alkaline Phosphatase (38-126) U/L Troponin I (0.000-0.034) ng/mL 0.082 H* NT-Pro-B Natriuret Pep pg/mL 6120 Total Protein (6.3-8.2) g/dL Albumin (3.5-5.0) g/dL Urine Color Urine Appearance (Clear) Urine pH (5.0-8.0) Ur Specific [place] (1.001-1.035) Urine Protein (Negative) Urine Glucose (UA) (Negative) Urine Ketones (Negative) Urine Blood (Negative) Urine Nitrite (Negative) Urine Bilirubin (Negative) Urine Urobilinogen (<2.0) mg/dL Ur Leukocyte Esterase (Negative) Range/Units 07/31/17 07/31/17 07/31/17 20:01 21:45 23:40 WBC (3.8-10.6) k/uL RBC (4.30-5.90) m/uL Hgb (13.0-17.5) gm/dL Hct (39.0-53.0) % MCV (80.0-100.0) fL MCH (25.0-35.0) pg MCHC (31.0-37.0) g/dL RDW (11.5-15.5) % Plt Count (150-450) k/uL Neutrophils % % Lymphocytes % % Monocytes % % Eosinophils % % Basophils % % Neutrophils # (1.3-7.7) k/uL Lymphocytes # (1.0-4.8) k/uL Monocytes # (0-1.0) k/uL Eosinophils # (0-0.7) k/uL Basophils # (0-0.2) k/uL Hypochromasia Poikilocytosis Anisocytosis PT (9.0-12.0) sec INR (<1.2) APTT (22.0-30.0) sec Sodium (137-145) mmol/L Potassium (3.5-5.1) mmol/L Chloride (98-107) mmol/L Carbon Dioxide (22-30) mmol/L Anion Gap mmol/L BUN (9-20) mg/dL Creatinine (0.66-1.25) mg/dL Est GFR (MDRD) Af Amer (>60 ml/min/1.73 sqM) Est GFR (MDRD) Non-Af (>60 ml/min/1.73 sqM) Glucose (74-99) mg/dL POC Glucose (mg/dL) (75-99) mg/dL 136 H POC Glu Sales Rep ID Ailyn Herrera Estimated Ave Glu mg/dL mg/dL Hemoglobin A1c (4.2-6.1) % Plasma Lactic Acid Jesse (0.7-2.0) mmol/L Calcium (8.4-10.2) mg/dL Magnesium (1.6-2.3) mg/dL Total Bilirubin (0.2-1.3) mg/dL AST (17-59) U/L ALT (21-72) U/L Alkaline Phosphatase (38-126) U/L Troponin I (0.000-0.034) ng/mL 0.071 H* NT-Pro-B Natriuret Pep pg/mL Total Protein (6.3-8.2) g/dL Albumin (3.5-5.0) g/dL Urine Color Yellow Urine Appearance (Clear) Clear Urine pH (5.0-8.0) 5.0 Ur Specific [place] (1.001-1.035) 1.010 Urine Protein (Negative) Negative Urine Glucose (UA) (Negative) Negative Urine Ketones (Negative) Negative Urine Blood (Negative) Negative Urine Nitrite (Negative) Negative Urine Bilirubin (Negative) Negative Urine Urobilinogen (<2.0) mg/dL <2.0 Ur Leukocyte Esterase (Negative) Negative Range/Units 07/31/17 08/01/17 08/01/17 23:40 02:38 05:22 WBC (3.8-10.6) k/uL RBC (4.30-5.90) m/uL Hgb (13.0-17.5) gm/dL Hct (39.0-53.0) % MCV (80.0-100.0) fL MCH (25.0-35.0) pg MCHC (31.0-37.0) g/dL RDW (11.5-15.5) % Plt Count (150-450) k/uL Neutrophils % % Lymphocytes % % Monocytes % % Eosinophils % % Basophils % % Neutrophils # (1.3-7.7) k/uL Lymphocytes # (1.0-4.8) k/uL Monocytes # (0-1.0) k/uL Eosinophils # (0-0.7) k/uL Basophils # (0-0.2) k/uL Hypochromasia Poikilocytosis Anisocytosis PT (9.0-12.0) sec INR (<1.2) APTT (22.0-30.0) sec 33.8 H Sodium (137-145) mmol/L Potassium (3.5-5.1) mmol/L Chloride (98-107) mmol/L Carbon Dioxide (22-30) mmol/L Anion Gap mmol/L BUN (9-20) mg/dL Creatinine (0.66-1.25) mg/dL Est GFR (MDRD) Af Amer (>60 ml/min/1.73 sqM) Est GFR (MDRD) Non-Af (>60 ml/min/1.73 sqM) Glucose (74-99) mg/dL POC Glucose (mg/dL) (75-99) mg/dL POC Glu Sales Rep ID Estimated Ave Glu mg/dL mg/dL 123 Hemoglobin A1c (4.2-6.1) % 5.9 Plasma Lactic Acid Jesse (0.7-2.0) mmol/L Calcium (8.4-10.2) mg/dL Magnesium (1.6-2.3) mg/dL Total Bilirubin (0.2-1.3) mg/dL AST (17-59) U/L ALT (21-72) U/L Alkaline Phosphatase (38-126) U/L Troponin I (0.000-0.034) ng/mL 0.077 H* NT-Pro-B Natriuret Pep pg/mL Total Protein (6.3-8.2) g/dL Albumin (3.5-5.0) g/dL Urine Color Urine Appearance (Clear) Urine pH (5.0-8.0) Ur Specific [place] (1.001-1.035) Urine Protein (Negative) Urine Glucose (UA) (Negative) Urine Ketones (Negative) Urine Blood (Negative) Urine Nitrite (Negative) Urine Bilirubin (Negative) Urine Urobilinogen (<2.0) mg/dL Ur Leukocyte Esterase (Negative) Range/Units 08/01/17 08/01/17 08/01/17 05:39 09:56 11:26 WBC (3.8-10.6) k/uL RBC (4.30-5.90) m/uL Hgb (13.0-17.5) gm/dL Hct (39.0-53.0) % MCV (80.0-100.0) fL MCH (25.0-35.0) pg MCHC (31.0-37.0) g/dL RDW (11.5-15.5) % Plt Count (150-450) k/uL Neutrophils % % Lymphocytes % % Monocytes % % Eosinophils % % Basophils % % Neutrophils # (1.3-7.7) k/uL Lymphocytes # (1.0-4.8) k/uL Monocytes # (0-1.0) k/uL Eosinophils # (0-0.7) k/uL Basophils # (0-0.2) k/uL Hypochromasia Poikilocytosis Anisocytosis PT (9.0-12.0) sec INR (<1.2) APTT (22.0-30.0) sec 47.0 H Sodium (137-145) mmol/L Potassium (3.5-5.1) mmol/L Chloride (98-107) mmol/L Carbon Dioxide (22-30) mmol/L Anion Gap mmol/L BUN (9-20) mg/dL Creatinine (0.66-1.25) mg/dL Est GFR (MDRD) Af Amer (>60 ml/min/1.73 sqM) Est GFR (MDRD) Non-Af (>60 ml/min/1.73 sqM) Glucose (74-99) mg/dL POC Glucose (mg/dL) (75-99) mg/dL 227 H 256 H POC Glu Sales Rep ID Ailyn Herrera [address] Glu mg/dL mg/dL Hemoglobin A1c (4.2-6.1) % Plasma Lactic Acid Jesse (0.7-2.0) mmol/L Calcium (8.4-10.2) mg/dL Magnesium (1.6-2.3) mg/dL Total Bilirubin (0.2-1.3) mg/dL AST (17-59) U/L ALT (21-72) U/L Alkaline Phosphatase (38-126) U/L Troponin I (0.000-0.034) ng/mL NT-Pro-B Natriuret Pep pg/mL Total Protein (6.3-8.2) g/dL Albumin (3.5-5.0) g/dL Urine Color Urine Appearance (Clear) Urine pH (5.0-8.0) Ur Specific [place] (1.001-1.035) Urine Protein (Negative) Urine Glucose (UA) (Negative) Urine Ketones (Negative) Urine Blood (Negative) Urine Nitrite (Negative) Urine Bilirubin (Negative) Urine Urobilinogen (<2.0) mg/dL Ur Leukocyte Esterase (Negative) Thrombosis Risk Factor Assmnt - DVT/VTE Prophylaxis DVT/VTE Prophylaxis: Pharmacologic Prophylaxis ordered - Choose All That Apply Any of the Below Risk Factors Present?: Yes Each Factor Represents 1 point: Heart failure (<1month), Obesity (BMI >25), Swollen legs (current), Varicose veins Other Risk Factors: Yes Each Risk Factor Represents 2 Points: Age 61-74 years Thrombosis Risk Factor Assessment Total Risk Factor Score: 6 Thrombosis Risk Factor Assessment Level: High Risk Assessment and Plan Plan: 1. Acute diastolic heart failure on chronic diastolic heart failure recurrent dyspnea multifactorial with moderate Aortic stenosis, severe pulmonary hypertension,. Continue Lasix 40 mg oral every 8 hours, metoprolol 50 mg orally once every day, , cardiology consultation. Cardiac gram was reviewed from previous admission in May 2017, urinary retention needs to be ruled out, post void residual needs to be checked. Vasu wrap on the lower extremity, patient cannot tolerate compression socks. D-dimer to be checked 2. COPD, Continue albuterol nebulization 4 times every day Spiriva 18 mcg 1 capsule inhalation once every day and Symbicort 160/4.5 g 2 puff inhalation twice every day, 3 Hypertension and hypertensive cardiovascular disease. Continue metoprolol 50 mg orally once every day. 4. Diabetes mellitus type 2. Decrease Lantus 30 units at bedtime , continue with a sliding scale insulin as well, BGM will be checked before each meal and at bedtime. 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 Bicytopenia with thrombocytopenia and anemia chronic currently stable would monitor patient currently seen on heparin drip, platelet count is adequate for this, 7. Severe pulmonary hypertension per patient patient completed a sleep study and was reportedly negative for sleep apnea 8 Moderate aortic stenosis 9. Hyperlipidemia. Continue simvastatin 40 mg orally at bedtime. 10. History of gout .continue allopurinol 100 mg orally once every day. 11. History of CVA and TIA .continue patient on aspirin 81 mg once every day. 12. Chronic hypoxic respiratory failure with home O2 dependence at 3 L nasal cannula. 13. Autonomic dysfunction, patient's to maintain his proamatine 10 mg 3 times a day 14 ckd stage III of the toxins will be avoided, patient is on maintenance lisinopril 5 mg daily at this time along with proamatine to avoid hypotension DVT prophylaxis. Continue bilateral knee-high MILLI hose. GI prophylaxis. Protonix 40 mg orally once every day. Patient is full code. .
[2017-08-01] MEDS: FUROSEMIDE 10 MG/ML 4 ML VIAL IV SCH ×2 (14:44→23:14)
[2017-08-01 16:57] LABS: Glucose,Whole Blood 139 mg/dL (75-99)
[2017-08-01] MEDS: ATORVASTATIN 20 MG TAB PO SCH (20:15)
[2017-08-01 20:33] LABS: Glucose,Whole Blood 200 mg/dL (75-99)
[2017-08-01] MEDS: INSULIN GLARGINE 100 UNIT/ML 10 ML VIAL SQ SCH (20:53)
[2017-08-02 06:14] LABS: Anisocytosis Slight; Basophils % (A) 1 %; CH 26.4; Eosinophils % (A) 1 %; HCT 28.8 % (39.0-53.0); HGB 8.8 gm/dL (13.0-17.5); Hypochromasia Marked; Luc # (Auto) 0.08; Luc % (Auto) 2; Lymphocytes # (A) 0.6 k/uL (1.0-4.8); Lymphocytes % (A) 17 %; MCH 27.1 pg (25.0-35.0); MCHC 30.6 g/dL (31.0-37.0); MCV 88.4 fL (80.0-100.0); Mean Platelet Volume 8.5; Monocytes # (A) 0.2 k/uL (0-1.0); Monocytes % (A) 6 %; Neutrophils # (A) 2.8 k/uL (1.3-7.7); Neutrophils % (A) 74 %; RBC 3.26 m/uL (4.30-5.90); RDW 17.8 % (11.5-15.5); WBC 3.8 k/uL (3.8-10.6); WBC (Perox) 4.02
[2017-08-02 06:31] LABS: Glucose,Whole Blood 101 mg/dL (75-99)
[2017-08-02 06:31] LABS: Potassium 4.4 mmol/L (3.5-5.1)
[2017-08-02] MEDS: INSULIN LISPRO (humaLOG) 300 UNIT/3 ML VIAL SQ SCH ×8 (06:36→21:11)
[2017-08-02] MEDS: ALLOPURINOL 300 MG TAB PO SCH (06:39)
[2017-08-02] MEDS: METOPROLOL SUCCINATE (ER) 50 MG TAB.ER.24H PO SCH (07:47)
[2017-08-02] MEDS: FUROSEMIDE 10 MG/ML 4 ML VIAL IV SCH (07:47)
[2017-08-02] MEDS: MIDODRINE 5 MG TAB PO SCH ×3 (07:47→17:16)
[2017-08-02] MEDS: FAMOTIDINE 20 MG TAB PO SCH (07:47)
[2017-08-02] MEDS: TIOTROPIUM 18 MCG/PUFF INHALER INHALATION SCH (07:49)
[2017-08-02] MEDS: SYMBICORT 160-4.5 MCG INHALER INHALATION SCH ×2 (07:49→20:28)
[2017-08-02] MEDS: LEVALBUTEROL NEB 1.25 MG/3 ML AMP INHALATION SCH ×3 (07:49→20:28)
--- NOTE | 2017-08-02 09:29 | P.NPCON ---
History of Present Illness - Reason for Consult acute renal failure - History of Present Illness Patient is a 72-year-old male he has a history of hypertension hyperlipidemia chronic A. fib chronic heart failure. Patient stated that he was initially seen at the [facility] and the nurse practitioner there stated that he needed to be admitted to the hospital as he was in fluid overload and congestive heart failure exacerbation. An ambulance was called and patient was sent to the hospital. He denies any complaints of fever or cough. Patient stated he has had increased swelling of his lower extremities. He also denied any prior history of kidney diseases. Previous echocardiogram on 06/20/2017 showed ejection fraction 55-60%. Serum creatinine was 1.2 mg/dL initially on 07/31/2017. It did go up to 2.1 mg/ dL today. Patient's blood pressure has been low with systolic in the 90s and this morning it was at 93/51. Patient is maintained on Lasix 40 mg IV every 8 hours. He is also on midodrine. Small dose of lisinopril at 2.5 mg daily is noted. Patient has been voiding in the urinal. Weight is unchanged since yesterday. 24 hour urine output charted at 1100 mL. 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 Chronic anemia, previous history of MRSA. Last Myocardial Infarction Date:: PER PT CAME HOME FROM [facility]07-28 History of Any Multi-Drug Resistant Organisms: MRSA Date of last positivie culture/infection: 2010 MDRO Source:: R elbow Past Surgical History: Cholecystectomy, Tonsillectomy Additional Past Surgical History / Comment(s): Lipoma removal from the right side of the abdomen.bronchoscopy Past Anesthesia/Blood Transfusion Reactions: No Reported Reaction Additional Past Anesthesia/Blood Transfusion Reaction / Comment(s): blood transfusion-no reaction Smoking Status: Former smoker - Past Family History Mother History Unknown: Yes Family Medical History: No Reported History Brother(s) Family Medical History: No Reported History Sister(s) Family Medical History: Cancer, Myocardial Infarction (PR) Additional Family Medical History / Comment(s): sister had tb in past Daughter(s) Family Medical History: No Reported History Son(s) Family Medical History: No Reported History Father Family Medical History: No Reported History Medications and Allergies Home Medications Medication Instructions Recorded Confirmed Type Simvastatin [Zocor] 40 mg PO HS 11/23/14 07/31/17 History Budesonide-Formot 160-4.5 Mcg 2 puff INHALATION RT-BID #1 puff 12/11/14 Rx [Symbicort 160-4.5 Mcg Inhaler] HYDROcodone/APAP 5-325MG [[place] 1 tab PO Q4H PRN 06/13/17 07/31/17 History 5-325] Metoprolol Succinate (ER) [Toprol 50 mg PO DAILY 06/13/17 07/31/17 History XL] Allopurinol [Zyloprim] 300 mg PO AC-BRKFST 07/31/17 07/31/17 History Bumetanide [BUMEX] 2 mg PO BID 07/31/17 07/31/17 History Calcitriol [Rocaltrol] 0.25 mcg PO DAILY 07/31/17 07/31/17 History Ergocalciferol [Vitamin D2] 50,000 unit PO SA 07/31/17 07/31/17 History INSULIN LISPRO (HumaLOG) [HumaLOG] See Protocol SQ ACHS 07/31/17 07/31/17 History Insulin Glargine [Lantus] 30 unit SQ HS 07/31/17 07/31/17 History Midodrine HCl [ProAmatine] 10 mg PO BID 07/31/17 07/31/17 History Omeprazole [PriLOSEC] 40 mg PO AC-BRKFST 07/31/17 07/31/17 History Tiotropium [place] [Spiriva 1 puff INHALATION RT-DAILY 07/31/17 07/31/17 History Respimat] Allergies Allergy/AdvReac Type Severity Reaction Status Date / Time lincomycin HCl Allergy Rash/Hives Verified 07/31/17 17:01 [From Lincocin] propoxyphene HCl Allergy Rash/Hives Verified 07/31/17 17:01 [From Darvon] aspirin AdvReac BLEEDING Verified 07/31/17 17:01 Physical Exam Vitals: Vital Signs Temp Pulse Pulse Resp BP BP Pulse Ox 08/02/17 08:07 96 08/02/17 07:53 94 98 08/02/17 07:50 96.8 F L 85 22 93/51 98 08/02/17 04:00 69 20 94/55 99 08/01/17 23:41 90 20 08/01/17 23:40 97.6 F 90 20 104/54 98 08/01/17 20:00 97.9 F 91 22 96/51 97 08/01/17 19:23 90 08/01/17 19:07 94 08/01/17 17:09 95 08/01/17 15:17 97.7 F 125 H 16 107/68 96 08/01/17 13:33 98 08/01/17 13:21 95 08/01/17 12:00 100 18 113/70 96 Intake and Output 08/01/17 08/02/17 08/02/17 22:59 06:59 14:59 Intake Total 120 245 Output Total 250 125 Balance -130 -125 245 Intake: Oral 120 245 Output: Urine 250 125 Other: Voiding Method Urinal Urinal # Voids 1 Weight 104.2 kg 104.7 kg Patient Weight 08/03/17 06:59 Weight 104.7 kg On examination patient is comfortable he is mildly short of breath. He is not in any acute distress. Blood pressure is 93/51 heart rate 94/m he is afebrile Examination of the heart S1 and S2 Examination lungs bilateral breath sounds are heard Ticket am bilateral basal crackles are heard. Abdomen is soft distended obese nontender Examination lower extremities shows chronic skin changes with edema 2+ bilaterally. 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 Results - Lab Results Most recent lab results Calcium 9.0 mg/dL (8.4-10.2) 08/02/17 05:37 Magnesium 1.6 mg/dL (1.6-2.3) 07/31/17 16:58 08/02/17 05:37 08/02/17 05:37 Assessment and Plan Plan: Assessment 1. Acute kidney injury mainly cardiorenal currently nonoliguric. Blood pressure is low which is also contribute into worsening renal function. Patient is maintained on midodrine which we will continue. I will continue his current dose of Lasix. The lisinopril will be discontinued although it is a very low dose but his pressure is significantly low. We will check an ultrasound of the kidneys and repeat labs in a.m. Continue to avoid any nephrotoxic agents. UA is completely benign. 2. chronic kidney disease, previous creatinine has been at 1.1-1.2 mg/dL etiology is likely nephrosclerosis NKF stage III 3. CHF mainly diastolic with ejection fraction about 50-55%. 4. Anemia rule out iron deficiency versus anemia of chronic disease. 5. COPD 6. Hypertension blood pressure currently low we will DC the lisinopril. Decrease metoprolol and hold for systolic blood pressure less than 100. Plan DC lisinopril, decrease Lopressor. Check ultrasound of the kidneys. Continue with the dose of Lasix. Repeat labs in a.m. Check iron studies. Thank you for the consultation we'll continue to follow the patient with you during his hospitalization
--- NOTE | 2017-08-02 09:51 | P.PN ---
Subjective This is a pleasant 72-year-old gentleman with a history of aortic stenosis, COPD , pulmonary hypertension and diastolic heart failure. Presented to the emergency department with acute on chronic diastolic heart failure. He was recently admitted to the hospital in [place] and discharged home. According to the patient he was home for just a few days began noticing increasing shortness of breath, leg edema, weight gain, orthopnea and paroxysmal nocturnal dyspnea. His troponins were mildly elevated which is of unclear clinical significance. He has chronic atrial fibrillation but is not a candidate for long-term anticoagulation because of a history of bleeding. Patient's Bumex was discontinued yesterday patient was started on Lasix 40 mg IV push every 8 hours. He was also started on lisinopril 5 mg by mouth daily. This morning his blood pressure is on the low side in the 90s systolic. BUN and creatinine are up significantly from yesterday BUN of 72 and creatinine 2.1. Objective - Vital Signs Vital signs: Vital Signs Temp 96.8 F L 08/02/17 07:50 Pulse 96 08/02/17 08:07 Resp 22 08/02/17 07:50 BP 93/51 08/02/17 07:50 Pulse Ox 98 08/02/17 07:53 Intake & Output 08/01/17 08/02/17 08/02/17 18:59 06:59 18:59 Intake Total 236 120 245 Output Total 375 Balance 236 -255 245 Weight 104.2 kg 104.2 kg 104.7 kg Intake: Oral 236 120 245 Output: Urine 375 Other: Voiding Method Urinal Urinal # Voids 2 1 - Exam PHYSICAL EXAMINATION: HEENT: [Head is atraumatic, normocephalic. Pupils equal, round. Neck is supple. There is no elevated jugular venous pressure.] HEART EXAMINATION: [Heart sounds irregular, S1 and S2 normal with a systolic murmur at the base.] CHEST EXAMINATION:[ Lungs expiratory wheezing throughout. No chest wall tenderness is noted on palpation or with deep breathing.] ABDOMEN: [ Soft, nontender. Bowel sounds are heard. No organomegaly noted]. EXTREMITIES:[ 1+ peripheral pulses with evidence of 1-2+ peripheral edema and evidence of chronic changes of stasis]. NEUROLOGIC [patient is awake, alert and oriented x3.] . - Labs CBC & Chem 7: 08/02/17 05:37 08/02/17 05:37 Labs: Abnormal Lab Results - Last 24 Hours (Table) 08/01/17 08/01/17 08/01/17 Range/Units 09:56 11:26 16:53 RBC (4.30-5.90) m/uL Hgb (13.0-17.5) gm/dL Hct (39.0-53.0) % MCHC (31.0-37.0) g/dL RDW (11.5-15.5) % Plt Count (150-450) k/uL Lymphocytes # (1.0-4.8) k/uL APTT 47.0 H (22.0-30.0) sec Chloride (98-107) mmol/L Carbon Dioxide (22-30) mmol/L BUN (9-20) mg/dL Creatinine (0.66-1.25) mg/dL Glucose (74-99) mg/dL POC Glucose (mg/dL) 256 H 139 H (75-99) mg/dL 08/01/17 08/02/17 08/02/17 Range/Units 20:18 05:37 05:37 RBC 3.26 L (4.30-5.90) m/uL Hgb 8.8 L (13.0-17.5) gm/dL Hct 28.8 L (39.0-53.0) % MCHC 30.6 L (31.0-37.0) g/dL RDW 17.8 H (11.5-15.5) % Plt Count 119 L (150-450) k/uL Lymphocytes # 0.6 L (1.0-4.8) k/uL APTT (22.0-30.0) sec Chloride 95 L (98-107) mmol/L Carbon Dioxide 33 H (22-30) mmol/L BUN 72 H (9-20) mg/dL Creatinine 2.10 H (0.66-1.25) mg/dL Glucose 103 H (74-99) mg/dL POC Glucose (mg/dL) 200 H (75-99) mg/dL 08/02/17 Range/Units 06:26 RBC (4.30-5.90) m/uL Hgb (13.0-17.5) gm/dL Hct (39.0-53.0) % MCHC (31.0-37.0) g/dL RDW (11.5-15.5) % Plt Count (150-450) k/uL Lymphocytes # (1.0-4.8) k/uL APTT (22.0-30.0) sec Chloride (98-107) mmol/L Carbon Dioxide (22-30) mmol/L BUN (9-20) mg/dL Creatinine (0.66-1.25) mg/dL Glucose (74-99) mg/dL POC Glucose (mg/dL) 101 H (75-99) mg/dL Microbiology - Last 24 Hours (Table) 07/31/17 20:01 Urine Culture - Final Urine,Voided 07/31/17 16:58 Blood Culture - Preliminary Blood No Growth after 24 hours Assessment and Plan Plan: Assessment and plan #1 acute on chronic diastolic congestive heart failure #2 aortic stenosis #3 chronic atrial fibrillation, not a candidate for long-term anticoagulation related to history of bleeding #4 COPD, pulmonary is on consult #5 acute kidney injury with chronic kidney failure From cardiology perspective, we will hold IV Lasix. We will decrease lisinopril to 2.5 mg daily to be given at noon. We will consult nephrology for further evaluation of acute kidney injury. Further recommendations to follow. The above dictated assessment and findings were discussed with signing physician. The impression and plan of care have been directed as dictated. Quin Radford, Nurse Practitioner, acting as scribe for signing physician.
--- NOTE | 2017-08-02 11:30 | P.PN ---
Subjective Principal diagnosis: Acute on chronic diastolic congestive heart failure This is a 72-year-old white male with known history of COPD, O2 dependent, usually sees Dr. Cerda in the office. Patient is also known to have history of chronic congestive heart failure, was recently admitted to [facility] with congestive heart failure, and discharge home last Friday on multiple medications including diuretics. Patient states that he has been compliant with all the medications, however in spite of his compliance, patient presented to the ER with mostly symptoms of increased shortness of breath, retention of fluids in his lower extremities, but no chest pain, no fever, no chills, no hemoptysis, no palpitations. Chest x-ray upon evaluation in the ER showed evidence of congestive heart failure. Hence the patient was admitted and this consult was initiated. His labs showed normal CBC except for hemoglobin of 9.7 , basic metabolic profile was relatively normal except for bicarb of 3 for BUN was 37 and creatinine 1.20. BNP level was 6120, and troponin was 0.082. Clinically, and radiographically, this all pointed mostly to a picture of acute on chronic congestive heart failure presentation. Patient has been given Lasix , placed on a Bumex, and I was asked to see him on consultation. Patient is already on heparin, cardiac consultation is pending. Patient was reevaluated today on 08/01/2017, slight improvement, but not much. Continues to have some shortness of breath, continues to have some crackles at the bases, chest x-ray is not any different, continues to be compatible with congestive heart failure. Hence I will go ahead and place the patient on a maintenance dose of Lasix 40 mg IV push every 8 hours, and discontinue oral Bumex. May even consider a Lasix drip on this patient. Troponin level was noted to be 0.077. Patient continues to have significant swelling in the lower extremities. Patient was reevaluated today on 08/02/2017, slight improvement noted today, however his fluid balance seems to be very marginal negative. Patient was placed yesterday on Lasix instead of Bumex, and he is receiving that at 40 mg IV push every 8 hours. Swelling in the lower extremities seem to be improved. Blood pressure is marginal. Objective - Vital Signs Vital signs: Vital Signs Temp 96.5 F L 08/02/17 11:00 Pulse 85 08/02/17 11:00 Resp 20 08/02/17 11:00 BP 91/51 08/02/17 11:00 Pulse Ox 96 08/02/17 11:00 Intake & Output 08/01/17 08/02/17 08/02/17 18:59 06:59 18:59 Intake Total 236 120 245 Output Total 375 Balance 236 -255 245 Weight 104.2 kg 104.2 kg 104.7 kg Intake: Oral 236 120 245 Output: Urine 375 Other: Voiding Method Urinal Urinal # Voids 2 1 - Exam Physical Exam: Revealed a 72-year-old white male in mild respiratory distress. HEENT:[Neck is supple.] [No neck masses.] [No thyromegaly.] [No JVD.] Chest: [Normal crackles at the bases, some wheezing on forced expiratory maneuver only..] Cardiac Exam: [Normal S1 and S2, no S3 gallop, 2/6 systolic murmur throughout the precordium.] Abdomen: [Soft, nontender, no megaly, no rebound, no guarding, normal bowel sounds.] Extremities: [No clubbing, 2+ plus bipedal edema, no cyanosis. Neurological Exam: [No focal neurologic deficit.] - Labs CBC & Chem 7: 08/02/17 05:37 08/02/17 05:37 Labs: Abnormal Lab Results - Last 24 Hours (Table) 08/01/17 08/01/17 08/01/17 Range/Units 11:26 16:53 20:18 RBC (4.30-5.90) m/uL Hgb (13.0-17.5) gm/dL Hct (39.0-53.0) % MCHC (31.0-37.0) g/dL RDW (11.5-15.5) % Plt Count (150-450) k/uL Lymphocytes # (1.0-4.8) k/uL Chloride (98-107) mmol/L Carbon Dioxide (22-30) mmol/L BUN (9-20) mg/dL Creatinine (0.66-1.25) mg/dL Glucose (74-99) mg/dL POC Glucose (mg/dL) 256 H 139 H 200 H (75-99) mg/dL 08/02/17 08/02/17 08/02/17 Range/Units 05:37 05:37 06:26 RBC 3.26 L (4.30-5.90) m/uL Hgb 8.8 L (13.0-17.5) gm/dL Hct 28.8 L (39.0-53.0) % MCHC 30.6 L (31.0-37.0) g/dL RDW 17.8 H (11.5-15.5) % Plt Count 119 L (150-450) k/uL Lymphocytes # 0.6 L (1.0-4.8) k/uL Chloride 95 L (98-107) mmol/L Carbon Dioxide 33 H (22-30) mmol/L BUN 72 H (9-20) mg/dL Creatinine 2.10 H (0.66-1.25) mg/dL Glucose 103 H (74-99) mg/dL POC Glucose (mg/dL) 101 H (75-99) mg/dL Microbiology - Last 24 Hours (Table) 07/31/17 20:01 Urine Culture - Final Urine,Voided 07/31/17 16:58 Blood Culture - Preliminary Blood No Growth after 24 hours Assessment and Plan Plan: Impression: 1 acute on chronic congestive heart failure, most likely secondary to diastolic dysfunction and moderate severe aortic stenosis. 2 chronic cor pulmonale 3 severe pulmonary hypertension based on the recent echocardiogram. 4 history of moderate mitral and tricuspid regurgitation. 5 history of advanced COPD and chronic hypoxic respiratory failure secondary to COPD and congestive heart failure. 6 history of chronic bilateral subcentimeter nodules related to [place] level disease. 7 history of chronic atrial fibrillation. 8 history of hypertension 9 history of hyperlipidemia 10 history of gout 11 history of chronic anemia 12 history of GI bleeding secondary to gastritis. 13 history of peripheral vessel occlusive disease. 14 history of Haemophilus influenza pneumonia fully treated and resolved. 15 possible non-ST segment elevation myocardial infarction. Patient is presently on heparin, being followed by cardiology Recommendation: Continue present treatment plan including bronchodilators in the form of DuoNeb, and Symbicort, continue diuretics, continue to monitor renal profile, and follow-up chest x-ray in a.m. Time with Patient: Less than 30
[2017-08-02 11:36] LABS: % Iron Saturation 16.3 % (20-50)
--- NOTE | 2017-08-02 11:43 | US ---
EXAMINATION TYPE: US kidneys/renal and bladder DATE OF EXAM: 08/02/2017 COMPARISON: NONE CLINICAL HISTORY: renal fail. EXAM MEASUREMENTS: Right Kidney: 11.8 x 5.1 x 5.5 cm Left Kidney: 11.9 x 4.9 x 5.3 cm Right Kidney: No hydronephrosis or masses seen Left Kidney: No hydronephrosis or masses seen Bladder: wnl IMPRESSION: NORMAL RENAL ULTRASOUND.
[2017-08-02 11:58] LABS: Glucose,Whole Blood 164 mg/dL (75-99)
[2017-08-02] MEDS ORDERED: LISINOPRIL 2.5 MG TAB PO SCH (12:00)
--- NOTE | 2017-08-02 14:55 | P.PN ---
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 Bill Almeida with a previous medical history significant for hypertension and hypertensive cardio vascular disease, hyperlipidemia, history of CVA/TIA, chronic atrial fibrillation, chronic diastolic heart failure, gout, chronic obstructive pulmonary disease , He had multiple admissions from our facility secondary to diastolic CHF exacerbation and edema, he was recently discharged from our facility 06/25/2017 again another admission 05/02/2017 . Apparently he was recently discharged from [facility] and he was barely 4 days at home when he started having shortness of breath edema PND of 1 day duration. Apparently some of the medications were changed during his [place] admission, patient was compliant with medications, and diet, he cannot tolerate compression stockings on the lower extremity, he has some Vasu wrap in the house which he has not been using He has significant moderate aortic stenosis, severe pulmonary hypertension chronic atrial fibrillation not a candidate for long-term anticoagulation. He also complains off yellow productive cough no fever no chills no chest pain no lightheadedness no dizziness nor orthostasis he has urinary frequency Last echocardiogram 06/20/2017 showed moderate tricuspid regurgitation and severe pulmonary hypertension RSVP 62 EF 55-60% aortic valve thickening with moderate aortic stenosis. Patient had a sleep study performed also according to him he passed his sleep study report Patient presents to emergency room with acute on chronic diastolic CHF exacerbation and edema, and this in consultation by Dr. Meza from pulmonary and consult cardiology 08/02: Patient's shortness of breath hasn't changed, creatinine has risen to 2.1 from previous of 1.2, Dr. Everett consulted, blood pressure in the low 90s, which is new Lasix on hold, Primatene increased to 10 mg 3 times a day from 10 twice a day lisinopril on hold, patient with +1 edema, no Vasu wrap. Patient had epistaxis, controlled with local compression heparin was discontinued, ultrasound of kidneys is requested and current pending. Objective - Vital Signs Vital signs: Vital Signs Temp 96.5 F L 08/02/17 11:00 Pulse 85 08/02/17 11:00 Resp 20 08/02/17 11:00 BP 91/51 08/02/17 11:00 Pulse Ox 96 08/02/17 11:00 Intake & Output 08/01/17 08/02/17 08/02/17 18:59 06:59 18:59 Intake Total 236 120 245 Output Total 375 Balance 236 -255 245 Weight 104.2 kg 104.2 kg 104.7 kg Intake: Oral 236 120 245 Output: Urine 375 Other: Voiding Method Urinal Urinal # Voids 2 1 - Constitutional General appearance: Present: cooperative, no acute distress - EENT Eyes: Present: anicteric sclerae, EOMI, PERRLA, dentition normal, normal appearance ENT: Present: hearing grossly normal, NA/AT, normal oropharynx - Neck Neck: Present: normal ROM. Absent: lymphadenopathy, other, rigidity, stridor, thyromegaly - Respiratory Respiratory: bilateral: CTA, negative: diminished, dullness - Cardiovascular Rhythm: regular Heart sounds: normal: S1, S2 Abnormal Heart Sounds: Present: systolic murmur. Absent: diastolic murmur, rub , S3 Gallop, S4 Gallop, click, other - Gastrointestinal General gastrointestinal: Present: normal bowel sounds, soft - Integumentary Integumentary: Present: decreased turgor, normal - Neurologic Neurologic: Present: CNII-XII intact - Musculoskeletal Musculoskeletal: Present: gait normal, generalized weakness, strength equal bilaterally - Psychiatric Psychiatric: Present: A&O x's 3, appropriate affect, intact judgment & insight - Labs CBC & Chem 7: 08/02/17 05:37 08/02/17 05:37 Labs: Abnormal Lab Results - Last 24 Hours (Table) 08/01/17 08/01/17 08/02/17 Range/Units 16:53 20:18 05:37 RBC (4.30-5.90) m/uL Hgb (13.0-17.5) gm/dL Hct (39.0-53.0) % MCHC (31.0-37.0) g/dL RDW (11.5-15.5) % Plt Count (150-450) k/uL Lymphocytes # (1.0-4.8) k/uL Chloride 95 L (98-107) mmol/L Carbon Dioxide 33 H (22-30) mmol/L BUN 72 H (9-20) mg/dL Creatinine 2.10 H (0.66-1.25) mg/dL Glucose 103 H (74-99) mg/dL POC Glucose (mg/dL) 139 H 200 H (75-99) mg/dL Iron (49-181) ug/dL % Saturation (20-50) % 08/02/17 08/02/17 08/02/17 Range/Units 05:37 05:37 06:26 RBC 3.26 L (4.30-5.90) m/uL Hgb 8.8 L (13.0-17.5) gm/dL Hct 28.8 L (39.0-53.0) % MCHC 30.6 L (31.0-37.0) g/dL RDW 17.8 H (11.5-15.5) % Plt Count 119 L (150-450) k/uL Lymphocytes # 0.6 L (1.0-4.8) k/uL Chloride (98-107) mmol/L Carbon Dioxide (22-30) mmol/L BUN (9-20) mg/dL Creatinine (0.66-1.25) mg/dL Glucose (74-99) mg/dL POC Glucose (mg/dL) 101 H (75-99) mg/dL Iron 44 L (49-181) ug/dL % Saturation 16.3 L (20-50) % 08/02/17 Range/Units 11:42 RBC (4.30-5.90) m/uL Hgb (13.0-17.5) gm/dL Hct (39.0-53.0) % MCHC (31.0-37.0) g/dL RDW (11.5-15.5) % Plt Count (150-450) k/uL Lymphocytes # (1.0-4.8) k/uL Chloride (98-107) mmol/L Carbon Dioxide (22-30) mmol/L BUN (9-20) mg/dL Creatinine (0.66-1.25) mg/dL Glucose (74-99) mg/dL POC Glucose (mg/dL) 164 H (75-99) mg/dL Iron (49-181) ug/dL % Saturation (20-50) % Microbiology - Last 24 Hours (Table) 07/31/17 20:01 Urine Culture - Final Urine,Voided 07/31/17 16:58 Blood Culture - Preliminary Blood No Growth after 24 hours Assessment and Plan Plan: 1. Acute diastolic heart failure on chronic diastolic heart failure recurrent dyspnea multifactorial with moderate Aortic stenosis, severe pulmonary hypertension,. Continue Lasix 40 mg oral every 8 hours, metoprolol 50 mg orally once every day, , cardiology consultation. Cardiac gram was reviewed from previous admission in May 2017, urinary retention needs to be ruled out, post void residual needs to be checked. Vasu wrap on the lower extremity, patient cannot tolerate compression socks. D-dimer to be checked and is normal. 2. COPD, Continue albuterol nebulization 4 times every day Spiriva 18 mcg 1 capsule inhalation once every day and Symbicort 160/4.5 g 2 puff inhalation twice every day, 3 Hypertension and hypertensive cardiovascular disease. Continue metoprolol 50 mg orally once every day. 4. Diabetes mellitus type 2. Decrease Lantus 30 units at bedtime , continue with a sliding scale insulin as well, BGM will be checked before each meal and at bedtime. 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 Bicytopenia with thrombocytopenia and anemia chronic currently stable would monitor patient currently seen on heparin drip, platelet count is adequate for this, 7. Severe pulmonary hypertension per patient patient completed a sleep study and was reportedly negative for sleep apnea 8 Moderate aortic stenosis 9. Hyperlipidemia. Continue simvastatin 40 mg orally at bedtime. 10. History of gout .continue allopurinol 100 mg orally once every day. 11. History of CVA and TIA .continue patient on aspirin 81 mg once every day. 12. Chronic hypoxic respiratory failure with home O2 dependence at 3 L nasal cannula. 13. Autonomic dysfunction, patient's to maintain his proamatine 10 mg 3 times a day 14 acute kidney failure ckd stage III of the toxins will be avoided, patient is on maintenance lisinopril 5 mg daily which discontinued secondary to worsening renal function at this time and hypotension. Continue along with proamatine and increase this dose to 10 mg 3 times a day to avoid hypotension 15. Hypotension most likely secondary to hypovolemia from diuretics, Proamatine is increased to 10 mg 3 times a day, lisinopril on hold,. Cortisol is marginally low of normal. DVT prophylaxis. Continue bilateral knee-high MILLI hose. GI prophylaxis. Protonix 40 mg orally once every day. Patient is full code. .
[2017-08-02 16:56] LABS: Glucose,Whole Blood 119 mg/dL (75-99)
[2017-08-02] MEDS: ATORVASTATIN 20 MG TAB PO SCH (20:51)
[2017-08-02] MEDS: INSULIN GLARGINE 100 UNIT/ML 10 ML VIAL SQ SCH (21:11)
[2017-08-02 21:28] LABS: Glucose,Whole Blood 133 mg/dL (75-99)
[2017-08-03 06:13] LABS: Anisocytosis Slight; Basophils % (A) 1 %; CH 27.1; Eosinophils # (A) 0.1 k/uL (0-0.7); Eosinophils % (A) 2 %; HCT 28.4 % (39.0-53.0); HDW 3.29; HGB 8.7 gm/dL (13.0-17.5); Hypochromasia Moderate; Luc # (Auto) 0.06; Luc % (Auto) 2; Lymphocytes # (A) 0.8 k/uL (1.0-4.8); Lymphocytes % (A) 22 %; MCH 26.9 pg (25.0-35.0); MCHC 30.6 g/dL (31.0-37.0); MCV 87.8 fL (80.0-100.0); Mean Platelet Volume 8.7; Monocytes # (A) 0.2 k/uL (0-1.0); Monocytes % (A) 6 %; Neutrophils # (A) 2.5 k/uL (1.3-7.7); Neutrophils % (A) 69 %; RBC 3.23 m/uL (4.30-5.90); RDW 18.6 % (11.5-15.5); WBC 3.6 k/uL (3.8-10.6); WBC (Perox) 3.88
[2017-08-03 06:31] LABS: Calcium 8.9 mg/dL (8.4-10.2); Potassium 4.3 mmol/L (3.5-5.1)
[2017-08-03] MEDS: INSULIN LISPRO (humaLOG) 300 UNIT/3 ML VIAL SQ SCH ×8 (06:47→21:39)
[2017-08-03] MEDS: ALLOPURINOL 300 MG TAB PO SCH (06:48)
[2017-08-03] MEDS: MIDODRINE 5 MG TAB PO SCH ×3 (06:48→17:43)
[2017-08-03 06:56] LABS: Glucose,Whole Blood 90 mg/dL (75-99)
[2017-08-03] MEDS: SYMBICORT 160-4.5 MCG INHALER INHALATION SCH ×2 (07:22→20:29)
[2017-08-03] MEDS: LEVALBUTEROL NEB 1.25 MG/3 ML AMP INHALATION SCH ×3 (07:22→20:29)
[2017-08-03] MEDS: TIOTROPIUM 18 MCG/PUFF INHALER INHALATION SCH (07:22)
[2017-08-03] MEDS: FAMOTIDINE 20 MG TAB PO SCH (07:57)
[2017-08-03] MEDS ORDERED: METOPROLOL SUCCINATE (ER) 25 MG TAB.ER.24H PO SCH (09:00)
[2017-08-03] MEDS ORDERED: MAGNESIUM HYDROXIDE 2,400 MG/10 ML CUP PO PRN (09:27)
--- NOTE | 2017-08-03 09:32 | XR ---
EXAMINATION TYPE: XR chest 1V portable DATE OF EXAM: 08/03/2017 HISTORY: chf. REFERENCE: Previous study dated 08/01/2017. FINDINGS: The heart is enlarged. There is vascular congestion and mild interstitial change. This has improved somewhat from previous. I could not exclude a small left effusion. IMPRESSION: IMPROVING CHANGES OF PULMONARY EDEMA.
--- NOTE | 2017-08-03 09:34 | P.PN ---
Subjective Principal diagnosis: Acute exacerbation of chronic congestive heart failure Patient is feeling better clinically. Blood pressure has improved. Because of worsening renal functions I held the Lasix yesterday and I also had back the LITTLE inhibitor 88 nephrology has been consulted. Clinically this morning patient is feeling much better Objective - Vital Signs Vital signs: Vital Signs Temp 96.2 F L 08/03/17 07:57 Pulse 97 08/03/17 07:57 Resp 22 08/03/17 07:57 BP 106/65 08/03/17 07:57 Pulse Ox 96 08/03/17 07:57 Intake & Output 08/02/17 08/03/17 08/03/17 18:59 06:59 18:59 Intake Total 670 125 Output Total 300 Balance 670 -300 125 Weight 104.7 kg Intake: Oral 670 125 Output: Urine 300 Other: Voiding Method Urinal Urinal Urinal # Voids 1 - Exam Comfortable at rest vital signs are stable chest exam reveals diminished air entry at the bases heart exam reveals first and second heart sounds no gallop abdomen is soft exam extremities did not will any edema per for pulses are felt patient is in A. fib there is a systolic murmur at the apex and at the left lower sternal border - Labs CBC & Chem 7: 08/03/17 05:20 08/03/17 05:20 Labs: Abnormal Lab Results - Last 24 Hours (Table) 08/02/17 08/02/17 08/02/17 Range/Units 05:37 11:42 16:40 WBC (3.8-10.6) k/uL RBC (4.30-5.90) m/uL Hgb (13.0-17.5) gm/dL Hct (39.0-53.0) % MCHC (31.0-37.0) g/dL RDW (11.5-15.5) % Plt Count (150-450) k/uL Lymphocytes # (1.0-4.8) k/uL Chloride (98-107) mmol/L Carbon Dioxide (22-30) mmol/L BUN (9-20) mg/dL Creatinine (0.66-1.25) mg/dL POC Glucose (mg/dL) 164 H 119 H (75-99) mg/dL Iron 44 L (49-181) ug/dL % Saturation 16.3 L (20-50) % 08/02/17 08/03/17 08/03/17 Range/Units 20:35 05:20 05:20 WBC 3.6 L (3.8-10.6) k/uL RBC 3.23 L (4.30-5.90) m/uL Hgb 8.7 L (13.0-17.5) gm/dL Hct 28.4 L (39.0-53.0) % MCHC 30.6 L (31.0-37.0) g/dL RDW 18.6 H (11.5-15.5) % Plt Count 122 L (150-450) k/uL Lymphocytes # 0.8 L (1.0-4.8) k/uL Chloride 95 L (98-107) mmol/L Carbon Dioxide 33 H (22-30) mmol/L BUN 87 H* (9-20) mg/dL Creatinine 2.50 H (0.66-1.25) mg/dL POC Glucose (mg/dL) 133 H (75-99) mg/dL Iron (49-181) ug/dL % Saturation (20-50) % Microbiology - Last 24 Hours (Table) 07/31/17 16:58 Blood Culture - Preliminary Blood No Growth after 48 hours Assessment and Plan Plan: Acute exacerbation of chronic congestive heart failure Acute worsening of the chronic renal failure Chronic atrial fibrillation patient is not a candidate for long-term anticoagulation I will continue the beta jim that he is on an going to let nephrology decide on the diuretics
[2017-08-03] MEDS: DOCUSATE 100 MG CAP PO SCH (09:57)
--- NOTE | 2017-08-03 10:43 | P.PN ---
Subjective Patient is seen for follow-up for acute kidney injury which was mainly associated with hypotension and hypoperfusion. He presented to the hospital with CHF and fluid overload. His blood pressure still remains on the lower side with systolic at about 89-90 mmHg however this morning it was at 106 minute meters of mercury. Patient has been voiding his post void residual residual was only about 1 25 mL. The serum creatinine has increased To 2.5 mg/dL. Patient is maintained on Lasix at 40 mg IV every 8 hours. His chest x-ray shows the pulmonary vascular congestion has improved. Ultrasound of the kidneys is unremarkable with no evidence of hydronephrosis. UA is completely benign. Weight is staying about the same at 104.2 and 104.7 kg. Objective - Vital Signs Vital signs: Vital Signs Temp 96.2 F L 08/03/17 07:57 Pulse 97 08/03/17 07:57 Resp 22 08/03/17 07:57 BP 106/65 08/03/17 07:57 Pulse Ox 96 08/03/17 07:57 Intake & Output 08/02/17 08/03/17 08/03/17 18:59 06:59 18:59 Intake Total 670 125 Output Total 300 Balance 670 -300 125 Weight 104.7 kg Intake: Oral 670 125 Output: Urine 300 Other: Voiding Method Urinal Urinal Urinal # Voids 1 # Bowel Movements 1 - Exam On examination blood pressure is 106/65 heart rate 97/m patient is afebrile Examination of the heart S1 and S2 Examination lungs bilateral breath sounds are heard Abdomen is soft nontender Examination lower extremity shows chronic skin changes both extremities are wrapped there is edema noted as well bilaterally. - Labs CBC & Chem 7: 08/03/17 05:20 08/03/17 05:20 Labs: Abnormal Lab Results - Last 24 Hours (Table) 08/02/17 08/02/17 08/02/17 Range/Units 05:37 11:42 16:40 WBC (3.8-10.6) k/uL RBC (4.30-5.90) m/uL Hgb (13.0-17.5) gm/dL Hct (39.0-53.0) % MCHC (31.0-37.0) g/dL RDW (11.5-15.5) % Plt Count (150-450) k/uL Lymphocytes # (1.0-4.8) k/uL Chloride (98-107) mmol/L Carbon Dioxide (22-30) mmol/L BUN (9-20) mg/dL Creatinine (0.66-1.25) mg/dL POC Glucose (mg/dL) 164 H 119 H (75-99) mg/dL Iron 44 L (49-181) ug/dL % Saturation 16.3 L (20-50) % 08/02/17 08/03/17 08/03/17 Range/Units 20:35 05:20 05:20 WBC 3.6 L (3.8-10.6) k/uL RBC 3.23 L (4.30-5.90) m/uL Hgb 8.7 L (13.0-17.5) gm/dL Hct 28.4 L (39.0-53.0) % MCHC 30.6 L (31.0-37.0) g/dL RDW 18.6 H (11.5-15.5) % Plt Count 122 L (150-450) k/uL Lymphocytes # 0.8 L (1.0-4.8) k/uL Chloride 95 L (98-107) mmol/L Carbon Dioxide 33 H (22-30) mmol/L BUN 87 H* (9-20) mg/dL Creatinine 2.50 H (0.66-1.25) mg/dL POC Glucose (mg/dL) 133 H (75-99) mg/dL Iron (49-181) ug/dL % Saturation (20-50) % Microbiology - Last 24 Hours (Table) 07/31/17 16:58 Blood Culture - Preliminary Blood No Growth after 48 hours Assessment and Plan Plan: Assessment 1. Acute kidney injury secondary to hypotension and hypoperfusion and CHF. Currently creatinine is higher than yesterday. Patient is maintained on Lasix 40 IV every 8 hours his chest x-ray findings have improved I will decrease the Lasix to every 12 hours for today. There is no evidence of a urine retention with post void residual residuals being about 1 25 mL. Ultrasound and urine analysis is completely unremarkable. Therefore I doubt that there is any other underlying process. 2. Hypotension check cortisol level and continue with the meter training. 3. CK D NKF stage III with baseline creatinine about 1.1-1.2 mg/dL secondary to nephrosclerosis. 3. COPD 4. Hypertension with blood pressure currently staying low and maintained off of lisinopril and the dose of metoprolol was also decreased. 5. Anemia with evidence of iron deficiency noted. Serum cortisol was low at 5 Plan Start IV iron, decrease IV Lasix, add hydrocortisone. Ideally patient should have an ACTH stimulation test given his low cortisol level.
[2017-08-03 11:32] LABS: Glucose,Whole Blood 136 mg/dL (75-99)
--- NOTE | 2017-08-03 11:43 | P.PN ---
Subjective Principal diagnosis: Acute on chronic diastolic congestive heart failure and history of aortic valve disease This is a 72-year-old white male with known history of COPD, O2 dependent, usually sees Dr. Cerda in the office. Patient is also known to have history of chronic congestive heart failure, was recently admitted to [facility] with congestive heart failure, and discharge home last Friday on multiple medications including diuretics. Patient states that he has been compliant with all the medications, however in spite of his compliance, patient presented to the ER with mostly symptoms of increased shortness of breath, retention of fluids in his lower extremities, but no chest pain, no fever, no chills, no hemoptysis, no palpitations. Chest x-ray upon evaluation in the ER showed evidence of congestive heart failure. Hence the patient was admitted and this consult was initiated. His labs showed normal CBC except for hemoglobin of 9.7 , basic metabolic profile was relatively normal except for bicarb of 3 for BUN was 37 and creatinine 1.20. BNP level was 6120, and troponin was 0.082. Clinically, and radiographically, this all pointed mostly to a picture of acute on chronic congestive heart failure presentation. Patient has been given Lasix , placed on a Bumex, and I was asked to see him on consultation. Patient is already on heparin, cardiac consultation is pending. Patient was reevaluated today on 08/01/2017, slight improvement, but not much. Continues to have some shortness of breath, continues to have some crackles at the bases, chest x-ray is not any different, continues to be compatible with congestive heart failure. Hence I will go ahead and place the patient on a maintenance dose of Lasix 40 mg IV push every 8 hours, and discontinue oral Bumex. May even consider a Lasix drip on this patient. Troponin level was noted to be 0.077. Patient continues to have significant swelling in the lower extremities. Patient was reevaluated today on 08/02/2017, slight improvement noted today, however his fluid balance seems to be very marginal negative. Patient was placed yesterday on Lasix instead of Bumex, and he is receiving that at 40 mg IV push every 8 hours. Swelling in the lower extremities seem to be improved. Blood pressure is marginal. Patient was reevaluated today on 08/03/2017, feeling better, breathing a bit easier, IBC seems to be responding to diuretics. Of course there has been increase in his renal functioning, creatinine increased up to 2.5, and he remains on Lasix 40 mg IV push every 8 hours. Ultrasound of the kidneys showed no evidence of hydronephrosis. Chest x-ray reviewed today showed definite improvement in his pulmonary edema. CBC showed WBC count of 3.6 hemoglobin is 8.7. BUN is 87 and creatinine 2.50 bicarb is 33. Objective - Vital Signs Vital signs: Vital Signs Temp 96.2 F L 08/03/17 07:57 Pulse 97 08/03/17 07:57 Resp 22 08/03/17 07:57 BP 106/65 08/03/17 07:57 Pulse Ox 96 08/03/17 07:57 Intake & Output 08/02/17 08/03/17 08/03/17 18:59 06:59 18:59 Intake Total 670 125 Output Total 300 Balance 670 -300 125 Weight 104.7 kg Intake: Oral 670 125 Output: Urine 300 Other: Voiding Method Urinal Urinal Urinal # Voids 1 # Bowel Movements 1 - Exam Physical Exam: Revealed a 72-year-old white male in mild respiratory distress. HEENT:[Neck is supple.] [No neck masses.] [No thyromegaly.] [No JVD.] Chest: [Minimal crackles at the bases, no rhonchi, no wheezes. Cardiac Exam: [Normal S1 and S2, no S3 gallop, 2/6 systolic murmur throughout the precordium.] Abdomen: [Soft, nontender, no megaly, no rebound, no guarding, normal bowel sounds.] Extremities: [No clubbing, 2+ plus bipedal edema, no cyanosis. Neurological Exam: [No focal neurologic deficit.] - Labs CBC & Chem 7: 08/03/17 05:20 08/03/17 05:20 Labs: Abnormal Lab Results - Last 24 Hours (Table) 08/02/17 08/02/17 08/02/17 Range/Units 05:37 11:42 16:40 WBC (3.8-10.6) k/uL RBC (4.30-5.90) m/uL Hgb (13.0-17.5) gm/dL Hct (39.0-53.0) % MCHC (31.0-37.0) g/dL RDW (11.5-15.5) % Plt Count (150-450) k/uL Lymphocytes # (1.0-4.8) k/uL Chloride (98-107) mmol/L Carbon Dioxide (22-30) mmol/L BUN (9-20) mg/dL Creatinine (0.66-1.25) mg/dL POC Glucose (mg/dL) 164 H 119 H (75-99) mg/dL Iron 44 L (49-181) ug/dL % Saturation 16.3 L (20-50) % 08/02/17 08/03/17 08/03/17 Range/Units 20:35 05:20 05:20 WBC 3.6 L (3.8-10.6) k/uL RBC 3.23 L (4.30-5.90) m/uL Hgb 8.7 L (13.0-17.5) gm/dL Hct 28.4 L (39.0-53.0) % MCHC 30.6 L (31.0-37.0) g/dL RDW 18.6 H (11.5-15.5) % Plt Count 122 L (150-450) k/uL Lymphocytes # 0.8 L (1.0-4.8) k/uL Chloride 95 L (98-107) mmol/L Carbon Dioxide 33 H (22-30) mmol/L BUN 87 H* (9-20) mg/dL Creatinine 2.50 H (0.66-1.25) mg/dL POC Glucose (mg/dL) 133 H (75-99) mg/dL Iron (49-181) ug/dL % Saturation (20-50) % 08/03/17 Range/Units 11:30 WBC (3.8-10.6) k/uL RBC (4.30-5.90) m/uL Hgb (13.0-17.5) gm/dL Hct (39.0-53.0) % MCHC (31.0-37.0) g/dL RDW (11.5-15.5) % Plt Count (150-450) k/uL Lymphocytes # (1.0-4.8) k/uL Chloride (98-107) mmol/L Carbon Dioxide (22-30) mmol/L BUN (9-20) mg/dL Creatinine (0.66-1.25) mg/dL POC Glucose (mg/dL) 136 H (75-99) mg/dL Iron (49-181) ug/dL % Saturation (20-50) % Microbiology - Last 24 Hours (Table) 07/31/17 16:58 Blood Culture - Preliminary Blood No Growth after 48 hours Assessment and Plan Plan: Impression: 1 acute on chronic congestive heart failure, most likely secondary to diastolic dysfunction and moderate severe aortic stenosis. 2 chronic cor pulmonale 3 severe pulmonary hypertension based on the recent echocardiogram. 4 history of moderate mitral and tricuspid regurgitation. 5 history of advanced COPD and chronic hypoxic respiratory failure secondary to COPD and congestive heart failure. 6 history of chronic bilateral subcentimeter nodules related to old [place] level disease. 7 history of chronic atrial fibrillation. 8 history of hypertension 9 history of hyperlipidemia 10 history of gout 11 history of chronic anemia 12 history of GI bleeding secondary to gastritis. 13 history of peripheral vessel occlusive disease. 14 history of Haemophilus influenza pneumonia fully treated and resolved. 15 possible non-ST segment elevation myocardial infarction. Patient is presently on heparin, being followed by cardiology Recommendation: Continue present treatment plan including bronchodilators in the form of DuoNeb, and Symbicort, continue diuretics, continue to monitor renal profile, and follow-up chest x-ray in a.m. Time with Patient: Less than 30
[2017-08-03 12:53] LABS: Appearance,Urine Clear (Clear); Bilirubin,Urine Negative (Negative); Glucose,Urine (UA) Negative (Negative); Ketones,Urine Negative (Negative); Leukocyte Esterase,Urine Negative (Negative); Nitrite,Urine Negative (Negative); Protein,Urine Negative (Negative); UA Billing (MACRO vs. MICRO) CHEM; Urobilinogen,Urine <2.0 mg/dL (<2.0)
--- NOTE | 2017-08-03 14:03 | P.PN ---
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 Bill Almeida with a previous medical history significant for hypertension and hypertensive cardio vascular disease, hyperlipidemia, history of CVA/TIA, chronic atrial fibrillation, chronic diastolic heart failure, gout, chronic obstructive pulmonary disease , He had multiple admissions from our facility secondary to diastolic CHF exacerbation and edema, he was recently discharged from our facility 06/25/2017 again another admission 05/02/2017 . Apparently he was recently discharged from [facility] and he was barely 4 days at home when he started having shortness of breath edema PND of 1 day duration. Apparently some of the medications were changed during his [place] admission, patient was compliant with medications, and diet, he cannot tolerate compression stockings on the lower extremity, he has some Vasu wrap in the house which he has not been using He has significant moderate aortic stenosis, severe pulmonary hypertension chronic atrial fibrillation not a candidate for long-term anticoagulation. He also complains off yellow productive cough no fever no chills no chest pain no lightheadedness no dizziness nor orthostasis he has urinary frequency Last echocardiogram 06/20/2017 showed moderate tricuspid regurgitation and severe pulmonary hypertension RSVP 62 EF 55-60% aortic valve thickening with moderate aortic stenosis. Patient had a sleep study performed also according to him he passed his sleep study report Patient presents to emergency room with acute on chronic diastolic CHF exacerbation and edema, and this in consultation by Dr. Meza from pulmonary and consult cardiology 08/02: Patient's shortness of breath hasn't changed, creatinine has risen to 2.1 from previous of 1.2, Dr. Everett consulted, blood pressure in the low 90s, which is new Lasix on hold, Primatene increased to 10 mg 3 times a day from 10 twice a day lisinopril on hold, patient with +1 edema, no Vasu wrap. Patient had epistaxis, controlled with local compression heparin was discontinued, ultrasound of kidneys is requested and current pending. 08/03, patient is clinically unchanged, creatinine got worse, also with azotemia , hydrocortisone started, Lasix is to resume at 40 mg every 12 hours, blood pressure still labile, postvoid residual is less than 200 mL, no hydronephrosis on kidney ultrasound. Prescription for hospital bed for home use left in the chart patient sleeps recliner mainly, multiple admissions with CHF: Objective - Vital Signs Vital signs: Vital Signs Temp 96.2 F L 08/03/17 07:57 Pulse 97 08/03/17 07:57 Resp 22 08/03/17 07:57 BP 106/65 08/03/17 07:57 Pulse Ox 96 08/03/17 07:57 Intake & Output 08/02/17 08/03/17 08/03/17 18:59 06:59 18:59 Intake Total 670 125 Output Total 300 Balance 670 -300 125 Weight 104.7 kg Intake: Oral 670 125 Output: Urine 300 Other: Voiding Method Urinal Urinal Urinal # Voids 1 # Bowel Movements 1 - Constitutional General appearance: Present: cooperative, no acute distress - EENT Eyes: Present: anicteric sclerae, EOMI, dentition normal ENT: Present: hearing grossly normal, normal oropharynx - Neck Neck: Present: normal ROM - Respiratory Respiratory: bilateral: CTA, negative: diminished, dullness, rales, rhonchi - Cardiovascular Rhythm: regular Heart sounds: normal: S1, S2 Abnormal Heart Sounds: Absent: systolic murmur, diastolic murmur, rub, S3 Gallop , S4 Gallop, click, other - Gastrointestinal General gastrointestinal: Present: decreased bowel sounds, normal bowel sounds, soft - Integumentary Integumentary: Present: normal, normal turgor - Neurologic Neurologic: Present: CNII-XII intact - Musculoskeletal Musculoskeletal: Present: gait normal - Psychiatric Psychiatric: Present: A&O x's 3, appropriate affect - Labs CBC & Chem 7: 08/03/17 05:20 08/03/17 05:20 Labs: Abnormal Lab Results - Last 24 Hours (Table) 08/02/17 08/02/17 08/03/17 Range/Units 16:40 20:35 05:20 WBC (3.8-10.6) k/uL RBC (4.30-5.90) m/uL Hgb (13.0-17.5) gm/dL Hct (39.0-53.0) % MCHC (31.0-37.0) g/dL RDW (11.5-15.5) % Plt Count (150-450) k/uL Lymphocytes # (1.0-4.8) k/uL Chloride 95 L (98-107) mmol/L Carbon Dioxide 33 H (22-30) mmol/L BUN 87 H* (9-20) mg/dL Creatinine 2.50 H (0.66-1.25) mg/dL POC Glucose (mg/dL) 119 H 133 H (75-99) mg/dL 08/03/17 08/03/17 Range/Units 05:20 11:30 WBC 3.6 L (3.8-10.6) k/uL RBC 3.23 L (4.30-5.90) m/uL Hgb 8.7 L (13.0-17.5) gm/dL Hct 28.4 L (39.0-53.0) % MCHC 30.6 L (31.0-37.0) g/dL RDW 18.6 H (11.5-15.5) % Plt Count 122 L (150-450) k/uL Lymphocytes # 0.8 L (1.0-4.8) k/uL Chloride (98-107) mmol/L Carbon Dioxide (22-30) mmol/L BUN (9-20) mg/dL Creatinine (0.66-1.25) mg/dL POC Glucose (mg/dL) 136 H (75-99) mg/dL Microbiology - Last 24 Hours (Table) 07/31/17 16:58 Blood Culture - Preliminary Blood No Growth after 48 hours Assessment and Plan Plan: 1. Acute diastolic heart failure on chronic diastolic heart failure recurrent dyspnea multifactorial with moderate Aortic stenosis, severe pulmonary hypertension,. Started new dosing of Lasix 40 mg oral every 12 hours, metoprolol 50 mg orally once every day, , cardiology consultation. Cardiac gram was reviewed from previous admission in May 2017, urinary retention needs to be ruled out, post void residual needs to be checked. Vasu wrap on the lower extremity, patient cannot tolerate compression socks. D-dimer to be checked and is normal.. No hydronephrosis noted negative for urinary retention. Continue Vasu wrap 2. COPD, Continue albuterol nebulization 4 times every day Spiriva 18 mcg 1 capsule inhalation once every day and Symbicort 160/4.5 g 2 puff inhalation twice every day, 3 Hypertension and hypertensive cardiovascular disease. Continue metoprolol 50 mg orally once every day. 4. Diabetes mellitus type 2. Decrease Lantus 30 units at bedtime , continue with a sliding scale insulin as well, BGM will be checked before each meal and at bedtime. 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 Bicytopenia with thrombocytopenia and anemia chronic currently stable would monitor patient currently seen on heparin drip, platelet count is adequate for this, 7. Severe pulmonary hypertension per patient patient completed a sleep study and was reportedly negative for sleep apnea 8 Moderate aortic stenosis 9. Hyperlipidemia. Continue simvastatin 40 mg orally at bedtime. 10. History of gout .continue allopurinol 100 mg orally once every day. 11. History of CVA and TIA .continue patient on aspirin 81 mg once every day. 12. Chronic hypoxic respiratory failure with home O2 dependence at 3 L nasal cannula. 13. Autonomic dysfunction, patient's to maintain his proamatine 10 mg 3 times a day 14 acute kidney failure ckd stage III of the toxins will be avoided, patient is on maintenance lisinopril 5 mg daily which discontinued secondary to worsening renal function at this time and hypotension. Continue along with proamatine and increase this dose to 10 mg 3 times a day to avoid hypotension 15. Hypotension most likely secondary to hypovolemia from diuretics, Proamatine is increased to 10 mg 3 times a day, lisinopril on hold,. Cortisol is marginally low of normal. Hydrocortisone 100 mg IV started every 8 hours DVT prophylaxis. Continue bilateral knee-high MILLI hose. GI prophylaxis. Protonix 40 mg orally once every day. Patient is full code. .
[2017-08-03 16:39] LABS: Glucose,Whole Blood 160 mg/dL (75-99)
[2017-08-03] MEDS: ATORVASTATIN 20 MG TAB PO SCH (19:45)
[2017-08-03] MEDS: FUROSEMIDE 10 MG/ML 4 ML VIAL IV SCH (19:45)
[2017-08-03] MEDS: HYDROCORTISONE SUCCINATE 100 MG/2 ML VIAL IV SCH (19:45)
[2017-08-03 21:00] LABS: Glucose,Whole Blood 143 mg/dL (75-99)
[2017-08-03] MEDS ORDERED: FUROSEMIDE 10 MG/ML 4 ML VIAL IV SCH (21:00)
[2017-08-03] MEDS: INSULIN GLARGINE 100 UNIT/ML 10 ML VIAL SQ SCH (21:38)
[2017-08-04 06:15] LABS: Anisocytosis Slight; Basophils % (A) 0 %; CH 27.2; CHCM 31.4; Eosinophils % (A) 0 %; HCT 27.4 % (39.0-53.0); HDW 3.31; HGB 8.6 gm/dL (13.0-17.5); Hypochromasia Moderate; Luc # (Auto) 0.02; Luc % (Auto) 1; Lymphocytes # (A) 0.4 k/uL (1.0-4.8); Lymphocytes % (A) 17 %; MCH 27.3 pg (25.0-35.0); MCHC 31.5 g/dL (31.0-37.0); MCV 86.8 fL (80.0-100.0); Mean Platelet Volume 8.4; Monocytes # (A) 0.1 k/uL (0-1.0); Monocytes % (A) 4 %; Neutrophils # (A) 1.9 k/uL (1.3-7.7); Neutrophils % (A) 78 %; RBC 3.16 m/uL (4.30-5.90); RDW 18.5 % (11.5-15.5); WBC 2.4 k/uL (3.8-10.6); WBC (Perox) 2.54
[2017-08-04 06:31] LABS: Anion Gap 8 mmol/L; Blood Urea Nitrogen 78 mg/dL (9-20); Calcium 8.8 mg/dL (8.4-10.2); Carbon Dioxide 34 mmol/L (22-30); Chloride 96 mmol/L (98-107); Glucose 147 mg/dL (74-99); Non-African American GFR(MDRD) 50 (>60 ml/min/1.73 sqM); Potassium 4.7 mmol/L (3.5-5.1); Sodium 138 mmol/L (137-145)
[2017-08-04 06:36] LABS: Glucose,Whole Blood 151 mg/dL (75-99)
[2017-08-04] MEDS: INSULIN LISPRO (humaLOG) 300 UNIT/3 ML VIAL SQ SCH ×8 (06:52→21:20)
[2017-08-04] MEDS: MIDODRINE 5 MG TAB PO SCH ×3 (06:53→17:30)
[2017-08-04] MEDS: ALLOPURINOL 300 MG TAB PO SCH (06:53)
--- NOTE | 2017-08-04 07:30 | XR ---
EXAMINATION TYPE: XR chest 1V portable DATE OF EXAM: 08/04/2017 COMPARISON: 08/03/2017 HISTORY: Congestive heart failure TECHNIQUE: Single frontal view of the chest is obtained. FINDINGS: There is new near complete opacification of the left hemithorax with moderate pulmonary va scular congestion bilaterally. Cardiac silhouette is again enlarged and partially obscured along its left heart borders. There is blunting of the left costophrenic angle. No focal consolidation is seen within the right lung although the right costophrenic angle is not completely imaged. Osseous structu res appear intact with degenerative changes of the thoracic spine. IMPRESSION: 1. New near complete opacification of the left hemithorax which may relate to confluent areas of pulm onary edema in the setting of congestive heart failure and previously noted moderate pulmonary vascul ar congestion. Additionally this could represent new multifocal pneumonia and correlation with leukoc ytosis is recommended. 2. Persistent moderate pulmonary edema and small left pleural effusion.
[2017-08-04] MEDS: SYMBICORT 160-4.5 MCG INHALER INHALATION SCH ×2 (08:03→20:04)
[2017-08-04] MEDS: LEVALBUTEROL NEB 1.25 MG/3 ML AMP INHALATION SCH ×3 (08:03→20:04)
[2017-08-04] MEDS: TIOTROPIUM 18 MCG/PUFF INHALER INHALATION SCH (08:15)
[2017-08-04] MEDS: HYDROCORTISONE SUCCINATE 100 MG/2 ML VIAL IV SCH ×2 (08:50→21:19)
[2017-08-04] MEDS: FUROSEMIDE 10 MG/ML 4 ML VIAL IV SCH ×3 (08:50→21:21)
[2017-08-04] MEDS: METOPROLOL SUCCINATE (ER) 25 MG TAB.ER.24H PO SCH (08:51)
[2017-08-04] MEDS: DOCUSATE 100 MG CAP PO SCH (08:51)
[2017-08-04] MEDS: FAMOTIDINE 20 MG TAB PO SCH ×2 (08:52→19:54)
[2017-08-04] MEDS: SODIUM FERRIC GLUCONAT-SUCROSE 125 MG in SODIUM CHLORIDE 0.9% 100 ML IVPB SCH (08:52)
[2017-08-04] MEDS ORDERED: DOCUSATE 100 MG CAP PO SCH (09:00)
--- NOTE | 2017-08-04 10:37 | P.PN ---
Subjective Principal diagnosis: Acute on chronic diastolic congestive heart failure This is a pleasant 72-year-old gentleman with a history of aortic stenosis, COPD , pulmonary hypertension and diastolic heart failure. Presented to the emergency department with acute on chronic diastolic heart failure. He was recently admitted to the hospital in [place] and discharged home. According to the patient he was home for just a few days began noticing increasing shortness of breath, leg edema, weight gain, orthopnea and paroxysmal nocturnal dyspnea. His troponins were mildly elevated which is of unclear clinical significance. He has chronic atrial fibrillation but is not a candidate for long-term anticoagulation because of a history of bleeding. Patient's Lasix and lisinopril were placed on hold due to elevated BUN and creatinine. Nephrology was consulted. They've been following with the patient and have resumed Lasix 40 mg IV push to 12 hours. Chest x-ray this morning shows new near complete opacification of the left hemithorax, persistent moderate pulmonary edema and small left pleural effusion. His BUN and creatinine have improved with a BUN of 78 and creatinine 1.4. Upon examination, patient is resting comfortably in bed head of bed down. He verbalizes feeling better says his breathing is fair. His edema has improved somewhat. Objective - Vital Signs Vital signs: Vital Signs Temp 97.3 F L 08/04/17 08:40 Pulse 85 08/04/17 08:40 Resp 20 08/04/17 08:40 BP 100/57 08/04/17 08:40 Pulse Ox 98 08/04/17 08:40 Intake & Output 08/03/17 08/04/17 08/04/17 18:59 06:59 18:59 Intake Total 630 180 Output Total 600 175 Balance 630 -600 5 Weight 104.2 kg Intake: Oral 630 180 Output: Urine 600 175 Other: Voiding Method Urinal Urinal # Voids 1 # Bowel Movements 1 - Exam PHYSICAL EXAMINATION: HEENT: Head is atraumatic, normocephalic. Pupils equal, round. Neck is supple. There is no elevated jugular venous pressure. HEART EXAMINATION: Heart sounds irregular, S1 and S2 normal with a systolic murmur at the base. CHEST EXAMINATION: Lungs expiratory wheezing throughout, crackles left lung and right lower lobe. No chest wall tenderness is noted on palpation or with deep breathing. ABDOMEN: Soft, nontender. Bowel sounds are heard. No organomegaly noted. EXTREMITIES:1+ peripheral pulses with evidence of 1+ peripheral edema and evidence of chronic changes of stasis. NEUROLOGIC patient is awake, alert and oriented x3. . - Labs CBC & Chem 7: 08/04/17 05:49 08/04/17 05:49 Labs: Abnormal Lab Results - Last 24 Hours (Table) 08/03/17 08/03/17 08/03/17 Range/Units 11:30 16:36 20:58 WBC (3.8-10.6) k/uL RBC (4.30-5.90) m/uL Hgb (13.0-17.5) gm/dL Hct (39.0-53.0) % RDW (11.5-15.5) % Plt Count (150-450) k/uL Lymphocytes # (1.0-4.8) k/uL Chloride (98-107) mmol/L Carbon Dioxide (22-30) mmol/L BUN (9-20) mg/dL Creatinine (0.66-1.25) mg/dL Glucose (74-99) mg/dL POC Glucose (mg/dL) 136 H 160 H 143 H (75-99) mg/dL 08/04/17 08/04/17 08/04/17 Range/Units 05:49 05:49 06:33 WBC 2.4 L (3.8-10.6) k/uL RBC 3.16 L (4.30-5.90) m/uL Hgb 8.6 L (13.0-17.5) gm/dL Hct 27.4 L (39.0-53.0) % RDW 18.5 H (11.5-15.5) % Plt Count 101 L (150-450) k/uL Lymphocytes # 0.4 L (1.0-4.8) k/uL Chloride 96 L (98-107) mmol/L Carbon Dioxide 34 H (22-30) mmol/L BUN 78 H (9-20) mg/dL Creatinine 1.40 H (0.66-1.25) mg/dL Glucose 147 H (74-99) mg/dL POC Glucose (mg/dL) 151 H (75-99) mg/dL Microbiology - Last 24 Hours (Table) 08/02/17 21:00 Gram Stain - Preliminary Sputum 07/31/17 16:58 Blood Culture - Preliminary Blood No Growth after 72 hours 08/03/17 12:40 Urine Culture - Preliminary Urine,Clean Catch Assessment and Plan Plan: Assessment and plan #1 acute on chronic diastolic congestive heart failure #2 aortic stenosis #3 chronic atrial fibrillation, not a candidate for long-term anticoagulation related to history of bleeding #4 COPD, pulmonary is on consult #5 acute kidney injury with chronic kidney failure From cardiology perspective, continue current dose of IV Lasix. Continue to monitor renal function, and taken output as well as daily weights. Will repeat chest x-ray in the morning. Further recommendations to follow. The above dictated assessment and findings were discussed with signing physician. The impression and plan of care have been directed as dictated. Quin Radford, Nurse Practitioner, acting as scribe for signing physician.
[2017-08-04 11:40] LABS: Glucose,Whole Blood 171 mg/dL (75-99)
--- NOTE | 2017-08-04 12:24 | P.PN ---
Subjective Progress note dated 08/04/2017 This is a 72-year-old male with a history of diastolic heart failure aortic valve disease O2 dependent COPD who was admitted with diagnosis of CHF. The patient's been seen by my partner over the last few days. He does note he mentions that he states he seems a bit better. Not having seen him before today , his heart and no other not he is some better than he was yesterday but he appears to be okay. Does not appear to be having any respiratory distress. I have to say, his chest x-ray looks a bit worse today than he did prior. The patient denies any pain. No fever. No chills. Not coughing. Not producing any phlegm. No nausea vomiting or diarrhea. Dr. Bunch saw him on the eight and 03 of August. Objective - Vital Signs Vital signs: Vital Signs Temp 97.3 F L 08/04/17 08:40 Pulse 85 08/04/17 08:40 Resp 20 08/04/17 08:40 BP 100/57 08/04/17 08:40 Pulse Ox 98 08/04/17 08:40 Intake & Output 08/03/17 08/04/17 08/04/17 18:59 06:59 18:59 Intake Total 630 180 Output Total 600 425 Balance 630 -600 -245 Weight 104.2 kg Intake: Oral 630 180 Output: Urine 600 425 Other: Voiding Method Urinal Urinal Urinal # Voids 1 # Bowel Movements 1 - Exam No acute distress, oriented 3. Nasal O2 in place. HEENT examination is grossly unremarkable. Mucous membranes are moist. Nasal O2 noted. Neck supple. Full range of motion. No adenopathy or thyromegaly. Cardiovascular examination reveals regular rhythm rate. S1-S2 normal. No S3- S4 or murmur. Lungs reveal some bibasilar crackles. Worse on the left than on the right. A few scattered rhonchi. No wheezes. Abdomen soft bowel sounds are heard. Extremities are intact. Mild edema. No cyanosis or clubbing skin shows some areas of ecchymoses. Neurologic examination is brief but nonfocal. - Labs CBC & Chem 7: 08/04/17 05:49 08/04/17 05:49 Labs: Abnormal Lab Results - Last 24 Hours (Table) 08/03/17 08/03/17 08/04/17 Range/Units 16:36 20:58 05:49 WBC (3.8-10.6) k/uL RBC (4.30-5.90) m/uL Hgb (13.0-17.5) gm/dL Hct (39.0-53.0) % RDW (11.5-15.5) % Plt Count (150-450) k/uL Lymphocytes # (1.0-4.8) k/uL Chloride 96 L (98-107) mmol/L Carbon Dioxide 34 H (22-30) mmol/L BUN 78 H (9-20) mg/dL Creatinine 1.40 H (0.66-1.25) mg/dL Glucose 147 H (74-99) mg/dL POC Glucose (mg/dL) 160 H 143 H (75-99) mg/dL 08/04/17 08/04/17 08/04/17 Range/Units 05:49 06:33 11:35 WBC 2.4 L (3.8-10.6) k/uL RBC 3.16 L (4.30-5.90) m/uL Hgb 8.6 L (13.0-17.5) gm/dL Hct 27.4 L (39.0-53.0) % RDW 18.5 H (11.5-15.5) % Plt Count 101 L (150-450) k/uL Lymphocytes # 0.4 L (1.0-4.8) k/uL Chloride (98-107) mmol/L Carbon Dioxide (22-30) mmol/L BUN (9-20) mg/dL Creatinine (0.66-1.25) mg/dL Glucose (74-99) mg/dL POC Glucose (mg/dL) 151 H 171 H (75-99) mg/dL Microbiology - Last 24 Hours (Table) 08/02/17 21:00 Gram Stain - Preliminary Sputum 07/31/17 16:58 Blood Culture - Preliminary Blood No Growth after 72 hours 08/03/17 12:40 Urine Culture - Preliminary Urine,Clean Catch Assessment and Plan (1) Acute pulmonary edema Status: Acute (2) Congestive heart failure Status: Acute (3) Aortic stenosis Status: Acute (4) COPD (chronic obstructive pulmonary disease) Status: Acute (5) CVA (cerebral vascular accident) Status: Acute (6) Diabetes Status: Acute (7) Diastolic CHF, acute on chronic Status: Acute (8) GIB (gastrointestinal bleeding) Status: Acute (9) HTN (hypertension) Status: Acute (10) Hyperlipemia Status: Acute (11) Hypoxemia Status: Acute (12) Paroxysmal a-fib Status: Acute (13) Peripheral edema Status: Acute (14) Pneumonia Status: Acute (15) Pulmonary edema Status: Acute Plan: Plan dated 08/04/2017 This patient has a history of a heart failure most likely likely secondary to diastolic dysfunction with severe aortic stenosis. The patient also suffers from acute pulmonary hypertension, moderate Atrovent tricuspid regurgitation and cor pulmonale. In addition, the patient has advanced COPD bilateral subcentimeter pulmonary nodules chronic atrial fibrillation hypertension hyperlipidemia gout chronic anemia and GI bleed vascular occlusive disease and a previous episode of Haemophilus influenzae pneumonia. The patient's overall prognosis is guarded. Will continue updrafts in the form of DuoNeb and Symbicort. The patient's prognosis is guarded. We'll get another chest x-ray in the morning. Time with Patient: Less than 30
--- NOTE | 2017-08-04 13:21 | P.PN ---
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 Apparently he was recently discharged from [facility] and he was barely 4 days at home when he started having shortness of breath edema PND of 1 day duration. Apparently some of the medications were changed during his [place] admission, patient was compliant with medications, and diet, he cannot tolerate compression stockings on the lower extremity, he has some Vasu wrap in the house which he has not been using He has significant moderate aortic stenosis, severe pulmonary hypertension chronic atrial fibrillation not a candidate for long-term anticoagulation. He also complains off yellow productive cough no fever no chills no chest pain no lightheadedness no dizziness nor orthostasis he has urinary frequency Last echocardiogram 06/20/2017 showed moderate tricuspid regurgitation and severe pulmonary hypertension RSVP 62 EF 55-60% aortic valve thickening with moderate aortic stenosis. Patient had a sleep study performed also according to him he passed his sleep study report Patient presents to emergency room with acute on chronic diastolic CHF exacerbation and edema, and this in consultation by Dr. Meza from pulmonary and consult cardiology 08/02: Patient's shortness of breath hasn't changed, creatinine has risen to 2.1 from previous of 1.2, Dr. Everett consulted, blood pressure in the low 90s, which is new Lasix on hold, Primatene increased to 10 mg 3 times a day from 10 twice a day lisinopril on hold, patient with +1 edema, no Vasu wrap. Patient had epistaxis, controlled with local compression heparin was discontinued, ultrasound of kidneys is requested and current pending. 08/03: Patient is clinically unchanged, creatinine got worse, also with azotemia , hydrocortisone started, Lasix is to resume at 40 mg every 12 hours, blood pressure still labile, postvoid residual is less than 200 mL, no hydronephrosis on kidney ultrasound. Prescription for hospital bed for home use left in the chart patient sleeps recliner mainly, multiple admissions with CHF: 08/04: The patient was seen and evaluated today. Patient's blood pressure remains stable 100/57 with a heart rate of 85. Repeat chest x-ray today shows new near complete opacification of left hemithorax, moderate pulmonary vascular congestion, persistent moderate pulmonary edema and small left pleural effusion. Lasix was decreased from every 8 hours to every 12 hours due to increased creatinine, creatinine has improved today to 1.4. Will continue current dose of IV Lasix and repeat chest x-ray tomorrow. Objective - Vital Signs Vital signs: Vital Signs Temp 97.3 F L 08/04/17 08:40 Pulse 85 08/04/17 08:40 Resp 20 08/04/17 08:40 BP 100/57 08/04/17 08:40 Pulse Ox 98 08/04/17 08:40 Intake & Output 08/03/17 08/04/17 08/04/17 18:59 06:59 18:59 Intake Total 630 Output Total 600 175 Balance 630 -600 -175 Weight 104.2 kg Intake: Oral 630 Output: Urine 600 175 Other: Voiding Method Urinal Urinal # Voids 1 # Bowel Movements 1 - Exam - Constitutional General appearance: Present: cooperative, no acute distress - EENT Eyes: Present: anicteric sclerae, EOMI, dentition normal ENT: Present: hearing grossly normal, normal oropharynx - Neck Neck: Present: normal ROM - Respiratory Respiratory: bilateral: CTA, negative: diminished, dullness, rales, rhonchi - Cardiovascular Rhythm: regular Heart sounds: normal: S1, S2 Abnormal Heart Sounds: Absent: systolic murmur, diastolic murmur, rub, S3 Gallop , S4 Gallop, click, other - Gastrointestinal General gastrointestinal: Present: decreased bowel sounds, normal bowel sounds, soft - Integumentary Integumentary: Present: normal, normal turgor - Neurologic Neurologic: Present: CNII-XII intact - Musculoskeletal Musculoskeletal: Present: gait normal - Psychiatric Psychiatric: Present: A&O x's 3, appropriate affect - Labs CBC & Chem 7: 08/04/17 05:49 08/04/17 05:49 Labs: Abnormal Lab Results - Last 24 Hours (Table) 08/03/17 08/03/17 08/03/17 Range/Units 11:30 16:36 20:58 WBC (3.8-10.6) k/uL RBC (4.30-5.90) m/uL Hgb (13.0-17.5) gm/dL Hct (39.0-53.0) % RDW (11.5-15.5) % Plt Count (150-450) k/uL Lymphocytes # (1.0-4.8) k/uL Chloride (98-107) mmol/L Carbon Dioxide (22-30) mmol/L BUN (9-20) mg/dL Creatinine (0.66-1.25) mg/dL Glucose (74-99) mg/dL POC Glucose (mg/dL) 136 H 160 H 143 H (75-99) mg/dL 08/04/17 08/04/17 08/04/17 Range/Units 05:49 05:49 06:33 WBC 2.4 L (3.8-10.6) k/uL RBC 3.16 L (4.30-5.90) m/uL Hgb 8.6 L (13.0-17.5) gm/dL Hct 27.4 L (39.0-53.0) % RDW 18.5 H (11.5-15.5) % Plt Count 101 L (150-450) k/uL Lymphocytes # 0.4 L (1.0-4.8) k/uL Chloride 96 L (98-107) mmol/L Carbon Dioxide 34 H (22-30) mmol/L BUN 78 H (9-20) mg/dL Creatinine 1.40 H (0.66-1.25) mg/dL Glucose 147 H (74-99) mg/dL POC Glucose (mg/dL) 151 H (75-99) mg/dL Microbiology - Last 24 Hours (Table) 08/02/17 21:00 Gram Stain - Preliminary Sputum 07/31/17 16:58 Blood Culture - Preliminary Blood No Growth after 72 hours 08/03/17 12:40 Urine Culture - Preliminary Urine,Clean Catch Assessment and Plan Plan: 1. Acute diastolic heart failure on chronic diastolic heart failure recurrent dyspnea multifactorial with moderate aortic stenosis, severe pulmonary hypertension, cardiology consultation, continue current dose of Lasix repeat chest x-ray tomorrow. Vasu wrap on the lower extremity, patient cannot tolerate compression socks. D-dimer to be checked and is normal. No hydronephrosis noted negative for urinary retention. 2. COPD. Continue Xopenex nebulization 4 times every day Spiriva 18 mcg 1 capsule inhalation once every day and Symbicort 160/4.5 g 2 puff inhalation twice every day, pulmonology on consult. 3 Hypertension and hypertensive cardiovascular disease. Continue metoprolol 12.5 mg orally once every day. 4. Diabetes mellitus type 2. Decrease Lantus 30 units at bedtime, continue with a sliding scale insulin as well, BGM will be checked before each meal and at bedtime. 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 sputum cultures obtained and still pending results. 6. Bicytopenia with thrombocytopenia and chronic anemia. Currently stable, will continue to monitor CBC. 7. Severe pulmonary hypertension. Per patient patient completed a sleep study and was reportedly negative for sleep apnea 8. Moderate aortic stenosis. 9. Hyperlipidemia. Continue Lipitor 20 mg orally at bedtime. 10. History of gout. Continue allopurinol 300 mg orally once every day. 11. History of CVA and TIA. 12. Chronic hypoxic respiratory failure with home O2 dependence at 3 L nasal cannula. 13. Autonomic dysfunction. Patient to maintain his proamatine 10 mg 3 times a day 14. Acute kidney failure, CKD stage III. Patient is on maintenance lisinopril 5 mg daily which discontinued secondary to worsening renal function at this time and hypotension. Continue along with proamatine and increase this dose to 10 mg 3 times a day to avoid hypotension. Nephrology on consult. 15. Hypotension most likely secondary to hypovolemia from diuretics. Proamatine is increased to 10 mg 3 times a day, lisinopril on hold. Cortisol is marginally low and of normal, Hydrocortisone 100 mg IV started every 12 hours. 16. DVT prophylaxis. Continue bilateral knee-high MILLI hose. 17. GI prophylaxis. Pepcid 20 mg orally once every day. The above impression and plan of care have been discussed and directed by signing physician. Katie Gonzáles nurse practitioner acting as scribe for signing physician.
[2017-08-04 16:35] LABS: Glucose,Whole Blood 175 mg/dL (75-99)
--- NOTE | 2017-08-04 17:14 | PN ---
PROGRESS NOTE Patient is seen for followup for acute kidney injury and fluid overload. He is maintained on Lasix, which was decreased yesterday, as chest x-ray showed improvement in pulmonary vascular congestion. The patient has also been hypotensive. His cortisol level was at 5 and I started hydrocortisone yesterday. This morning he denies any significant complaints. He states his shortness of breath has improved. Renal function has improved with serum creatinine now at 1.4 from 2.5 mg/dL yesterday. PHYSICAL EXAMINATION: Blood pressure is 118/67, heart rate 84 per minute. Patient is afebrile. EXAMINATION OF THE HEART: S1, S2. EXAMINATION OF LUNGS: Decreased breath sounds at the bases. Basal crackles are heard. ABDOMEN: Soft, non-tender. Examination of lower extremities shows bilateral extremities to be wrapped. 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 Patient is moving all 4 extremities. LABS: Sodium 138, potassium 4.7, chloride 96, CO2 34, BUN 78, serum creatinine 1.4, hemoglobin 8.6 g/dL. ASSESSMENT: 1. Acute kidney injury associated with hypotension, hypoperfusion as well as congestive heart failure, currently improving. Patient remains with fluid overload. Since his renal function is improved, I will increase the Lasix back to q.8 hours. Weight has not changed much and 24-hour output is documented at about 1100. 2. Congestive heart failure with ejection fraction not known at this time. Previous echo on June 20 shows ejection fraction 55% to 60% with dilated right ventricle and severely dilated left atrium. Severe pulmonary hypertension was also noted. Therefore it is mainly diastolic dysfunction. 3. Chronic kidney disease, NKF stage III, with creatinine at 1.2. Etiology is nephrosclerosis. 4. Hypotension with low cortisol level; started on hydrocortisone. PLAN: Increase Lasix. Continue the hydrocortisone. Continue off of lisinopril. Repeat labs in a.m. MMODL / IJN: [id number] /
[2017-08-04] MEDS: ATORVASTATIN 20 MG TAB PO SCH (19:52)
[2017-08-04 21:12] LABS: Glucose,Whole Blood 149 mg/dL (75-99)
[2017-08-04] MEDS: INSULIN GLARGINE 100 UNIT/ML 10 ML VIAL SQ SCH (21:19)
[2017-08-05 06:06] LABS: Glucose,Whole Blood 148 mg/dL (75-99)
[2017-08-05] MEDS: INSULIN LISPRO (humaLOG) 300 UNIT/3 ML VIAL SQ SCH ×8 (06:09→21:13)
[2017-08-05] MEDS: ALLOPURINOL 300 MG TAB PO SCH (06:43)
[2017-08-05 07:07] LABS: Anisocytosis Slight; Basophils % (A) 0 %; CH 27.2; CHCM 31.1; Eosinophils % (A) 0 %; HCT 28.9 % (39.0-53.0); HDW 3.23; HGB 8.8 gm/dL (13.0-17.5); Hypochromasia Moderate; Luc # (Auto) 0.03; Luc % (Auto) 1; Lymphocytes # (A) 0.4 k/uL (1.0-4.8); Lymphocytes % (A) 17 %; MCH 26.8 pg (25.0-35.0); MCHC 30.5 g/dL (31.0-37.0); MCV 87.9 fL (80.0-100.0); Mean Platelet Volume 8.7; Monocytes # (A) 0.1 k/uL (0-1.0); Monocytes % (A) 5 %; Neutrophils % (A) 77 %; RBC 3.29 m/uL (4.30-5.90); RDW 18.4 % (11.5-15.5); WBC 2.6 k/uL (3.8-10.6); WBC (Perox) 2.58
[2017-08-05 07:26] LABS: ALT 35 U/L (21-72); AST 23 U/L (17-59); Alkaline Phosphatase 73 U/L (38-126); Anion Gap 11 mmol/L; Blood Urea Nitrogen 62 mg/dL (9-20); Calcium 9.2 mg/dL (8.4-10.2); Carbon Dioxide 35 mmol/L (22-30); Chloride 96 mmol/L (98-107); Glucose 151 mg/dL (74-99); Non-African American GFR(MDRD) 55 (>60 ml/min/1.73 sqM); Potassium 4.4 mmol/L (3.5-5.1); Sodium 142 mmol/L (137-145); Total Bilirubin 1.1 mg/dL (0.2-1.3); Total Protein 6.7 g/dL (6.3-8.2)
[2017-08-05] MEDS: SYMBICORT 160-4.5 MCG INHALER INHALATION SCH ×2 (07:47→21:19)
[2017-08-05] MEDS: LEVALBUTEROL NEB 1.25 MG/3 ML AMP INHALATION SCH ×3 (07:47→21:19)
[2017-08-05] MEDS: TIOTROPIUM 18 MCG/PUFF INHALER INHALATION SCH (07:51)
[2017-08-05] MEDS: FUROSEMIDE 10 MG/ML 4 ML VIAL IV SCH ×3 (08:34→21:12)
[2017-08-05] MEDS: DOCUSATE 100 MG CAP PO SCH (08:35)
[2017-08-05] MEDS: METOPROLOL SUCCINATE (ER) 25 MG TAB.ER.24H PO SCH (08:35)
[2017-08-05] MEDS: HYDROCORTISONE SUCCINATE 100 MG/2 ML VIAL IV SCH ×2 (08:35→21:12)
[2017-08-05] MEDS: FAMOTIDINE 20 MG TAB PO SCH ×2 (08:35→21:12)
[2017-08-05] MEDS: MIDODRINE 5 MG TAB PO SCH ×3 (08:38→18:38)
[2017-08-05] MEDS: SODIUM FERRIC GLUCONAT-SUCROSE 125 MG in SODIUM CHLORIDE 0.9% 100 ML IVPB SCH (10:19)
--- NOTE | 2017-08-05 10:33 | P.PN ---
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 Apparently he was recently discharged from [facility] and he was barely 4 days at home when he started having shortness of breath edema PND of 1 day duration. Apparently some of the medications were changed during his [place] admission, patient was compliant with medications, and diet, he cannot tolerate compression stockings on the lower extremity, he has some Vasu wrap in the house which he has not been using He has significant moderate aortic stenosis, severe pulmonary hypertension chronic atrial fibrillation not a candidate for long-term anticoagulation. He also complains off yellow productive cough no fever no chills no chest pain no lightheadedness no dizziness nor orthostasis he has urinary frequency Last echocardiogram 06/20/2017 showed moderate tricuspid regurgitation and severe pulmonary hypertension RSVP 62 EF 55-60% aortic valve thickening with moderate aortic stenosis. Patient had a sleep study performed also according to him he passed his sleep study report Patient presents to emergency room with acute on chronic diastolic CHF exacerbation and edema, and this in consultation by Dr. Meza from pulmonary and consult cardiology 08/02: Patient's shortness of breath hasn't changed, creatinine has risen to 2.1 from previous of 1.2, Dr. Everett consulted, blood pressure in the low 90s, which is new Lasix on hold, Primatene increased to 10 mg 3 times a day from 10 twice a day lisinopril on hold, patient with +1 edema, no Vasu wrap. Patient had epistaxis, controlled with local compression heparin was discontinued, ultrasound of kidneys is requested and current pending. 08/03: Patient is clinically unchanged, creatinine got worse, also with azotemia , hydrocortisone started, Lasix is to resume at 40 mg every 12 hours, blood pressure still labile, postvoid residual is less than 200 mL, no hydronephrosis on kidney ultrasound. Prescription for hospital bed for home use left in the chart patient sleeps recliner mainly, multiple admissions with CHF: 08/04: The patient was seen and evaluated today. Patient's blood pressure remains stable 100/57 with a heart rate of 85. Repeat chest x-ray today shows new near complete opacification of left hemithorax, moderate pulmonary vascular congestion, persistent moderate pulmonary edema and small left pleural effusion. Lasix was decreased from every 8 hours to every 12 hours due to increased creatinine, creatinine has improved today to 1.4. Will continue current dose of IV Lasix and repeat chest x-ray tomorrow. 08/05: Patient was seen and evaluated, he was noted to be resting comfortably in bed. Reports shortness of breath has improved slightly. The patient was consulted by nephrology yesterday and noted to have a low cortisol level. He was started on hydrocortisone. Creatinine has improved slightly from 1.4-1.29 Repeat chest x-ray still pending. Objective - Vital Signs Vital signs: Vital Signs Temp 97.5 F L 08/05/17 04:00 Pulse 105 H 08/05/17 07:47 Resp 18 08/05/17 07:47 BP 101/63 08/05/17 04:00 Pulse Ox 95 08/05/17 07:47 Intake & Output 08/04/17 08/05/17 08/05/17 18:59 06:59 18:59 Intake Total 597 Output Total 1845 331 Balance -1248 -331 Weight 103 kg Intake: Oral 597 Output: Urine 1375 330 Post Void Residual 470 Urine/Stool Mix 1 Other: Voiding Method Urinal Urinal # Voids 1 - Exam - Constitutional General appearance: Present: cooperative, no acute distress - EENT Eyes: Present: anicteric sclerae, EOMI, dentition normal ENT: Present: hearing grossly normal, normal oropharynx - Neck Neck: Present: normal ROM - Respiratory Respiratory: bilateral: CTA, negative: diminished, dullness, rales, rhonchi - Cardiovascular Rhythm: regular Heart sounds: normal: S1, S2 Abnormal Heart Sounds: Absent: systolic murmur, diastolic murmur, rub, S3 Gallop , S4 Gallop, click, other - Gastrointestinal General gastrointestinal: Present: decreased bowel sounds, normal bowel sounds, soft - Integumentary Integumentary: Present: normal, normal turgor - Neurologic Neurologic: Present: CNII-XII intact - Musculoskeletal Musculoskeletal: Present: gait normal - Psychiatric Psychiatric: Present: A&O x's 3, appropriate affect - Labs CBC & Chem 7: 08/05/17 05:52 08/05/17 05:52 Labs: Abnormal Lab Results - Last 24 Hours (Table) 08/04/17 08/04/17 08/04/17 Range/Units 11:35 16:32 21:09 WBC (3.8-10.6) k/uL RBC (4.30-5.90) m/uL Hgb (13.0-17.5) gm/dL Hct (39.0-53.0) % MCHC (31.0-37.0) g/dL RDW (11.5-15.5) % Plt Count (150-450) k/uL Lymphocytes # (1.0-4.8) k/uL Chloride (98-107) mmol/L Carbon Dioxide (22-30) mmol/L BUN (9-20) mg/dL Creatinine (0.66-1.25) mg/dL Glucose (74-99) mg/dL POC Glucose (mg/dL) 171 H 175 H 149 H (75-99) mg/dL 08/05/17 08/05/17 08/05/17 Range/Units 05:52 05:52 06:04 WBC 2.6 L (3.8-10.6) k/uL RBC 3.29 L (4.30-5.90) m/uL Hgb 8.8 L (13.0-17.5) gm/dL Hct 28.9 L (39.0-53.0) % MCHC 30.5 L (31.0-37.0) g/dL RDW 18.4 H (11.5-15.5) % Plt Count 99 L (150-450) k/uL Lymphocytes # 0.4 L (1.0-4.8) k/uL Chloride 96 L (98-107) mmol/L Carbon Dioxide 35 H (22-30) mmol/L BUN 62 H (9-20) mg/dL Creatinine 1.29 H (0.66-1.25) mg/dL Glucose 151 H (74-99) mg/dL POC Glucose (mg/dL) 148 H (75-99) mg/dL Microbiology - Last 24 Hours (Table) 07/31/17 16:58 Blood Culture - Preliminary Blood No Growth after 96 hours 08/03/17 12:40 Urine Culture - Final Urine,Clean Catch Assessment and Plan Plan: 1. Acute diastolic heart failure on chronic diastolic heart failure recurrent dyspnea multifactorial with moderate aortic stenosis, severe pulmonary hypertension. cardiology on consult, continue current dose of Lasix 40 mg every 8 hours, repeat chest x-ray tomorrow. Vasu wrap on the lower extremities, patient cannot tolerate compression socks. 2. COPD. Continue Xopenex nebulization 4 times every day Spiriva 18 mcg 1 capsule inhalation once every day and Symbicort 160/4.5 g 2 puff inhalation twice every day, pulmonology on consult. 3 Hypertension and hypertensive cardiovascular disease. Continue metoprolol 12.5 mg orally once every day. 4. Diabetes mellitus type 2. Decrease Lantus 30 units at bedtime, continue with a sliding scale insulin as well, BGM will be checked before each meal and at bedtime. 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 Sputum cultures obtained and still pending results. 6. Bicytopenia with thrombocytopenia and chronic anemia. Currently stable, will continue to monitor CBC. 7. Severe pulmonary hypertension. Per patient patient completed a sleep study and was reportedly negative for sleep apnea 8. Moderate aortic stenosis. 9. Hyperlipidemia. Continue Lipitor 20 mg orally at bedtime. 10. History of gout. Continue allopurinol 300 mg orally once every day. 11. History of CVA and TIA. 12. Chronic hypoxic respiratory failure with home O2 dependence at 3 L nasal cannula. 13. Autonomic dysfunction. Patient to maintain his proamatine 10 mg 3 times a day 14. Acute kidney failure, CKD stage III. Patient is on maintenance lisinopril 5 mg daily which discontinued secondary to worsening renal function at this time and hypotension. Continue along with proamatine and increase this dose to 10 mg 3 times a day to avoid hypotension. Nephrology on consult. 15. Hypotension most likely secondary to hypovolemia from diuretics. Proamatine is increased to 10 mg 3 times a day, lisinopril on hold. Cortisol is marginally low and of normal, Hydrocortisone 100 mg IV started every 12 hours. 16. DVT prophylaxis. Continue bilateral knee-high MILLI hose. 17. GI prophylaxis. Pepcid 20 mg orally once every day. The above impression and plan of care have been discussed and directed by signing physician. Katie Gonzáles nurse practitioner acting as scribe for signing physician.
--- NOTE | 2017-08-05 11:49 | P.PN ---
Subjective Principal diagnosis: Congestive heart failure This is a pleasant 72-year-old gentleman with known history of aortic stenosis, COPD, pulmonary hypertension, diastolic congestive heart failure who presented to the hospital with symptoms of progressively worsening shortness of breath. Currently being treated for diastolic congestive heart failure. Patient continues to be on IV Lasix 40 mg every 8 hours, his weight today is down 1 kg. Weight blood cell count 2.6, hemoglobin 8.8, platelet count 99. BUN 62, creatinine 1.2. Potassium 4.4. Chest x-ray performed today report is yet pending. Overall patient states that he does feel his breathing is improving. Objective - Vital Signs Vital signs: Vital Signs Temp 96.1 F L 08/05/17 08:00 Pulse 109 H 08/05/17 08:00 Resp 18 08/05/17 07:57 BP 112/63 08/05/17 08:00 Pulse Ox 95 08/05/17 08:00 Intake & Output 08/04/17 08/05/17 08/05/17 18:59 06:59 18:59 Intake Total 597 180 Output Total 1845 331 Balance -1248 -331 180 Weight 103 kg Intake: Oral 597 180 Output: Urine 1375 330 Post Void Residual 470 Urine/Stool Mix 1 Other: Voiding Method Urinal Urinal # Voids 1 - Exam PHYSICAL EXAMINATION: HEENT: Head is atraumatic, normocephalic. Pupils equal, round. Neck is supple. There is no elevated jugular venous pressure. HEART EXAMINATION: S1 and S2 irregularly irregular a systolic murmur is heard. CHEST EXAMINATION: Lungs reveal decreased air exchange bilaterally with crackles to bilateral bases. ABDOMEN: Soft, nontender. Bowel sounds are heard. No organomegaly noted. EXTREMITIES:[ 1+ peripheral pulses with evidence of peripheral edema bilateral Vasu wraps in place. NEUROLOGIC patient is awake, alert and oriented -3. . - Labs CBC & Chem 7: 08/05/17 05:52 08/05/17 05:52 Labs: Abnormal Lab Results - Last 24 Hours (Table) 08/04/17 08/04/17 08/05/17 Range/Units 16:32 21:09 05:52 WBC 2.6 L (3.8-10.6) k/uL RBC 3.29 L (4.30-5.90) m/uL Hgb 8.8 L (13.0-17.5) gm/dL Hct 28.9 L (39.0-53.0) % MCHC 30.5 L (31.0-37.0) g/dL RDW 18.4 H (11.5-15.5) % Plt Count 99 L (150-450) k/uL Lymphocytes # 0.4 L (1.0-4.8) k/uL Chloride (98-107) mmol/L Carbon Dioxide (22-30) mmol/L BUN (9-20) mg/dL Creatinine (0.66-1.25) mg/dL Glucose (74-99) mg/dL POC Glucose (mg/dL) 175 H 149 H (75-99) mg/dL 08/05/17 08/05/17 Range/Units 05:52 06:04 WBC (3.8-10.6) k/uL RBC (4.30-5.90) m/uL Hgb (13.0-17.5) gm/dL Hct (39.0-53.0) % MCHC (31.0-37.0) g/dL RDW (11.5-15.5) % Plt Count (150-450) k/uL Lymphocytes # (1.0-4.8) k/uL Chloride 96 L (98-107) mmol/L Carbon Dioxide 35 H (22-30) mmol/L BUN 62 H (9-20) mg/dL Creatinine 1.29 H (0.66-1.25) mg/dL Glucose 151 H (74-99) mg/dL POC Glucose (mg/dL) 148 H (75-99) mg/dL Microbiology - Last 24 Hours (Table) 07/31/17 16:58 Blood Culture - Preliminary Blood No Growth after 96 hours 08/03/17 12:40 Urine Culture - Final Urine,Clean Catch Assessment and Plan (1) Diastolic CHF, acute on chronic Status: Acute (2) Aortic stenosis Status: Acute (3) COPD (chronic obstructive pulmonary disease) Status: Acute (4) Diabetes Status: Acute (5) HTN (hypertension) Status: Acute (6) Hyperlipemia Status: Acute (7) Paroxysmal a-fib Status: Acute (8) Vascular disease Status: Acute Plan: From cardiology's perspective, we will recommend to continue the patient on his current dose of IV Lasix. Check lytes BUN and creatinine daily weights in the morning. DNP note has been reviewed, I agree with a documented findings and plan of care. Patient was seen and examined.
--- NOTE | 2017-08-05 14:18 | XR ---
EXAMINATION TYPE: XR chest 2V DATE OF EXAM: 08/05/2017 COMPARISON: Prior chest x-ray 08/04/2017 HISTORY: Follow-up congestive heart failure TECHNIQUE: Frontal and lateral views of the chest are obtained. FINDINGS: Prominent lung volumes may be indicative of underlying COPD. Strand-like densities are pre sent at the lung bases. Interstitium is increased. Heart is enlarged. There are overlying cardiac reji ds. No evident pneumothorax or pleural effusion. Pulmonary vascularity is somewhat prominent. IMPRESSION: Correlate for pulmonary venous hypertension and interstitial edema patient with pre-exis ting COPD. Suspect some improvement in aeration as compared to prior exam. Additional follow-up jose spain.
[2017-08-05 15:54] LABS: Glucose,Whole Blood 200 mg/dL (75-99)
[2017-08-05 16:33] LABS: Glucose,Whole Blood 202 mg/dL (75-99)
[2017-08-05 19:02] LABS: Glucose,Whole Blood 212 mg/dL (75-99)
[2017-08-05 21:01] LABS: Glucose,Whole Blood 143 mg/dL (75-99)
[2017-08-05] MEDS: ATORVASTATIN 20 MG TAB PO SCH (21:12)
[2017-08-05] MEDS: INSULIN GLARGINE 100 UNIT/ML 10 ML VIAL SQ SCH (21:22)
[2017-08-06] MEDS: INSULIN LISPRO (humaLOG) 300 UNIT/3 ML VIAL SQ SCH ×8 (06:00→22:11)
[2017-08-06 06:08] LABS: Glucose,Whole Blood 147 mg/dL (75-99)
[2017-08-06] MEDS: ALLOPURINOL 300 MG TAB PO SCH (06:44)
--- NOTE | 2017-08-06 07:01 | PN ---
PROGRESS NOTE Patient is seen for followup for acute kidney injury which was mainly associated with hypotension hypoperfusion and cardiorenal. Patient is being treated for CHF. He is currently being diuresed. Lasix was increased yesterday and he seems to have diuresed fairly well. His weight is down by about 1 kg. The 24 hour urine output was 2176 mL. The patient states he is slightly feeling better. He was started on hydrocortisone as his serum cortisone was low and the patient's blood pressure had been running low. He had previously been on midodrine. However today I see that his pressure is up to 139 systolic and another reading of 153 mmHg systolic, therefore the midodrine will be discontinued. PHYSICAL EXAMINATION: On examination, blood pressure currently 153/68. EXAMINATION OF THE HEART: S1, S2. EXAMINATION OF THE LUNGS: Bilateral breath sounds are heard. Basal crackles heard bilaterally. Decreased breath sounds at bases. Abdomen is soft, nontender. Examination of lower extremities shows chronic skin changes, chronic edema bilaterally. LABS: Labs show sodium of 142, potassium 4.4, serum creatinine 1.29. Hemoglobin 8.8 grams/dL. ASSESSMENT: 1. Acute kidney injury secondary to hypotension hypoperfusion currently progressively improving with improved blood pressures. There is still room to diurese. We can further increase the Lasix to 60 IV q.8 hours. Chest x-ray seems to be improved. 2. Congestive heart failure, fluid overload, slowly improving. I will increase the Lasix further to 60 mg IV q.8 hours. His ejection fraction was 55% to 60% with dilated right ventricle and severely dilated left atrium along with severe pulmonary hypertension. 3. Hypotension, most likely secondary to some degree of adrenal insufficiency, currently improved with hydrocortisone. We can switch to oral steroids. The patient should have an endocrine evaluation as an outpatient. He should have an ACTH stimulation test without the steroids and this can be done as outpatient. 4. Chronic kidney disease stage 3 with baseline creatinine about 1.2 secondary to nephrosclerosis. PLAN: DC midodrine, continue steroids and if the blood pressure remains elevated, we can resume LITTLE inhibitors as well. I will repeat labs in a.m. MMSHERYLL / JOSIASN: [id number] /
[2017-08-06] MEDS: FUROSEMIDE 10 MG/ML 4 ML VIAL IV SCH (08:21)
[2017-08-06] MEDS: HYDROCORTISONE SUCCINATE 100 MG/2 ML VIAL IV SCH ×2 (08:22→20:17)
[2017-08-06] MEDS: METOPROLOL SUCCINATE (ER) 25 MG TAB.ER.24H PO SCH ×2 (08:22→20:26)
[2017-08-06] MEDS: DOCUSATE 100 MG CAP PO SCH (08:22)
[2017-08-06] MEDS: FAMOTIDINE 20 MG TAB PO SCH ×2 (08:22→20:17)
[2017-08-06] MEDS: SYMBICORT 160-4.5 MCG INHALER INHALATION SCH ×2 (09:15→20:34)
[2017-08-06] MEDS: LEVALBUTEROL NEB 1.25 MG/3 ML AMP INHALATION SCH ×3 (09:15→20:34)
[2017-08-06 09:20] LABS: Anion Gap 9 mmol/L; Blood Urea Nitrogen 50 mg/dL (9-20); Calcium 9.5 mg/dL (8.4-10.2); Carbon Dioxide 39 mmol/L (22-30); Chloride 97 mmol/L (98-107); Glucose 166 mg/dL (74-99); Non-African American GFR(MDRD) >60 (>60 ml/min/1.73 sqM); Potassium 4.2 mmol/L (3.5-5.1); Sodium 145 mmol/L (137-145)
--- NOTE | 2017-08-06 09:48 | PN ---
PROGRESS NOTE DATE OF SERVICE: 08/05/2017 This is a very pleasant 72-year-old male patient with a history of diastolic congestive heart failure, aortic valve disease, oxygen-dependent chronic obstructive pulmonary disease. He was admitted on 07/31/2017 with an acute exacerbation of diastolic congestive heart failure. He is seen again today in followup on the selective care unit. He is currently awake and alert, in no acute distress. He is breathing easier today as compared to yesterday. His chest x-ray is pending. He is maintaining good O2 saturations in the mid 90s on 3L/minute per nasal cannula. He is afebrile. He remains in a negative balance. PHYSICAL EXAM: Blood pressure 112/63, heart rate 109, respirations 18, temperature is 96.1. He is 95% O2 saturation on 3L/minute per nasal cannula. He is alert and oriented, in no acute distress. His head is normocephalic. Sclerae are anicteric. His neck is supple. Trachea midline. His lungs have crackles in the bilateral posterior bases, diminished. Heart was irregularly irregular S1 and S2. His abdomen is obese, soft, nontender. Bowel sounds are present. There is 1 to 2+ lower extremity peripheral edema. No clubbing. No cyanosis. Peripheral pulses are intact. INVESTIGATIONS: Lab results revealed WBC 2.6, hemoglobin 8.8, platelet count 99,000. Sodium 142 , potassium 4.4, chloride 96, CO2 35, BUN 62, creatinine 1.29. Medications are reviewed. IMPRESSION: 1. Acute exacerbation of diastolic congestive heart failure with acute pulmonary edema. 2. Aortic stenosis. 3. Acute exacerbation of chronic obstructive pulmonary disease. 4. History of cerebrovascular accident/transient ischemic attack. 5. Diabetes mellitus. 6. History of gastrointestinal bleeding. 7. Hypertension. 8. Hyperlipidemia. 9. Chronic atrial fibrillation. 10.Chronic peripheral edema. PLAN: The patient is seen and evaluated by Dr. Garcia. He does feel heart failure is secondary to diastolic dysfunction with severe aortic stenosis. The patient also has pulmonary hypertension. He also has moderate COPD. Will continue to treat all of the above. He is improved today as compared to yesterday. Again, the chest x-ray is pending. Will continue with his current medications. Will continue to follow. I performed a History & Physical Examination of the patient and discussed their management with nurse practitioner. I reviewed the nurse practitioner's note and agree with the documented findings and plan of care. HIEU / JOSIASN: [id number] / SHAYAN
--- NOTE | 2017-08-06 10:04 | P.PN ---
Subjective Principal diagnosis: Congestive heart failure This is a pleasant 72-year-old gentleman with known history of aortic stenosis, COPD, pulmonary hypertension, diastolic congestive heart failure who presented to the hospital with symptoms of progressively worsening shortness of breath. Currently being treated for diastolic congestive heart failure. Patient continues to be on IV Lasix 40 mg every 8 hours, his weight today is down 1 kg. Weight blood cell count 2.6, hemoglobin 8.8, platelet count 99. BUN 62, creatinine 1.2. Potassium 4.4. Chest x-ray performed today report is yet pending. Overall patient states that he does feel his breathing is improving. 08/06/2017 Patient seen and examined this morning, states he is feeling much better today overall. Weight is down 2 kg today. Continues to be on IV Lasix. BUN 50 today , creatinine 1.1. Potassium 4.2. Blood pressure 106/68, heart rate in the low 100s. Oxygen saturation 96% on 3 L. He has been encouraged to be up in a chair today. Objective - Vital Signs Vital signs: Vital Signs Temp 96.7 F L 08/06/17 08:00 Pulse 100 08/06/17 09:28 Resp 16 08/06/17 03:39 BP 106/68 08/06/17 08:00 Pulse Ox 96 08/06/17 08:00 Intake & Output 08/05/17 08/06/17 08/06/17 18:59 06:59 18:59 Intake Total 460 180 Output Total 550 850 575 Balance -90 -850 -395 Weight 101.7 kg Intake: Intake, IV Titration 100 Amount Sodium Ferric Gluconat- 100 Sucrose 125 mg In Sodium Chloride 0.9% 100 ml @ 100 mls/hr IVPB DAILY [facility] Rx#:[id number] Oral 360 180 Output: Urine 850 275 Post Void Residual 550 300 Other: # Voids 1 - Exam PHYSICAL EXAMINATION: HEENT: Head is atraumatic, normocephalic. Pupils equal, round. Neck is supple. There is no elevated jugular venous pressure. HEART EXAMINATION: S1 and S2 irregularly irregular a systolic murmur is heard. CHEST EXAMINATION: Lungs reveal improvement in air exchange bilaterally with persistent crackles to bilateral bases. ABDOMEN: Soft, nontender. Bowel sounds are heard. No organomegaly noted. EXTREMITIES:[ 1+ peripheral pulses with improvement in peripheral edema bilateral Vasu wraps in place. NEUROLOGIC patient is awake, alert and oriented -3. . - Labs CBC & Chem 7: 08/05/17 05:52 08/06/17 08:38 Labs: Abnormal Lab Results - Last 24 Hours (Table) 08/05/17 08/05/17 08/05/17 Range/Units 11:39 16:32 19:01 Chloride (98-107) mmol/L Carbon Dioxide (22-30) mmol/L BUN (9-20) mg/dL Glucose (74-99) mg/dL POC Glucose (mg/dL) 200 H 202 H 212 H (75-99) mg/dL 08/05/17 08/06/17 08/06/17 Range/Units 20:58 06:07 08:38 Chloride 97 L (98-107) mmol/L Carbon Dioxide 39 H (22-30) mmol/L BUN 50 H (9-20) mg/dL Glucose 166 H (74-99) mg/dL POC Glucose (mg/dL) 143 H 147 H (75-99) mg/dL Microbiology - Last 24 Hours (Table) 07/31/17 16:58 Blood Culture - Preliminary Blood No Growth after 120 hours 08/02/17 21:00 Gram Stain - Final Sputum Sputum Culture - Final Assessment and Plan (1) Diastolic CHF, acute on chronic Status: Acute (2) Aortic stenosis Status: Acute (3) COPD (chronic obstructive pulmonary disease) Status: Acute (4) Diabetes Status: Acute (5) HTN (hypertension) Status: Acute (6) Hyperlipemia Status: Acute (7) Paroxysmal a-fib Status: Acute (8) Vascular disease Status: Acute Plan: From cardiology's perspective, we will recommend to continue the patient on his current dose of IV Lasix. Check lytes BUN and creatinine daily weights in the morning. Encouraged to be up in the chair today. DNP note has been reviewed, I agree with a documented findings and plan of care. Patient was seen and examined.
--- NOTE | 2017-08-06 11:20 | P.PN ---
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 Apparently he was recently discharged from [facility] and he was barely 4 days at home when he started having shortness of breath edema PND of 1 day duration. Apparently some of the medications were changed during his [place] admission, patient was compliant with medications, and diet, he cannot tolerate compression stockings on the lower extremity, he has some Vasu wrap in the house which he has not been using He has significant moderate aortic stenosis, severe pulmonary hypertension chronic atrial fibrillation not a candidate for long-term anticoagulation. He also complains off yellow productive cough no fever no chills no chest pain no lightheadedness no dizziness nor orthostasis he has urinary frequency Last echocardiogram 06/20/2017 showed moderate tricuspid regurgitation and severe pulmonary hypertension RSVP 62 EF 55-60% aortic valve thickening with moderate aortic stenosis. Patient had a sleep study performed also according to him he passed his sleep study report Patient presents to emergency room with acute on chronic diastolic CHF exacerbation and edema, and this in consultation by Dr. Meza from pulmonary and consult cardiology 08/02: Patient's shortness of breath hasn't changed, creatinine has risen to 2.1 from previous of 1.2, Dr. Everett consulted, blood pressure in the low 90s, which is new Lasix on hold, Primatene increased to 10 mg 3 times a day from 10 twice a day lisinopril on hold, patient with +1 edema, no Vasu wrap. Patient had epistaxis, controlled with local compression heparin was discontinued, ultrasound of kidneys is requested and current pending. 08/03: Patient is clinically unchanged, creatinine got worse, also with azotemia , hydrocortisone started, Lasix is to resume at 40 mg every 12 hours, blood pressure still labile, postvoid residual is less than 200 mL, no hydronephrosis on kidney ultrasound. Prescription for hospital bed for home use left in the chart patient sleeps recliner mainly, multiple admissions with CHF: 08/04: The patient was seen and evaluated today. Patient's blood pressure remains stable 100/57 with a heart rate of 85. Repeat chest x-ray today shows new near complete opacification of left hemithorax, moderate pulmonary vascular congestion, persistent moderate pulmonary edema and small left pleural effusion. Lasix was decreased from every 8 hours to every 12 hours due to increased creatinine, creatinine has improved today to 1.4. Will continue current dose of IV Lasix and repeat chest x-ray tomorrow. 08/05: Patient was seen and evaluated, he was noted to be resting comfortably in bed. Reports shortness of breath has improved slightly. The patient was consulted by nephrology yesterday and noted to have a low cortisol level. He was started on hydrocortisone. Creatinine has improved slightly from 1.4-1.29 Repeat chest x-ray still pending. 08/06: Patient had a repeat chest x-ray that shows some improvement compared to his prior exam. He is down 2 kg today. Patient's creatinine 1.29, his baseline is about 1.2. Hypotension did improve with hydrocortisone. Nephrology is recommending ACTH stimulation test without steroids possibly to be done on outpatient basis to assess for adrenal insufficiency. Sputum cultures are negative, blood cultures show no growth to date. Overall symptoms are improving. Objective - Vital Signs Vital signs: Vital Signs Temp 97.1 F L 08/06/17 03:38 Pulse 82 08/06/17 03:39 Resp 16 08/06/17 03:39 BP 122/58 08/06/17 03:38 Pulse Ox 98 08/06/17 03:38 Intake & Output 08/05/17 08/06/17 08/06/17 18:59 06:59 18:59 Intake Total 460 Output Total 550 850 Balance -90 -850 Weight 101.7 kg Intake: Intake, IV Titration 100 Amount Sodium Ferric Gluconat- 100 Sucrose 125 mg In Sodium Chloride 0.9% 100 ml @ 100 mls/hr IVPB DAILY [facility] Rx#:[id number] Oral 360 Output: Urine 850 Post Void Residual 550 Other: # Voids 1 - Exam - Constitutional General appearance: Present: cooperative, no acute distress - EENT Eyes: Present: anicteric sclerae, EOMI, dentition normal ENT: Present: hearing grossly normal, normal oropharynx - Neck Neck: Present: normal ROM - Respiratory Respiratory: bilateral: CTA, negative: diminished, dullness, rales, rhonchi - Cardiovascular Rhythm: regular Heart sounds: normal: S1, S2 Abnormal Heart Sounds: Absent: systolic murmur, diastolic murmur, rub, S3 Gallop , S4 Gallop, click, other - Gastrointestinal General gastrointestinal: Present: decreased bowel sounds, normal bowel sounds, soft - Integumentary Integumentary: Present: normal, normal turgor - Neurologic Neurologic: Present: CNII-XII intact - Musculoskeletal Musculoskeletal: Present: gait normal - Psychiatric Psychiatric: Present: A&O x's 3, appropriate affect - Labs CBC & Chem 7: 08/05/17 05:52 08/06/17 08:38 Labs: Abnormal Lab Results - Last 24 Hours (Table) 08/05/17 08/05/17 08/05/17 Range/Units 11:39 16:32 19:01 POC Glucose (mg/dL) 200 H 202 H 212 H (75-99) mg/dL 08/05/17 08/06/17 Range/Units 20:58 06:07 POC Glucose (mg/dL) 143 H 147 H (75-99) mg/dL Microbiology - Last 24 Hours (Table) 07/31/17 16:58 Blood Culture - Preliminary Blood No Growth after 120 hours 08/02/17 21:00 Gram Stain - Final Sputum Sputum Culture - Final Assessment and Plan Plan: 1. Acute diastolic heart failure on chronic diastolic heart failure recurrent dyspnea multifactorial with moderate aortic stenosis, severe pulmonary hypertension. cardiology on consult, continue current dose of Lasix 40 mg every 8 hours, repeat chest x-ray shows slight improvement. 2. COPD. Continue Xopenex nebulization 4 times every day Spiriva 18 mcg 1 capsule inhalation once every day and Symbicort 160/4.5 g 2 puff inhalation twice every day, pulmonology on consult. 3 Hypertension and hypertensive cardiovascular disease. Continue metoprolol 12.5 mg orally once every day. 4. Diabetes mellitus type 2. Decrease Lantus 30 units at bedtime, continue with a sliding scale insulin as well, BGM will be checked before each meal and at bedtime. 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 Sputum cultures obtained and still pending results. 6. Bicytopenia with thrombocytopenia and chronic anemia. Currently stable, will continue to monitor CBC. 7. Severe pulmonary hypertension. Per patient patient completed a sleep study and was reportedly negative for sleep apnea 8. Moderate aortic stenosis. 9. Hyperlipidemia. Continue Lipitor 20 mg orally at bedtime. 10. History of gout. Continue allopurinol 300 mg orally once every day. 11. History of CVA and TIA. 12. Chronic hypoxic respiratory failure with home O2 dependence at 3 L nasal cannula. 13. Autonomic dysfunction. Patient to maintain his proamatine 10 mg 3 times a day 14. Acute kidney failure, CKD stage III. Patient is on maintenance lisinopril 5 mg daily which discontinued secondary to worsening renal function at this time and hypotension. Continue along with proamatine and increase this dose to 10 mg 3 times a day to avoid hypotension. Nephrology on consult. 15. Hypotension most likely secondary to hypovolemia from diuretics. Proamatine is increased to 10 mg 3 times a day, lisinopril on hold. Cortisol is marginally low and of normal, Hydrocortisone 100 mg IV started every 12 hours. 16. DVT prophylaxis. Continue bilateral knee-high MILLI hose. 17. GI prophylaxis. Pepcid 20 mg orally once every day. The above impression and plan of care have been discussed and directed by signing physician. Katie Gonzáles nurse practitioner acting as scribe for signing physician.
--- NOTE | 2017-08-06 11:53 | P.PN ---
Subjective This is a pleasant 72-year-old gentleman who has a history of diastolic congestive heart failure, aortic valve disease, oxygen dependent chronic obstructive pulmonary disease. He was made in the 07/31/2017 with acute exacerbation of diastolic congestive heart failure. He is seen again today August 06 in follow-up on the selective care unit. He is awake and alert in no acute distress. He is breathing better today as compared to yesterday. He is maintaining good O2 saturations in the upper 90s on 3 L/m per nasal cannula. He's been hemodynamically stable. He continues to be diuresed with Lasix 40 mg IV push every 8 hours. Cardiology is on as well. Chest x-rays continues to show some congestive heart failure and possible right lower lobe infiltrate. Objective - Vital Signs Vital signs: Vital Signs Temp 96.7 F L 08/06/17 08:00 Pulse 100 08/06/17 09:28 Resp 16 08/06/17 03:39 BP 106/68 08/06/17 08:00 Pulse Ox 96 08/06/17 08:00 Intake & Output 08/05/17 08/06/17 08/06/17 18:59 06:59 18:59 Intake Total 460 180 Output Total 550 850 875 Balance -90 -850 -695 Weight 101.7 kg Intake: Intake, IV Titration 100 Amount Sodium Ferric Gluconat- 100 Sucrose 125 mg In Sodium Chloride 0.9% 100 ml @ 100 mls/hr IVPB DAILY [facility] Rx#:[id number] Oral 360 180 Output: Urine 850 575 Post Void Residual 550 300 Other: # Voids 1 - Exam No acute distress, oriented 3. Nasal O2 in place. HEENT examination is grossly unremarkable. Mucous membranes are moist. Nasal O2 noted. Neck supple. Full range of motion. No adenopathy or thyromegaly. Cardiovascular examination reveals regular rhythm rate. S1-S2 normal. No S3- S4 or murmur. Lungs reveal some bibasilar crackles. Worse on the left than on the right. A few scattered rhonchi. No wheezes. Abdomen soft bowel sounds are heard. Extremities are intact. Mild edema. No cyanosis or clubbing skin shows some areas of ecchymoses. Neurologic examination is brief but nonfocal. - Labs CBC & Chem 7: 08/05/17 05:52 08/06/17 08:38 Labs: Abnormal Lab Results - Last 24 Hours (Table) 08/05/17 08/05/17 08/05/17 Range/Units 11:39 16:32 19:01 Chloride (98-107) mmol/L Carbon Dioxide (22-30) mmol/L BUN (9-20) mg/dL Glucose (74-99) mg/dL POC Glucose (mg/dL) 200 H 202 H 212 H (75-99) mg/dL 08/05/17 08/06/17 08/06/17 Range/Units 20:58 06:07 08:38 Chloride 97 L (98-107) mmol/L Carbon Dioxide 39 H (22-30) mmol/L BUN 50 H (9-20) mg/dL Glucose 166 H (74-99) mg/dL POC Glucose (mg/dL) 143 H 147 H (75-99) mg/dL Microbiology - Last 24 Hours (Table) 07/31/17 16:58 Blood Culture - Preliminary Blood No Growth after 120 hours 08/02/17 21:00 Gram Stain - Final Sputum Sputum Culture - Final Assessment and Plan Plan: Impression: #1 Acute exacerbation of diastolic congestive heart failure with acute pulmonary edema. #2 Aortic stenosis. #3 Acute exacerbation of chronic obstructive pulmonary disease. #4 Acute on chronic hypoxic respiratory failure secondary to above. #5 Diabetes mellitus. #6 History of gastrointestinal bleeding. #7 Hypertension. #8 Hyperlipidemia. #9 Chronic atrial fibrillation. #10 Chronic peripheral edema. #11 Aortic stenosis. Plan: The patient was seen and evaluated by Dr. Garcia. His chest x-ray and labs were reviewed. He still and some mild fluid volume overload. We'll continue with his current medications. We'll increase his activity as tolerated. We'll continue to follow.
[2017-08-06 12:00] LABS: Glucose,Whole Blood 184 mg/dL (75-99)
--- NOTE | 2017-08-06 13:05 | XR ---
EXAMINATION TYPE: XR chest 2V DATE OF EXAM: 08/06/2017 COMPARISON: Prior chest x-ray 08/05/2017 HISTORY: Shortness of breath and leg edema TECHNIQUE: Frontal and lateral views of the chest are obtained. FINDINGS: There are prominent lung volume suggesting underlying COPD. The heart is enlarged. Interst itium and central vascularity are increased. No evident pneumothorax or pleural effusion. There are o verlying cardiac leads. IMPRESSION: Similar to previous exam, correlate for pulmonary venous hypertension and interstitial e mariam in a patient with pre-existing COPD.
[2017-08-06] MEDS: TIOTROPIUM 18 MCG/PUFF INHALER INHALATION SCH (13:36)
--- NOTE | 2017-08-06 16:24 | P.PN ---
Subjective Patient seen in follow-up for acute kidney injury and chronic kidney disease. Renal function is improved with creatinine down to 1.12 today. Patient does have diastolic CHF with severe pulmonary hypertension. Dyspnea has improved. Chest x-ray from today is still suggestive of interstitial edema and pulmonary venous hypertension. Oral intake is fair. No vomiting or diarrhea. Weight is trending down. Remains nonoliguric. Bicarb level is up to 39. Vital signs are stable. General: The patient appeared well nourished and normally developed. HEENT: Head exam is unremarkable. Neck is without jugular venous distension. LUNGS: Lungs are clear to auscultation and percussion. Breath sounds decreased. HEART: Rate and Rhythm are regular. First and second heart sounds normal. No murmurs, rubs or gallops. ABDOMEN: Abdominal exam reveals normal bowel sounds. Non-tender and non- distended. No evidence of peritonitis. EXTREMITITES: 1+ edema. Objective - Vital Signs Vital signs: Vital Signs Temp 96.7 F L 08/06/17 08:00 Pulse 100 08/06/17 13:53 Resp 16 08/06/17 03:39 BP 121/82 08/06/17 12:00 Pulse Ox 97 08/06/17 12:00 Intake & Output 08/05/17 08/06/17 08/06/17 18:59 06:59 18:59 Intake Total 460 400 Output Total 567 748 7280 Balance -90 -850 -1275 Weight 101.7 kg Intake: Intake, IV Titration 100 Amount Sodium Ferric Gluconat- 100 Sucrose 125 mg In Sodium Chloride 0.9% 100 ml @ 100 mls/hr IVPB DAILY [facility] Rx#:[id number] Oral 360 400 Output: Urine 850 1375 Post Void Residual 550 300 Other: # Voids 1 - Labs CBC & Chem 7: 08/05/17 05:52 08/06/17 08:38 Labs: Abnormal Lab Results - Last 24 Hours (Table) 08/05/17 08/05/17 08/05/17 Range/Units 16:32 19:01 20:58 Chloride (98-107) mmol/L Carbon Dioxide (22-30) mmol/L BUN (9-20) mg/dL Glucose (74-99) mg/dL POC Glucose (mg/dL) 202 H 212 H 143 H (75-99) mg/dL 08/06/17 08/06/17 08/06/17 Range/Units 06:07 08:38 11:42 Chloride 97 L (98-107) mmol/L Carbon Dioxide 39 H (22-30) mmol/L BUN 50 H (9-20) mg/dL Glucose 166 H (74-99) mg/dL POC Glucose (mg/dL) 147 H 184 H (75-99) mg/dL Microbiology - Last 24 Hours (Table) 07/31/17 16:58 Blood Culture - Preliminary Blood No Growth after 120 hours 08/02/17 21:00 Gram Stain - Final Sputum Sputum Culture - Final Assessment and Plan Plan: Assessment: #1. Nonoliguric acute kidney injury secondary to cardiorenal syndrome. Renal function improved with creatinine down to 1.12 today. Urinalysis benign. #2. Diastolic CHF with severe pulmonary hypertension. #3. Hypotension related to his underlying cardiac status as well as some degree of adrenal insufficiency. Blood pressure has improved. #4. Chronic kidney disease stage III with baseline creatinine in the range of 1 -1.2 secondary to nephrosclerosis and cardiorenal syndrome. #5. Metabolic alkalosis secondary to diuresis. #6. Volume overload. Improving. Weight trending down. #7. Anemia with iron deficiency. Plan: Increase Lasix to 60 mg IV every 8 hours. Maintain low salt diet. Ferrlicit 125 mg IV. Second dose today. Wean steroids. Will need outpatient endocrinology follow-up to confirm adrenal insufficiency. Repeat electrolytes in the morning. Daily weights.
[2017-08-06] MEDS: SODIUM FERRIC GLUCONAT-SUCROSE 125 MG in SODIUM CHLORIDE 0.9% 100 ML IVPB SCH (17:25)
[2017-08-06] MEDS: FUROSEMIDE 10 MG/ML 10 ML VIAL IV SCH ×2 (17:25→23:57)
[2017-08-06] MEDS: ATORVASTATIN 20 MG TAB PO SCH (20:17)
[2017-08-06 22:07] LABS: Glucose,Whole Blood 237 mg/dL (75-99)
[2017-08-06] MEDS: INSULIN GLARGINE 100 UNIT/ML 10 ML VIAL SQ SCH (22:09)
[2017-08-07 06:07] LABS: Anisocytosis Slight; Basophils % (A) 0 %; CH 26.4; CHCM 30.1; Eosinophils % (A) 1 %; HCT 30.6 % (39.0-53.0); HDW 3.34; HGB 9.4 gm/dL (13.0-17.5); Hypochromasia Marked; Luc # (Auto) 0.04; Luc % (Auto) 1; Lymphocytes # (A) 0.7 k/uL (1.0-4.8); Lymphocytes % (A) 17 %; MCHC 30.7 g/dL (31.0-37.0); MCV 87.8 fL (80.0-100.0); Mean Platelet Volume 9.4; Monocytes # (A) 0.2 k/uL (0-1.0); Monocytes % (A) 5 %; Neutrophils # (A) 3.1 k/uL (1.3-7.7); Neutrophils % (A) 76 %; RBC 3.48 m/uL (4.30-5.90); RDW 17.5 % (11.5-15.5)
[2017-08-07 06:17] LABS: ALT 35 U/L (21-72); AST 22 U/L (17-59); Alkaline Phosphatase 65 U/L (38-126); Anion Gap 10 mmol/L; Blood Urea Nitrogen 46 mg/dL (9-20); Calcium 9.5 mg/dL (8.4-10.2); Carbon Dioxide 37 mmol/L (22-30); Chloride 95 mmol/L (98-107); Glucose 135 mg/dL (74-99); Non-African American GFR(MDRD) >60 (>60 ml/min/1.73 sqM); Potassium 3.9 mmol/L (3.5-5.1); Sodium 142 mmol/L (137-145); Total Bilirubin 1.3 mg/dL (0.2-1.3)
[2017-08-07 06:21] LABS: Glucose,Whole Blood 145 mg/dL (75-99)
[2017-08-07] MEDS: ALLOPURINOL 300 MG TAB PO SCH (06:36)
[2017-08-07] MEDS: INSULIN LISPRO (humaLOG) 300 UNIT/3 ML VIAL SQ SCH ×8 (06:37→21:42)
[2017-08-07] MEDS: LEVALBUTEROL NEB 1.25 MG/3 ML AMP INHALATION SCH ×3 (08:14→20:20)
[2017-08-07] MEDS: SYMBICORT 160-4.5 MCG INHALER INHALATION SCH ×2 (08:15→20:20)
[2017-08-07] MEDS: TIOTROPIUM 18 MCG/PUFF INHALER INHALATION SCH (08:15)
[2017-08-07] MEDS: METOPROLOL SUCCINATE (ER) 25 MG TAB.ER.24H PO SCH ×2 (08:38→19:53)
[2017-08-07] MEDS: FAMOTIDINE 20 MG TAB PO SCH ×2 (08:38→19:52)
[2017-08-07] MEDS: DOCUSATE 100 MG CAP PO SCH (08:38)
[2017-08-07] MEDS: FUROSEMIDE 10 MG/ML 10 ML VIAL IV SCH ×2 (08:39→16:50)
[2017-08-07] MEDS: HYDROCORTISONE SUCCINATE 100 MG/2 ML VIAL IV SCH ×2 (08:39→19:54)
--- NOTE | 2017-08-07 09:21 | P.PN ---
Subjective Principal diagnosis: Congestive heart failure This is a pleasant 72-year-old gentleman with known history of aortic stenosis, COPD, pulmonary hypertension, diastolic congestive heart failure who presented to the hospital with symptoms of progressively worsening shortness of breath. Currently being treated for diastolic congestive heart failure. Patient continues to be on IV Lasix 40 mg every 8 hours, his weight today is down 1 kg. Weight blood cell count 2.6, hemoglobin 8.8, platelet count 99. BUN 62, creatinine 1.2. Potassium 4.4. Chest x-ray performed today report is yet pending. Overall patient states that he does feel his breathing is improving. 08/06/2017 Patient seen and examined this morning, states he is feeling much better today overall. Weight is down 2 kg today. Continues to be on IV Lasix. BUN 50 today , creatinine 1.1. Potassium 4.2. Blood pressure 106/68, heart rate in the low 100s. Oxygen saturation 96% on 3 L. He has been encouraged to be up in a chair today. 2016 Patient seen and examined this morning, overall feeling much better today. Continues to have epistaxis, ENT consulted. Continues to put out good urine. Hemoglobin 9.4, platelet count is 89. Creatinine 1.05, potassium 3.9. Plans are being made for potential discharge home in the morning. Objective - Vital Signs Vital signs: Vital Signs Temp 96.3 F L 08/07/17 00:00 Pulse 96 08/07/17 08:33 Resp 18 08/07/17 04:00 BP 120/60 08/07/17 04:00 Pulse Ox 100 08/07/17 04:00 Intake & Output 08/06/17 08/07/17 08/07/17 18:59 06:59 18:59 Intake Total 636 Output Total 2225 1650 Balance -1589 -1650 Weight 102.1 kg Intake: Oral 636 Output: Urine 1925 1400 Post Void Residual 300 250 Other: Voiding Method Urinal # Voids 1 - Exam PHYSICAL EXAMINATION: HEENT: Head is atraumatic, normocephalic. Pupils equal, round. Neck is supple. There is no elevated jugular venous pressure. HEART EXAMINATION: S1 and S2 irregularly irregular a systolic murmur is heard. CHEST EXAMINATION: Lungs reveal improvement in air exchange bilaterally with persistent crackles to bilateral bases. ABDOMEN: Soft, nontender. Bowel sounds are heard. No organomegaly noted. EXTREMITIES:[ 1+ peripheral pulses with improvement in peripheral edema bilateral Vasu wraps in place. NEUROLOGIC patient is awake, alert and oriented -3. . - Labs CBC & Chem 7: 08/07/17 05:50 08/07/17 05:50 Labs: Abnormal Lab Results - Last 24 Hours (Table) 08/06/17 08/06/17 08/06/17 Range/Units 08:38 11:42 20:52 RBC (4.30-5.90) m/uL Hgb (13.0-17.5) gm/dL Hct (39.0-53.0) % MCHC (31.0-37.0) g/dL RDW (11.5-15.5) % Plt Count (150-450) k/uL Lymphocytes # (1.0-4.8) k/uL Chloride 97 L (98-107) mmol/L Carbon Dioxide 39 H (22-30) mmol/L BUN 50 H (9-20) mg/dL Glucose 166 H (74-99) mg/dL POC Glucose (mg/dL) 184 H 237 H (75-99) mg/dL 08/07/17 08/07/17 08/07/17 Range/Units 05:47 05:50 05:50 RBC 3.48 L (4.30-5.90) m/uL Hgb 9.4 L (13.0-17.5) gm/dL Hct 30.6 L (39.0-53.0) % MCHC 30.7 L (31.0-37.0) g/dL RDW 17.5 H (11.5-15.5) % Plt Count 89 L (150-450) k/uL Lymphocytes # 0.7 L (1.0-4.8) k/uL Chloride 95 L (98-107) mmol/L Carbon Dioxide 37 H (22-30) mmol/L BUN 46 H (9-20) mg/dL Glucose 135 H (74-99) mg/dL POC Glucose (mg/dL) 145 H (75-99) mg/dL Microbiology - Last 24 Hours (Table) 07/31/17 16:58 Blood Culture - Final Blood No Growth after 144 hours Assessment and Plan (1) Diastolic CHF, acute on chronic Status: Acute (2) Aortic stenosis Status: Acute (3) COPD (chronic obstructive pulmonary disease) Status: Acute (4) Diabetes Status: Acute (5) HTN (hypertension) Status: Acute (6) Hyperlipemia Status: Acute (7) Paroxysmal a-fib Status: Acute (8) Vascular disease Status: Acute Plan: From cardiology's perspective, recommend to continue current therapy. Arrangements are being made for possible discharge home in the morning tomorrow. DNP note has been reviewed, I agree with a documented findings and plan of care. Patient was seen and examined.
[2017-08-07 09:22] VITALS: RESP 20
--- NOTE | 2017-08-07 09:50 | P.PN ---
Subjective Patient seen in follow-up for acute kidney injury and chronic kidney disease. Renal function is improved with creatinine down to 1.05 today. Patient does have diastolic CHF with severe pulmonary hypertension. Dyspnea has improved. Chest x-ray from yesterday still suggestive of interstitial edema and pulmonary venous hypertension. Oral intake is fair. No vomiting or diarrhea. Weight is slightly up but he is in net negative fluid balance some not sure how accurate this is. Remains nonoliguric. Overall the patient feels better. Vital signs are stable. General: The patient appeared well nourished and normally developed. HEENT: Head exam is unremarkable. Neck is without jugular venous distension. LUNGS: Lungs are clear to auscultation and percussion. Breath sounds decreased. HEART: Rate and Rhythm are regular. First and second heart sounds normal. No murmurs, rubs or gallops. ABDOMEN: Abdominal exam reveals normal bowel sounds. Non-tender and non- distended. No evidence of peritonitis. EXTREMITITES: 1+ edema. Objective - Vital Signs Vital signs: Vital Signs Temp 96.9 F L 08/07/17 08:00 Pulse 96 08/07/17 08:33 Resp 20 08/07/17 08:00 BP 125/75 08/07/17 08:00 Pulse Ox 98 08/07/17 08:00 Intake & Output 08/06/17 08/07/17 08/07/17 18:59 06:59 18:59 Intake Total 636 180 Output Total 2225 1650 Balance -1589 -1650 180 Weight 102.1 kg Intake: Oral 636 180 Output: Urine 1925 1400 Post Void Residual 300 250 Other: Voiding Method Urinal # Voids 1 - Labs CBC & Chem 7: 08/07/17 05:50 08/07/17 05:50 Labs: Abnormal Lab Results - Last 24 Hours (Table) 08/06/17 08/06/17 08/07/17 Range/Units 11:42 20:52 05:47 RBC (4.30-5.90) m/uL Hgb (13.0-17.5) gm/dL Hct (39.0-53.0) % MCHC (31.0-37.0) g/dL RDW (11.5-15.5) % Plt Count (150-450) k/uL Lymphocytes # (1.0-4.8) k/uL Chloride (98-107) mmol/L Carbon Dioxide (22-30) mmol/L BUN (9-20) mg/dL Glucose (74-99) mg/dL POC Glucose (mg/dL) 184 H 237 H 145 H (75-99) mg/dL 08/07/17 08/07/17 Range/Units 05:50 05:50 RBC 3.48 L (4.30-5.90) m/uL Hgb 9.4 L (13.0-17.5) gm/dL Hct 30.6 L (39.0-53.0) % MCHC 30.7 L (31.0-37.0) g/dL RDW 17.5 H (11.5-15.5) % Plt Count 89 L (150-450) k/uL Lymphocytes # 0.7 L (1.0-4.8) k/uL Chloride 95 L (98-107) mmol/L Carbon Dioxide 37 H (22-30) mmol/L BUN 46 H (9-20) mg/dL Glucose 135 H (74-99) mg/dL POC Glucose (mg/dL) (75-99) mg/dL Microbiology - Last 24 Hours (Table) 07/31/17 16:58 Blood Culture - Final Blood No Growth after 144 hours Assessment and Plan Plan: Assessment: #1. Nonoliguric acute kidney injury secondary to cardiorenal syndrome. Renal function improved with creatinine down to 1.05 today. Urinalysis benign. #2. Diastolic CHF with severe pulmonary hypertension. #3. Hypotension related to his underlying cardiac status as well as some degree of adrenal insufficiency. Blood pressure has improved. #4. Chronic kidney disease stage III with baseline creatinine in the range of 1 -1.2 secondary to nephrosclerosis and cardiorenal syndrome. #5. Metabolic alkalosis secondary to diuresis. #6. Volume overload. Improving. #7. Anemia with iron deficiency. Plan: Continue Lasix 60 mg IV every 8 hours. Maintain low salt diet. Ferrlicit 125 mg IV. Third dose today. Wean steroids. Will need outpatient endocrinology follow-up to confirm adrenal insufficiency. Repeat electrolytes in the morning. Daily weights.
--- NOTE | 2017-08-07 10:20 | P.PN ---
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 Apparently he was recently discharged from [facility] and he was barely 4 days at home when he started having shortness of breath edema PND of 1 day duration. Apparently some of the medications were changed during his [place] admission, patient was compliant with medications, and diet, he cannot tolerate compression stockings on the lower extremity, he has some Vasu wrap in the house which he has not been using He has significant moderate aortic stenosis, severe pulmonary hypertension chronic atrial fibrillation not a candidate for long-term anticoagulation. He also complains off yellow productive cough no fever no chills no chest pain no lightheadedness no dizziness nor orthostasis he has urinary frequency Last echocardiogram 06/20/2017 showed moderate tricuspid regurgitation and severe pulmonary hypertension RSVP 62 EF 55-60% aortic valve thickening with moderate aortic stenosis. Patient had a sleep study performed also according to him he passed his sleep study report Patient presents to emergency room with acute on chronic diastolic CHF exacerbation and edema, and this in consultation by Dr. Meza from pulmonary and consult cardiology 08/02: Patient's shortness of breath hasn't changed, creatinine has risen to 2.1 from previous of 1.2, Dr. Everett consulted, blood pressure in the low 90s, which is new Lasix on hold, Primatene increased to 10 mg 3 times a day from 10 twice a day lisinopril on hold, patient with +1 edema, no Vasu wrap. Patient had epistaxis, controlled with local compression heparin was discontinued, ultrasound of kidneys is requested and current pending. 08/03: Patient is clinically unchanged, creatinine got worse, also with azotemia , hydrocortisone started, Lasix is to resume at 40 mg every 12 hours, blood pressure still labile, postvoid residual is less than 200 mL, no hydronephrosis on kidney ultrasound. Prescription for hospital bed for home use left in the chart patient sleeps recliner mainly, multiple admissions with CHF: 08/04: The patient was seen and evaluated today. Patient's blood pressure remains stable 100/57 with a heart rate of 85. Repeat chest x-ray today shows new near complete opacification of left hemithorax, moderate pulmonary vascular congestion, persistent moderate pulmonary edema and small left pleural effusion. Lasix was decreased from every 8 hours to every 12 hours due to increased creatinine, creatinine has improved today to 1.4. Will continue current dose of IV Lasix and repeat chest x-ray tomorrow. 08/05: Patient was seen and evaluated, he was noted to be resting comfortably in bed. Reports shortness of breath has improved slightly. The patient was consulted by nephrology yesterday and noted to have a low cortisol level. He was started on hydrocortisone. Creatinine has improved slightly from 1.4-1.29 Repeat chest x-ray still pending. 08/06: Patient had a repeat chest x-ray that shows some improvement compared to his prior exam. He is down 2 kg today. Patient's creatinine 1.29, his baseline is about 1.2. Hypotension did improve with hydrocortisone. Nephrology is recommending ACTH stimulation test without steroids possibly to be done on outpatient basis to assess for adrenal insufficiency. Sputum cultures are negative, blood cultures show no growth to date. Overall symptoms are improving. 08/07: Patient seen and evaluated today. He's still noted to have some mild fluid overload on the repeat chest x-ray. He was seen and consulted by nephrology, Lasix was increased to 60 mg every 8 hours, plan is to wean off of steroids, kidney function is improving, BUN 46, Cr 1.05. Repeat hemoglobin 9.4 platelet count is 89. He also received a second dose of Ferrlecit 125mg. Last night he developed epistaxis, nasal packing applied, was still noted to have some bleeding. ENT is consulted, may need cauterized. Objective - Vital Signs Vital signs: Vital Signs Temp 96.3 F L 08/07/17 00:00 Pulse 90 08/07/17 04:00 Resp 18 08/07/17 04:00 BP 120/60 08/07/17 04:00 Pulse Ox 100 08/07/17 04:00 Intake & Output 08/06/17 08/07/17 08/07/17 18:59 06:59 18:59 Intake Total 636 Output Total 2225 1650 Balance -1589 -1650 Weight 102.1 kg Intake: Oral 636 Output: Urine 1925 1400 Post Void Residual 300 250 Other: Voiding Method Urinal # Voids 1 - Exam - Constitutional General appearance: Present: cooperative, no acute distress - EENT Eyes: Present: anicteric sclerae, EOMI, dentition normal ENT: Present: hearing grossly normal, normal oropharynx - Neck Neck: Present: normal ROM - Respiratory Respiratory: bilateral: CTA, negative: diminished, dullness, rales, rhonchi - Cardiovascular Rhythm: regular Heart sounds: normal: S1, S2 Abnormal Heart Sounds: Absent: systolic murmur, diastolic murmur, rub, S3 Gallop , S4 Gallop, click, other - Gastrointestinal General gastrointestinal: Present: decreased bowel sounds, normal bowel sounds, soft - Integumentary Integumentary: Present: normal, normal turgor - Neurologic Neurologic: Present: CNII-XII intact - Musculoskeletal Musculoskeletal: Present: gait normal - Psychiatric Psychiatric: Present: A&O x's 3, appropriate affect - Labs CBC & Chem 7: 08/07/17 05:50 08/07/17 05:50 Labs: Abnormal Lab Results - Last 24 Hours (Table) 08/06/17 08/06/17 08/06/17 Range/Units 08:38 11:42 20:52 RBC (4.30-5.90) m/uL Hgb (13.0-17.5) gm/dL Hct (39.0-53.0) % MCHC (31.0-37.0) g/dL RDW (11.5-15.5) % Plt Count (150-450) k/uL Lymphocytes # (1.0-4.8) k/uL Chloride 97 L (98-107) mmol/L Carbon Dioxide 39 H (22-30) mmol/L BUN 50 H (9-20) mg/dL Glucose 166 H (74-99) mg/dL POC Glucose (mg/dL) 184 H 237 H (75-99) mg/dL 08/07/17 08/07/17 08/07/17 Range/Units 05:47 05:50 05:50 RBC 3.48 L (4.30-5.90) m/uL Hgb 9.4 L (13.0-17.5) gm/dL Hct 30.6 L (39.0-53.0) % MCHC 30.7 L (31.0-37.0) g/dL RDW 17.5 H (11.5-15.5) % Plt Count 89 L (150-450) k/uL Lymphocytes # 0.7 L (1.0-4.8) k/uL Chloride 95 L (98-107) mmol/L Carbon Dioxide 37 H (22-30) mmol/L BUN 46 H (9-20) mg/dL Glucose 135 H (74-99) mg/dL POC Glucose (mg/dL) 145 H (75-99) mg/dL Microbiology - Last 24 Hours (Table) 07/31/17 16:58 Blood Culture - Final Blood No Growth after 144 hours Assessment and Plan Plan: 1. Acute diastolic heart failure on chronic diastolic heart failure recurrent dyspnea multifactorial with moderate aortic stenosis, severe pulmonary hypertension. cardiology on consult, Lasix increased to 60 mg every 8 hours, repeat chest x-ray shows slight improvement. 2. COPD. Continue Xopenex nebulization 4 times every day Spiriva 18 mcg 1 capsule inhalation once every day and Symbicort 160/4.5 g 2 puff inhalation twice every day, pulmonology on consult. 3 Hypertension and hypertensive cardiovascular disease. Continue metoprolol 12.5 mg orally once every day. 4. Diabetes mellitus type 2. Decrease Lantus 30 units at bedtime, continue with a sliding scale insulin as well, BGM will be checked before each meal and at bedtime. 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 Sputum cultures obtained and still pending results. 6. Bicytopenia with thrombocytopenia and chronic anemia. Currently stable, will continue to monitor CBC. Received second dose of Ferrlicit. 7. Severe pulmonary hypertension. Per patient patient completed a sleep study and was reportedly negative for sleep apnea 8. Moderate aortic stenosis. 9. Hyperlipidemia. Continue Lipitor 20 mg orally at bedtime. 10. History of gout. Continue allopurinol 300 mg orally once every day. 11. History of CVA and TIA. 12. Chronic hypoxic respiratory failure with home O2 dependence at 3 L nasal cannula. 13. Autonomic dysfunction. 14. Acute kidney failure, CKD stage III. Patient is on maintenance lisinopril 5 mg daily which discontinued secondary to worsening renal function at this time and hypotension. Nephrology on consult, will continue to monitor CMP closely 15. Hypotension most likely secondary to hypovolemia from diuretics. Llisinopril on hold. Cortisol is marginally low and of normal, Hydrocortisone 50 mg IV started every 12 hours. 16. Epistaxis. Nasal packing applied, ENT on consult, may need to be cauterized 17. DVT prophylaxis. Continue bilateral knee-high MILLI hose. 18. GI prophylaxis. Pepcid 20 mg orally once every day. The above impression and plan of care have been discussed and directed by signing physician. Katie Gonzáles nurse practitioner acting as scribe for signing physician.
[2017-08-07 12:12] LABS: Glucose,Whole Blood 295 mg/dL (75-99)
[2017-08-07 12:12] LABS: Glucose,Whole Blood 170 mg/dL (75-99)
[2017-08-07 13:55] VITALS: BMI 30.5
[2017-08-07] MEDS: OXYMETAZOLINE 0.05% NASL SPRAY 1 SPRAY BOTTLE NASAL SCH ×3 (14:04→21:47)
--- NOTE | 2017-08-07 14:42 | P.PN ---
Subjective This is a pleasant 72-year-old gentleman who has a history of diastolic congestive heart failure, aortic valve disease, oxygen dependent chronic obstructive pulmonary disease. He was made in the 07/31/2017 with acute exacerbation of diastolic congestive heart failure. He is seen again today August 06 in follow-up on the selective care unit. He is awake and alert in no acute distress. He is breathing better today as compared to yesterday. He is maintaining good O2 saturations in the upper 90s on 3 L/m per nasal cannula. He's been hemodynamically stable. He continues to be diuresed with Lasix 40 mg IV push every 8 hours. Cardiology is on as well. Chest x-rays continues to show some congestive heart failure and possible right lower lobe infiltrate. Objective - Vital Signs Vital signs: Vital Signs Temp 96.7 F L 08/06/17 08:00 Pulse 100 08/06/17 13:53 Resp 16 08/06/17 03:39 BP 121/82 08/06/17 12:00 Pulse Ox 97 08/06/17 12:00 Intake & Output 08/05/17 08/06/17 08/06/17 18:59 06:59 18:59 Intake Total 460 400 Output Total 397 191 4855 Balance -90 850 -1275 Weight 101.7 kg Intake: Intake, IV Titration 100 Amount Sodium Ferric Gluconat- 100 Sucrose 125 mg In Sodium Chloride 0.9% 100 ml @ 100 mls/hr IVPB DAILY [facility] Rx#:[id number] Oral 360 400 Output: Urine 850 1375 Post Void Residual 550 300 Other: # Voids 1 - Exam No acute distress, oriented 3. Nasal O2 in place. HEENT examination is grossly unremarkable. Mucous membranes are moist. Nasal O2 noted. Neck supple. Full range of motion. No adenopathy or thyromegaly. Cardiovascular examination reveals regular rhythm rate. S1-S2 normal. No S3- S4 or murmur. Lungs reveal some bibasilar crackles. Worse on the left than on the right. A few scattered rhonchi. No wheezes. Abdomen soft bowel sounds are heard. Extremities are intact. Mild edema. No cyanosis or clubbing skin shows some areas of ecchymoses. Neurologic examination is brief but nonfocal. - Labs CBC & Chem 7: 08/07/17 05:50 08/07/17 05:50 Labs: Abnormal Lab Results - Last 24 Hours (Table) 08/05/17 08/05/17 08/06/17 Range/Units 19:01 20:58 06:07 Chloride (98-107) mmol/L Carbon Dioxide (22-30) mmol/L BUN (9-20) mg/dL Glucose (74-99) mg/dL POC Glucose (mg/dL) 212 H 143 H 147 H (75-99) mg/dL 08/06/17 08/06/17 Range/Units 08:38 11:42 Chloride 97 L (98-107) mmol/L Carbon Dioxide 39 H (22-30) mmol/L BUN 50 H (9-20) mg/dL Glucose 166 H (74-99) mg/dL POC Glucose (mg/dL) 184 H (75-99) mg/dL Microbiology - Last 24 Hours (Table) 07/31/17 16:58 Blood Culture - Preliminary Blood No Growth after 120 hours 08/02/17 21:00 Gram Stain - Final Sputum Sputum Culture - Final Assessment and Plan Plan: Impression: #1 Acute exacerbation of diastolic congestive heart failure with acute pulmonary edema. #2 Aortic stenosis. #3 Acute exacerbation of chronic obstructive pulmonary disease. #4 Acute on chronic hypoxic respiratory failure secondary to above. #5 Diabetes mellitus. #6 History of gastrointestinal bleeding. #7 Hypertension. #8 Hyperlipidemia. #9 Chronic atrial fibrillation. #10 Chronic peripheral edema. #11 Aortic stenosis. Plan: The patient was seen and evaluated by Dr. Garcia. His chest x-ray and labs were reviewed. He still and some mild fluid volume overload. We'll continue with his current medications. We'll increase his activity as tolerated. We'll continue to follow.
--- NOTE | 2017-08-07 14:47 | P.PN ---
Subjective This is a pleasant 72-year-old gentleman who has a history of diastolic congestive heart failure, aortic valve disease, oxygen dependent chronic obstructive pulmonary disease. He was made in the 07/31/2017 with acute exacerbation of diastolic congestive heart failure. He is seen again today August 06 in follow-up on the selective care unit. He is awake and alert in no acute distress. He is breathing better today as compared to yesterday. He is maintaining good O2 saturations in the upper 90s on 3 L/m per nasal cannula. He's been hemodynamically stable. He continues to be diuresed with Lasix 40 mg IV push every 8 hours. Cardiology is on as well. Chest x-rays continues to show some congestive heart failure and possible right lower lobe infiltrate. Patient is seen again today 08/07/2017 in follow-up on the selective care unit. He is currently awake and alert in no acute distress. He is breathing easier today as compared to yesterday but still not quite back to his baseline. He is maintaining good O2 saturations in the upper 90s on 3 L/m per nasal cannula. He 's been afebrile. Hemodynamically stable. Blood urine and sputum cultures reveal no growth. No leukocytosis. Hemoglobin 9.4. Platelet count 89,000. Objective - Vital Signs Vital signs: Vital Signs Temp 96.3 F L 08/07/17 11:25 Pulse 100 08/07/17 14:00 Resp 20 08/07/17 11:25 BP 118/63 08/07/17 11:25 Pulse Ox 97 08/07/17 11:25 Intake & Output 08/06/17 08/07/17 08/07/17 18:59 06:59 18:59 Intake Total 636 380 Output Total 2222 1650 675 Balance -9617 -5040 -554 Weight 102.1 kg 102.1 kg Intake: Oral 636 380 Output: Urine 1925 1400 675 Post Void Residual 300 250 Other: Voiding Method Urinal # Voids 1 - Exam No acute distress, oriented 3. Nasal O2 in place. HEENT examination is grossly unremarkable. Mucous membranes are moist. Nasal O2 noted. Neck supple. Full range of motion. No adenopathy or thyromegaly. Cardiovascular examination reveals regular rhythm rate. S1-S2 normal. No S3- S4 or murmur. Lungs reveal some bibasilar crackles. Worse on the left than on the right. A few scattered rhonchi. No wheezes. Abdomen soft bowel sounds are heard. Extremities are intact. Mild edema. No cyanosis or clubbing skin shows some areas of ecchymoses. Neurologic examination is brief but nonfocal. - Labs CBC & Chem 7: 08/07/17 05:50 08/07/17 05:50 Labs: Abnormal Lab Results - Last 24 Hours (Table) 08/06/17 08/06/17 08/07/17 Range/Units 16:35 20:52 05:47 RBC (4.30-5.90) m/uL Hgb (13.0-17.5) gm/dL Hct (39.0-53.0) % MCHC (31.0-37.0) g/dL RDW (11.5-15.5) % Plt Count (150-450) k/uL Lymphocytes # (1.0-4.8) k/uL Chloride (98-107) mmol/L Carbon Dioxide (22-30) mmol/L BUN (9-20) mg/dL Glucose (74-99) mg/dL POC Glucose (mg/dL) 295 H 237 H 145 H (75-99) mg/dL 08/07/17 08/07/17 08/07/17 Range/Units 05:50 05:50 11:45 RBC 3.48 L (4.30-5.90) m/uL Hgb 9.4 L (13.0-17.5) gm/dL Hct 30.6 L (39.0-53.0) % MCHC 30.7 L (31.0-37.0) g/dL RDW 17.5 H (11.5-15.5) % Plt Count 89 L (150-450) k/uL Lymphocytes # 0.7 L (1.0-4.8) k/uL Chloride 95 L (98-107) mmol/L Carbon Dioxide 37 H (22-30) mmol/L BUN 46 H (9-20) mg/dL Glucose 135 H (74-99) mg/dL POC Glucose (mg/dL) 170 H (75-99) mg/dL Microbiology - Last 24 Hours (Table) 07/31/17 16:58 Blood Culture - Final Blood No Growth after 144 hours Assessment and Plan Plan: Impression: #1 Acute exacerbation of diastolic congestive heart failure with acute pulmonary edema. #2 Aortic stenosis. #3 Acute exacerbation of chronic obstructive pulmonary disease. #4 Acute on chronic hypoxic respiratory failure secondary to above. #5 Diabetes mellitus. #6 History of gastrointestinal bleeding. #7 Hypertension. #8 Hyperlipidemia. #9 Chronic atrial fibrillation. #10 Chronic peripheral edema. #11 Aortic stenosis. Plan: The patient was seen and evaluated by Dr. Garcia. He still and some mild fluid volume overload on most recent chest x-ray. The patient is still on IV Lasix 60 mg every 8 hours. He remains in a negative balance. We'll continue with his current medications. We'll increase his activity as tolerated. We'll continue to follow.
[2017-08-07 16:51] LABS: Glucose,Whole Blood 127 mg/dL (75-99)
[2017-08-07] MEDS: SODIUM FERRIC GLUCONAT-SUCROSE 125 MG in SODIUM CHLORIDE 0.9% 100 ML IVPB SCH (17:34)
[2017-08-07] MEDS: ATORVASTATIN 20 MG TAB PO SCH (19:52)
[2017-08-07 21:02] LABS: Glucose,Whole Blood 162 mg/dL (75-99)
[2017-08-07] MEDS: INSULIN GLARGINE 100 UNIT/ML 10 ML VIAL SQ SCH (21:41)
[2017-08-08] MEDS: FUROSEMIDE 10 MG/ML 10 ML VIAL IV SCH ×2 (00:01→09:03)
[2017-08-08 05:41] LABS: Glucose,Whole Blood 157 mg/dL (75-99)
[2017-08-08 06:19] LABS: Anion Gap 8 mmol/L; Blood Urea Nitrogen 40 mg/dL (9-20); Calcium 9.2 mg/dL (8.4-10.2); Chloride 92 mmol/L (98-107); Glucose 169 mg/dL (74-99); Magnesium 1.8 mg/dL (1.6-2.3); Non-African American GFR(MDRD) >60 (>60 ml/min/1.73 sqM); Potassium 3.6 mmol/L (3.5-5.1); Sodium 140 mmol/L (137-145)
[2017-08-08 06:24] LABS: Carbon Dioxide 40 mmol/L (22-30)
[2017-08-08] MEDS: INSULIN LISPRO (humaLOG) 300 UNIT/3 ML VIAL SQ SCH ×2 (06:57→06:58)
[2017-08-08] MEDS: ALLOPURINOL 300 MG TAB PO SCH (06:57)
--- NOTE | 2017-08-08 06:57 | CONS ---
CONSULTATION DATE OF CONSULTATION: 08/07/2017 REASON FOR CONSULTATION: Epistaxis. HISTORY OF PRESENT ILLNESS: This patient is a 72-year-old male who was admitted to [facility] through the emergency room on 07/31/2017 with a diagnosis of congestive heart failure. The patient was placed on supplemental oxygen using a nasal cannula. Apparently initially an oxygen mask was placed on the patient, but the patient did not tolerate this very well and therefore it was switched to nasal cannula. The patient states that on the night of 08/06/2017 he experienced nasal bleeding. I was contacted at 5:45 am on 08/07/2017 and advised that a consultation had been put in for this patient because of the bleeding. At the time that I saw the patient in his room, he was not actively bleeding. The nursing staff had apparently put a gauze packing in the left nostril and this had stopped the bleeding somewhat. The patient eventually removed the gauze packing and inserted Kleenex in his nose. I advised the patient not to put Kleenex in his nose. He has a history of bleeding elsewhere namely GI bleeds. He is not on any anticoagulants or aspirin. In fact the patient is allergic to ASPIRIN. I have seen the patient in my office in the past for the exact same problem. PAST MEDICAL HISTORY: Past medical history reveals the patient has allergies to LINCOMYCIN, DARVON COMPOUND and also ASPIRIN. His current medications include Spiriva, Zocor, ProAmatine, Toprol, Lantus insulin, Humalog insulin, [place] 5/325, zyloprim and Symbicort. REVIEW OF SYSTEMS: Review of systems reveals the cardiovascular system is positive for hypertension. Respiratory is positive for COPD. Gastrointestinal is negative. Metabolic endocrine is positive for type 1 diabetes mellitus and hypercholesterolemia. Musculoskeletal is positive for osteoarthritis and gout. Neurological and the remainder of the review of systems is essentially unremarkable. PHYSICAL EXAMINATION: This patient is a 72-year-old male, who is alert and cooperative and is not actively bleeding. HEENT EXAMINATION: Patient is normocephalic. Tympanic membranes are normal. Middle ear spaces are free of any fluid or infection. Pupils equal, round, react to light and accommodation. Intranasal examination of the right and left nares reveals no active bleeding, but there are several previous bleeding sites noted on the anterior and mid septum on the left side of the nose. These areas have clotted over and are not actively bleeding. Therefore they were not disturbed, that is to say they were cauterized because this would only make a larger hole and start the patient bleeding again. Examination of the oropharynx is unremarkable. There was no evidence any bleeding down the posterior pharyngeal wall. Palpation of the neck, cranial nerves 2 through 12 and remainder of the head and neck exam is unremarkable. CHEST/CARDIOVASCULAR: Left lung field is clear to percussion and auscultation. Right lung field shows scattered rales and rhonchi on the upper and lower pope of the lung. The patient is in regular sinus rhythm. S1 and S2 are present. No evidence of murmurs, S3s or S4s. The remainder of the physical exam is unremarkable. IMPRESSION: Left anterior epistaxis, etiology possibly secondary to trauma from nasal cannula. PLAN: I am going to discontinue the patient's nasal cannula which the patient prefers over the mask and instead order an oxygen tent. This will sit on the patient's chest and supply him with O2 and humidity and not put any pressure on his nose. I did not cauterize the patient's nose because this would simply make the present hole larger and cause bleeding and I would prefer not to further traumatize the nose either by cauterizing it or by inserting any formal packing. Certainly this patient would not tolerate a nasal balloon and I doubt if he would tolerate insertion of nasal tampons. Therefore I will order that the patient receive Afrin nasal spray 2 or 3 puffs in each naris 3 times daily. This should keep the blood vessels vasoconstricted. I doubt if he will absorb a significant amount to have any effect on his blood pressure. This will give the small offending blood vessels time to thrombose and stop bleeding permanently. I will continue to follow this patient with you while he is in the hospital. If I could be of any further assistance, please feel free to call my office. MMODL / IJN: [id number] /
[2017-08-08] MEDS: LEVALBUTEROL NEB 1.25 MG/3 ML AMP INHALATION SCH (08:14)
[2017-08-08] MEDS: SYMBICORT 160-4.5 MCG INHALER INHALATION SCH (08:16)
[2017-08-08] MEDS: TIOTROPIUM 18 MCG/PUFF INHALER INHALATION SCH (08:34)
[2017-08-08] MEDS: METOPROLOL SUCCINATE (ER) 25 MG TAB.ER.24H PO SCH (09:02)
[2017-08-08] MEDS: DOCUSATE 100 MG CAP PO SCH (09:02)
[2017-08-08] MEDS: FAMOTIDINE 20 MG TAB PO SCH (09:03)
[2017-08-08] MEDS: HYDROCORTISONE SUCCINATE 100 MG/2 ML VIAL IV SCH (09:03)
[2017-08-08] MEDS: OXYMETAZOLINE 0.05% NASL SPRAY 1 SPRAY BOTTLE NASAL SCH (09:03)
[2017-08-08 10:08] VITALS: BP 113/64; PULSE 101; TEMP 96.8
--- NOTE | 2017-08-08 10:18 | P.PN ---
Subjective Principal diagnosis: Congestive heart failure This is a pleasant 72-year-old gentleman with known history of aortic stenosis, COPD, pulmonary hypertension, diastolic congestive heart failure who presented to the hospital with symptoms of progressively worsening shortness of breath. Currently being treated for diastolic congestive heart failure. Patient continues to be on IV Lasix 40 mg every 8 hours, his weight today is down 1 kg. Weight blood cell count 2.6, hemoglobin 8.8, platelet count 99. BUN 62, creatinine 1.2. Potassium 4.4. Chest x-ray performed today report is yet pending. Overall patient states that he does feel his breathing is improving. 08/06/2017 Patient seen and examined this morning, states he is feeling much better today overall. Weight is down 2 kg today. Continues to be on IV Lasix. BUN 50 today , creatinine 1.1. Potassium 4.2. Blood pressure 106/68, heart rate in the low 100s. Oxygen saturation 96% on 3 L. He has been encouraged to be up in a chair today. 2016 Patient seen and examined this morning, overall feeling much better today. Continues to have epistaxis, ENT consulted. Continues to put out good urine. Hemoglobin 9.4, platelet count is 89. Creatinine 1.05, potassium 3.9. Plans are being made for potential discharge home in the morning. 08/08/2017 Patient seen and examined this morning, eager to be discharged home today. No further epistaxis. Potassium 3.6, BUN 40, creatinine 1.0. His weight is down 1 kg today. Objective - Vital Signs Vital signs: Vital Signs Temp 96.8 F L 08/08/17 09:03 Pulse 101 H 08/08/17 09:03 Resp 20 08/08/17 09:03 BP 113/64 08/08/17 09:03 Pulse Ox 95 08/08/17 09:03 Intake & Output 08/07/17 08/08/17 08/08/17 18:59 06:59 18:59 Intake Total 560 240 Output Total 1100 925 200 Balance -540 -925 40 Weight 102.1 kg 101.7 kg Intake: Oral 560 240 Output: Urine 1100 925 200 Other: Voiding Method Urinal Urinal - Exam PHYSICAL EXAMINATION: HEENT: Head is atraumatic, normocephalic. Pupils equal, round. Neck is supple. There is no elevated jugular venous pressure. HEART EXAMINATION: S1 and S2 irregularly irregular a systolic murmur is heard. CHEST EXAMINATION: Lungs reveal improvement in air exchange bilaterally with persistent crackles to bilateral bases. ABDOMEN: Soft, nontender. Bowel sounds are heard. No organomegaly noted. EXTREMITIES:[ 1+ peripheral pulses with improvement in peripheral edema bilateral Vasu wraps in place. NEUROLOGIC patient is awake, alert and oriented -3. . - Labs CBC & Chem 7: 08/07/17 05:50 08/08/17 05:45 Labs: Abnormal Lab Results - Last 24 Hours (Table) 08/06/17 08/07/17 08/07/17 Range/Units 16:35 11:45 16:46 Chloride (98-107) mmol/L Carbon Dioxide (22-30) mmol/L BUN (9-20) mg/dL Glucose (74-99) mg/dL POC Glucose (mg/dL) 295 H 170 H 127 H (75-99) mg/dL 08/07/17 08/08/17 08/08/17 Range/Units 21:00 05:38 05:45 Chloride 92 L (98-107) mmol/L Carbon Dioxide 40 H* (22-30) mmol/L BUN 40 H (9-20) mg/dL Glucose 169 H (74-99) mg/dL POC Glucose (mg/dL) 162 H 157 H (75-99) mg/dL Assessment and Plan (1) Diastolic CHF, acute on chronic Status: Acute (2) Aortic stenosis Status: Acute (3) COPD (chronic obstructive pulmonary disease) Status: Acute (4) Diabetes Status: Acute (5) HTN (hypertension) Status: Acute (6) Hyperlipemia Status: Acute (7) Paroxysmal a-fib Status: Acute (8) Vascular disease Status: Acute Plan: From cardiology's perspective, recommend to continue current therapy. Patient may be able to be discharged home today from cardiology's perspective we will make him a follow-up appointment in the office post discharge. DNP note has been reviewed, I agree with a documented findings and plan of care. Patient was seen and examined.
[2017-08-08] MEDS ORDERED: POTASSIUM CHLORIDE ER 20 MEQ TAB.ER PO STA (10:25)
--- NOTE | 2017-08-08 10:29 | P.DS ---
Providers Date of admission: 07/31/17 20:12 Expected date of discharge: 08/08/17 Attending physician: Ana Morel Consults: 07/31/17 20:13 Consult Physician Routine Consulting Provider: Lucas Zhou Consult Reason/Comments: pulmonary edema, heart failure Do you want consulting provider notified?: Yes 08/02/17 07:54 Consult Physician Routine Consulting Provider: Qing Everett Consult Reason/Comments: Acute kidney injury/Chronic renal failure Do you want consulting provider notified?: Yes 08/07/17 05:52 Consult Physician Routine Consulting Provider: Franklyn Trevino Consult Reason/Comments: nosebleed Do you want consulting provider notified?: Yes Primary care physician: Nuno Khan [facility] Course: This is a 70-year-old male one of Dr. Bill Almeida with a previous medical history significant for hypertension and hypertensive cardio vascular disease, hyperlipidemia, history of CVA/TIA, chronic atrial fibrillation, chronic diastolic heart failure, gout, chronic obstructive pulmonary disease , He had multiple admissions from our facility secondary to diastolic CHF exacerbation and edema, he was recently discharged from our facility 06/25/2017 again another admission 05/02/2017. Apparently he was recently discharged from [facility] and he was barely 4 days at home when he started having shortness of breath edema PND of 1 day duration. Apparently some of the medications were changed during his [facility] admission, patient was compliant with medications, and diet, he cannot tolerate compression stockings on the lower extremity, he has some Vasu wrap in the house which he has not been using He has significant moderate aortic stenosis, severe pulmonary hypertension chronic atrial fibrillation not a candidate for long-term anticoagulation. He also complains off yellow productive cough no fever no chills no chest pain no lightheadedness no dizziness nor orthostasis he has urinary frequency Last echocardiogram 06/20/2017 showed moderate tricuspid regurgitation and severe pulmonary hypertension RSVP 62 EF 55-60% aortic valve thickening with moderate aortic stenosis. Patient had a sleep study performed also according to him he passed his sleep study report Patient presents to emergency room with acute on chronic diastolic CHF exacerbation and edema, and this in consultation by Dr. Meza from pulmonary and consult cardiology 08/02: Patient's shortness of breath hasn't changed, creatinine has risen to 2.1 from previous of 1.2, Dr. Everett consulted, blood pressure in the low 90s, which is new Lasix on hold, Primatene increased to 10 mg 3 times a day from 10 twice a day lisinopril on hold, patient with +1 edema, no Vasu wrap. Patient had epistaxis, controlled with local compression heparin was discontinued, ultrasound of kidneys is requested and current pending. 08/03: Patient is clinically unchanged, creatinine got worse, also with azotemia , hydrocortisone started, Lasix is to resume at 40 mg every 12 hours, blood pressure still labile, postvoid residual is less than 200 mL, no hydronephrosis on kidney ultrasound. Prescription for hospital bed for home use left in the chart patient sleeps recliner mainly, multiple admissions with CHF: 08/04: The patient was seen and evaluated today. Patient's blood pressure remains stable 100/57 with a heart rate of 85. Repeat chest x-ray today shows new near complete opacification of left hemithorax, moderate pulmonary vascular congestion, persistent moderate pulmonary edema and small left pleural effusion. Lasix was decreased from every 8 hours to every 12 hours due to increased creatinine, creatinine has improved today to 1.4. Will continue current dose of IV Lasix and repeat chest x-ray tomorrow. 08/05: Patient was seen and evaluated, he was noted to be resting comfortably in bed. Reports shortness of breath has improved slightly. The patient was consulted by nephrology yesterday and noted to have a low cortisol level. He was started on hydrocortisone. Creatinine has improved slightly from 1.4-1.29 Repeat chest x-ray still pending. 08/06: Patient had a repeat chest x-ray that shows some improvement compared to his prior exam. He is down 2 kg today. Patient's creatinine 1.29, his baseline is about 1.2. Hypotension did improve with hydrocortisone. Nephrology is recommending ACTH stimulation test without steroids possibly to be done on outpatient basis to assess for adrenal insufficiency. Sputum cultures are negative, blood cultures show no growth to date. Overall symptoms are improving. 08/07: Patient seen and evaluated today. He's still noted to have some mild fluid overload on the repeat chest x-ray. He was seen and consulted by nephrology, Lasix was increased to 60 mg every 8 hours, plan is to wean off of steroids, kidney function is improving, BUN 46, Cr 1.05. Repeat hemoglobin 9.4 platelet count is 89. He also received a second dose of Ferrlecit 125mg. Last night he developed epistaxis, nasal packing applied, was still noted to have some bleeding. ENT is consulted, may need cauterized. 08/08: The patient was consulted yesterday by ENT, patient did not need cautery to the nose, the patient's nasal cannula was discontinued, a mask was initiated for O2 therapy. Afrin nasal spray was ordered to keep the blood vessels vasoconstricted. Currently the patient has not had any further episodes of epistaxis. Today the patient reports his breathing has improved significantly, x-rays still show that he has some mild fluid overload. Patient's creatinine has improved significantly, last level drawn was 1.0, BUN remains high at 40. Patient's lower extremity edema has also significantly improved. He'll be discharged today with follow-up with primary care provider and cardiology within the next 1-2 days. Discharge diagnoses 1. Acute on chronic diastolic heart failure 2. COPD 3 Hypertension and hypertensive cardiovascular disease 4. Diabetes mellitus type 2 5. Bicytopenia with thrombocytopenia and chronic anemia 6. Pulmonary hypertension 7. Moderate aortic stenosis 8. Hyperlipidemia 9. History of gout 10. History of CVA and TIA 11. Chronic hypoxic respiratory failure with home O2 dependence 12. Autonomic dysfunction 13. Acute kidney failure, CKD stage III 14. Hypotension most likely secondary to hypovolemia from diuretics 15. Epistaxis The above impression and plan of care have been discussed and directed by signing physician. Katie Gonzáles nurse practitioner acting as scribe for signing physician. Patient Condition at Discharge: Stable Plan - Discharge Summary New Discharge Prescriptions: New Docusate [Colace] 200 mg PO DAILY cap Levalbuterol Nebulized [Xopenex Nebulized] 1.25 mg INHALATION RT-TID #90 ml Metoprolol Succinate (ER) [Toprol XL] 25 mg PO DAILY #30 tab Oxymetazoline 0.05% Nasl [place] [Afrin 0.05% Nasal [place]] 3 spray NASAL TID bottle Continue Simvastatin [Zocor] 40 mg PO HS Budesonide-Formot 160-4.5 Mcg [Symbicort 160-4.5 Mcg Inhaler] 2 puff INHALATION RT-BID #1 puff HYDROcodone/APAP 5-325MG [[place] 5-325] 1 tab PO Q4H PRN PRN Reason: Pain Omeprazole [PriLOSEC] 40 mg PO -[facility] [[email or web address]] Insulin Glargine [Lantus] 30 unit SQ HS INSULIN LISPRO (HumaLOG) [humaLOG] See Protocol [facility] Ergocalciferol [Vitamin D2 (DRISDOL)] 50,000 unit PO SA Bumetanide [BUMEX] 2 mg PO BID Allopurinol [Zyloprim] 300 mg PO [facility] Tiotropium [place] [Spiriva Respimat] 1 puff INHALATION RT-DAILY Changed Midodrine HCl [ProAmatine] 5 mg PO BID #0 Discontinued Metoprolol Succinate (ER) [Toprol XL] 50 mg PO DAILY Calcitriol [Rocaltrol] 0.25 mcg PO DAILY Discharge Medication List Simvastatin [Zocor] 40 mg PO 11/23/14 [History] Budesonide-Formot 160-4.5 Mcg [Symbicort 160-4.5 Mcg Inhaler] 2 puff INHALATION RT-BID #1 puff 12/11/14 [Rx] HYDROcodone/APAP 5-325MG [[place] 5-325] 1 tab PO Q4H PRN 06/13/17 [History] Allopurinol [Zyloprim] 300 mg PO [facility] 07/31/17 [History] Bumetanide [BUMEX] 2 mg PO BID 07/31/17 [History] Ergocalciferol [Vitamin D2 (DRISDOL)] 50,000 unit PO SA 07/31/17 [History] INSULIN LISPRO (HumaLOG) [humaLOG] See Protocol [facility] 07/31/17 [History] Insulin Glargine [Lantus] 30 unit SQ HS 07/31/17 [History] Omeprazole [PriLOSEC] 40 mg [facility] 07/31/17 [History] Tiotropium [place] [Spiriva Respimat] 1 puff INHALATION RT-DAILY 07/31/17 [ History] Docusate [Colace] 200 mg PO DAILY cap 08/08/17 [Rx] Levalbuterol Nebulized [Xopenex Nebulized] 1.25 mg INHALATION RT-TID #90 ml [Rx] Metoprolol Succinate (ER) [Toprol XL] 25 mg PO DAILY #30 tab 08/08/17 [Rx] Midodrine HCl [ProAmatine] 5 mg PO BID #0 08/08/17 [Rx] Oxymetazoline 0.05% Nasl [place] [Afrin 0.05% Nasal [place]] 3 spray NASAL TID bottle 08/08/17 [Rx] Follow up Appointment(s)/Referral(s): Reji Berry MD [STAFF PHYSICIAN] - 08/18/17 10:00 am Nuno Khan MD [Primary Care Provider] - 1-2 days (Please call to make an appointment during normal business hours.) Maris Cerda MD [STAFF PHYSICIAN] - 08/18/17 2:30 pm Patient Instructions/Handouts: Heart Failure (DC) Activity/Diet/Wound Care/Special Instructions: Residential home care: #[phone] Hospital bed ordered through [facility] #[phone] Discharge Disposition: HOME WITH HOME HEALTH SERVICES
--- NOTE | 2017-08-08 10:33 | P.PN ---
Subjective Patient seen in follow-up for acute kidney injury and chronic kidney disease. Renal function is improved with creatinine down to 1.00 today. Patient does have diastolic CHF with severe pulmonary hypertension. Dyspnea has improved. Weight coming down. Oral intake is fair. No vomiting or diarrhea. Remains nonoliguric. Overall the patient feels better. Bicarb level is up to 40 today. Vital signs are stable. General: The patient appeared well nourished and normally developed. HEENT: Head exam is unremarkable. Neck is without jugular venous distension. LUNGS: Lungs are clear to auscultation and percussion. Breath sounds decreased. HEART: Rate and Rhythm are regular. First and second heart sounds normal. No murmurs, rubs or gallops. ABDOMEN: Abdominal exam reveals normal bowel sounds. Non-tender and non- distended. No evidence of peritonitis. EXTREMITITES: Trace edema. Objective - Vital Signs Vital signs: Vital Signs Temp 96.8 F L 08/08/17 09:03 Pulse 101 H 08/08/17 09:03 Resp 20 08/08/17 09:03 BP 113/64 08/08/17 09:03 Pulse Ox 95 08/08/17 09:03 Intake & Output 08/07/17 08/08/17 08/08/17 18:59 06:59 18:59 Intake Total 560 240 Output Total 1100 925 200 Balance -540 -925 40 Weight 102.1 kg 101.7 kg Intake: Oral 560 240 Output: Urine 1100 925 200 Other: Voiding Method Urinal Urinal - Labs CBC & Chem 7: 08/07/17 05:50 08/08/17 05:45 Labs: Abnormal Lab Results - Last 24 Hours (Table) 08/06/17 08/07/17 08/07/17 Range/Units 16:35 11:45 16:46 Chloride (98-107) mmol/L Carbon Dioxide (22-30) mmol/L BUN (9-20) mg/dL Glucose (74-99) mg/dL POC Glucose (mg/dL) 295 H 170 H 127 H (75-99) mg/dL 08/07/17 08/08/17 08/08/17 Range/Units 21:00 05:38 05:45 Chloride 92 L (98-107) mmol/L Carbon Dioxide 40 H* (22-30) mmol/L BUN 40 H (9-20) mg/dL Glucose 169 H (74-99) mg/dL POC Glucose (mg/dL) 162 H 157 H (75-99) mg/dL Assessment and Plan Plan: Assessment: #1. Nonoliguric acute kidney injury secondary to cardiorenal syndrome. Renal function improved with creatinine down to 1.00 today. Urinalysis benign. #2. Diastolic CHF with severe pulmonary hypertension. #3. Hypotension related to his underlying cardiac status as well as some degree of adrenal insufficiency. Blood pressure has improved. #4. Chronic kidney disease stage III with baseline creatinine in the range of 1 -1.2 secondary to nephrosclerosis and cardiorenal syndrome. #5. Metabolic alkalosis secondary to diuresis. #6. Volume overload. Improving. #7. Anemia with iron deficiency. Plan: Discontinue Lasix. Maintain low salt diet. Status post 3 doses of IV iron. Wean steroids her primary recommendations. Will need outpatient endocrinology follow-up to confirm adrenal insufficiency. Repeat electrolytes in the morning. Potential discharge today. He will resume Bumex 2 mg twice daily along with 10 mEq of potassium supplementation daily. I will give him 40 mEq of potassium today as it is 3.6. He will need to get a basic metabolic panel and a magnesium level checked within 2-3 days of discharge and follow-up for this PCP next week. He will also need to follow-up with us as an outpatient in the next 2 weeks. He is advised to weigh himself daily and if he notices worsening edema or weight gain that he may increase the Bumex to 3 times daily.
--- NOTE | 2017-08-08 10:49 | P.PN ---
Subjective This is a pleasant 72-year-old gentleman who has a history of diastolic congestive heart failure, aortic valve disease, oxygen dependent chronic obstructive pulmonary disease. He was made in the 07/31/2017 with acute exacerbation of diastolic congestive heart failure. He is seen again today August 06 in follow-up on the selective care unit. He is awake and alert in no acute distress. He is breathing better today as compared to yesterday. He is maintaining good O2 saturations in the upper 90s on 3 L/m per nasal cannula. He's been hemodynamically stable. He continues to be diuresed with Lasix 40 mg IV push every 8 hours. Cardiology is on as well. Chest x-rays continues to show some congestive heart failure and possible right lower lobe infiltrate. Patient is seen again today 08/07/2017 in follow-up on the selective care unit. He is currently awake and alert in no acute distress. He is breathing easier today as compared to yesterday but still not quite back to his baseline. He is maintaining good O2 saturations in the upper 90s on 3 L/m per nasal cannula. He 's been afebrile. Hemodynamically stable. Blood urine and sputum cultures reveal no growth. No leukocytosis. Hemoglobin 9.4. Platelet count 89,000. The patient was seen and evaluated again today 08/08/2017 in follow-up on the selective care unit. He is currently sitting up at the bedside. He is awake and alert in no acute distress. He is hoping to go home today. He denies any worsening shortness of breath, cough or congestion. He does have his oxygen and nebulizer available at home. Maintaining good O2 saturations in the mid 90s on 3 L/m per nasal cannula. He is afebrile. Objective - Vital Signs Vital signs: Vital Signs Temp 96.8 F L 08/08/17 09:03 Pulse 101 H 08/08/17 09:03 Resp 20 08/08/17 09:03 BP 113/64 08/08/17 09:03 Pulse Ox 95 08/08/17 09:03 Intake & Output 08/07/17 08/08/17 08/08/17 18:59 06:59 18:59 Intake Total 560 240 Output Total 1100 925 200 Balance -540 -925 40 Weight 102.1 kg 101.7 kg Intake: Oral 560 240 Output: Urine 1100 925 200 Other: Voiding Method Urinal Urinal - Exam No acute distress, oriented 3. Nasal O2 in place. HEENT examination is grossly unremarkable. Mucous membranes are moist. Nasal O2 noted. Neck supple. Full range of motion. No adenopathy or thyromegaly. Cardiovascular examination reveals regular rhythm rate. S1-S2 normal. No S3- S4 or murmur. Lungs reveal some bibasilar crackles. Worse on the left than on the right. A few scattered rhonchi. No wheezes. Abdomen soft bowel sounds are heard. Extremities are intact. Mild edema. No cyanosis or clubbing skin shows some areas of ecchymoses. Neurologic examination is brief but nonfocal. - Labs CBC & Chem 7: 08/07/17 05:50 08/08/17 05:45 Labs: Abnormal Lab Results - Last 24 Hours (Table) 08/06/17 08/07/17 08/07/17 Range/Units 16:35 11:45 16:46 Chloride (98-107) mmol/L Carbon Dioxide (22-30) mmol/L BUN (9-20) mg/dL Glucose (74-99) mg/dL POC Glucose (mg/dL) 295 H 170 H 127 H (75-99) mg/dL 08/07/17 08/08/17 08/08/17 Range/Units 21:00 05:38 05:45 Chloride 92 L (98-107) mmol/L Carbon Dioxide 40 H* (22-30) mmol/L BUN 40 H (9-20) mg/dL Glucose 169 H (74-99) mg/dL POC Glucose (mg/dL) 162 H 157 H (75-99) mg/dL Assessment and Plan Plan: Impression: #1 Acute exacerbation of diastolic congestive heart failure with acute pulmonary edema. #2 Aortic stenosis. #3 Acute exacerbation of chronic obstructive pulmonary disease. #4 Acute on chronic hypoxic respiratory failure secondary to above. #5 Diabetes mellitus. #6 History of gastrointestinal bleeding. #7 Hypertension. #8 Hyperlipidemia. #9 Chronic atrial fibrillation. #10 Chronic peripheral edema. #11 Aortic stenosis. Plan: The patient was seen and evaluated by Dr. Garcia. He still and some mild fluid volume overload on most recent chest x-ray. The patient is still on IV Lasix 60 mg every 8 hours. He remains in a negative balance. We'll continue with his current medications. We'll increase his activity as tolerated. We'll continue to follow. I performed a history and physical examination of the patient and discussed the management with Kezia Felipe, our nurse practitioner. I reviewed her notes and agree with the documented findings and plan of care. The patient's lung sounds are clear, diminished.
== END 2017-08-08 11:18 | disposition home health service (06) | DRG 291 ==
LOC: EC 16:56 → 6SEL 20:12
PROVIDERS: ADMIT Family Medicine; ATTEND Family Medicine
DX: I13.0 Hypertensive heart and chronic kidney disease with heart failure and stage 1 through stage 4 chronic kidney disease, or unspecified chronic kidney disease (principal); I50.33 Acute on chronic diastolic (congestive) heart failure; N17.9 Acute kidney failure, unspecified; J96.11 Chronic respiratory failure with hypoxia; E87.3 Alkalosis; E86.1 Hypovolemia; K29.71 Gastritis, unspecified, with bleeding; D69.6 Thrombocytopenia, unspecified; N18.3 Chronic kidney disease, stage 3 (moderate); E27.40 Unspecified adrenocortical insufficiency; I27.2 Other secondary pulmonary hypertension; E11.22 Type 2 diabetes mellitus with diabetic chronic kidney disease; I27.81 Cor pulmonale (chronic); Z99.81 Dependence on supplemental oxygen; I48.0 Paroxysmal atrial fibrillation; I34.0 Nonrheumatic mitral (valve) insufficiency; I95.2 Hypotension due to drugs; I35.0 Nonrheumatic aortic (valve) stenosis; J44.9 Chronic obstructive pulmonary disease, unspecified; E11.51 Type 2 diabetes mellitus with diabetic peripheral angiopathy without gangrene; D50.9 Iron deficiency anemia, unspecified; T50.2X5A Adverse effect of carbonic-anhydrase inhibitors, benzothiadiazides and other diuretics, initial encounter; I36.1 Nonrheumatic tricuspid (valve) insufficiency; I48.2 Chronic atrial fibrillation; H91.90 Unspecified hearing loss, unspecified ear; E78.5 Hyperlipidemia, unspecified; M10.9 Gout, unspecified; R04.0 Epistaxis; E66.9 Obesity, unspecified; I25.2 Old myocardial infarction; R91.8 Other nonspecific abnormal finding of lung field; R76.11 Nonspecific reaction to tuberculin skin test without active tuberculosis; M19.90 Unspecified osteoarthritis, unspecified site; Z86.73 Personal history of transient ischemic attack (TIA), and cerebral infarction without residual deficits; Z79.899 Other long term (current) drug therapy; Z88.6 Allergy status to analgesic agent; Z79.51 Long term (current) use of inhaled steroids; Z79.4 Long term (current) use of insulin; Z82.49 Family history of ischemic heart disease and other diseases of the circulatory system; Z86.14 Personal history of Methicillin resistant Staphylococcus aureus infection; Z87.891 Personal history of nicotine dependence; Z87.01 Personal history of pneumonia (recurrent); Z71.3 Dietary counseling and surveillance; Z87.19 Personal history of other diseases of the digestive system; Z88.1 Allergy status to other antibiotic agents; Z88.5 Allergy status to narcotic agent; Z86.19 Personal history of other infectious and parasitic diseases; Z87.09 Personal history of other diseases of the respiratory system; Z79.891 Long term (current) use of opiate analgesic; Z80.9 Family history of malignant neoplasm, unspecified; Z83.1 Family history of other infectious and parasitic diseases; Z90.49 Acquired absence of other specified parts of digestive tract; Z91.19 Patient's noncompliance with other medical treatment and regimen
CPT/HCPCS: 36415; 71010; 71020; 76770; 80048; 80053; 81003; 82533; 83036; 83540; 83550; 83605; 83735; 83880; 84443; 84484; 85025; 85379; 85610; 85730; 87040; 87070; 87086; 87205; 93005; 94640; 94760; 96365; 96375; 99291